=== PATIENT | male | born 1960 | race African-American/Black ===

== ENCOUNTER 2016-06-17 09:09 | Inpatient (IN) | payer OTHER ==
[~2016-06-17] VITALS: Ht 180.3 cm; Wt 103.2 kg
[2016-06-17] VITALS (7 sets, daily range): BP systolic 111–142; BP diastolic 71–80; PULSE 55–77; RESP 14–22; TEMP 96.7–98.4; O2SAT 95–100
[~2016-06-17 09:09] MED LIST: ACET300T2 PO; AMIO200T PO; ASPI81TA11 PO; EDOX1TAB5 PO; FURO20TA PO; LIPI40TA PO; LISI-519 PO; METF1000 PO; METO25TA3 PO; MULT1TAB84 PO
[2016-06-17] MEDS ORDERED: FUROSEMIDE 40 MG/4 ML VIAL IV PUSH ONE (10:00)
--- NOTE | 2016-06-17 10:02 | PD ---
HPI Chief Complaint: Edema Time Seen by Provider: 09:58 Travel History International Travel<30 days: No Contact w/Intl Traveler<30days: No Traveled to known affect area: No History of Present Illness HPI 55-year-old male with history of CHF, presents to the ER today sent in by his primary care physician, apparently has been having worsening edema the legs and going up to the scrotal areas, getting dyspnea on exertion. He was sent because of worsening scrotal edema and concerns of whether there is an underlying hernia versus significant scrotal fluid and edema with note from his primary care physician for chest x-ray and scrotal ultrasound. He denies any fevers or any other issues. Modifying Factors: None Associated Signs & Symptoms: Worsening leg and scrotal edema, dyspnea on exertion Risk Factors: CHF history PFSH Past Medical History Hx Anticoagulant Therapy: Yes (CUMIDIN) Arthritis: No Asthma: No Atrial Fibrillation: Yes Anxiety: No Depression: No Heart Rhythm Problems: No Cancer: No Cardiac Catheterization: Yes Cardiovascular Problems: Yes (PACER ) High Cholesterol: No Chest Pain: Yes (2007) COPD: No Cerebrovascular Accident: No Coronary Artery Disease: Yes Diabetes: Yes (TYPE II) Patient Takes Glucophage: Yes (METFORMIN BUT HASN'T TAKEN IT LATELY) Diminished Hearing: No Endocrine: Yes Gastrointestinal Disorders: No GERD: No Genitourinary: No Headaches: Yes (OCCASIONAL) Hiatal Hernia: No Heparin Induced Thrombocytopen: No Hypertension: Yes Immune Disorder: No Implanted Vascular Access Dvce: No Kidney Stones: No Musculoskeletal: No Neurologic: No Psychiatric: No Reproductive: No Respiratory: No Immunizations Current: Yes Migraines: No Myocardial Infarction: Yes Renal Failure: No Seizures: No Sickle Cell Disease: No Sleep Apnea: No Ulcer: No Past Surgical History Abdominal Surgery: No AICD: No Arteriovenous Shunt: No Cardiac Surgery: Yes (ANGIOPLASTY 2008, ABLASION) Ear Surgery: No Endocrine Surgery: No Eye Surgery: No Genitourinary Surgery: No Insulin Pump: No Joint Replacement: No Neurologic Surgery: No Oral Surgery: No Pacemaker: Yes Thoracic Surgery: No Other Surgery: No Social History Alcohol Use: Yes (OCC) Tobacco Use: No Substance Use: No Allergies-Medications (Allergen,Severity, Reaction): Coded Allergies: No Known Allergies (Unverified , 06/16/16) Reported Meds & Prescriptions Reported Meds & Active Scripts Active Lipitor (Atorvastatin Calcium) 40 Mg Tab 40 Mg PO HS Furosemide 20 Mg Tab 20 Mg PO DAILY Metoprolol Tartrate 25 Mg Tab 25 Mg PO Q12HR Metformin (Metformin HCl) 1,000 Mg Tab 1,000 Mg PO BIDPC With meals Lisinopril 5 Mg Tab 5 Mg PO DAILY Savaysa (Edoxaban) 60 Mg Tab 60 Mg PO Q24H Amiodarone (Amiodarone HCl) 200 Mg Tab 400 Mg PO Q12HR Aspirin EC (Aspirin) 81 Mg Tabdr 81 Mg PO DAILY 90 Days Acetaminophen-Codeine 300-30 mg Tab 1 Tab PO Q6HR PRN Reported Multivitamin Adults (Multiple Vitamins W/ Minerals) 1 Tab 1 Tab PO DAILY Review of Systems Except as stated in HPI: all other systems reviewed are Neg Physical Exam Narrative GENERAL: Well-nourished, well-developed middle age -[place] male patient in no acute distress at rest. SKIN: Warm and dry. HEAD: Normocephalic. EYES: No scleral icterus. No injection or drainage. NECK: Supple, trachea midline. CARDIOVASCULAR: Regular rate and rhythm without murmurs, gallops, or rubs. RESPIRATORY: Breath sounds equal bilaterally. No accessory muscle use. GASTROINTESTINAL: Abdomen soft, non-tender, nondistended. GENITOURINARY: Significant penile and scrotal edema. Testes descended bilaterally without evidence of rotation. No lesions or erythema. MUSCULOSKELETAL: No cyanosis. But there is significant pitting edema of the legs up to the thigh area. BACK: Nontender without obvious deformity. No CVA tenderness. Data Data Last Documented VS Vital Signs Date Time Temp Pulse Resp B/P Pulse Ox O2 Delivery O2 Flow Rate FiO2 06/17/16 09:36 76 93 Room Air 06/17/16 09:19 96.7 14 Orders Complete Blood Count With Diff (06/17/16 09:52) Basic Metabolic Panel (Bmp) (06/17/16 09:52) B-Type Natriuretic Peptide (06/17/16 09:52) Us Testicles W Doppler (06/17/16 09:52) Chest, Single Ap (06/17/16 09:58) Furosemide Inj (Lasix Inj) (06/17/16 10:00) Labs Laboratory Tests Test 06/17/16 10:00 White Blood Count 5.5 TH/MM3 Red Blood Count 4.53 MIL/MM3 Hemoglobin 13.0 GM/DL Hematocrit 40.8 % Mean Corpuscular Volume 90.0 FL Mean Corpuscular Hemoglobin 28.7 PG Mean Corpuscular Hemoglobin 31.9 % Concent Red Cell Distribution Width 18.5 % Platelet Count 196 TH/MM3 Mean Platelet Volume 9.9 FL Neutrophils (%) (Auto) 70.5 % Lymphocytes (%) (Auto) 20.2 % Monocytes (%) (Auto) 7.5 % Eosinophils (%) (Auto) 1.1 % Basophils (%) (Auto) 0.7 % Neutrophils # (Auto) 3.8 TH/MM3 Lymphocytes # (Auto) 1.1 TH/MM3 Monocytes # (Auto) 0.4 TH/MM3 Eosinophils # (Auto) 0.1 TH/MM3 Basophils # (Auto) 0.0 TH/MM3 CBC Comment DIFF FINAL Differential Comment Sodium Level 138 MEQ/L Potassium Level 4.6 MEQ/L Chloride Level 106 MEQ/L Carbon Dioxide Level 21.8 MEQ/L Anion Gap 10 MEQ/L Blood Urea Nitrogen 21 MG/DL Creatinine 1.36 MG/DL Estimat Glomerular Filtration 66 ML/MIN Rate Random Glucose 161 MG/DL Calcium Level 8.8 MG/DL B-Type Natriuretic Peptide 1735 PG/ML [facility] Medical Decision Making Medical Screen Exam Complete: Yes Emergency Medical Condition: Yes Medical Record Reviewed: Yes Interpretation(s) Laboratory Tests Test 06/17/16 10:00 Mean Corpuscular Hemoglobin 31.9 % Concent (32.0-36.0) Red Cell Distribution Width 18.5 % (11.6-17.2) Neutrophils (%) (Auto) 70.5 % (16.0-70.0) Blood Urea Nitrogen 21 MG/DL (7-18) Creatinine 1.36 MG/DL (0.60-1.30) Estimat Glomerular Filtration 66 ML/MIN (>89) Rate Random Glucose 161 MG/DL (74-106) B-Type Natriuretic Peptide 1735 PG/ML (0-100) Differential Diagnosis Scrotal edema, leg edema, shortness of breathCHF exacerbation versus testicular torsion versus hernia Narrative Course Patient appears to be is in significant CHF with elevated BNP and chest x-ray findings. Patient was initiated on Lasix in the ER. Ultrasound did not show any signs of testicular torsion but is likely significant for underlying fluid edema. My plan would be to admit the patient for further treatment. The case was discussed with Dr. Cannon for admission. Diagnosis Primary Impression: Acute exacerbation of CHF (congestive heart failure) Admitting Information Admitting Physician Requests: it Daisy Otero MD Jun 17, 2016 10:02
[2016-06-17 10:24] LABS: AUTOMATED NEUTROPHIL # 3.8 TH/MM3 (1.8-7.7); BASOPHIL % 0.7 % (0.0-2.0); EOSINOPHIL # 0.1 TH/MM3 (0-0.4); EOSINOPHIL % 1.1 % (0.0-4.0); HEMATOCRIT 40.8 % (39.0-51.0); HEMO FLAGS DIFF FINAL; LYMPH % 20.2 % (9.0-44.0); LYMPHOCYTE # 1.1 TH/MM3 (1.0-4.8); MEAN CORPUSCULAR HEMOGLOBIN 28.7 PG (27.0-34.0); MEAN CORPUSCULAR HGB CONC 31.9 % (32.0-36.0); MONO % 7.5 % (0.0-8.0); NEUT % 70.5 % (16.0-70.0); PLATELET COUNT 196 TH/MM3 (150-450); RED BLOOD COUNT 4.53 MIL/MM3 (4.50-5.90); RED CELL DISTRIBUTION WIDTH 18.5 % (11.6-17.2); WHITE BLOOD COUNT 5.5 TH/MM3 (4.0-11.0)
--- NOTE | 2016-06-17 10:24 | RADRPT ---
EXAM DATE/TIME: 06/17/2016 10:16 [facility] COMPARISON: CHEST SINGLE AP, May 30, 2016, 14:00. INDICATIONS : Short of breath. MEDICAL HISTORY : None. SURGICAL HISTORY : Pacemaker. ENCOUNTER: Initial ACUITY: 1 day PAIN SCORE: 0/10 LOCATION: Bilateral chest FINDINGS: Pacemaker device is noted with control pack over the left chest. Moderate enlargement of the cardiac silhouette, slightly more pronounced than prior. Mild central vascular congestion. CONCLUSION: Cardiomegaly and vascular congestion. Alfredo Martini MD on June 17, 2016 at 10:21 Board Certified Radiologist. This report was verified electronically.
[2016-06-17 10:35] LABS: BICARBONATE 21.8 MEQ/L (21.0-32.0); POTASSIUM 4.6 MEQ/L (3.5-5.1)
--- NOTE | 2016-06-17 12:06 | RADRPT ---
EXAM DATE/TIME: 06/17/2016 10:35 [facility] COMPARISON: No previous studies available for comparison. INDICATIONS : Testicle pain. MEDICAL HISTORY : Diabetes mellitus type 2. Congestive heart failure. Anticoagulant therpay, Coumadin. SURGICAL HISTORY : Pacemaker. Angioplasty. Cardiac ablation. Cardiac catheterization. ENCOUNTER: Initial ACUITY: 1 day PAIN SCORE: 8/10 LOCATION: Bilateral testicles. MEASUREMENTS: RIGHT TESTICLE: 3.3 x 2.4 x 2.4cm LEFT TESTICLE: 3.2 x 2.1 x 2.2cm FINDINGS: RIGHT TESTICLE: Homogeneous echotexture without intra or extratesticular mass. Blood flow is symmetric and within no rmal limits. No hydrocele or varicocele. Epididymis is within normal limits. LEFT TESTICLE: Homogeneous echotexture without intra or extratesticular mass. Blood flow is symmetric and within no rmal limits. Mild varicocele. Epididymis is within normal limits. SCROTUM: Pronounced diffuse thickening of the skin and subcutaneous tissues. CONCLUSION: Pronounced thickening of the scrotal soft tissues. Testicles are unremarkable Alfredo Martini MD on June 17, 2016 at 12:02 Board Certified Radiologist. This report was verified electronically.
[2016-06-17] MEDS ORDERED: SODIUM CHLORIDE 0.9% FLUSH 5 ML FLUSH IVF PRN (12:45)
[2016-06-17] MEDS: HEPARIN SODIUM - SQ 10,000 UNITS/ML VIAL SQ SCH ×3 (13:54→21:22)
[2016-06-17] MEDS: FUROSEMIDE 40 MG/4 ML VIAL IVP SCH (18:18)
--- NOTE | 2016-06-17 18:36 | HHI.HP ---
[facility]ician LILLIAM Alva Admission Diagnosis CHF exacerbation Diagnoses: Chief Complaint: Sent from his PCP office due to worsening swelling in the legs and scrotum Travel History International Travel<30 Days: No Contact w/Intl Traveler <30 Da: No Traveled to Known Affected Are: No History of Present Illness 55 years old male with history of CHF, A. fib, diabetes mellitus, hypertension, hyperlipidemia status post pacemaker placement recently, presented with few days worsening of leg swelling and scrotal swelling along with dyspnea on exertion and orthopnea. No chest pain, patient was at his PCP office and he was sent to the hospital due to worsening anasarca. Patient reported mild left lower abdominal pain which he attributed to hernia that he is following up with his physician for. Review of Systems Other All 10 systems reviewed and was positive for what is mentioned in history of present illness otherwise negative Past Family Social History Past Medical History Hypertension Diabetes mellitus Hyperlipidemia CHF A. fib status post ablation and AICD/pacemaker Past Surgical History Pacemaker placement Allergies: Coded Allergies: No Known Allergies (Unverified , 06/16/16) Family History Reviewed noncontributory Social History Drinks occasionally alcohol no tobacco or illicit drug abuse Physical Exam Vital Signs Vital Signs Date Time Temp Pulse Resp B/P Pulse Ox O2 Delivery O2 Flow Rate FiO2 06/17/16 17:38 69 20 111/80 99 Room Air 06/17/16 15:55 74 20 117/80 98 Room Air 06/17/16 13:51 97 21 06/17/16 09:36 76 93 Room Air 06/17/16 09:19 96.7 55 14 95 Physical Exam GENERAL: This is a well-nourished, well-developed patient, in no apparent distress. SKIN: No rashes, warm and dry HEAD: Atraumatic. Normocephalic. EYES: Pupils equal round and reactive. Extraocular motions intact. No scleral icterus. ENT: Nose without bleeding, or drainage, Airway patent. NECK: Trachea midline. Supple CARDIOVASCULAR: Pacer rate and rhythm without murmurs, gallops, or rubs. RESPIRATORY: Fair air entry bilaterally. No wheezes, rales, or rhonchi. GASTROINTESTINAL: Abdomen soft, non-tender, nondistended. Positive bowel sounds MUSCULOSKELETAL: Extremities without clubbing, cyanosis, +2 pitting edema. Pedal pulses appreciated NEUROLOGICAL: Awake and alert. Moves all extremity. Normal speech.no focal neurological deficit : Positive scrotal edema Laboratory Laboratory Tests Test 06/17/16 06/17/16 10:00 15:11 White Blood Count 5.5 Red Blood Count 4.53 Hemoglobin 13.0 Hematocrit 40.8 Mean Corpuscular Volume 90.0 Mean Corpuscular Hemoglobin 28.7 Mean Corpuscular Hemoglobin 31.9 Concent Red Cell Distribution Width 18.5 Platelet Count 196 Mean Platelet Volume 9.9 Neutrophils (%) (Auto) 70.5 Lymphocytes (%) (Auto) 20.2 Monocytes (%) (Auto) 7.5 Eosinophils (%) (Auto) 1.1 Basophils (%) (Auto) 0.7 Neutrophils # (Auto) 3.8 Lymphocytes # (Auto) 1.1 Monocytes # (Auto) 0.4 Eosinophils # (Auto) 0.1 Basophils # (Auto) 0.0 CBC Comment DIFF FINAL Differential Comment Sodium Level 138 Potassium Level 4.6 Chloride Level 106 Carbon Dioxide Level 21.8 Anion Gap 10 Blood Urea Nitrogen 21 Creatinine 1.36 Estimat Glomerular Filtration 66 Rate Random Glucose 161 Calcium Level 8.8 B-Type Natriuretic Peptide 1735 Troponin I LESS THAN 0.02 Result Diagram: 06/17/16 1000 06/17/16 1000 Imaging Last Impressions Chest X-Ray 06/17/16 0958 Signed Impressions: Service Date/Time: June 10:16 - CONCLUSION: Cardiomegaly and vascular congestion. Alfredo Martini MD Scrotum Ultrasound 06/17/16 0981 Signed Impressions: Service Date/Time: June 10:35 - CONCLUSION: Pronounced thickening of the scrotal soft tissues. Testicles are unremarkable Alfredo Martini MD Assessment and Plan Assessment and Plan 55 years old male admitted with CHF exacerbation with leg and scrotal swelling/anasarca, recent TEE04/2016 EF15- 20% Elevated BNP 1735 NEY on CKD stage II worsened by CHF Hypertension Diabetes mellitus Hyperlipidemia DVT prophylaxis Plan: Admit for observation Lasix IVB twice a day Strict I/O Healthy heart diabetic diet Fluid restriction 1500 , per day Accu-Chek, insulin sliding scale, diabetic diet, diabetic education Resume home meds for the rest of the medical problem Follow BMP, BNP Heparin for DVT prophylaxis Discussed Condition With patient in ED physician Jimmy Cannon MD Jun 17, 2016 18:36
[2016-06-17] MEDS: EDOXABAN TOSYLATE 60 MG TAB PO SCH (21:21)
[2016-06-17] MEDS: AMIODARONE 200 MG TAB PO SCH (21:21)
[2016-06-17] MEDS: ATORVASTATIN 40 MG TAB PO SCH (21:21)
[2016-06-17] MEDS: SODIUM CHLORIDE 0.9% FLUSH 5 ML FLUSH IVF SCH (21:22)
[2016-06-17] MEDS: METOPROLOL TARTRATE 25 MG TAB PO SCH (21:22)
[2016-06-18] VITALS (9 sets, daily range): BP systolic 110–131; BP diastolic 63–90; PULSE 68–136; RESP 18–20; TEMP 97.2–98; O2SAT 94–100
[2016-06-18] MEDS ORDERED: KETOROLAC TROMETHAMINE 60 MG/2 ML (IM) VIAL IM ONE (00:45)
[2016-06-18] MEDS: ACETAMINOPHEN/HYDROcodone 325 MG/5 MG TAB PO PRN ×2 (03:11→20:59)
[2016-06-18] MEDS: HEPARIN SODIUM - SQ 10,000 UNITS/ML VIAL SQ SCH ×3 (06:06→21:00)
[2016-06-18 06:49] LABS: INTERNATIONAL NORMALIZED RATIO 1.7 RATIO; PROTHROMBIN TIME - PATIENT 18.9 SEC (9.8-11.6)
[2016-06-18 07:12] LABS: ALKALINE PHOSPHATASE 178 U/L (45-117); ALT (GPT) 31 U/L (12-78); ANION GAP 10 MEQ/L (5-15); AST (GOT) 43 U/L (15-37); BICARBONATE 23.1 MEQ/L (21.0-32.0); BLOOD UREA NITROGEN 20 MG/DL (7-18); CHLORIDE 106 MEQ/L (98-107); GLOMERULAR FILTRATION RATE 90 ML/MIN (>89); POTASSIUM 3.7 MEQ/L (3.5-5.1); SODIUM (NA) 139 MEQ/L (136-145); TOTAL BILIRUBIN ADULT 1.2 MG/DL (0.2-1.0)
[2016-06-18] MEDS: SODIUM CHLORIDE 0.9% FLUSH 5 ML FLUSH IVF SCH ×2 (09:00→21:00)
[2016-06-18] MEDS: AMIODARONE 200 MG TAB PO SCH ×2 (09:25→20:58)
[2016-06-18] MEDS: FUROSEMIDE 40 MG/4 ML VIAL IVP SCH ×2 (09:25→17:32)
[2016-06-18] MEDS: METOPROLOL TARTRATE 25 MG TAB PO SCH ×2 (09:25→20:59)
[2016-06-18] MEDS: ASPIRIN EC 81 MG TABEC PO SCH (09:25)
[2016-06-18] MEDS: LISINOPRIL 5 MG TAB PO SCH (09:25)
--- NOTE | 2016-06-18 13:37 | HHI.PR ---
Subjective Remarks patient sitting on the edge of the bed, afebrile no chest pain, still having scrotal swelling and significant leg edema we'll continue on diuretic IV, he had hypoalbuminemia, will give albumin trial with Lasix to improve diuresis Objective Vitals Vital Signs Date Time Temp Pulse Resp B/P Pulse Ox O2 Delivery O2 Flow Rate FiO2 06/18/16 09:45 94 21 06/18/16 08:50 136 06/18/16 08:00 97.5 92 20 129/90 98 06/18/16 04:00 98.0 68 18 110/76 98 06/18/16 00:00 97.8 72 18 113/67 99 06/17/16 20:49 98.4 77 22 142/71 96 06/17/16 20:00 69 06/17/16 20:00 Room Air 06/17/16 18:45 97.4 73 22 113/73 100 06/17/16 17:38 69 20 111/80 99 Room Air 06/17/16 15:55 74 20 117/80 98 Room Air 06/17/16 13:51 97 21 I/O 06/17/16 06/17/16 06/17/16 06/18/16 06/18/16 06/18/16 07:00 15:00 23:00 07:00 15:00 23:00 Intake Total 240 ml 240 ml Output Total 600 ml Balance 240 ml -360 ml Intake Oral 240 ml 240 ml Output Urine Total 600 ml # Voids 0 # Bowel Movements 0 0 Result Diagram: 06/17/16 1000 06/18/16 0511 Imaging Last Impressions Chest X-Ray 06/17/16 0958 Signed Impressions: Service Date/Time: June 10:16 - CONCLUSION: Cardiomegaly and vascular congestion. Alfredo Mratini MD Scrotum Ultrasound 06/17/16 0952 Signed Impressions: Service Date/Time: June 10:35 - CONCLUSION: Pronounced thickening of the scrotal soft tissues. Testicles are unremarkable Alfredo Martini MD Objective Remarks ---GENERAL: Well nourished/well developed patient in no apparent distress CARDIOVASCULAR: Regular rate and rhythm without murmurs, gallops or rubs. RESPIRATORY: Bibasilar crackles appreciated GASTROINTESTINAL: Abdomen soft, non-tender, nondistended. Normal active bowel sounds MUSCULOSKELETAL: Extremities without clubbing, cyanosis, but with last 3 pitting edema. NEURO: Alert & Oriented x4 to person, place, time, and situation. Moves all ext x4 : Significant scrotal and penile edema A/P Assessment and Plan 55 years old male admitted with CHF exacerbation with leg and scrotal swelling/anasarca, recent TEE04/2016 EF15- 20% Elevated BNP 1735 NEY on CKD stage II worsened by CHF Hypertension Diabetes mellitus Hyperlipidemia DVT prophylaxis Plan: BNP trending down as well as creatinine Will add albumin trial with Lasix to improve diuresis continue Lasix IV twice a day Strict I/O Healthy heart diabetic diet Fluid restriction 1500 , per day Accu-Chek, insulin sliding scale, diabetic diet, diabetic education Resume home meds for the rest of the medical problem Follow BMP, BNP Heparin for DVT prophylaxis Jimmy Cannon MD Jun 18, 2016 13:37
--- NOTE | 2016-06-18 16:00 | EC ---
Study Study Date:06/18/2016 STUDY CONCLUSIONS SUMMARY - Left ventricle: The cavity size was moderately dilated. Systolic function was severely reduced. The estimated ejection fraction was in the range of 15% to 20%. Diffuse hypokinesis. - Aortic valve: Trace regurgitation. Valve area: 4.55cm^2(VTI). Valve area: 3.8cm^2 (Vmax). - Mitral valve: Severe regurgitation directed along the left atrial wall. - Left atrium: The atrium was severely dilated. - Right ventricle: The cavity size was dilated. - Right atrium: The atrium was severely dilated. - Tricuspid valve: Mild regurgitation. - Pulmonary arteries: PA peak pressure: 31mm Hg (S). - Pericardium, extracardiac: A moderate to large pericardial effusion was identified. There was no evidence of hemodynamic compromise. If LV function is below 40, please consider prescribing an ACEI or ARB or document rationale for non-use. PROCEDURE DATA STUDY STATUS: Elective. Procedure: Transthoracic echocardiography. Image quality was good. Scanning was performed from the parasternal, apical, and subcostal acoustic windows. Study completion: The patient tolerated the procedure well. Transthoracic echocardiography. M-mode, complete 2D, complete spectral Doppler, and color Doppler. Height: Height: 71in. Weight: Weight: 234.5lb. Body mass index: BMI: 32.8kg/m^2. Body surface area: BSA: 2.26m^2. Patient status: Inpatient. CARDIAC ANATOMY LEFT VENTRICLE: The cavity size was moderately dilated. Systolic function was severely reduced. The estimated ejection fraction was in the range of 15% to 20%. Diffuse hypokinesis. AORTIC VALVE: Probably trileaflet; mildly thickened leaflets. Doppler: There was no stenosis. Trace regurgitation. Valve area: 4.55cm^2(VTI). Indexed valve area: 2.01cm^2/m^2 (VTI). Valve area: 3.8cm^2 (Vmax). Indexed valve area: 1.68cm^2/m^2 (Vmax). Mean gradient: 2mm Hg (S). MITRAL VALVE: Doppler: There was no evidence for stenosis. Severe regurgitation directed along the left atrial wall. Peak gradient: 5mm Hg (D). LEFT ATRIUM: The atrium was severely dilated. RIGHT VENTRICLE: The cavity size was dilated. PULMONIC VALVE: Not well visualized. Doppler: There was no evidence for stenosis. Mild to moderate regurgitation. TRICUSPID VALVE: The valve appears to be grossly normal. Doppler: There was no evidence for stenosis. Mild regurgitation. RIGHT ATRIUM: The atrium was severely dilated. PERICARDIUM: A moderate to large pericardial effusion was identified. There was no evidence of hemodynamic compromise. Patient weight: 234.5lb _Ejection fraction:_ 65-75% _Fractional shortening:_ 32% up to 5Kg 5-11.5Kg 11.6-22.9Kg 23-45Kg 45-57Kg Aortic Root 7-13 <17 13-22 17-27 17-27 LA diam 6-13 <23 24-38 33-47 37-40 RVID 10-17 7-15 7-15 7-18 8-17 LVIDd 12-22 <32 24-38 33-47 37-40 LVPW 2-4 3-6 5-7 6-8 7-8 IVS 2-4 3-6 5-7 6-8 7-8 BASIC MEASUREMENTS ADULT NORMAL Left ventricle LV internal dimension, ED, chordal *63 mm 43-52 level, PLAX LV internal dimension, ES, chordal *55.6 mm 23-38 level, PLAX Fractional shortening, chordal level, *12 % >29 PLAX LV posterior wall thickness, ED 8.29 mm IVS/LVPW ratio, ED 1.01 <1.3 Volume, ED, MOD, 1-plane 203 ml Volume, ES, MOD, 1-plane 158 ml Ejection fraction, MOD, 1-plane 22 % Stroke volume, MOD, 1-plane 45 ml Volume index, ED, MOD, 1-plane 90 ml/m^2 Volume index, ES, MOD, 1-plane 70 ml/m^2 Stroke index, MOD, 1-plane 19.9 ml/m^2 Volume, ED, MOD, 2-plane 184 ml Volume, ES, MOD, 2-plane 139 ml Ejection fraction, MOD, 2-plane 24 % Stroke volume, MOD, 2-plane 45 ml Volume index, ED, MOD, 2-plane 81 ml/m^2 Volume index, ES, MOD, 2-plane 62 ml/m^2 Stroke index, MOD, 2-plane 19.9 ml/m^2 Ventricular septum Septal thickness, ED 8.39 mm Aortic valve Leaflet separation 24 mm 15-26 Aorta Root diameter, ED 34 mm Left atrium Anterior-posterior dimension 63 mm Anterior-posterior dimension index *2.79 cm/m^2 <2.2 Right ventricle RV internal dimension, ED, PLAX *52.5 mm 19-38 BASIC MEASUREMENTS ADULT NORMAL Aortic valve Leaflet separation 24 mm 15-26 DOPPLER MEASUREMENTS ADULT NORMAL Main pulmonary artery Pressure, S *31 mm Hg =30 Aortic valve Peak velocity, S 95.1 cm/s Mean velocity, S 61.1 cm/s VTI, S 11.6 cm Mean gradient, S 2 mm Hg Valve area, VTI 4.55 cm^2 Valve area index, VTI 2.01 cm^2/m^2 Valve area, Vmax 3.8 cm^2 Valve area index, Vmax 1.68 cm^2/m^2 Mitral valve Peak E-wave velocity 108 cm/s Peak gradient, D 5 mm Hg Tricuspid valve Regurgitant peak velocity 211 cm/s Peak RV-RA gradient, S 18 mm Hg Right ventricle RV pressure, S *33 mm Hg <30 Pulmonic valve Peak velocity, S 61.9 cm/s LEGEND: Mean values are shown as u=mean value. Asterisk (*) moise values outside specified normal range. Prepared and signed by Juice Vann [id number]
[2016-06-18] MEDS: EDOXABAN TOSYLATE 60 MG TAB PO SCH (17:32)
[2016-06-18] MEDS: ALBUMIN HUMAN 5% 25 GM/500 ML BOTTLE IV SCH (17:32)
[2016-06-18] MEDS: ATORVASTATIN 40 MG TAB PO SCH (20:59)
[2016-06-18] MEDS: LOW DOSE INSULIN NOVOLOG SUPPLEMENTAL SCALE SQ SCH (21:00)
[2016-06-18] MEDS ORDERED: GLUCAGON 1 MG/ML VIAL OTHER PRN (21:00)
[2016-06-18] MEDS ORDERED: DEXTROSE 50% IN WATER 50 ML VIAL(D50) IV PUSH PRN (21:00)
[2016-06-18] MEDS ORDERED: PLEASE DISCONTINUE PREVIOUS SUPPLEMENTAL SCALE INSULIN ORDERS XX ONE (21:00)
[2016-06-19] VITALS (8 sets, daily range): BP systolic 105–126; BP diastolic 72–88; PULSE 68–94; RESP 18–20; TEMP 95–98.2; O2SAT 95–100
[2016-06-19] MEDS: HEPARIN SODIUM - SQ 10,000 UNITS/ML VIAL SQ SCH ×3 (06:08→20:52)
[2016-06-19] MEDS: LOW DOSE INSULIN NOVOLOG SUPPLEMENTAL SCALE SQ SCH ×4 (06:09→20:52)
[2016-06-19 07:43] LABS: BICARBONATE 23.9 MEQ/L (21.0-32.0); POTASSIUM 3.4 MEQ/L (3.5-5.1)
[2016-06-19] MEDS: ALBUMIN HUMAN 5% 25 GM/500 ML BOTTLE IV SCH ×2 (09:37→17:07)
[2016-06-19] MEDS: AMIODARONE 200 MG TAB PO SCH ×2 (09:38→20:51)
[2016-06-19] MEDS: LISINOPRIL 5 MG TAB PO SCH (09:38)
[2016-06-19] MEDS: METOPROLOL TARTRATE 25 MG TAB PO SCH ×2 (09:38→20:51)
[2016-06-19] MEDS: ASPIRIN EC 81 MG TABEC PO SCH (09:38)
[2016-06-19] MEDS: SODIUM CHLORIDE 0.9% FLUSH 5 ML FLUSH IVF SCH ×2 (09:46→20:52)
[2016-06-19] MEDS: FUROSEMIDE 40 MG/4 ML VIAL IVP SCH ×2 (10:00→19:08)
--- NOTE | 2016-06-19 11:24 | HHI.PR ---
Subjective Remarks "Whatever you are doing it is definitely working " Patient seems to be improving on trial of albumin and Lasix, his leg and scrotal edema improving Afebrile, no chest pain or short of breath Objective Vitals Vital Signs Date Time Temp Pulse Resp B/P Pulse Ox O2 Delivery O2 Flow Rate FiO2 06/19/16 09:28 96 21 06/19/16 08:00 95.0 94 20 126/86 95 06/19/16 04:00 97.5 81 18 113/79 97 06/19/16 00:00 97.6 68 18 119/72 100 06/18/16 21:35 98 06/18/16 20:00 97.2 82 18 131/90 100 06/18/16 20:00 92 06/18/16 20:00 Room Air 06/18/16 16:00 97.9 86 20 114/63 99 06/18/16 12:00 97.6 93 20 112/72 98 I/O 06/18/16 06/18/16 06/18/16 06/19/16 06/19/16 06/19/16 06:59 14:59 22:59 06:59 14:59 22:59 Intake Total 240 ml 720 ml 240 ml 240 ml Output Total 600 ml 1525 ml 900 ml 400 ml Balance -360 ml -805 ml -660 ml -160 ml Intake Oral 240 ml 720 ml 240 ml 240 ml Output Urine Total 600 ml 1525 ml 900 ml 400 ml # Voids 1 # Bowel Movements 0 1 Result Diagram: 06/17/16 1000 06/19/16 0630 Objective Remarks ---GENERAL: Well nourished/well developed patient in no apparent distress CARDIOVASCULAR: Regular rate and rhythm without murmurs, gallops or rubs. RESPIRATORY: Bibasilar crackles appreciated GASTROINTESTINAL: Abdomen soft, non-tender, nondistended. Normal active bowel sounds MUSCULOSKELETAL: Extremities without clubbing, cyanosis, but with last 3 pitting edema. NEURO: Alert & Oriented x4 to person, place, time, and situation. Moves all ext x4 : Significant scrotal and penile edema A/P Assessment and Plan 55 years old male admitted with CHF exacerbation with leg and scrotal swelling/anasarca, recent TEE04/2016 EF15- 20% Elevated BNP 1735 NEY on CKD stage II worsened by CHF Hypertension Diabetes mellitus Hyperlipidemia DVT prophylaxis Plan: BNP continue to trending down as well as creatinine Improving with albumin trial with Lasix, will give another 4 doses Replace potassium with KCl 402, check BMP and magnesium in a.m. continue Lasix IV twice a day Strict I/O Healthy heart diabetic diet Fluid restriction 1500 , per day Accu-Chek, insulin sliding scale, diabetic diet, diabetic education Resume home meds for the rest of the medical problem Follow BMP, BNP Heparin for DVT prophylaxis Jimmy Cannon MD Jun 19, 2016 11:23
[2016-06-19] MEDS: POTASSIUM CHLORIDE 10 MEQ CONTROLLED RELEASE TAB PO SCH ×2 (12:00→20:50)
[2016-06-19] MEDS: EDOXABAN TOSYLATE 60 MG TAB PO SCH (16:27)
[2016-06-19] MEDS: ATORVASTATIN 40 MG TAB PO SCH (20:51)
[2016-06-20] VITALS (8 sets, daily range): BP systolic 102–140; BP diastolic 74–87; PULSE 63–100; RESP 18–22; TEMP 96–97.9; O2SAT 94–100
[2016-06-20] MEDS: HEPARIN SODIUM - SQ 10,000 UNITS/ML VIAL SQ SCH ×3 (06:11→21:11)
[2016-06-20] MEDS: LOW DOSE INSULIN NOVOLOG SUPPLEMENTAL SCALE SQ SCH ×4 (06:12→21:11)
[2016-06-20] MEDS: METOPROLOL TARTRATE 25 MG TAB PO SCH ×2 (07:56→21:10)
[2016-06-20] MEDS: LISINOPRIL 5 MG TAB PO SCH (07:56)
[2016-06-20] MEDS: ASPIRIN EC 81 MG TABEC PO SCH (07:56)
[2016-06-20] MEDS: AMIODARONE 200 MG TAB PO SCH ×2 (07:56→21:10)
[2016-06-20] MEDS: FUROSEMIDE 40 MG/4 ML VIAL IVP SCH ×2 (07:57→17:06)
[2016-06-20] MEDS: SODIUM CHLORIDE 0.9% FLUSH 5 ML FLUSH IVF SCH ×2 (07:57→21:11)
[2016-06-20 09:17] LABS: BICARBONATE 22.8 MEQ/L (21.0-32.0); MAGNESIUM 1.8 MG/DL (1.5-2.5)
--- NOTE | 2016-06-20 09:51 | HHI.PR ---
Subjective Remarks Patient still doing well with the diuresing with albumin and Lasix However he was slightly breathing heavily when I entered the room, I asked him if he left the bed he said no but he get heavy breathing after he ate his breakfast No chest pain, no fever, no cough Scrotal and leg swelling still coming along well I again discussed with him and counseled him about fluid restriction, religiously nose hold diet Objective Vitals Vital Signs Date Time Temp Pulse Resp B/P Pulse Ox O2 Delivery O2 Flow Rate FiO2 06/20/16 08:00 97.9 88 22 119/87 97 06/20/16 04:00 97.3 100 18 140/74 94 06/20/16 00:00 Room Air 06/20/16 00:00 96.0 63 18 114/78 96 06/19/16 20:02 94 06/19/16 20:00 Room Air 06/19/16 20:00 98.2 90 18 116/88 100 06/19/16 16:00 96.9 87 20 112/79 98 06/19/16 12:00 96.0 89 20 105/76 100 I/O 06/19/16 06/19/16 06/19/16 06/20/16 06/20/16 06/20/16 07:00 15:00 23:00 07:00 15:00 23:00 Intake Total 240 ml 720 ml 360 ml 100 ml Output Total 400 ml 1000 ml 1500 ml 1100 ml Balance -160 ml -280 ml -1140 ml -1000 ml Intake Oral 240 ml 720 ml 360 ml 100 ml Output Urine Total 400 ml 1000 ml 1500 ml 1100 ml # Bowel Movements 1 0 Result Diagram: 06/17/16 1000 06/20/16 0709 Objective Remarks ---GENERAL: Well nourished/well developed patient in no apparent distress CARDIOVASCULAR: Regular rate and rhythm without murmurs, gallops or rubs. RESPIRATORY: Bibasilar crackles appreciated GASTROINTESTINAL: Abdomen soft, non-tender, nondistended. Normal active bowel sounds MUSCULOSKELETAL: Extremities without clubbing, cyanosis, but with last 3 pitting edema. NEURO: Alert & Oriented x4 to person, place, time, and situation. Moves all ext x4 : Significant scrotal and penile edema A/P Assessment and Plan 55 years old male admitted with CHF exacerbation with leg and scrotal swelling/anasarca, recent TEE04/2016 EF15- 20% Elevated BNP 1735 NEY on CKD stage II worsened by CHF Hypertension Diabetes mellitus Hyperlipidemia DVT prophylaxis Plan: BNP surprisingly back to 1537 today, we'll recheck in a.m. Still Improving with albumin trial with Lasix, last ptosis today Reviewed BMP today within normal limits, magnesium 1.8 replace continue Lasix IV twice a day Strict I/O Healthy heart diabetic diet, will add Glucerna and consult meal attendant Fluid restriction 1500 , per day Accu-Chek, insulin sliding scale, diabetic diet, diabetic education Resume home meds for the rest of the medical problem Follow BMP, BNP Heparin for DVT prophylaxis Jimmy Cannon MD Jun 20, 2016 09:51
[2016-06-20] MEDS: ALBUMIN HUMAN 5% 25 GM/500 ML BOTTLE IV SCH ×2 (09:58→17:06)
[2016-06-20] MEDS: MAGNESIUM SULFATE 1 GM PREMIX 100 ML IV SCH ×2 (10:03→10:04)
[2016-06-20] MEDS: EDOXABAN TOSYLATE 60 MG TAB PO SCH (13:43)
[2016-06-20] MEDS: ACETAMINOPHEN/HYDROcodone 325 MG/5 MG TAB PO PRN ×2 (17:10→21:10)
[2016-06-20] MEDS: ATORVASTATIN 40 MG TAB PO SCH (21:09)
[2016-06-21 00:26] VITALS: BP 105/78; PULSE 93; RESP 24; TEMP 97.5; O2SAT 99
[2016-06-21 05:45] VITALS: BP 105/78; PULSE 93; RESP 24; TEMP 97.5; O2SAT 99
[2016-06-21] MEDS: LOW DOSE INSULIN NOVOLOG SUPPLEMENTAL SCALE SQ SCH ×4 (05:47→21:00)
[2016-06-21] MEDS: HEPARIN SODIUM - SQ 10,000 UNITS/ML VIAL SQ SCH ×3 (05:47→21:07)
[2016-06-21] MEDS: ACETAMINOPHEN/HYDROcodone 325 MG/5 MG TAB PO PRN ×3 (05:52→21:06)
[2016-06-21 06:27] LABS: BICARBONATE 20.2 MEQ/L (21.0-32.0); POTASSIUM 3.8 MEQ/L (3.5-5.1)
[2016-06-21 08:00] VITALS: BP 126/80; PULSE 88; PULSE 95; RESP 20; TEMP 97.8; O2SAT 94
[2016-06-21] MEDS: ALBUMIN HUMAN 5% 25 GM/500 ML BOTTLE IV SCH (08:43)
[2016-06-21] MEDS: AMIODARONE 200 MG TAB PO SCH ×2 (08:44→21:07)
[2016-06-21] MEDS: LISINOPRIL 5 MG TAB PO SCH (08:44)
[2016-06-21] MEDS: ASPIRIN EC 81 MG TABEC PO SCH (08:44)
[2016-06-21] MEDS: METOPROLOL TARTRATE 25 MG TAB PO SCH ×2 (08:44→21:07)
[2016-06-21] MEDS: SODIUM CHLORIDE 0.9% FLUSH 5 ML FLUSH IVF SCH ×2 (08:48→21:07)
[2016-06-21] MEDS: FUROSEMIDE 40 MG/4 ML VIAL IVP SCH ×2 (11:38→18:20)
[2016-06-21 12:00] VITALS: BP 106/74; PULSE 82; RESP 20; TEMP 97.9; O2SAT 99
[2016-06-21] MEDS ORDERED: FURO1TAB60 PO (13:31)
--- NOTE | 2016-06-21 13:59 | HHI.PR ---
Subjective Remarks swelling seems to be not improved that much from yesterday , pt is eating mashed potato with gravy , meet I d/w nurse trying to see the reliabity of the fluid restriction or pt compliance with it his last dose of albumin , is today will inc lasix to 60 iv bid will add aldactone 25 mg podaily , repeat bmp, bnp, in am , asked nurse to accurately measure the urine Objective Vitals Vital Signs Date Time Temp Pulse Resp B/P Pulse Ox O2 Delivery O2 Flow Rate FiO2 06/21/16 08:15 Room Air 06/21/16 08:00 97.8 88 20 126/80 94 06/21/16 05:45 97.5 93 24 105/78 99 06/21/16 00:26 97.5 93 24 105/78 99 06/20/16 20:41 91 06/20/16 20:40 97.5 94 22 108/79 100 06/20/16 20:00 Room Air 06/20/16 16:00 97.6 87 20 116/84 100 I/O 06/20/16 06/20/16 06/20/16 06/21/16 06/21/16 06/21/16 07:00 15:00 23:00 07:00 15:00 23:00 Intake Total 100 ml 240 ml Output Total 1100 ml 300 ml 300 ml Balance -1000 ml -60 ml -300 ml Intake Oral 100 ml 240 ml Output Urine Total 1100 ml 300 ml 300 ml # Voids 3 2 2 # Bowel Movements 0 2 Result Diagram: 06/17/16 1000 06/21/16 0510 Objective Remarks ---GENERAL: Well nourished/well developed patient in no apparent distress CARDIOVASCULAR: Regular rate and rhythm without murmurs, gallops or rubs. RESPIRATORY: Bibasilar crackles appreciated GASTROINTESTINAL: Abdomen soft, non-tender, nondistended. Normal active bowel sounds MUSCULOSKELETAL: Extremities without clubbing, cyanosis, but with last 3 pitting edema. NEURO: Alert & Oriented x4 to person, place, time, and situation. Moves all ext x4 : Significant scrotal and penile edema A/P Assessment and Plan 55 years old male admitted with CHF exacerbation with leg and scrotal swelling/anasarca, recent TEE04/2016 EF15- 20% Elevated BNP 1735 NEY on CKD stage II worsened by CHF Hypertension Diabetes mellitus Hyperlipidemia DVT prophylaxis Plan: BNP 1537>>1560 , swelling not improving I d/w nurse trying to see the reliability of the fluid restriction or pt compliance with it his last dose of albumin , is today , will inc lasix to 60 iv bid JORDI hose , legs elevation will add aldactone 25 mg podaily , repeat bmp, bnp, in am , asked nurse to accurately measure the urine Strict I/O Healthy heart diabetic diet, will add Glucerna and consult dietary aide Fluid restriction 1500 , per day Accu-Chek, insulin sliding scale, diabetic diet, diabetic education Resume home meds for the rest of the medical problem Follow BMP, BNP Heparin for DVT prophylaxis Jimmy Cannon MD Jun 21, 2016 13:59
[2016-06-21] MEDS: EDOXABAN TOSYLATE 60 MG TAB PO SCH (14:46)
[2016-06-21] MEDS: SPIRONOLACTONE 25 MG TAB PO SCH (14:46)
[2016-06-21 16:00] VITALS: BP 115/84; PULSE 105; RESP 20; TEMP 97.2; O2SAT 94
[2016-06-21 20:00] VITALS: BP 123/91; PULSE 100; PULSE 97; RESP 18; TEMP 97.2; O2SAT 96
[2016-06-21] MEDS: ATORVASTATIN 40 MG TAB PO SCH (21:07)
[2016-06-22] VITALS (8 sets, daily range): BP systolic 103–146; BP diastolic 75–104; PULSE 50–108; RESP 18–20; TEMP 97–98; O2SAT 94–100
[2016-06-22] MEDS: HEPARIN SODIUM - SQ 10,000 UNITS/ML VIAL SQ SCH ×3 (06:34→21:39)
[2016-06-22] MEDS: LOW DOSE INSULIN NOVOLOG SUPPLEMENTAL SCALE SQ SCH ×4 (06:35→21:00)
[2016-06-22] MEDS: ACETAMINOPHEN/HYDROcodone 325 MG/5 MG TAB PO PRN ×3 (06:35→21:37)
[2016-06-22 08:03] LABS: BICARBONATE 24.4 MEQ/L (21.0-32.0); POTASSIUM 4.3 MEQ/L (3.5-5.1)
[2016-06-22] MEDS: SPIRONOLACTONE 25 MG TAB PO SCH (08:03)
[2016-06-22] MEDS: AMIODARONE 200 MG TAB PO SCH ×2 (08:03→21:36)
[2016-06-22] MEDS: FUROSEMIDE 40 MG/4 ML VIAL IVP SCH (08:04)
[2016-06-22] MEDS: ASPIRIN EC 81 MG TABEC PO SCH (08:04)
[2016-06-22] MEDS: SODIUM CHLORIDE 0.9% FLUSH 5 ML FLUSH IVF SCH ×2 (08:04→21:00)
[2016-06-22] MEDS: LISINOPRIL 5 MG TAB PO SCH (09:00)
[2016-06-22] MEDS: METOPROLOL TARTRATE 25 MG TAB PO SCH ×2 (09:00→21:38)
--- NOTE | 2016-06-22 13:27 | HHI.PR ---
Subjective Remarks Scrotal swelling significantly improved today, lower extremity relatively better but still with significant pitting edema No short of breath no fever, we upgraded his Lasix to 60 twice a day yesterday, will do this 3 times a day today Objective Vitals Vital Signs Date Time Temp Pulse Resp B/P Pulse Ox O2 Delivery O2 Flow Rate FiO2 06/22/16 12:00 97.3 100 18 119/86 98 06/22/16 09:42 Room Air 21 06/22/16 08:04 98.0 50 18 103/80 94 06/22/16 04:00 98.0 97 18 135/104 98 06/22/16 00:00 97.0 89 18 123/86 100 06/21/16 20:00 100 06/21/16 20:00 Room Air 06/21/16 20:00 97.2 97 18 123/91 96 06/21/16 16:00 97.2 105 20 115/84 94 I/O 06/21/16 06/21/16 06/21/16 06/22/16 06/22/16 06/22/16 06:59 14:59 22:59 06:59 14:59 22:59 Intake Total 1240 ml 240 ml 100 ml Output Total 800 ml 200 ml Balance 1240 ml -560 ml -100 ml Intake Oral 740 ml 240 ml 100 ml IV Total 500 ml Output Urine Total 800 ml 200 ml # Voids 2 4 # Bowel Movements 1 0 0 Result Diagram: 06/22/16 0644 Objective Remarks ---GENERAL: Well nourished/well developed patient in no apparent distress CARDIOVASCULAR: Regular rate and rhythm without murmurs, gallops or rubs. RESPIRATORY: Bibasilar crackles appreciated GASTROINTESTINAL: Abdomen soft, non-tender, nondistended. Normal active bowel sounds MUSCULOSKELETAL: Extremities without clubbing, cyanosis, +3 pitting edema. NEURO: Alert & Oriented x4 to person, place, time, and situation. Moves all ext x4 : scrotal and penile edema improved A/P Assessment and Plan 55 years old male admitted with CHF exacerbation with leg and scrotal swelling/anasarca, recent TEE04/2016 EF15- 20% Elevated BNP 1735 NEY on CKD stage II worsened by CHF Hypertension Diabetes mellitus Hyperlipidemia DVT prophylaxis Plan: BNP 1537>>1560>1600 , swelling in the scrotum significantly improved, lower extremity better than before, continue fluid restriction 1500 cc a day his last dose of albumin , is today , will again increase Lasix to 60 mg iv every 8 hours Continue with JORDI aguilar , legs elevation Added aldactone 25 mg podaily , repeat bmp reviewed today potassium 4.5 therefore stop daily scheduled potassium and repeat BMP in a.m., bnp, in am , nurse to accurately measure the urine Strict I/O Healthy heart diabetic diet, add Glucerna and consult housing and residence life director Fluid restriction 1500 , per day Accu-Chek, insulin sliding scale, diabetic diet, diabetic education Resume home meds for the rest of the medical problem Follow BMP, BNP Heparin for DVT prophylaxis Jimmy Cannon MD Jun 22, 2016 13:27
[2016-06-22] MEDS: EDOXABAN TOSYLATE 60 MG TAB PO SCH (14:17)
[2016-06-22] MEDS: FUROSEMIDE 100 MG/10 ML VIAL IV SCH (17:16)
[2016-06-22] MEDS: ATORVASTATIN 40 MG TAB PO SCH (21:37)
[2016-06-23] VITALS: BP 114/81; PULSE 97; RESP 20; TEMP 97.8; O2SAT 97
[2016-06-23] MEDS: FUROSEMIDE 100 MG/10 ML VIAL IV SCH ×2 (00:11→08:49)
[2016-06-23 04:00] VITALS: BP 100/64; PULSE 81; RESP 18; TEMP 97.5; O2SAT 100
[2016-06-23] MEDS: LOW DOSE INSULIN NOVOLOG SUPPLEMENTAL SCALE SQ SCH ×2 (04:56→11:00)
[2016-06-23] MEDS: HEPARIN SODIUM - SQ 10,000 UNITS/ML VIAL SQ SCH (04:56)
[2016-06-23 08:00] VITALS: BP 115/77; PULSE 102; PULSE 98; RESP 20; TEMP 98.5; O2SAT 100
[2016-06-23] MEDS: LISINOPRIL 5 MG TAB PO SCH (08:49)
[2016-06-23] MEDS: AMIODARONE 200 MG TAB PO SCH (08:49)
[2016-06-23] MEDS: ASPIRIN EC 81 MG TABEC PO SCH (08:50)
[2016-06-23] MEDS: SODIUM CHLORIDE 0.9% FLUSH 5 ML FLUSH IVF SCH (08:50)
[2016-06-23] MEDS: ACETAMINOPHEN/HYDROcodone 325 MG/5 MG TAB PO PRN (08:50)
[2016-06-23] MEDS: SPIRONOLACTONE 25 MG TAB PO SCH (08:50)
[2016-06-23] MEDS: METOPROLOL TARTRATE 25 MG TAB PO SCH (08:50)
[2016-06-23] MEDS ORDERED: SPIR25TA PO (11:29)
[2016-06-23] MEDS ORDERED: POTA1TAB4 PO (11:29)
[2016-06-23 11:33] LABS: BICARBONATE 29.9 MEQ/L (21.0-32.0); POTASSIUM 3.9 MEQ/L (3.5-5.1)
[2016-06-23] MEDS ORDERED: METF500T PO (11:34)
--- NOTE | 2016-06-23 11:39 | HHI.PR ---
Subjective Remarks Follow up on advanced CHF EF 15-20% Patient put out over 5 L yesterday, he is now wearing his JORDI hose with a stricter fluid of 1500 cc Scrotal swelling much improved, leg swelling coming along, discussed with the patient will discharge him on Lasix twice a day with spironolactone to follow up with Dr. Bishop as an outpatient Objective Vitals Vital Signs Date Time Temp Pulse Resp B/P Pulse Ox O2 Delivery O2 Flow Rate FiO2 06/23/16 04:00 97.5 81 18 100/64 100 06/23/16 00:00 97.8 97 20 114/81 97 06/22/16 20:50 Room Air 06/22/16 20:01 108 06/22/16 20:00 97.5 107 20 122/102 99 06/22/16 16:00 97.0 100 18 115/75 100 06/22/16 12:00 97.3 100 18 119/86 98 I/O 06/22/16 06/22/16 06/22/16 06/23/16 06/23/16 06/23/16 07:00 15:00 23:00 07:00 15:00 23:00 Intake Total 100 ml 960 ml 362 ml 100 ml Output Total 200 ml 2200 ml 1200 ml 1700 ml Balance -100 ml -1240 ml -838 ml -1600 ml Intake Oral 100 ml 960 ml 360 ml 100 ml IV Total 2 ml Output Urine Total 200 ml 2200 ml 1200 ml 1700 ml # Bowel Movements 0 1 0 0 Result Diagram: 06/22/16 0644 Objective Remarks ---GENERAL: Well nourished/well developed patient in no apparent distress CARDIOVASCULAR: Regular rate and rhythm without murmurs, gallops or rubs. RESPIRATORY: Bibasilar crackles appreciated GASTROINTESTINAL: Abdomen soft, non-tender, nondistended. Normal active bowel sounds MUSCULOSKELETAL: Extremities without clubbing, cyanosis, +3 pitting edema. NEURO: Alert & Oriented x4 to person, place, time, and situation. Moves all ext x4 : scrotal and penile edema improved A/P Assessment and Plan 55 years old male admitted with CHF exacerbation with leg and scrotal swelling/anasarca, recent TEE04/2016 EF15- 20% Elevated BNP 1735 NEY on CKD stage II worsened by CHF, improved with diuresis Hypertension Diabetes mellitus Hyperlipidemia DVT prophylaxis Plan: BNP 1537>>1560>1600 , swelling in the scrotum significantly improved, lower extremity swelling still there but improving, continue fluid restriction 1500 cc a day Status post albumin Lasix trial, status post Lasix to 60 mg iv every 8 hours, will discharge on 40 mg twice a day with strict limited fluid to 1500 , no salt diet Continue with JORDI hose , legs elevation Spironolactone 12.5 mg podaily , monitor BMP and BNP as an outpatient by PCP Strict I/O Healthy heart diabetic diet, add Glucerna and consult salesperson neckties Fluid restriction 1500 , per day Accu-Chek, insulin sliding scale, diabetic diet, diabetic education, blood glucose has been well controlled off metformin without insulin coverage, I will decrease metformin at discharge to 500 twice a day to follow up with PCP for further adjustment Resume home meds for the rest of the medical problem DVT prophylaxis patient on edoxaban Jimmy Cannon MD Jun 23, 2016 11:39
--- NOTE | 2016-06-23 11:44 | HHI.DS ---
Discharge Summary Admission Date Jun 17, 2016 at 12:46 Discharge Date: Jun 23, 2016 Admitting Diagnosis CHF exacerbation (1) Type II diabetes mellitus ICD Code: E11.9 (2) CAD (coronary artery disease) ICD Code: I25.10 (3) Mitral valve regurgitation ICD Code: I34.0 (4) CHF (congestive heart failure) ICD Code: I50.9 (5) Leg edema ICD Code: R60.0 (6) DM (diabetes mellitus) ICD Code: E11.9 (7) HLD (hyperlipidemia) ICD Code: E78.5 (8) HTN (hypertension) ICD Code: I10 (9) AICD (automatic cardioverter/defibrillator) present ICD Code: Z95.810 Procedures None Brief History - From Admission 55 years old male with history of CHF, A. fib, diabetes mellitus, hypertension, hyperlipidemia status post pacemaker placement recently, presented with few days worsening of leg swelling and scrotal swelling along with dyspnea on exertion and orthopnea. No chest pain, patient was at his PCP office and he was sent to the hospital due to worsening anasarca. Patient reported mild left lower abdominal pain which he attributed to hernia that he is following up with his physician for. CBC/BMP: 06/22/16 0644 Significant Findings Laboratory Tests Test 06/21/16 06/22/16 05:10 06:44 Carbon Dioxide Level 20.2 MEQ/L (21.0-32.0) B-Type Natriuretic Peptide 1564 PG/ML 1698 PG/ML (0-100) (0-100) Blood Urea Nitrogen 22 MG/DL (7-18) Random Glucose 122 MG/DL (74-106) PE at Discharge ---GENERAL: Well nourished/well developed patient in no apparent distress CARDIOVASCULAR: Regular rate and rhythm without murmurs, gallops or rubs. RESPIRATORY: Bibasilar crackles appreciated GASTROINTESTINAL: Abdomen soft, non-tender, nondistended. Normal active bowel sounds MUSCULOSKELETAL: Extremities without clubbing, cyanosis, +2 pitting edema. NEURO: Alert & Oriented x4 to person, place, time, and situation. Moves all ext x4 : scrotal and penile edema improved Hospital Course 55 years old male admitted with severe CHF exacerbation anasarca with leg and scrotal swelling/anasarca, recent TEE04/2016 EF15-20% Elevated BNP 1735,NEY on CKD stage II worsened by CHF,Hypertension,Diabetes mellitus,Hyperlipidemia,DVT prophylaxis Patient started on iv diuresing with strict JENNIFER, no salt diet BNP initially start trending down,Status post albumin Lasix trial due to his hypoalbuminemia, swelling in the scrotum significantly improved, lower extremity swelling still there but improving, continue fluid restriction 1500 cc a day , status post Lasix to 60 mg iv every 8 hours, will discharge on 40 mg twice a day with strict limited fluid to 1500 , no salt diet Continue with JORDI hose , legs elevation Spironolactone 12.5 mg podaily , monitor BMP and BNP as an outpatient by PCP Healthy heart diabetic diet, add Glucerna to improve nutrition status and consult roof painter Fluid restriction 1500 , per day Accu-Chek, insulin sliding scale, diabetic diet, diabetic education, blood glucose has been well controlled off metformin without insulin coverage, I will decrease metformin at discharge to 500 twice a day to follow up with PCP for further adjustment Resume home meds for the rest of the medical problem DVT prophylaxis patient on edoxaban [id number] encounter performed with the patient on discharge day, as well as physical exam, summary of hospitalization course and postdischarge plan has been D/W the patient. D/W nurse D/W window caser. Discharge medications reviewed and printed and signed, post discharge follow up visit with PCP and other specialist as well as Brief hospital course and discharge summary has been placed. Pt Condition on Discharge: Stable Discharge Disposition: Discharge Home Discharge Time: > 30 minutes Discharge Instructions DIET: Follow Instructions for: Heart Healthy Diet, Diabetic Diet Fluid Restrictions: 1500 cc per day Activities you can perform: Weight Bearing as Jenn Other Activity Instructions: No salt diet Follow up Referrals: PCP Follow-up - 1 Week with Pooja Peoples MD New Orders: BASIC METABOLIC PROF - 2-3 Days BNP - 2-3 Days New Medications: Furosemide (Lasix) 40 Mg Tab 40 MG PO BID chf #60 Ref 0 TAB Metformin (Metformin) 500 Mg Tab 500 MG PO BIDPC With meals Blood Sugar Management #60 Ref 0 TAB Potassium Chloride ER (K-Tab) 20 Meq Tab 10 MEQ PO DAILY Electrolyte Replacement #30 Ref 0 TAB Spironolactone (Spironolactone) 25 Mg Tab 12.5 MG PO DAILY chf advanced #30 Ref 0 TAB Continued Medications: Acetaminophen-Codeine (Acetaminophen-Codeine) 300-30 mg Tab 1 TAB PO Q6HR PRN PAIN SCALE 4 TO 10 #15 TAB Amiodarone (Amiodarone) 200 Mg Tab 400 MG PO Q12HR Heart #60 Ref [address] (Aspirin EC) 81 Mg Tabdr 81 MG PO DAILY Blood Clot Prevention Days 90 TAB Atorvastatin (Lipitor) 40 Mg Tab 40 MG PO HS Cholesterol Management #30 Ref 2 TAB Edoxaban (Savaysa) 60 Mg Tab 60 MG PO Q24H Blood Clot Prevention #30 Ref 2 TAB Lisinopril (Lisinopril) 5 Mg Tab 5 MG PO DAILY Blood Pressure Management #30 Ref 2 TAB Metoprolol Tartrate (Metoprolol Tartrate) 25 Mg Tab 25 MG PO Q12HR #60 Ref 2 TAB Multiple Vitamins W/ Minerals (Multivitamin Adults) 1 Tab 1 TAB PO DAILY Nutritional Supplement Ref 0 TAB Jimmy Cannon MD Jun 23, 2016 11:44
[2016-06-23 12:00] VITALS: BP 92/68; PULSE 88; RESP 20; TEMP 98; O2SAT 96
[2016-07-02] MEDS ORDERED: METO25TA3 PO (11:37)
[2016-07-02] MEDS ORDERED: METF1000 PO (11:37)
[2016-07-02] MEDS ORDERED: POTA1TAB4 PO (11:37)
[2016-07-02] MEDS ORDERED: SPIR25TA PO (11:37)
[2016-07-02] MEDS ORDERED: LISI-519 PO (11:37)
[2016-07-02] MEDS ORDERED: FURO1TAB60 PO (11:37)
[2016-07-02] MEDS ORDERED: AMIO200T PO (11:37)
[2016-07-02] MEDS ORDERED: EDOX1TAB5 PO (11:37)
--- NOTE | 2016-07-07 17:07 | PQ ---
Physician Query Response Document PATIENT: CLARISSA ONEAL : 1960 ADMIT DATE: 06/17/2016 12:46 PM DISCH DATE: 06/23/2016 1:50 PM RESPONDING PROVIDER #: jose daniel QUERY TEXT: CHF Acuity and Type Heart Failure is documented in the Medical Record. Please also document the type and acuity (includes probable or suspected) such as: Type: -- Combined -- Diastolic -- Systolic -- Other (please specify) Acuity: -- Acute -- Acute on chronic -- Chronic -- Other (please specify) Also please document the underlying cause of the heart failure (includes probable or suspected) The patient's Clinical Indicators include: CHF exacerbation BNP 1735 echo 04/15/16 left ventricle dilated. Systolic function severely reduced by visual assessment. Ej fx 15 - 20% Diff use hypokinesis asha valve mod regurg , left atrium moderately dilated right atrium moderately dilated , tricuspid valve mild regurgitation. Query created by: Oksana Estes on 06/18/2016 11:07 AM RESPONSE TEXT: Acute on chronic systolic cardiopyopathy Electronically signed by: Jimmy Cannon MD 07/07/2016 5:03 PM
[2016-08-11] MEDS ORDERED: ATOR40TA16 PO (11:55)
[2016-08-11] MEDS ORDERED: POTA1TAB4 PO (12:15)
[2016-08-11] MEDS ORDERED: FURO1TAB60 PO (12:15)
[2016-08-11] MEDS ORDERED: LISI-519 PO (12:15)
[2016-09-01] MEDS ORDERED: MULT1TAB84 PO (15:19)
[2016-10-08] MEDS ORDERED: POTA1TAB4 PO (12:13)
[2016-10-08] MEDS ORDERED: AMIO200T PO (12:13)
[2016-10-15] MEDS ORDERED: METF500T PO (08:44)
[2016-10-15] MEDS ORDERED: AMIO200T PO (08:44)
[2016-10-15] MEDS ORDERED: SPIR25TA PO (08:44)
[2016-10-15] MEDS ORDERED: FURO1TAB60 PO (08:44)
[2016-10-15] MEDS ORDERED: LISI-519 PO (08:44)
[2016-10-15] MEDS ORDERED: ATOR40TA16 PO (08:44)
[2016-10-15] MEDS ORDERED: POTA10TA2 PO (08:44)
[2016-10-15] MEDS ORDERED: METO25TA3 PO (08:44)
[2016-11-24] MEDS ORDERED: [UNRECOGNIZED DRUG - CODE] PO (12:14)
== END 2016-06-23 13:50 | disposition home or self-care (01) | DRG 292 ==
LOC: NEPE 09:09 → NEDA 12:46 → N04B 18:57
PROVIDERS: ADMIT Hospitalist; ATTEND Hospitalist
DX: I13.0 Hypertensive heart and chronic kidney disease with heart failure and stage 1 through stage 4 chronic kidney disease, or unspecified chronic kidney disease (principal); N17.9 Acute kidney failure, unspecified; E11.22 Type 2 diabetes mellitus with diabetic chronic kidney disease; N18.2 Chronic kidney disease, stage 2 (mild); I50.9 Heart failure, unspecified; E78.5 Hyperlipidemia, unspecified; I34.0 Nonrheumatic mitral (valve) insufficiency; I48.91 Unspecified atrial fibrillation; I25.2 Old myocardial infarction; Z79.84 Long term (current) use of oral hypoglycemic drugs; Z95.810 Presence of automatic (implantable) cardiac defibrillator
CPT/HCPCS: 71010; 76870; 76937; 80048; 80053; 82948; 83735; 83880; 84484; 85025; 85610; 93306; 93975; 96374; J1644; J1815; J1940; J3475; P9045

== ENCOUNTER 2017-03-11 18:02 | Inpatient (IN) | payer OTHER ==
[~2017-03-11] VITALS: Ht 180.3 cm; Wt 89.8 kg
[~2017-03-11 18:02] MED LIST changes: +ATOR40TA16 PO; +FURO1TAB60 PO; -FURO20TA PO; -LIPI40TA PO; -METF1000 PO; +METF500T PO; -MULT1TAB84 PO; +POTA-163 PO; +SPIR25TA PO; +[UNRECOGNIZED DRUG - CODE] PO
[2017-03-11 18:06] VITALS: BP 105/69; PULSE 56; RESP 19; TEMP 98.1; O2SAT 98
--- NOTE | 2017-03-11 19:03 | RADRPT ---
EXAM DATE/TIME: 03/11/2017 18:54 [facility] COMPARISON: No previous studies available for comparison. INDICATIONS : Chest pain and shortness of breath. MEDICAL HISTORY : None. SURGICAL HISTORY : Pacemaker. ENCOUNTER: Initial ACUITY: 3 days PAIN SCORE: 10/10 LOCATION: Left chest FINDINGS: No infiltrate, effusion or pneumothorax. Heart size much decreased in the interim, now normal. Cardio megaly before may have been related to a pericardial effusion. Cardiac pacer/defibrillator again note d. CONCLUSION: No evidence of acute cardiopulmonary disease. Alfredo James MD on March 11, 2017 at 19:01 Board Certified Radiologist. This report was verified electronically.
[2017-03-11 19:42] LABS: AUTOMATED NEUTROPHIL # 8.4 TH/MM3 (1.8-7.7); BASOPHIL # 0.1 TH/MM3 (0-0.2); BASOPHIL % 0.5 % (0.0-2.0); EOSINOPHIL % 0.3 % (0.0-4.0); HEMATOCRIT 31.9 % (39.0-51.0); HEMO FLAGS DIFF FINAL; LYMPH % 11.7 % (9.0-44.0); LYMPHOCYTE # 1.2 TH/MM3 (1.0-4.8); MEAN CELL VOLUME 96.8 FL (80.0-100.0); MEAN CORPUSCULAR HEMOGLOBIN 32.2 PG (27.0-34.0); MEAN CORPUSCULAR HGB CONC 33.2 % (32.0-36.0); MONO % 7.4 % (0.0-8.0); NEUT % 80.1 % (16.0-70.0); PLATELET COUNT 258 TH/MM3 (150-450); RED BLOOD COUNT 3.29 MIL/MM3 (4.50-5.90); RED CELL DISTRIBUTION WIDTH 14.6 % (11.6-17.2); WHITE BLOOD COUNT 10.5 TH/MM3 (4.0-11.0)
[2017-03-11 19:44] LABS: ANION GAP 9 MEQ/L (5-15); BICARBONATE 24.7 MEQ/L (21.0-32.0); BLOOD UREA NITROGEN 84 MG/DL (7-18); CHLORIDE 96 MEQ/L (98-107); GLOMERULAR FILTRATION RATE 10 ML/MIN (>89); POTASSIUM 5.9 MEQ/L (3.5-5.1); SODIUM (NA) 130 MEQ/L (136-145)
[2017-03-11 19:48] LABS: CREATINE KINASE 220 U/L (39-308)
[2017-03-11 21:05] VITALS: RESP 16; O2SAT 100
[2017-03-11 21:10] VITALS: BP 122/69; PULSE 55; RESP 16; O2SAT 100
--- NOTE | 2017-03-11 21:31 | EKG ---
Date Performed: 03/11/2017 Time Performed: 18:19:36 PTAGE: 56 years EKG: SINUS BRADYCARDIA NONSPECIFIC INTRAVENTRICULAR CONDUCTION DELAY PROLONGED QT INTERVAL ABNOR MAL ECG PREVIOUS TRACING : 05/31/2016 10.36 Compared to previous tracing, sinus bradycardia has replace d atrial tachycardia with 2:1 AV conduction, heart rate has slowed. DOCTOR: Monty Santiago Interpretating Date/Time 03/11/2017 21:31:10
--- NOTE | 2017-03-11 21:42 | PD ---
HPI Chief Complaint: Chest Pain Time Seen by Provider: 21:13 Travel History International Travel<30 days: No Contact w/Intl Traveler<30days: No Traveled to known affect area: No History of Present Illness HPI So 56-year-old man who presents to the emergency department complaining of increased fluid develop. He states he's been having darker colored urine, nausea for the past several days. He takes frontal lactone as well as Lasix. He ran out of a couple of his medicines but is taking most pretty regularly. He was recently placed on potassium. She states she has some blood work done and was told to come to the emergency room. He describes some swelling in his legs, and some chest discomfort. History Past Medical History Narrative Medical Hypertension Diabetes Hypoproteinemia CHF A. fib, AICD, on Edoxaban Tetanus Vaccination: < 5 Years Influenza Vaccination: Yes Social History Alcohol Use: Yes (OCC) Tobacco Use: No Allergies-Medications (Allergen,Severity, Reaction): Coded Allergies: No Known Allergies (Unverified , 03/11/17) Reported Meds & Prescriptions Reported Meds & Active Scripts Active Amiodarone (Amiodarone HCl) 200 Mg Tab 400 Mg PO Q12HR Lisinopril 5 Mg Tab 5 Mg PO DAILY Potassium Chloride ER (Potassium Chloride) 20 Meq Tab 20 Meq PO DAILY Strovite One (Multiple Vitamins W/ Minerals) 1 Tab Tab 1 Tab PO DAILY Lasix (Furosemide) 40 Mg Tab 40 Mg PO BID Atorvastatin (Atorvastatin Calcium) 40 Mg Tab 40 Mg PO HS Spironolactone 25 Mg Tab 12.5 Mg PO DAILY Metoprolol Tartrate 25 Mg Tab 25 Mg PO Q12HR Metformin (Metformin HCl) 500 Mg Tab 500 Mg PO BIDPC With meals Savaysa (Edoxaban) 60 Mg Tab 60 Mg PO Q24H Aspirin EC (Aspirin) 81 Mg Tabdr 81 Mg PO DAILY 90 Days Acetaminophen-Codeine 300-30 mg Tab 1 Tab PO Q6HR PRN Review of Systems Except as stated in HPI: all other systems reviewed are Neg Physical Exam Narrative GENERAL: Well-appearing 56-year-old man, no acute distress. SKIN: Focused skin assessment warm/dry. HEAD: Atraumatic. Normocephalic. EYES: Pupils equal and round. No scleral icterus. No injection or drainage. ENT: No nasal bleeding or discharge. Mucous membranes pink and moist. NECK: Trachea midline. No JVD. CARDIOVASCULAR: Regular rate and rhythm. No murmur appreciated. RESPIRATORY: No accessory muscle use. Clear to auscultation. Breath sounds equal bilaterally. GASTROINTESTINAL: Abdomen soft, non-tender, nondistended. Hepatic and splenic margins not palpable. MUSCULOSKELETAL: No obvious deformities. Trace edema. No obvious fluid overload. Data Data Last Documented VS Vital Signs Date Time Temp Pulse Resp B/P (MAP) Pulse Ox O2 Delivery O2 Flow Rate FiO2 03/11/17 21:10 55 16 122/69 (86) 100 Room Air 03/11/17 18:06 98.1 Orders Orders Electrocardiogram (03/11/17 18:15) Chest, Pa & Lat (03/11/17 18:15) Complete Blood Count With Diff (03/11/17 18:30) Basic Metabolic Panel (Bmp) (03/11/17 18:30) Ckmb (Isoenzyme) Profile (03/11/17 18:30) Troponin I (03/11/17 18:30) Iv Access Insert/Monitor (03/11/17 18:30) Ecg Monitoring (03/11/17 18:30) Oxygen Administration (03/11/17 18:30) Oximetry (03/11/17 18:30) CKMB (03/11/17 18:29) CKMB% (03/11/17 18:29) Labs Laboratory Tests Test 03/11/17 18:29 White Blood Count 10.5 TH/MM3 Red Blood Count 3.29 MIL/MM3 Hemoglobin 10.6 GM/DL Hematocrit 31.9 % Mean Corpuscular Volume 96.8 FL Mean Corpuscular Hemoglobin 32.2 PG Mean Corpuscular Hemoglobin Concent 33.2 % Red Cell Distribution Width 14.6 % Platelet Count 258 TH/MM3 Mean Platelet Volume 9.7 FL Neutrophils (%) (Auto) 80.1 % Lymphocytes (%) (Auto) 11.7 % Monocytes (%) (Auto) 7.4 % Eosinophils (%) (Auto) 0.3 % Basophils (%) (Auto) 0.5 % Neutrophils # (Auto) 8.4 TH/MM3 Lymphocytes # (Auto) 1.2 TH/MM3 Monocytes # (Auto) 0.8 TH/MM3 Eosinophils # (Auto) 0.0 TH/MM3 Basophils # (Auto) 0.1 TH/MM3 CBC Comment DIFF FINAL Differential Comment Blood Urea Nitrogen 84 MG/DL Creatinine 7.20 MG/DL Random Glucose 109 MG/DL Calcium Level 9.2 MG/DL Sodium Level 130 MEQ/L Potassium Level 5.9 MEQ/L Chloride Level 96 MEQ/L Carbon Dioxide Level 24.7 MEQ/L Anion Gap 9 MEQ/L Estimat Glomerular Filtration Rate 10 ML/MIN Total Creatine Kinase 220 U/L Creatine Kinase MB 2.0 NG/ML Troponin I 0.06 NG/ML [facility] Medical Decision Making Medical Screen Exam Complete: Yes Emergency Medical Condition: Yes Interpretation(s) My review of EKG: Sinus bradycardia rate of 54, normal axis, QTC is prolonged at 472, QRS a little wide at 1:30. No definite evidence of acute ischemia. LABS: CBC remarkable for mild anemia. CMP remarkable for elevated BUN/creatinine 84/7.2, troponins all the bumps 0.06 , potassium 5.9 Differential Diagnosis Volume overload, over diuresis, chest pain, renal failure, other Narrative Course Medical decision making This is a 56-year-old man who presents to the emergency department with what appears to be renal failure unclear etiology. He states he has increased fluid developing doesn't appear obviously volume overloaded. They think anything he' s probably overdiuresis. He may just need a trial of fluid therapy to see if this will improve his renal insufficiency. His a mild bump to his troponin I think is related to the renal insufficiency. We'll plan on admission for further evaluation. Diagnosis Primary Impression: Renal failure Admitting Information Admitting Physician Requests: Admit Ender Pearce MD Mar 11, 2017 21:42
--- NOTE | 2017-03-11 21:56 | HHI.HP ---
[facility] Pooja Peoples MD Admission Diagnosis renal failure Diagnoses: (1) ARF (acute renal failure) Diagnosis: Principal (2) Hyperkalemia Diagnosis: Principal (3) CHF (congestive heart failure) Diagnosis: Principal (4) Elevated troponin Diagnosis: Principal (5) HTN (hypertension) Diagnosis: Principal (6) Afib Diagnosis: Principal (7) DM (diabetes mellitus) Diagnosis: Principal Travel History International Travel<30 Days: No Contact w/Intl Traveler <30 Da: No Traveled to Known Affected Are: No History of Present Illness This is a 56-year-old male with PMH of HTN, Hyperlipidemia, CHF (Echo 06/18/16 w/ EF 15-20%), A-fib on Edoxaban and DM who was referred to the ER by PCP secondary to abnormal outpatient labs. States he believes he is in fluid overload and reports dark-colored urine for the last 3-4 days. Denies fever, chills, nausea, vomiting, chest pain or cough. On arrival, BP 105/69, HR 56, O2 sat 98% on RA, Afebrile. CBC is essentially unremarkable. K+ 5.9. Creatinine 7.20, previously 1.06 on 06/23/16. Trop 0.06. CXR w/ no acute findings. On exam, no evidence of fluid overload. S/p IVF in ER. Review of Systems Except as stated in HPI: all other systems reviewed are Neg ROS: 14 point review of systems otherwise negative. Past Family Social History Past Medical History PMH: HTN, Hyperlipidemia, CHF (Echo 06/18/16 w/ EF 15-20%), A-fib on Edoxaban and DM Past Surgical History PAST SURGICAL HISTORY: Pacemaker, Cardiac Ablation Allergies: Coded Allergies: No Known Allergies (Unverified , 03/11/17) Family History PAST FAMILY HISTORY: Reviewed. No h/o DM or CAD Social History PAST SOCIAL HISTORY: Occasional alcohol. Negative for tobacco or drugs. Physical Exam Vital Signs Vital Signs Date Time Temp Pulse Resp B/P (MAP) Pulse Ox O2 Delivery O2 Flow Rate FiO2 03/11/17 21:10 55 16 122/69 (86) 100 Room Air 03/11/17 21:05 16 100 Room Air 03/11/17 21:05 99 Room Air 03/11/17 18:06 98.1 56 19 105/69 (81) 98 Room Air Physical Exam PE: GENERAL: Middle-aged male in no acute distress. HEENT: PERRLA, EOMI. No scleral icterus or conjunctival pallor. No lid lag or facial droop. CARDIOVASCULAR: Regular rate and rhythm. No obvious murmurs to auscultation. No chest tenderness to palpation. RESPIRATORY: No obvious rhonchi or wheezing. Clear to auscultation. Breath sounds equal bilaterally. GASTROINTESTINAL: Abdomen soft, non-tender, nondistended. BS normal. MUSCULOSKELETAL: Extremities without clubbing, cyanosis, or edema. No obvious deformities. NEUROLOGICAL: Awake, alert and oriented x4. No focal neurologic deficits. Moving both upper and lower extremities spontaneously. Laboratory Laboratory Tests Test 03/11/17 18:29 White Blood Count 10.5 Red Blood Count 3.29 Hemoglobin 10.6 Hematocrit 31.9 Mean Corpuscular Volume 96.8 Mean Corpuscular Hemoglobin 32.2 Mean Corpuscular Hemoglobin Concent 33.2 Red Cell Distribution Width 14.6 Platelet Count 258 Mean Platelet Volume 9.7 Neutrophils (%) (Auto) 80.1 Lymphocytes (%) (Auto) 11.7 Monocytes (%) (Auto) 7.4 Eosinophils (%) (Auto) 0.3 Basophils (%) (Auto) 0.5 Neutrophils # (Auto) 8.4 Lymphocytes # (Auto) 1.2 Monocytes # (Auto) 0.8 Eosinophils # (Auto) 0.0 Basophils # (Auto) 0.1 CBC Comment DIFF FINAL Differential Comment Blood Urea Nitrogen 84 Creatinine 7.20 Random Glucose 109 Calcium Level 9.2 Sodium Level 130 Potassium Level 5.9 Chloride Level 96 Carbon Dioxide Level 24.7 Anion Gap 9 Estimat Glomerular Filtration Rate 10 Total Creatine Kinase 220 Creatine Kinase MB 2.0 Troponin I 0.06 Result Diagram: 03/11/17182803/11/171828 Caprini VTE Risk Assessment Caprini VTE Risk Assessment: Mod/High Risk (score >= 2) Caprini Risk Assessment Model Point Value = 1 Point Value = 2 Point Value = 3 Point Value = 5 Age 41-60 Minor surgery BMI > 25 kg/m2 Swollen legs Varicose veins or History of unexplained or recurrent spontaneous Oral contraceptives or hormone replacement Sepsis (< 1 month) Serious lung disease, including pneumonia (< 1 month) Abnormal pulmonary function Acute myocardial infarction Congestive heart failure (< 1 month) History of inflammatory bowel disease Medical patient at bed rest Age 61-74 Arthroscopic surgery Major open surgery (> 45 min) Laparoscopic surgery (> 45 min) Malignancy Confined to bed (> 72 hours) Immobilizing plaster cast Central venous access Age >= 75 History of VTE Family history of VTE Factor V Leiden Prothrombin [id number] Lupus anticoagulant Anticardiolipin antibodies Elevated serum homocysteine Heparin-induced thrombocytopenia Other congenital or acquired thrombophilia Stroke (< 1 month) Elective arthroplasty Hip, pelvis, or leg fracture Acute spinal cord injury (< 1 month) Prophylaxis Regimen Total Risk Factor Score Risk Level Prophylaxis Regimen 0-1 Low Early ambulation 2 Moderate Order ONE of the following: *Sequential Compression Device (SCD) *Heparin 5000 units SQ BID 3-4 Higher Order ONE of the following medications: *Heparin 5000 units SQ TID *Enoxaparin/Lovenox 40 mg SQ daily (WT < 150 kg, CrCl > 30 mL/min) *Enoxaparin/Lovenox 30 mg SQ daily (WT < 150 kg, CrCl > 10-29 mL/min) *Enoxaparin/Lovenox 30 mg SQ BID (WT < 150 kg, CrCl > 30 mL/min) AND/OR *Sequential Compression Device (SCD) 5 or more Highest Order ONE of the following medications: *Heparin 5000 units SQ TID (Preferred with Epidurals) *Enoxaparin/Lovenox 40 mg SQ daily (WT < 150 kg, CrCl > 30 mL/min) *Enoxaparin/Lovenox 30 mg SQ daily (WT < 150 kg, CrCl > 10-29 mL/min) *Enoxaparin/Lovenox 30 mg SQ BID (WT < 150 kg, CrCl > 30 mL/min) AND *Sequential Compression Device (SCD) Assessment and Plan Problem List: (1) ARF (acute renal failure) ICD Code: N17.9 - Acute kidney failure, unspecified (2) Hyperkalemia ICD Code: E87.5 - Hyperkalemia (3) Elevated troponin ICD Code: R79.89 - Other specified abnormal findings of blood chemistry Status: Acute (4) CHF (congestive heart failure) ICD Code: I50.9 - Congestive heart failure Status: Acute (5) HTN (hypertension) ICD Code: I10 - Essential (primary) hypertension Status: Chronic (6) Afib ICD Code: I48.91 - Atrial fibrillation Status: Acute (7) DM (diabetes mellitus) ICD Code: E11.9 - Type 2 diabetes mellitus without complications Assessment and Plan A/P: 1. ARF: Acute Renal Failure, unclear etiology, possibly over-diuresis, no evidence of obstruction. Creatinine 7.20, previously 1.06 on 06/23/16. Check Renal US, monitor I/O, Consult Nephrology for further evaluation/ recommendations. IVF for hydration-caution in light of CHF however no acute fluid overload at this time. 2. Hyperkalemia: K+ 5.9. Ca/Insulin/D50, repeat labs in am. 3. CHF: Chronic. Systolic. Echo 06/18/16 w/ EF 15-20%, CXR w/ no acute findings, images reviewed by me. On exam, no evidence of fluid overload. Hold Lasix/Aldactone in light of ARF. Monitor I/O as above. 4. Elevated Trop: Trop 0.06, EKG w/ no acute ischemia. No c/o chest pain. Likely secondary to renal dysfunction, check serial enzymes for trend, resume home Statin, B-ric, hold ASA in light of ARF 5. HTN: Controlled. BP 120's. Resume home medications, monitor BP. 6. A-fib: Chronic. On Edoxaban, will continue. 7. DVT Prophylaxis: On anticoagulation as above. 8. Social work for d/c planning as needed. 9. Case discussed w/ ER physician at length. Physician Certification 2 Midnight Certification Type: Admission for Inpatient Services Order for Inpatient Services The services are ordered in accordance with Medicare regulations or non- Medicare payer requirements, as applicable. In the case of services not specified as inpatient-only, they are appropriately provided as inpatient services in accordance with the 2-midnight benchmark. Estimated LOS (days): 2 days is the estimated time the patient will need to remain in the hospital, assuming treatment plan goals are met and no additional complications. Post-Hospital Plan: Not yet determined Jennifer Carroll MD Mar 11, 2017 21:56
[2017-03-11] MEDS ORDERED: SODIUM CHLOR 0.9% 1000 ML INJ 1,000 ML IV ONE (22:00)
[2017-03-11] MEDS ORDERED: LACTULOSE SYRUP 20 GM/30 ML CUP PO PRN (22:00)
[2017-03-11] MEDS ORDERED: ONDANSETRON HCL 4 MG/2 ML VIAL IVP PRN (22:00)
[2017-03-11] MEDS ORDERED: MORPHINE SULFATE 4 MG/ML INJ IV PUSH PRN (22:00)
[2017-03-11] MEDS ORDERED: CALCIUM GLUCONATE 10% 1 GM/10 ML VIAL IV PUSH ONE (22:00)
[2017-03-11] MEDS ORDERED: INSULIN HUMAN REGULAR 1,000 UNITS/10 ML VIAL IV PUSH ONE (22:00)
[2017-03-11] MEDS ORDERED: ACETAMINOPHEN/HYDROcodone 325 MG/5 MG TAB PO PRN (22:00)
[2017-03-11] MEDS ORDERED: DEXTROSE 50% IN WATER 50 ML SYRINGE IV PUSH ONE (22:00)
[2017-03-11] MEDS ORDERED: SODIUM CHLORIDE 0.9% FLUSH 10 ML FLUSH IV FLUSH PRN (22:00)
[2017-03-11] MEDS ORDERED: BISACODYL 10 MG SUPP RECTAL PRN (22:00)
[2017-03-11] MEDS ORDERED: SENNOSIDES 8.6 MG TAB PO PRN (22:00)
[2017-03-11] MEDS ORDERED: CALCIUM GLUCONATE INJ 1 GM in SODIUM CHLORIDE 0.9% INJ 100 ML IV ONE (22:15)
[2017-03-11 22:35] VITALS: PULSE 57
[2017-03-11] MEDS: EDOXABAN TOSYLATE 60 MG TAB PO SCH (22:46)
--- NOTE | 2017-03-11 22:57 | RADRPT ---
EXAM DATE/TIME: 03/11/2017 22:25 [facility] COMPARISON: No previous studies available for comparison. INDICATIONS : Increased BUN/Creatnine. MEDICAL HISTORY : Stroke. Congestive heart failure. Myocardial infarction. Dental problems. Coronary artery disease. An ticoagulant therapy. Hyperlipidemia. Atrial fibrillation. Dyspnea. Hypertension. heartburn. Diabetes. SURGICAL HISTORY : Pacemaker. Cardiac catheterization. ENCOUNTER: Initial ACUITY: 1 day PAIN SCORE: 0/10 LOCATION: Bilateral flank MEASUREMENTS: RIGHT KIDNEY: 10.9 x 5.1 x 5.0 cm LEFT KIDNEY: 10.3 x 3.8 x 5.2 cm FINDINGS: RIGHT KIDNEY: Renal cortex is normal in thickness and echotexture. No hydronephrosis, stone, or mass. LEFT KIDNEY: Renal cortex is normal in thickness and echotexture. No hydronephrosis, stone, or mass. BLADDER: Within normal limits given the degree of distension. CONCLUSION: Normal ultrasound appearance of the kidneys and urinary bladder. Alfredo James MD on March 11, 2017 at 22:55 Board Certified Radiologist. This report was verified electronically.
[2017-03-12] VITALS (7 sets, daily range): BP systolic 90–133; BP diastolic 51–76; PULSE 56–81; RESP 17–18; TEMP 97.4–99.3; O2SAT 98–100
[2017-03-12 06:23] LABS: AUTOMATED NEUTROPHIL # 8.1 TH/MM3 (1.8-7.7); BASOPHIL # 0.1 TH/MM3 (0-0.2); BASOPHIL % 0.8 % (0.0-2.0); EOSINOPHIL % 0.4 % (0.0-4.0); HEMATOCRIT 30.2 % (39.0-51.0); HEMO FLAGS DIFF FINAL; LYMPH % 9.8 % (9.0-44.0); MEAN CELL VOLUME 96.5 FL (80.0-100.0); MEAN CORPUSCULAR HEMOGLOBIN 32.8 PG (27.0-34.0); MONO % 6.5 % (0.0-8.0); NEUT % 82.5 % (16.0-70.0); PLATELET COUNT 185 TH/MM3 (150-450); RED BLOOD COUNT 3.13 MIL/MM3 (4.50-5.90); RED CELL DISTRIBUTION WIDTH 14.7 % (11.6-17.2); WHITE BLOOD COUNT 9.8 TH/MM3 (4.0-11.0)
[2017-03-12 06:58] LABS: ALKALINE PHOSPHATASE 202 U/L (45-117); ALT (GPT) 247 U/L (12-78); ANION GAP 12 MEQ/L (5-15); AST (GOT) 256 U/L (15-37); BICARBONATE 22.1 MEQ/L (21.0-32.0); BLOOD UREA NITROGEN 84 MG/DL (7-18); CHLORIDE 99 MEQ/L (98-107); GLOMERULAR FILTRATION RATE 13 ML/MIN (>89); POTASSIUM 5.4 MEQ/L (3.5-5.1); SODIUM (NA) 133 MEQ/L (136-145); TOTAL BILIRUBIN ADULT 0.9 MG/DL (0.2-1.0)
[2017-03-12] MEDS: AMIODARONE 200 MG TAB PO SCH ×2 (09:00→22:16)
[2017-03-12] MEDS: SODIUM CHLORIDE 0.9% FLUSH 10 ML FLUSH IV FLUSH SCH ×2 (09:00→22:16)
[2017-03-12] MEDS ORDERED: DOCUSATE SODIUM 50 MG/SENNA 8.6 MG TAB PO SCH (09:00)
[2017-03-12] MEDS: METOPROLOL TARTRATE 25 MG TAB PO SCH ×2 (09:00→22:15)
[2017-03-12] MEDS: MULTIVITAMINS/MINERALS THERAPEUTIC TAB PO SCH (10:09)
--- NOTE | 2017-03-12 10:40 | HHI.PR ---
Subjective Remarks Follow-up acute on chronic kidney disease stage IV 03/12/17-patient seen and examined, reports improvement of shortness of breath as well as bilateral lower extremity edema. Objective Vitals Vital Signs Date Time Temp Pulse Resp B/P (MAP) Pulse Ox O2 Delivery O2 Flow Rate FiO2 03/12/17 08:00 98.3 81 18 103/63 (76) 100 03/12/17 04:46 97.9 56 17 90/51 (64) 100 03/12/17 00:03 98.4 62 17 133/76 (95) 100 03/11/17 22:51 03/11/17 22:35 57 03/11/17 21:10 55 16 122/69 (86) 100 Room Air 03/11/17 21:05 16 100 Room Air 03/11/17 21:05 99 Room Air 03/11/17 18:06 98.1 56 19 105/69 (81) 98 Room Air I/O 03/11/17 03/11/17 03/11/17 03/12/17 03/12/17 03/12/17 07:00 15:00 23:00 07:00 15:00 23:00 Intake Total 350 ml Output Total 250 ml Balance 100 ml Intake Oral 240 ml IV Total 110 ml Output Urine Total 250 ml # Bowel Movements 0 Result Diagram: 03/12/17 0555 03/12/17 0555 Imaging Last Impressions Chest X-Ray 03/11/171814 Signed Impressions: Service Date/Time: Saturday, March 11, 2017 18:54 - CONCLUSION: No evidence of acute cardiopulmonary disease. Alfredo James MD Renal Ultrasound 03/11/17 0000 Signed Impressions: Service Date/Time: Saturday, March 11, 2017 22:25 - CONCLUSION: Normal ultrasound appearance of the kidneys and urinary bladder. Alfredo James MD Objective Remarks GENERAL: NAD SKIN: Warm and dry. HEAD: Normocephalic. EYES: No scleral icterus. No injection or drainage. NECK: Supple, trachea midline. No JVD or lymphadenopathy. CARDIOVASCULAR: Regular rate and rhythm without murmurs, gallops, or rubs. RESPIRATORY: Breath sounds equal bilaterally. No accessory muscle use. GASTROINTESTINAL: Abdomen soft, non-tender, nondistended. MUSCULOSKELETAL: No cyanosis, or edema. BACK: Nontender without obvious deformity. No CVA tenderness. A/P Problem List: (1) ARF (acute renal failure) ICD Code: N17.9 - Acute kidney failure, unspecified (2) Hyperkalemia ICD Code: E87.5 - Hyperkalemia (3) Elevated troponin ICD Code: R79.89 - Other specified abnormal findings of blood chemistry Status: Acute (4) CHF (congestive heart failure) ICD Code: I50.9 - Congestive heart failure Status: Acute (5) HTN (hypertension) ICD Code: I10 - Essential (primary) hypertension Status: Chronic (6) Afib ICD Code: I48.91 - Atrial fibrillation Status: Acute (7) DM (diabetes mellitus) ICD Code: E11.9 - Type 2 diabetes mellitus without complications Assessment and Plan 56-year-old man with 1. ARF: Acute Renal Failure, unclear etiology, possibly over-diuresis, no evidence of obstruction. Creatinine 7.20, previously 1.06 on 06/23/16. Renal US noted without any evidence of hydronephrosis, monitor I/O, Consult Nephrology for further evaluation/recommendations. Check complement C3, C3 and [place] screen. IVF for hydration-caution in light of CHF however no acute fluid overload at this time. 2. Hyperkalemia: Interval improvement status post Ca/Insulin/D50 3. CHF: Chronic. Systolic. Echo 06/18/16 w/ EF 15-20%, CXR w/ no acute findings. Continue to Hold Lasix/Aldactone in light of ARF. Monitor I/O as above. 4. Elevated Trop: Trop 0.06, EKG w/ no acute ischemia. No c/o chest pain. Likely secondary to renal dysfunction, continue home Statin, B-ric, hold ASA in light of ARF 5. HTN: Controlled. Continue home medications, monitor BP. 6. A-fib: Chronic. Continue beta ric, amiodarone, Edoxaban, 7. Transaminitis: Check hepatitis panel, monitor LFTs 8. Diabetes type 2: Sliding scale, basal insulin 9. DVT Prophylaxis: On anticoagulation as above. Damian Hilario MD Mar 12, 2017 10:40
[2017-03-12] MEDS ORDERED: GLUCAGON 1 MG/ML VIAL OTHER PRN (13:00)
[2017-03-12] MEDS ORDERED: DEXTROSE 50% IN WATER 50 ML VIAL(D50) IV PUSH PRN (13:00)
--- NOTE | 2017-03-12 17:43 | MB ---
cc: FILEMON MCCALLUM MD DATE OF CONSULTATION 03/12/17 REASON FOR CONSULTATION Acute renal failure management. HISTORY OF PRESENT ILLNESS This a 56-year-old male with history of diabetes, hypertension and CHF with a 15-20% ejection fraction. The patient is managed as an outpatient for CHF and had been on amiodarone, lisinopril, potassium, Lasix and Spironolactone. The patient presented to the emergency room yesterday after he reportedly was sent there from his primary care physician for an elevated creatinine. The patient had reported that he has maintained a regular active lifestyle. He walks half a mile to a mile a day and also eats well and has had no real changes in his diet or appetite and has been maintaining fluid intake. He reported no recent changes in his medications. He was seen in the emergency room and his lab findings revealed hyperkalemia with a potassium of 5.9 and acute renal failure with a BUN of 84 and a creatinine of 7.2. The patient was medically treated for his hyperkalemia and his diuretics were stopped and he was given 2 liters IV fluids. Overnight, his creatinine improved from 7.2 down to 5.7 and his diuretics and potassium supplements were held. At this point the patient is feeling much better. He reports he has had some urine output through the day. He denies any swelling, shortness of breath or other symptoms at this point and nephrology was consulted for further evaluation of acute renal failure. REVIEW OF SYSTEMS No chest pains. No shortness of breath. No diarrhea. No constipation. No dysuria. No dizziness or loss of consciousness. Otherwise, review of systems is negative. PAST MEDICAL HISTORY 1. Hypertension, 2. Dyslipidemia, 3. CHF with an EF of 15-20% in June of this year 4. Atrial fibrillation on endoxapan 5. Diabetes PAST SURGICAL HISTORY 1. Pacemaker 2. Cardiac ablation ALLERGIES NO KNOWN DRUG ALLERGIES. MEDICATIONS At home, 1. Amiodarone 400 mg p.o. q.12 h. 2. Lisinopril 5 mg daily. 3. Potassium 20 mEq p.o. daily 4. Strovite multivitamin 1 tablet daily. 5. Lasix 40 mg p.o. b.i.d. 6. Atorvastatin 40 mg p.o. q.h.s., 7. Spironolactone 25 mg daily. 8. Metoprolol 25 mg p.o. q.12 h. 9. Metformin 500 mg p.o. b.i.d. 9. Endoxaban 60 mg daily 10. Aspirin 81 mg daily. SOCIAL HISTORY No alcohol, tobacco or drug use. The patient lives at home. The patient has a daughter. FAMILY HISTORY Noncontributory. No diabetes or coronary disease. PHYSICAL EXAMINATION VITAL SIGNS: At time of evaluation blood pressure 94/52, pulse 60, respiratory rate 18, oxygen saturation 100% on room air. GENERAL: Awake, alert, oriented, no apparent distress. HEENT/NECK: Neck soft supple. CARDIAC: Regular rate and rhythm. PULMONARY: Lungs clear to auscultation. ABDOMEN: Soft, nontender, nondistended. EXTREMITIES: No edema. LABORATORY FINDINGS Sodium 133, potassium 5.4, chloride 99, bicarb 22, BUN 84, creatinine 5.7 with glucose of 74, AST 256, ALT 247, alk phos 202. Troponin 0.07, albumin 2.6. White count 9.8, hemoglobin 10.3, hematocrit 30.2 with platelet count 185. Previous creatinine was 1.0 in June of 2016 IMAGING STUDIES IMAGING STUDIES Renal ultrasound with normal findings and 10.9 and 10.3 cm kidneys. ASSESSMENT/PLAN 1. Acute kidney injury. At this point, it appears that the patient has acute kidney injury secondary to over diuresis for CHF as well as ongoing potassium supplementation. At this point, his creatinine has improved overnight from 7.2 down to 5.7. He was initially given 2 liters of IV fluids. At this time, he is just tolerating p.o. fluid intake without any issues. His diuretics have been on hold. At this point, agree with holding diuretics until renal function further stabilizes. He has no signs of heart failure at this point and is rate breathing well on room air with no signs of extremity edema. Continue to monitor closely for any heart failure symptoms. However, continue to hold diuretics at this point. Expect renal function to further improve as the patient improves with his p.o. intake. Avoid any nephrotoxins or NSAIDs otherwise, avoid any contrast studies. I will go ahead and order a urinalysis to further assess for any proteinuria. However expect renal function to continue to improve. He had a previous creatinine of 1.0 in June of this year. In the future, his CHF medications may need to be further adjusted. 2. Hyperkalemia. The patient presented with a potassium of 5.9. This was initially medically treated. His potassium improved to a level of 5.4 today. Continue to monitor at this point and continued further medical management as necessary. He had been on Spironolactone as well as an DELMI inhibitor and p.o. potassium. Continue to hold all of these at this time. His potassium further stabilizes. 3. Congestive heart failure with history of 15-20% ejection fraction. Continue to monitor at this point. Since cardiac symptoms are stable, continue to hold diuretics at this time until his renal function further improves. 4. Hypertension, blood pressure is stable. 5. Atrial fibrillation. The patient is on endoxaban. Continue to monitor. 6. Diabetes. Hold metformin given acute kidney injury. There is no signs of any significant acidosis. However, continue with insulin sliding scale while here. 7. Elevated LFTs. The patient has slightly elevated LFTs with AST of 256, ALT of 247 and alk phos of 202. This may be some hepatic congestion from CHF. However, there is also a possibility for elevated Amiodarone causing some hepatic toxicity. At this point, we will check Amiodarone levels. Continue follow up with primary team. MD AMINA Vasquez/ /4:45 PM /5:02 PM [facility]
[2017-03-12 19:08] LABS: BLOOD, URINE NEG (NEG); COMMENT (UR) CULT NOT INDICATED; CULTURE IF INDICATED CULT NOT INDICATED; GLUCOSE,URINE NEG (NEG); KETONE, URINE NEG (NEG); NITRITE,URINE NEG (NEG); URINE COLOR YELLOW (YELLW/STRAW)
[2017-03-12] MEDS: INSULIN ASPART SUPPLEMENTAL SCALE SQ SCH (21:00)
[2017-03-12] MEDS: EDOXABAN TOSYLATE 60 MG TAB PO SCH (22:15)
[2017-03-12] MEDS: ATORVASTATIN 40 MG TAB PO SCH (22:15)
[2017-03-13 00:11] VITALS: BP 94/58; PULSE 63; RESP 18; TEMP 99.1; O2SAT 99
[2017-03-13 04:04] VITALS: BP 90/52; PULSE 70; RESP 18; TEMP 98.5; O2SAT 100
[2017-03-13 05:27] LABS: AUTOMATED NEUTROPHIL # 8.2 TH/MM3 (1.8-7.7); BASOPHIL % 0.2 % (0.0-2.0); EOSINOPHIL % 0.5 % (0.0-4.0); HEMATOCRIT 28.3 % (39.0-51.0); HEMO FLAGS DIFF FINAL; LYMPH % 7.9 % (9.0-44.0); LYMPHOCYTE # 0.8 TH/MM3 (1.0-4.8); MEAN CELL VOLUME 96.5 FL (80.0-100.0); MEAN CORPUSCULAR HEMOGLOBIN 32.5 PG (27.0-34.0); MEAN CORPUSCULAR HGB CONC 33.6 % (32.0-36.0); MONO % 6.8 % (0.0-8.0); NEUT % 84.6 % (16.0-70.0); PLATELET COUNT 193 TH/MM3 (150-450); RED BLOOD COUNT 2.93 MIL/MM3 (4.50-5.90); RED CELL DISTRIBUTION WIDTH 14.4 % (11.6-17.2); WHITE BLOOD COUNT 9.7 TH/MM3 (4.0-11.0)
[2017-03-13 06:04] LABS: ALT (GPT) 235 U/L (12-78); ANION GAP 9 MEQ/L (5-15); AST (GOT) 235 U/L (15-37); BICARBONATE 24.4 MEQ/L (21.0-32.0); BLOOD UREA NITROGEN 60 MG/DL (7-18); CHLORIDE 99 MEQ/L (98-107); GLOMERULAR FILTRATION RATE 27 ML/MIN (>89); MAGNESIUM 2.1 MG/DL (1.5-2.5); POTASSIUM 5.1 MEQ/L (3.5-5.1); SODIUM (NA) 132 MEQ/L (136-145)
[2017-03-13 06:07] LABS: ALKALINE PHOSPHATASE 237 U/L (45-117)
[2017-03-13 08:00] VITALS: BP 90/52; PULSE 56; RESP 18; TEMP 98.8; O2SAT 100
[2017-03-13] MEDS: INSULIN ASPART SUPPLEMENTAL SCALE SQ SCH ×4 (08:00→20:26)
[2017-03-13] MEDS: METOPROLOL TARTRATE 25 MG TAB PO SCH ×2 (09:00→20:25)
[2017-03-13] MEDS: AMIODARONE 200 MG TAB PO SCH ×2 (09:00→20:26)
[2017-03-13] MEDS: MULTIVITAMINS/MINERALS THERAPEUTIC TAB PO SCH (09:28)
[2017-03-13] MEDS: SODIUM CHLORIDE 0.9% FLUSH 10 ML FLUSH IV FLUSH SCH ×2 (09:28→20:26)
--- NOTE | 2017-03-13 12:29 | HHI.NPPN ---
Subjective Additional Remarks No acute complaints, feeling better today. Objective Data Data Vital Signs Date Time Temp Pulse Resp B/P (MAP) Pulse Ox O2 Delivery O2 Flow Rate FiO2 03/13/17 08:00 98.8 56 18 90/52 (65) 100 03/13/17 04:04 98.5 70 18 90/52 (65) 100 03/13/17 00:11 99.1 63 18 94/58 (70) 99 03/12/17 20:11 99.3 67 18 99/56 (70) 99 03/12/17 20:00 63 03/12/17 16:00 97.4 66 18 104/58 (73) 98 -: 03/13/17 0400 03/13/17 0400 Physical Exam General Appearance: Well Developed, Well Nourished, No Acute Distress Throat Throat Exam: Oral Mucosa [place] & Moist Neck Neck Exam: Neck Supple Pulmonary Resp Exam: Clear Bilaterally Cardiology CV Exam: Regular, Normal Sinus Rhythm, Good Perfusion Gastrointestinal/Abdomen GI Exam: Soft, Non-Tender, Bowel Sounds Present Integumentary Skin Exam: Warm, Dry, Intact Extremeties Extremities Exam: No Edema Neurologic Neuro Exam: Alert, Awake, Oriented, Speech Clear, Moving All Extremities Psychiatric Psych Exam: Appropriate Responses Assessment/Plan Problem List: (1) ARF (acute renal failure) ICD Codes: N17.9 - Acute kidney failure, unspecified Plan: NEY secondary to over diuresis for CHF with ongoing potassium supplementation. Creatinine continues to improve off diuretics: 7-> 5-> 3 He was initially given 2 liters of IV fluids. At this time, he is just tolerating p.o. fluid intake without any issues. Continue to hold diuretics as renal function further stabilizes, no signs of CHF. May need to adjust future diuretic dosing Avoid any nephrotoxins or NSAIDs otherwise, avoid any contrast studies. (2) Hyperkalemia ICD Codes: E87.5 - Hyperkalemia Plan: Improving - K 5.1 today. He had been on Spironolactone as well as an DELMI inhibitor and p.o. potassium. Continue to hold all of these at this time, as his potassium further stabilizes. (3) CHF (congestive heart failure) ICD Codes: I50.9 - Congestive heart failure Status: Acute Plan: Stable, continue to monitor off diuretics. History of 15-20% ejection fraction. (4) Afib ICD Codes: I48.91 - Atrial fibrillation Status: Acute Plan: HR stable. The patient is on endoxaban. (5) DM (diabetes mellitus) ICD Codes: E11.9 - Type 2 diabetes mellitus without complications Status: Chronic Plan: Glucose stable. Hold metformin, given NEY. (6) HTN (hypertension) ICD Codes: I10 - Essential (primary) hypertension Status: Chronic Plan: BP stable. (7) Elevated LFTs ICD Codes: R79.89 - Other specified abnormal findings of blood chemistry Plan: This may be some hepatic congestion from CHF. However, there is also a possibility for elevated Amiodarone causing some hepatic toxicity. Amiodarone levels pending, follow with primary team. Problem Qualifiers (1) ARF (acute renal failure): Qualified Codes: N17.9 - Acute kidney failure, unspecified (2) DM (diabetes mellitus): Qualified Codes: E11.8 - Type 2 diabetes mellitus with unspecified complications Lucian Chapin MD Mar 13, 2017 12:29
--- NOTE | 2017-03-13 12:39 | HHI.PR ---
Subjective Remarks Follow-up acute on chronic kidney disease stage IV 03/12/17-patient seen and examined, reports improvement of shortness of breath as well as bilateral lower extremity edema. 03/13/17-patient seen and examined, denies any shortness of breath. BP soft however patient asymptomatic. Renal indices improving. Objective Vitals Vital Signs Date Time Temp Pulse Resp B/P (MAP) Pulse Ox O2 Delivery O2 Flow Rate FiO2 03/13/17 08:00 98.8 56 18 90/52 (65) 100 03/13/17 04:04 98.5 70 18 90/52 (65) 100 03/13/17 00:11 99.1 63 18 94/58 (70) 99 03/12/17 20:11 99.3 67 18 99/56 (70) 99 03/12/17 20:00 63 03/12/17 16:00 97.4 66 18 104/58 (73) 98 I/O 03/12/17 03/12/17 03/12/17 03/13/17 03/13/17 03/13/17 07:00 15:00 23:00 07:00 15:00 23:00 Intake Total 350 ml 1200 ml 240 ml 240 ml Output Total 250 ml 225 ml Balance 100 ml 1200 ml 15 ml 240 ml Intake Oral 240 ml 1200 ml 240 ml 240 ml IV Total 110 ml Output Urine Total 250 ml 225 ml # Voids 4 2 # Bowel Movements 0 0 0 0 Result Diagram: 03/13/17 0400 03/13/17 0400 Imaging Last Impressions Chest X-Ray 03/11/17 1815 Signed Impressions: Service Date/Time: Saturday, March 11, 2017 18:54 - CONCLUSION: No evidence of acute cardiopulmonary disease. Alfredo James MD Renal Ultrasound 03/11/17 0000 Signed Impressions: Service Date/Time: Saturday, March 11, 2017 22:25 - CONCLUSION: Normal ultrasound appearance of the kidneys and urinary bladder. Alfredo James MD Objective Remarks GENERAL: NAD SKIN: Warm and dry. HEAD: Normocephalic. EYES: No scleral icterus. No injection or drainage. NECK: Supple, trachea midline. No JVD or lymphadenopathy. CARDIOVASCULAR: Regular rate and rhythm without murmurs, gallops, or rubs. RESPIRATORY: Breath sounds equal bilaterally. No accessory muscle use. GASTROINTESTINAL: Abdomen soft, non-tender, nondistended. MUSCULOSKELETAL: No cyanosis, or edema. BACK: Nontender without obvious deformity. No CVA tenderness. A/P Problem List: (1) ARF (acute renal failure) ICD Code: N17.9 - Acute kidney failure, unspecified (2) Hyperkalemia ICD Code: E87.5 - Hyperkalemia (3) Elevated troponin ICD Code: R79.89 - Other specified abnormal findings of blood chemistry Status: Acute (4) CHF (congestive heart failure) ICD Code: I50.9 - Congestive heart failure Status: Acute (5) HTN (hypertension) ICD Code: I10 - Essential (primary) hypertension Status: Chronic (6) Afib ICD Code: I48.91 - Atrial fibrillation Status: Acute (7) DM (diabetes mellitus) ICD Code: E11.9 - Type 2 diabetes mellitus without complications Status: Chronic Assessment and Plan 56-year-old man with 1. ARF: Renal indices improving. Acute Renal Failure, unclear etiology, possibly over-diuresis, no evidence of obstruction. Creatinine 7.20, previously 1.06 on 06/23/16. Renal US noted without any evidence of hydronephrosis, monitor I/O, appreciate input from Nephrology . Complement C3, C4 WNL and LAWRENCE screen. IVF for hydration-caution in light of CHF however no acute fluid overload at this time. 2. Hyperkalemia: Initial improvement status post Ca/Insulin/D50 3. CHF: Chronic. Systolic. Echo 06/18/16 w/ EF 15-20%, CXR w/ no acute findings. Continue to Hold Lasix/Aldactone in light of ARF. Monitor I/O as above. 4. Elevated Trop: Trop 0.06, EKG w/ no acute ischemia. No c/o chest pain. Likely secondary to renal dysfunction, continue home Statin, B-ric, hold ASA in light of ARF 5. HTN: BP Soft .Continue home medications with holding parameters, monitor BP. 6. A-fib: Chronic. Continue beta ric, amiodarone, Edoxaban, 7. Transaminitis: hepatitis panel and amiodarone level pending, monitor LFTs 8. Diabetes type 2: Sliding scale, basal insulin. Hold metformin 9. DVT Prophylaxis: On anticoagulation as above. Problem Qualifiers (1) ARF (acute renal failure): Qualified Codes: N17.9 - Acute kidney failure, unspecified (2) DM (diabetes mellitus): Qualified Codes: E11.8 - Type 2 diabetes mellitus with unspecified complications Damian Hilario MD Mar 13, 2017 12:39
[2017-03-13 16:00] VITALS: BP 107/62; PULSE 66; RESP 18; TEMP 97.3; O2SAT 100
[2017-03-13] MEDS: MAGNESIUM HYDROXIDE SUSP 30 ML CUP PO PRN (17:45)
[2017-03-13 20:06] VITALS: BP 90/51; PULSE 64; RESP 18; TEMP 99.4; O2SAT 100
[2017-03-13] MEDS: ATORVASTATIN 40 MG TAB PO SCH (20:24)
[2017-03-13] MEDS ORDERED: EDOXABAN TOSYLATE 30 MG TAB PO SCH (22:00)
[2017-03-14] VITALS (8 sets, daily range): BP systolic 95–116; BP diastolic 50–70; PULSE 60–94; RESP 17–20; TEMP 98.7–101; O2SAT 65–99
[2017-03-14] MEDS: EDOXABAN TOSYLATE 30 MG TAB PO SCH (00:08)
[2017-03-14 07:03] LABS: AUTOMATED NEUTROPHIL # 7.5 TH/MM3 (1.8-7.7); BASOPHIL % 0.3 % (0.0-2.0); EOSINOPHIL # 0.1 TH/MM3 (0-0.4); EOSINOPHIL % 0.6 % (0.0-4.0); HEMATOCRIT 29.4 % (39.0-51.0); HEMO FLAGS DIFF FINAL; LYMPH % 8.9 % (9.0-44.0); LYMPHOCYTE # 0.8 TH/MM3 (1.0-4.8); MEAN CELL VOLUME 97.7 FL (80.0-100.0); MEAN CORPUSCULAR HEMOGLOBIN 33.1 PG (27.0-34.0); MEAN CORPUSCULAR HGB CONC 33.9 % (32.0-36.0); MONO % 7.7 % (0.0-8.0); NEUT % 82.5 % (16.0-70.0); PLATELET COUNT 164 TH/MM3 (150-450); RED BLOOD COUNT 3.01 MIL/MM3 (4.50-5.90); RED CELL DISTRIBUTION WIDTH 14.4 % (11.6-17.2)
[2017-03-14 07:32] LABS: ALT (GPT) 208 U/L (12-78); ANION GAP 10 MEQ/L (5-15); AST (GOT) 204 U/L (15-37); BICARBONATE 22.5 MEQ/L (21.0-32.0); BLOOD UREA NITROGEN 35 MG/DL (7-18); CHLORIDE 100 MEQ/L (98-107); GLOMERULAR FILTRATION RATE 45 ML/MIN (>89); POTASSIUM 4.5 MEQ/L (3.5-5.1); SODIUM (NA) 132 MEQ/L (136-145)
[2017-03-14 07:33] LABS: ALKALINE PHOSPHATASE 243 U/L (45-117)
[2017-03-14] MEDS: INSULIN ASPART SUPPLEMENTAL SCALE SQ SCH ×4 (08:00→20:18)
[2017-03-14] MEDS: MULTIVITAMINS/MINERALS THERAPEUTIC TAB PO SCH (08:59)
[2017-03-14] MEDS: METOPROLOL TARTRATE 25 MG TAB PO SCH ×2 (09:00→20:16)
[2017-03-14] MEDS: AMIODARONE 200 MG TAB PO SCH ×2 (09:00→20:18)
[2017-03-14] MEDS: SODIUM CHLORIDE 0.9% FLUSH 10 ML FLUSH IV FLUSH SCH ×2 (09:00→20:18)
--- NOTE | 2017-03-14 12:39 | HHI.PR ---
Subjective Remarks Follow-up acute on chronic kidney disease stage IV 03/12/17-patient seen and examined, reports improvement of shortness of breath as well as bilateral lower extremity edema. 03/13/17-patient seen and examined, denies any shortness of breath. BP soft however patient asymptomatic. Renal indices improving. 03/14/17-patient seen and examined, renal indices improving. BP still soft. No acute event overnight. Objective Vitals Vital Signs Date Time Temp Pulse Resp B/P (MAP) Pulse Ox O2 Delivery O2 Flow Rate FiO2 03/14/17 12:00 98.8 94 18 116/66 (83) 99 03/14/17 10:49 61 03/14/17 08:00 98.7 61 17 96/63 (74) 98 03/14/17 04:06 98.7 62 18 99/62 (74) 99 03/14/17 00:06 99.8 60 18 95/50 (65) 99 03/13/17 20:06 99.4 64 18 90/51 (64) 100 03/13/17 16:00 97.3 66 18 107/62 (77) 100 I/O 03/13/17 03/13/17 03/13/17 03/14/17 03/14/17 03/14/17 07:00 15:00 23:00 07:00 15:00 23:00 Intake Total 240 ml 360 ml 360 ml 240 ml Balance 240 ml 360 ml 360 ml 240 ml Intake Oral 240 ml 360 ml 360 ml 240 ml # Voids 2 5 2 3 # Bowel Movements 0 1 0 0 Result Diagram: 03/14/17 0555 03/14/17 0555 Imaging Last Impressions Chest X-Ray 03/11/17 1815 Signed Impressions: Service Date/Time: Saturday, March 11, 2017 18:54 - CONCLUSION: No evidence of acute cardiopulmonary disease. Alfredo James MD Renal Ultrasound 03/11/17 0000 Signed Impressions: Service Date/Time: Saturday, March 11, 2017 22:25 - CONCLUSION: Normal ultrasound appearance of the kidneys and urinary bladder. Alfredo James MD Objective Remarks GENERAL: NAD SKIN: Warm and dry. HEAD: Normocephalic. EYES: No scleral icterus. No injection or drainage. NECK: Supple, trachea midline. No JVD or lymphadenopathy. CARDIOVASCULAR: Regular rate and rhythm without murmurs, gallops, or rubs. RESPIRATORY: Breath sounds equal bilaterally. No accessory muscle use. GASTROINTESTINAL: Abdomen soft, non-tender, nondistended. MUSCULOSKELETAL: No cyanosis, or edema. BACK: Nontender without obvious deformity. No CVA tenderness. Procedures none A/P Problem List: (1) ARF (acute renal failure) ICD Code: N17.9 - Acute kidney failure, unspecified (2) Hyperkalemia ICD Code: E87.5 - Hyperkalemia (3) Elevated troponin ICD Code: R79.89 - Other specified abnormal findings of blood chemistry Status: Acute (4) CHF (congestive heart failure) ICD Code: I50.9 - Congestive heart failure Status: Acute (5) HTN (hypertension) ICD Code: I10 - Essential (primary) hypertension Status: Chronic (6) Afib ICD Code: I48.91 - Atrial fibrillation Status: Acute (7) DM (diabetes mellitus) ICD Code: E11.9 - Type 2 diabetes mellitus without complications Status: Chronic Assessment and Plan 56-year-old man with 1. ARF: Renal indices improving. Acute Renal Failure, unclear etiology, possibly over-diuresis, no evidence of obstruction. Creatinine 7.20, previously 1.06 on 06/23/16. Renal US noted without any evidence of hydronephrosis, monitor I/O, appreciate input from Nephrology . Complement C3, C4 WNL and LAWRENCE screen. 2. Hyperkalemia: Initial improvement status post Ca/Insulin/D50 3. CHF: Chronic. Systolic. Echo 06/18/16 w/ EF 15-20%, CXR w/ no acute findings. Continue to Hold Lasix/Aldactone in light of ARF. Monitor I/O as above. 4. Elevated Trop: Trop 0.06, EKG w/ no acute ischemia. No c/o chest pain. Likely secondary to renal dysfunction, continue home Statin, B-ric, hold ASA in light of ARF 5. HTN: BP Soft .Will decrease Lopressor to 12.5mg BID with holding parameters 6. A-fib: Chronic. Continue beta ric, amiodarone, Edoxaban, 7. Transaminitis: hepatitis panel negative and amiodarone level pending, monitor LFTs 8. Diabetes type 2: Sliding scale, basal insulin. Continue to Hold metformin 9. DVT Prophylaxis: On anticoagulation as above. Problem Qualifiers (1) ARF (acute renal failure): Qualified Codes: N17.9 - Acute kidney failure, unspecified (2) DM (diabetes mellitus): Qualified Codes: E11.8 - Type 2 diabetes mellitus with unspecified complications Damian Hilario MD Mar 14, 2017 12:39
[2017-03-14] MEDS ORDERED: METO25TA3 PO (12:45)
[2017-03-14] MEDS ORDERED: PILL SPLITTER OTHER PRN (12:45)
--- NOTE | 2017-03-14 13:28 | HHI.DS ---
Discharge Summary Admission Date Mar 11, 2017 at 21:56 Discharge Date: Mar 14, 2017 Admitting Diagnosis renal failure (1) ARF (acute renal failure) ICD Code: N17.9 - Acute kidney failure, unspecified (2) Hyperkalemia ICD Code: E87.5 - Hyperkalemia (3) Elevated troponin ICD Code: R79.89 - Other specified abnormal findings of blood chemistry Status: Acute (4) CHF (congestive heart failure) ICD Code: I50.9 - Congestive heart failure Status: Acute (5) HTN (hypertension) ICD Code: I10 - Essential (primary) hypertension Status: Chronic (6) Afib ICD Code: I48.91 - Atrial fibrillation Status: Acute (7) DM (diabetes mellitus) ICD Code: E11.9 - Type 2 diabetes mellitus without complications Status: Chronic Procedures none Brief History - From Admission This is a 56-year-old male with PMH of HTN, Hyperlipidemia, CHF (Echo 06/18/16 w/ EF 15-20%), A-fib on Edoxaban and DM who was referred to the ER by PCP secondary to abnormal outpatient labs. States he believes he is in fluid overload and reports dark-colored urine for the last 3-4 days. Denies fever, chills, nausea, vomiting, chest pain or cough. On arrival, BP 105/69, HR 56, O2 sat 98% on RA, Afebrile. CBC is essentially unremarkable. K+ 5.9. Creatinine 7.20, previously 1.06 on 06/23/16. Trop 0.06. CXR w/ no acute findings. On exam, no evidence of fluid overload. S/p IVF in ER. CBC/BMP: 03/14/17 0555 03/14/17 0555 Significant Findings Laboratory Tests Test 03/11/17 18:29 03/12/17 00:52 03/12/17 05:55 03/12/17 18:20 Red Blood Count 3.29 MIL/MM3 (4.50-5.90) 3.13 MIL/MM3 (4.50-5.90) Hemoglobin 10.6 GM/DL (13.0-17.0) 10.3 GM/DL (13.0-17.0) Hematocrit 31.9 % (39.0-51.0) 30.2 % (39.0-51.0) Neutrophils (%) (Auto) 80.1 % (16.0-70.0) 82.5 % (16.0-70.0) Neutrophils # (Auto) 8.4 TH/MM3 (1.8-7.7) 8.1 TH/MM3 (1.8-7.7) Blood Urea Nitrogen 84 MG/DL (7-18) 84 MG/DL (7-18) Creatinine 7.20 MG/DL (0.60-1.30) 5.73 MG/DL (0.60-1.30) Random Glucose 109 MG/DL (74-106) Sodium Level 130 MEQ/L (136-145) 133 MEQ/L (136-145) Potassium Level 5.9 MEQ/L (3.5-5.1) 5.4 MEQ/L (3.5-5.1) Chloride Level 96 MEQ/L (98-107) Estimat Glomerular Filtration Rate 10 ML/MIN (>89) 13 ML/MIN (>89) Troponin I 0.06 NG/ML (0.02-0.05) 0.07 NG/ML (0.02-0.05) 0.07 NG/ML (0.02-0.05) Albumin 2.6 GM/DL (3.4-5.0) Alkaline Phosphatase 202 U/L (45-117) Aspartate Amino Transf (AST/SGOT) 256 U/L (15-37) Alanine Aminotransferase (ALT/SGPT) 247 U/L (12-78) Urine Protein 30 mg/dL (NEG-TRACE) Urine Urobilinogen 8.0 MG/DL (LESS THAN Test 03/13/17 04:00 03/14/17 05:55 Red Blood Count 2.93 MIL/MM3 (4.50-5.90) 3.01 MIL/MM3 (4.50-5.90) Hemoglobin 9.5 GM/DL (13.0-17.0) 10.0 GM/DL (13.0-17.0) Hematocrit 28.3 % (39.0-51.0) 29.4 % (39.0-51.0) Neutrophils (%) (Auto) 84.6 % (16.0-70.0) 82.5 % (16.0-70.0) Lymphocytes (%) (Auto) 7.9 % (9.0-44.0) 8.9 % (9.0-44.0) Neutrophils # (Auto) 8.2 TH/MM3 (1.8-7.7) Lymphocytes # (Auto) 0.8 TH/MM3 (1.0-4.8) 0.8 TH/MM3 (1.0-4.8) Blood Urea Nitrogen 60 MG/DL (7-18) 35 MG/DL (7-18) Creatinine 3.00 MG/DL (0.60-1.30) 1.90 MG/DL (0.60-1.30) Albumin 2.4 GM/DL (3.4-5.0) 2.2 GM/DL (3.4-5.0) Phosphorus Level 2.3 MG/DL (2.5-4.9) Alkaline Phosphatase 237 U/L (45-117) 243 U/L (45-117) Aspartate Amino Transf (AST/SGOT) 235 U/L (15-37) 204 U/L (15-37) Alanine Aminotransferase (ALT/SGPT) 235 U/L (12-78) 208 U/L (12-78) Sodium Level 132 MEQ/L (136-145) 132 MEQ/L (136-145) Estimat Glomerular Filtration Rate 27 ML/MIN (>89) 45 ML/MIN (>89) Random Glucose 115 MG/DL (74-106) PE at Discharge GENERAL: NAD SKIN: Warm and dry. HEAD: Normocephalic. EYES: No scleral icterus. No injection or drainage. NECK: Supple, trachea midline. No JVD or lymphadenopathy. CARDIOVASCULAR: Regular rate and rhythm without murmurs, gallops, or rubs. RESPIRATORY: Breath sounds equal bilaterally. No accessory muscle use. GASTROINTESTINAL: Abdomen soft, non-tender, nondistended. MUSCULOSKELETAL: No cyanosis, or edema. BACK: Nontender without obvious deformity. No CVA tenderness. Hospital Course 1. ARF: Renal indices improving. Acute Renal Failure, unclear etiology, possibly over-diuresis, no evidence of obstruction. Creatinine 7.20, previously 1.06 on 06/23/16. Renal US noted without any evidence of hydronephrosis, monitor I/O, appreciate input from Nephrology . Complement C3, C4 WNL and LAWRENCE screen. 2. Hyperkalemia: Initial improvement status post Ca/Insulin/D50 3. CHF: Chronic. Systolic. Echo 06/18/16 w/ EF 15-20%, CXR w/ no acute findings. Continue to Hold Lasix/Aldactone in light of ARF. Monitor I/O as above. 4. Elevated Trop: Trop 0.06, EKG w/ no acute ischemia. No c/o chest pain. Likely secondary to renal dysfunction, continue home Statin, B-ric, hold ASA in light of ARF 5. HTN: BP Soft .Will decrease Lopressor to 12.5mg BID with holding parameters 6. A-fib: Chronic. Continue beta ric, amiodarone, Edoxaban, 7. Transaminitis: hepatitis panel negative and amiodarone level pending, monitor LFTs 8. Diabetes type 2: Sliding scale, basal insulin. Continue to Hold metformin 9. DVT Prophylaxis: On anticoagulation as above. Pt Condition on Discharge: Stable Discharge Disposition: Discharge Home Discharge Time: <= 30 minutes Discharge Instructions DIET: Follow Instructions for: Diabetic Diet Activities you can perform: Regular-No Restrictions Follow up Referrals: Nephrology PCP Follow-up - 1 Week New Medications: Metoprolol Tartrate (Metoprolol Tartrate) 25 Mg Tab 12.5 MG PO Q12HR for Blood Pressure Management, #60 TAB 3 Refills Continued Medications: Acetaminophen-Codeine (Acetaminophen-Codeine) 300-30 mg Tab 1 TAB PO Q6HR PRN for PAIN SCALE 4 TO 10, #15 TAB Amiodarone (Amiodarone) 200 Mg Tab 400 MG PO Q12HR for Heart, #120 TAB [address] (Aspirin EC) 81 Mg Tabdr 81 MG PO DAILY for Blood Clot Prevention for 90 Days, TAB Atorvastatin (Atorvastatin) 40 Mg Tab 40 MG PO HS for Cholesterol Management, #30 TAB 3 Refills Edoxaban (Savaysa) 60 Mg Tab 60 MG PO Q24H for Blood Clot Prevention, #30 TAB 1 Refill Furosemide (Lasix) 40 Mg Tab 40 MG PO BID for chf, #60 TAB 3 Refills Metformin (Metformin) 500 Mg Tab 500 MG PO BIDPC for Blood Sugar Management, #60 TAB 0 Refills With meals Multiple Vitamins W/ Minerals (Strovite One) 1 Tab Tab 1 TAB PO DAILY, #30 BOTTLE 3 Refills Discontinued Medications: Metoprolol Tartrate (Metoprolol Tartrate) 25 Mg Tab 25 MG PO Q12HR, #60 TAB 3 Refills Damian Hilario MD Mar 14, 2017 13:27
--- NOTE | 2017-03-14 17:24 | HHI.NPPN ---
Subjective Renal Failure: Acute Additional Remarks Patient is alert, no acute complaints, feeling better today, no SOB. Review of Systems General Constitutional: Fatigue Cardiovascular Cardiac: ADAM Objective Data Data Vital Signs Date Time Temp Pulse Resp B/P (MAP) Pulse Ox O2 Delivery O2 Flow Rate FiO2 03/14/17 12:00 98.8 94 18 116/66 (83) 99 03/14/17 10:49 61 03/14/17 08:00 98.7 61 17 96/63 (74) 98 03/14/17 04:06 98.7 62 18 99/62 (74) 99 03/14/17 00:06 99.8 60 18 95/50 (65) 99 03/13/17 20:06 99.4 64 18 90/51 (64) 100 -: 03/14/17 0555 03/14/17 0555 Physical Exam General Appearance: Well Developed, Well Nourished, No Acute Distress, Comfortable Throat Throat Exam: Oral Mucosa [place] & Moist Neck Neck Exam: Neck Supple Pulmonary Resp Exam: Clear Bilaterally Cardiology CV Exam: Regular, Normal Sinus Rhythm, Good Perfusion Gastrointestinal/Abdomen GI Exam: Soft, Non-Tender, Bowel Sounds Present Integumentary Skin Exam: Warm, Dry, Intact Extremeties Extremities Exam: No Edema Neurologic Neuro Exam: Alert, Awake, Oriented, Speech Clear, Moving All Extremities Psychiatric Psych Exam: Appropriate Responses Assessment/Plan Problem List: (1) ARF (acute renal failure) ICD Codes: N17.9 - Acute kidney failure, unspecified Plan: NEY secondary to over diuresis for CHF with ongoing potassium supplementation. Creatinine continues to improve and now it is 1.9, baseline is 1.0. He was initially given 2 liters of IV fluids. At this time, he is just tolerating p.o. fluid intake without any issues. Continue to hold diuretics as renal function further stabilizes, no signs of CHF. May need to adjust future diuretic dosing Avoid any nephrotoxins or NSAIDs otherwise, avoid any contrast studies. Possible D/C, to follow with PCP. If needed, to start lower dose of diuretics and monitor closely. (2) Hyperkalemia ICD Codes: E87.5 - Hyperkalemia Plan: Improving - K 5.1 today. He had been on Spironolactone as well as an DELMI inhibitor and p.o. potassium. Continue to hold all of these at this time, as his potassium further stabilizes. (3) CHF (congestive heart failure) ICD Codes: I50.9 - Congestive heart failure Status: Acute Plan: Stable, continue to monitor off diuretics. History of 15-20% ejection fraction. (4) Afib ICD Codes: I48.91 - Atrial fibrillation Status: Acute Plan: HR stable. The patient is on endoxaban. (5) DM (diabetes mellitus) ICD Codes: E11.9 - Type 2 diabetes mellitus without complications Status: Chronic Plan: Glucose stable. Hold metformin, given NEY. (6) HTN (hypertension) ICD Codes: I10 - Essential (primary) hypertension Status: Chronic Plan: BP stable. (7) Elevated LFTs ICD Codes: R79.89 - Other specified abnormal findings of blood chemistry Plan: This may be some hepatic congestion from CHF. However, there is also a possibility for elevated Amiodarone causing some hepatic toxicity. Amiodarone levels pending, follow with primary team. Problem Qualifiers (1) ARF (acute renal failure): Qualified Codes: N17.9 - Acute kidney failure, unspecified (2) DM (diabetes mellitus): Qualified Codes: E11.8 - Type 2 diabetes mellitus with unspecified complications Mohit Jennings MD Mar 14, 2017 17:24
[2017-03-14] MEDS: MAGNESIUM HYDROXIDE SUSP 30 ML CUP PO PRN (20:16)
[2017-03-14] MEDS: ATORVASTATIN 40 MG TAB PO SCH (20:16)
[2017-03-14] MEDS: ACETAMINOPHEN 325 MG TAB PO PRN (21:38)
[2017-03-15] VITALS (8 sets, daily range): BP systolic 92–135; BP diastolic 54–79; PULSE 59–97; RESP 17–20; TEMP 98.7–101.2; O2SAT 98–100
[2017-03-15] MEDS: EDOXABAN TOSYLATE 30 MG TAB PO SCH ×2 (00:07→22:37)
--- NOTE | 2017-03-15 08:56 | HHI.PR ---
Subjective Remarks in no acute distress. had a fever last night. no BM today. denies chest pain or cough. Objective Vitals Vital Signs Date Time Temp Pulse Resp B/P (MAP) Pulse Ox O2 Delivery O2 Flow Rate FiO2 03/15/17 04:00 98.7 84 20 115/67 (83) 98 03/15/17 02:57 Room Air 03/15/17 00:00 99.2 63 20 104/54 (71) 99 03/14/17 22:39 17 03/14/17 20:21 70 03/14/17 20:00 101.0 65 20 111/70 (84) 65 03/14/17 16:00 99.2 64 18 100/57 (71) 99 03/14/17 12:00 98.8 94 18 116/66 (83) 99 03/14/17 10:49 61 I/O 03/14/17 03/14/17 03/14/17 03/15/17 03/15/17 03/15/17 07:00 15:00 23:00 07:00 15:00 23:00 Intake Total 240 ml 800 ml 480 ml Output Total 450 ml Balance 240 ml 800 ml 30 ml Intake Oral 240 ml 800 ml 480 ml Output Urine Total 450 ml # Voids 3 3 # Bowel Movements 0 1 Result Diagram: 03/14/17 0555 03/14/17 0555 Imaging Last Impressions Chest X-Ray 03/11/17 1815 Signed Impressions: Service Date/Time: Saturday, March 11, 2017 18:54 - CONCLUSION: No evidence of acute cardiopulmonary disease. Alfredo James MD Renal Ultrasound 03/11/17 0000 Signed Impressions: Service Date/Time: Saturday, March 11, 2017 22:25 - CONCLUSION: Normal ultrasound appearance of the kidneys and urinary bladder. Alfredo James MD Objective Remarks GENERAL: This is a well-nourished, well-developed patient, in no apparent distress. CARDIOVASCULAR: Regular rate and regular rhythm without murmurs, gallops, or rubs. RESPIRATORY: Clear to auscultation. Breath sounds equal bilaterally. No wheezes , rales, or rhonchi. GASTROINTESTINAL: Abdomen soft, non-tender, nondistended. Normal, active bowel sounds MUSCULOSKELETAL: Extremities without clubbing, cyanosis, or edema. NEURO: Alert & Oriented x4 to person, place, time, situation. Moves all ext x4 Procedures none Medications and IVs Current Medications Sodium Chloride 1,000 ml @ 2,000 mls/hr Q30M ONCE IV ; Start 03/11/17 at 22:00 ; Stop 03/11/17 at 22:08; Status DC Sodium Chloride (NS Flush) 2 ml UNSCH PRN IV FLUSH FLUSH AFTER USING IV ACCESS ; Start 03/11/17 at 22:00 Sodium Chloride (NS Flush) 2 ml BID IV FLUSH Last administered on 03/14/17 20: 18; Start 03/12/17 at 09:00 Ondansetron HCl (Zofran Inj) 4 mg Q6H PRN IVP NAUSEA OR VOMITING; Start at 22:00 Acetaminophen (Tylenol) 650 mg Q6H PRN PO FEVER/PAIN SCALE 1 TO 2 Last administered on 03/14/17 21:38; Start 03/11/17 at 22:00 Acetaminophen/ Hydrocodone Bitart ([place] 5-325 Mg) 1 tab Q4H PRN PO PAIN SCALE 3 TO 5; Start 03/11/17 at 22:00 Morphine Sulfate (Morphine Inj) 2 mg Q3H PRN IV PUSH Pain 6-10; Start 03/11/17 at 22:00 Senna/Docusate Sodium (Evy-Colace) 1 tab BID PO Last administered on 10:09; Start 03/12/17 at 09:00; Stop 03/12/17 at 11:45; Status DC Magnesium Hydroxide (Milk Of Magnesia Liq) 30 ml Q12H PRN PO MILD - MODERATE CONSTIPATION Last administered on 03/14/17 20:16; Start 03/11/17 at 22:00 Sennosides (Senokot) 17.2 mg Q12H PRN PO MODERATE - SEVERE CONSTIPATION; Start 03/11/17 at 22:00; Stop 03/12/17 at 11:45; Status DC Bisacodyl (Dulcolax Supp) 10 mg DAILY PRN RECTAL SEVERE CONSITIPATION; Start at 22:00; Stop 03/12/17 at 11:45; Status DC Lactulose (Lactulose Liq) 30 ml DAILY PRN PO SEVERE CONSITIPATION; Start at 22:00; Stop 03/12/17 at 11:45; Status DC Amiodarone HCl (Cordarone) 400 mg Q12HR PO Last administered on 03/14/17 20:18 ; Start 03/12/17 at 09:00 Atorvastatin Calcium (Lipitor) 40 mg HS PO Last administered on 03/14/17 20:16 ; Start 03/12/17 at 21:00 Edoxaban (Savaysa) 60 mg Q24H PO Last administered on 03/12/17 22:15; Start at 22:00; Stop 03/13/17 at 16:04; Status DC Metoprolol Tartrate (Lopressor) 25 mg Q12HR PO Last administered on 03/13/17 20:25; Start 03/12/17 at 09:00; Stop 03/14/17 at 12:42; Status DC Multivitamins/ Minerals Therapeutic (Theragran M Tab) 1 tab DAILY PO Last administered on 03/14/17 08:59; Start 03/12/17 at 09:00 Calcium Gluconate (Calcium Gluconate Inj) 1 gm ONCE ONCE IV PUSH ; Start at 22:00; Stop 03/11/17 at 22:01; Status UNV Insulin Human Regular (NovoLIN R INJ) 10 units ONCE ONCE IV PUSH Last administered on 03/11/17 22:46; Start 03/11/17 at 22:00; Stop 03/11/17 at 22:10 ; Status DC Dextrose (D50w (Syr) Inj) 50 ml ONCE ONCE IV PUSH Last administered on 22:45; Start 03/11/17 at 22:00; Stop 03/11/17 at 22:10; Status DC Calcium Gluconate 1 gm/Sodium Chloride 110 ml @ 110 mls/hr ONCE ONCE IV Last administered on 03/11/17 22:46; Start 03/11/17 at 22:15; Stop 03/11/17 at 23:14 ; Status DC Dextrose (D50w (Vial) Inj) 50 ml UNSCH PRN IV PUSH HYPOGLYCEMIA-SEE COMMENTS; Start 03/12/17 at 13:00 Glucagon (Glucagon Inj) 1 mg UNSCH PRN OTHER HYPOGLYCEMIA-SEE COMMENTS; Start 03/12/17 at 13:00 Insulin Aspart (NovoLOG SUPPLEMENTAL SCALE) 1 ACHS SLIDING SCALE SQ Last administered on 03/14/17 20:18; Start 03/12/17 at 17:00 Edoxaban (Savaysa) 60 mg Q24H PO ; Start 03/13/17 at 22:00; Stop 03/13/17 at 23: 50; Status DC Edoxaban (Savaysa) 30 mg Q24H PO Last administered on 03/15/17 00:07; Start 03/14/17 at 00:00 Miscellaneous Medication ([facility] Information) "MONITOR PT CRCL TO ADJ... Q48H OTHER ; Start 03/15/17 at 09:00 Metoprolol Tartrate (Lopressor) 12.5 mg Q12HR PO Last administered on 20:16; Start 03/14/17 at 21:00 Miscellaneous (Pill Splitter) 1 ea UNSCH PRN OTHER SEE LABEL COMMENTS; Start 03/14/17 at 12:45 A/P Assessment and Plan A/P 1. ARF: Renal indices improving. Acute Renal Failure, unclear etiology, possibly over-diuresis, no evidence of obstruction. Creatinine 7.20 on presentation, previously 1.06 on 06/23/16. Renal US noted without any evidence of hydronephrosis, monitor I/O, appreciate input from Nephrology . Complement C3, C4 WNL and LAWRENCE screen. 2. Hyperkalemia: Initial improvement status post Ca/Insulin/D50 3. CHF: Chronic. Systolic. Echo 06/18/16 w/ EF 15-20%, CXR w/ no acute findings. Continue to Hold Lasix/Aldactone in light of ARF. Monitor I/O as above. 4. Elevated Trop: Trop 0.06, EKG w/ no acute ischemia. No c/o chest pain. Likely secondary to renal dysfunction, continue home Statin, B-ric, hold ASA in light of ARF 5. HTN: BP Soft decreased Lopressor to 12.5mg BID with holding parameters 6. A-fib: Chronic. Continue beta ric, amiodarone, Edoxaban, 7. Transaminitis: hepatitis panel negative and amiodarone level pending, monitor LFTs 8. Diabetes type 2: Sliding scale, basal insulin. Continue to Hold metformin 9.fever- will monitor temps-repeat UA 10. DVT Prophylaxis: On anticoagulation as above. Discharge Planning dc home tomorrow if no recurrent fever. Tracie Ignacio MD Mar 15, 2017 08:56
[2017-03-15] MEDS: SODIUM CHLORIDE 0.9% FLUSH 10 ML FLUSH IV FLUSH SCH ×2 (09:00→22:37)
[2017-03-15] MEDS: METOPROLOL TARTRATE 25 MG TAB PO SCH (09:00)
[2017-03-15] MEDS: AMIODARONE 200 MG TAB PO SCH ×2 (09:00→22:37)
[2017-03-15] MEDS: [UNRECOGNIZED DRUG - REMARK] OTHER SCH (09:00)
[2017-03-15] MEDS: MULTIVITAMINS/MINERALS THERAPEUTIC TAB PO SCH (09:11)
[2017-03-15] MEDS: INSULIN ASPART SUPPLEMENTAL SCALE SQ SCH ×4 (09:35→22:39)
--- NOTE | 2017-03-15 12:45 | HHI.NPPN ---
Subjective Renal Failure: Acute Additional Remarks Patient is alert, eating better, want to eat more, no SOB. Review of Systems General Constitutional: Fatigue Cardiovascular Cardiac: ADAM Objective Data Data Vital Signs Date Time Temp Pulse Resp B/P (MAP) Pulse Ox O2 Delivery O2 Flow Rate FiO2 03/15/17 08:00 99.1 59 17 92/54 (67) 99 03/15/17 04:00 98.7 84 20 115/67 (83) 98 03/15/17 02:57 Room Air 03/15/17 00:00 99.2 63 20 104/54 (71) 99 03/14/17 22:39 17 03/14/17 20:21 70 03/14/17 20:00 101.0 65 20 111/70 (84) 65 03/14/17 16:00 99.2 64 18 100/57 (71) 99 -: 03/14/17 0555 03/14/17 0555 Physical Exam General Appearance: Well Developed, Well Nourished, No Acute Distress, Comfortable Throat Throat Exam: Oral Mucosa [place] & Moist Neck Neck Exam: Neck Supple Pulmonary Resp Exam: Clear Bilaterally Cardiology CV Exam: Regular, Normal Sinus Rhythm, Good Perfusion Gastrointestinal/Abdomen GI Exam: Soft, Non-Tender, Bowel Sounds Present Integumentary Skin Exam: Warm, Dry, Intact Extremeties Extremities Exam: No Edema Neurologic Neuro Exam: Alert, Awake, Oriented, Speech Clear, Moving All Extremities Psychiatric Psych Exam: Appropriate Responses Assessment/Plan Problem List: (1) ARF (acute renal failure) ICD Codes: N17.9 - Acute kidney failure, unspecified Plan: NEY secondary to over diuresis for CHF with ongoing potassium supplementation. Creatinine continues to improve and now it is 1.9, baseline is 1.0. He was initially given 2 liters of IV fluids. At this time, he is just tolerating p.o. fluid intake without any issues. Continue to hold diuretics as renal function further stabilizes, no signs of CHF. May need to adjust future diuretic dosing Avoid any nephrotoxins or NSAIDs otherwise, avoid any contrast studies. No new BMP, check in AM. (2) Hyperkalemia ICD Codes: E87.5 - Hyperkalemia Plan: Improving - K 5.1 today. He had been on Spironolactone as well as an DELMI inhibitor and p.o. potassium. Continue to hold all of these at this time, as his potassium further stabilizes. (3) CHF (congestive heart failure) ICD Codes: I50.9 - Congestive heart failure Status: Acute Plan: Stable, continue to monitor off diuretics. History of 15-20% ejection fraction. (4) Afib ICD Codes: I48.91 - Atrial fibrillation Status: Acute Plan: HR stable. The patient is on endoxaban. (5) DM (diabetes mellitus) ICD Codes: E11.9 - Type 2 diabetes mellitus without complications Status: Chronic Plan: Glucose stable. Hold metformin, given NEY. (6) HTN (hypertension) ICD Codes: I10 - Essential (primary) hypertension Status: Chronic Plan: BP stable. (7) Elevated LFTs ICD Codes: R79.89 - Other specified abnormal findings of blood chemistry Plan: This may be some hepatic congestion from CHF. However, there is also a possibility for elevated Amiodarone causing some hepatic toxicity. Amiodarone levels pending, follow with primary team. Liver enzymes remain at same level. Problem Qualifiers (1) ARF (acute renal failure): Qualified Codes: N17.9 - Acute kidney failure, unspecified (2) DM (diabetes mellitus): Qualified Codes: E11.8 - Type 2 diabetes mellitus with unspecified complications Mohit Jennings MD Mar 15, 2017 12:45
[2017-03-15 12:47] LABS: BLOOD, URINE NEG (NEG); COMMENT (UR) CULT NOT INDICATED; CULTURE IF INDICATED CULT NOT INDICATED; GLUCOSE,URINE 150 mg/dL (NEG); KETONE, URINE NEG (NEG); NITRITE,URINE NEG (NEG); PH, URINE 6.5 (5.0-8.5); SQUAMOUS EPITHELIAL CELL URINE <1 /hpf (0-5); URINE COLOR YELLOW (YELLW/STRAW)
[2017-03-15 19:07] LABS: ALKALINE PHOSPHATASE 242 U/L (45-117); ALT (GPT) 166 U/L (12-78); ANION GAP 8 MEQ/L (5-15); AST (GOT) 167 U/L (15-37); BICARBONATE 22.7 MEQ/L (21.0-32.0); BLOOD UREA NITROGEN 19 MG/DL (7-18); CHLORIDE 99 MEQ/L (98-107); GLOMERULAR FILTRATION RATE 77 ML/MIN (>89); POTASSIUM 4.4 MEQ/L (3.5-5.1); SODIUM (NA) 130 MEQ/L (136-145)
[2017-03-15] MEDS: ATORVASTATIN 40 MG TAB PO SCH (22:37)
[2017-03-16 02:00] VITALS: BP 131/69; PULSE 69; RESP 18; TEMP 98.7; O2SAT 100
[2017-03-16 04:30] VITALS: BP 118/64; PULSE 66; RESP 17; TEMP 97.5; O2SAT 99
[2017-03-16 08:00] VITALS: BP 107/62; PULSE 67; RESP 19; TEMP 99.6; O2SAT 99
[2017-03-16 08:55] LABS: BICARBONATE 22.4 MEQ/L (21.0-32.0); POTASSIUM 4.4 MEQ/L (3.5-5.1)
[2017-03-16] MEDS: SODIUM CHLORIDE 0.9% FLUSH 10 ML FLUSH IV FLUSH SCH ×2 (09:00→19:55)
[2017-03-16] MEDS: AMIODARONE 200 MG TAB PO SCH ×2 (09:00→19:55)
[2017-03-16] MEDS: INSULIN ASPART SUPPLEMENTAL SCALE SQ SCH ×4 (09:34→21:00)
[2017-03-16] MEDS: MULTIVITAMINS/MINERALS THERAPEUTIC TAB PO SCH (09:35)
--- NOTE | 2017-03-16 11:13 | HHI.PR ---
Subjective Remarks in no acute distress. however still with on and off fever; had a fever spike of 101 last night. has mild cough with some sputum production. Objective Vitals Vital Signs Date Time Temp Pulse Resp B/P (MAP) Pulse Ox O2 Delivery O2 Flow Rate FiO2 03/16/17 08:00 99.6 67 19 107/62 (77) 99 03/16/17 04:30 97.5 66 17 118/64 (82) 99 03/16/17 02:00 98.7 69 18 131/69 (89) 100 03/16/17 01:36 Room Air 03/15/17 20:29 64 03/15/17 19:30 101.2 03/15/17 19:30 101.2 68 18 120/64 (82) 100 03/15/17 16:30 98.7 97 18 131/71 (91) 100 03/15/17 16:00 98.9 60 17 135/79 (97) 100 03/15/17 12:00 99.6 64 17 111/61 (78) 100 I/O 03/15/17 03/15/17 03/15/17 03/16/17 03/16/17 03/16/17 07:00 15:00 23:00 07:00 15:00 23:00 Intake Total 480 ml 1440 ml 720 ml Output Total 450 ml 750 ml Balance 30 ml 690 ml 720 ml Intake Oral 480 ml 1440 ml 720 ml Output Urine Total 450 ml 750 ml # Voids 6 4 # Bowel Movements 0 0 Result Diagram: 03/14/17 0555 03/16/17 0610 Imaging Last Impressions Chest X-Ray 03/11/17 1815 Signed Impressions: Service Date/Time: Saturday, March 11, 2017 18:54 - CONCLUSION: No evidence of acute cardiopulmonary disease. Alfredo James MD Renal Ultrasound 03/11/17 0000 Signed Impressions: Service Date/Time: Saturday, March 11, 2017 22:25 - CONCLUSION: Normal ultrasound appearance of the kidneys and urinary bladder. Alfredo James MD Objective Remarks GENERAL: This is a well-nourished, well-developed patient, in no apparent distress. CARDIOVASCULAR: Regular rate and regular rhythm without murmurs, gallops, or rubs. RESPIRATORY: Clear to auscultation. Breath sounds equal bilaterally. No wheezes , rales, or rhonchi. GASTROINTESTINAL: Abdomen soft, non-tender, nondistended. Normal, active bowel sounds MUSCULOSKELETAL: Extremities without clubbing, cyanosis, or edema. NEURO: Alert & Oriented x4 to person, place, time, situation. Moves all ext x4 Procedures none Medications and IVs Current Medications Sodium Chloride 1,000 ml @ 2,000 mls/hr Q30M ONCE IV ; Start 03/11/17 at 22:00 ; Stop 03/11/17 at 22:08; Status DC Sodium Chloride (NS Flush) 2 ml UNSCH PRN IV FLUSH FLUSH AFTER USING IV ACCESS ; Start 03/11/17 at 22:00 Sodium Chloride (NS Flush) 2 ml BID IV FLUSH Last administered on 03/16/17 09: 00; Start 03/12/17 at 09:00 Ondansetron HCl (Zofran Inj) 4 mg Q6H PRN IVP NAUSEA OR VOMITING; Start at 22:00 Acetaminophen (Tylenol) 650 mg Q6H PRN PO FEVER/PAIN SCALE 1 TO 2 Last administered on 03/14/17 21:38; Start 03/11/17 at 22:00 Acetaminophen/ Hydrocodone Bitart ([place] 5-325 Mg) 1 tab Q4H PRN PO PAIN SCALE 3 TO 5; Start 03/11/17 at 22:00 Morphine Sulfate (Morphine Inj) 2 mg Q3H PRN IV PUSH Pain 6-10; Start 03/11/17 at 22:00 Senna/Docusate Sodium (Evy-Colace) 1 tab BID PO Last administered on 10:09; Start 03/12/17 at 09:00; Stop 03/12/17 at 11:45; Status DC Magnesium Hydroxide (Milk Of Magnesia Liq) 30 ml Q12H PRN PO MILD - MODERATE CONSTIPATION Last administered on 03/14/17 20:16; Start 03/11/17 at 22:00 Sennosides (Senokot) 17.2 mg Q12H PRN PO MODERATE - SEVERE CONSTIPATION; Start 03/11/17 at 22:00; Stop 03/12/17 at 11:45; Status DC Bisacodyl (Dulcolax Supp) 10 mg DAILY PRN RECTAL SEVERE CONSITIPATION; Start at 22:00; Stop 03/12/17 at 11:45; Status DC Lactulose (Lactulose Liq) 30 ml DAILY PRN PO SEVERE CONSITIPATION; Start at 22:00; Stop 03/12/17 at 11:45; Status DC Amiodarone HCl (Cordarone) 400 mg Q12HR PO Last administered on 03/15/17 22:37 ; Start 03/12/17 at 09:00 Atorvastatin Calcium (Lipitor) 40 mg HS PO Last administered on 03/15/17 22:37 ; Start 03/12/17 at 21:00 Edoxaban (Savaysa) 60 mg Q24H PO Last administered on 03/12/17 22:15; Start at 22:00; Stop 03/13/17 at 16:04; Status DC Metoprolol Tartrate (Lopressor) 25 mg Q12HR PO Last administered on 03/13/17 20:25; Start 03/12/17 at 09:00; Stop 03/14/17 at 12:42; Status DC Multivitamins/ Minerals Therapeutic (Theragran M Tab) 1 tab DAILY PO Last administered on 03/16/17 09:35; Start 03/12/17 at 09:00 Calcium Gluconate (Calcium Gluconate Inj) 1 gm ONCE ONCE IV PUSH ; Start at 22:00; Stop 03/11/17 at 22:01; Status UNV Insulin Human Regular (NovoLIN R INJ) 10 units ONCE ONCE IV PUSH Last administered on 03/11/17 22:46; Start 03/11/17 at 22:00; Stop 03/11/17 at 22:10 ; Status DC Dextrose (D50w (Syr) Inj) 50 ml ONCE ONCE IV PUSH Last administered on 22:45; Start 03/11/17 at 22:00; Stop 03/11/17 at 22:10; Status DC Calcium Gluconate 1 gm/Sodium Chloride 110 ml @ 110 mls/hr ONCE ONCE IV Last administered on 03/11/17 22:46; Start 03/11/17 at 22:15; Stop 03/11/17 at 23:14 ; Status DC Dextrose (D50w (Vial) Inj) 50 ml UNSCH PRN IV PUSH HYPOGLYCEMIA-SEE COMMENTS; Start 03/12/17 at 13:00 Glucagon (Glucagon Inj) 1 mg UNSCH PRN OTHER HYPOGLYCEMIA-SEE COMMENTS; Start 03/12/17 at 13:00 Insulin Aspart (NovoLOG SUPPLEMENTAL SCALE) 1 ACHS SLIDING SCALE SQ Last administered on 03/16/17 09:34; Start 03/12/17 at 17:00 Edoxaban (Savaysa) 60 mg Q24H PO ; Start 03/13/17 at 22:00; Stop 03/13/17 at 23: 50; Status DC Edoxaban (Savaysa) 30 mg Q24H PO Last administered on 03/15/17 22:37; Start 03/14/17 at 00:00 Miscellaneous Medication ([facility] [place] [facility] Information) "MONITOR PT CRCL TO ADJ... Q48H OTHER ; Start 03/15/17 at 09:00 Metoprolol Tartrate (Lopressor) 12.5 mg Q12HR PO Last administered on 20:16; Start 03/14/17 at 21:00; Stop 03/15/17 at 12:42; Status DC Miscellaneous (Pill Splitter) 1 ea UNSCH PRN OTHER SEE LABEL COMMENTS; Start 03/14/17 at 12:45 Docusate Sodium (Colace) 100 mg BID PRN PO CONSTIPATION; Start 03/15/17 at 09: 00 A/P Assessment and Plan A/P 1. ARF: Renal indices improving. Acute Renal Failure, unclear etiology, possibly over-diuresis, no evidence of obstruction. Renal US noted without any evidence of hydronephrosis, monitor I/O, appreciate input from Nephrology . Complement C3, C4 WNL and LAWRENCE screen. 2. Hyperkalemia:resolved. 3. CHF: Chronic. Systolic. Echo 06/18/16 w/ EF 15-20%, CXR w/ no acute findings. Continue to Hold Lasix/Aldactone in light of ARF. Monitor I/O as above. 4. Elevated Trop: Trop 0.06, EKG w/ no acute ischemia. No c/o chest pain. Likely secondary to renal dysfunction, continue home Statin, B-ric, hold ASA in light of ARF 5. HTN: BP Soft decreased Lopressor to 12.5mg BID with holding parameters 6. A-fib: Chronic. Continue beta ric, amiodarone, Edoxaban, 7. Transaminitis: hepatitis panel negative and amiodarone level pending, monitor LFTs 8. Diabetes type 2: Sliding scale, basal insulin. Continue to Hold metformin 9. recurrent fever; obtain blood cultures- repeat CXR and CBC today- UA negative. will consider ID consult if fever persists and initial work-up negative. 10. DVT Prophylaxis: On anticoagulation as above. Discharge Planning still with on and off fever- not ready for discharge today. Tracie Ignacio MD Mar 16, 2017 11:13
[2017-03-16 12:00] VITALS: BP 104/62; PULSE 75; RESP 19; TEMP 98.5; O2SAT 100
--- NOTE | 2017-03-16 13:07 | HHI.NPPN ---
Subjective Renal Failure: Acute Additional Remarks Patient is alert, eating better, had fever last evening and now low grade, no SOB, no dysuria. Review of Systems General Constitutional: Fatigue Cardiovascular Cardiac: ADAM Objective Data Data Vital Signs Date Time Temp Pulse Resp B/P (MAP) Pulse Ox O2 Delivery O2 Flow Rate FiO2 03/16/17 08:00 99.6 67 19 107/62 (77) 99 03/16/17 04:30 97.5 66 17 118/64 (82) 99 03/16/17 02:00 98.7 69 18 131/69 (89) 100 03/16/17 01:36 Room Air 03/15/17 20:29 64 03/15/17 19:30 101.2 03/15/17 19:30 101.2 68 18 120/64 (82) 100 03/15/17 16:30 98.7 97 18 131/71 (91) 100 03/15/17 16:00 98.9 60 17 135/79 (97) 100 -: 03/14/17 0555 03/16/17 0610 Physical Exam General Appearance: Well Developed, Well Nourished, No Acute Distress, Comfortable Throat Throat Exam: Oral Mucosa [place] & Moist Neck Neck Exam: Neck Supple Pulmonary Resp Exam: Clear Bilaterally Cardiology CV Exam: Regular, Normal Sinus Rhythm, Good Perfusion Gastrointestinal/Abdomen GI Exam: Soft, Non-Tender, Bowel Sounds Present Integumentary Skin Exam: Warm, Dry, Intact Extremeties Extremities Exam: No Edema Neurologic Neuro Exam: Alert, Awake, Oriented, Speech Clear, Moving All Extremities Psychiatric Psych Exam: Appropriate Responses Assessment/Plan Problem List: (1) ARF (acute renal failure) ICD Codes: N17.9 - Acute kidney failure, unspecified Plan: NEY secondary to over diuresis for CHF with ongoing potassium supplementation. Creatinine continues to improve and now it is 1.9, baseline is 1.0. He was initially given 2 liters of IV fluids. At this time, he is just tolerating p.o. fluid intake without any issues. Continue to hold diuretics as renal function further stabilizes, no signs of CHF. May need to adjust future diuretic dosing Avoid any nephrotoxins or NSAIDs otherwise, avoid any contrast studies. Creatinine now improve to 1.0, Na. is 129. Work up for fever, I will sign off from Nephrology, call again if needed. (2) Hyperkalemia ICD Codes: E87.5 - Hyperkalemia Plan: He had been on Spironolactone as well as an DELMI inhibitor and p.o. potassium. Continue to hold all of these at this time, as his potassium further stabilizes. (3) CHF (congestive heart failure) ICD Codes: I50.9 - Congestive heart failure Status: Acute Plan: Stable, continue to monitor off diuretics. History of 15-20% ejection fraction. (4) Afib ICD Codes: I48.91 - Atrial fibrillation Status: Acute Plan: HR stable. The patient is on endoxaban. (5) DM (diabetes mellitus) ICD Codes: E11.9 - Type 2 diabetes mellitus without complications Status: Chronic Plan: Glucose stable. Hold metformin, given NEY. (6) HTN (hypertension) ICD Codes: I10 - Essential (primary) hypertension Status: Chronic Plan: BP stable. (7) Elevated LFTs ICD Codes: R79.89 - Other specified abnormal findings of blood chemistry Plan: This may be some hepatic congestion from CHF. However, there is also a possibility for elevated Amiodarone causing some hepatic toxicity. Amiodarone levels pending, follow with primary team. Liver enzymes remain at same level. Problem Qualifiers (1) ARF (acute renal failure): Qualified Codes: N17.9 - Acute kidney failure, unspecified (2) DM (diabetes mellitus): Qualified Codes: E11.8 - Type 2 diabetes mellitus with unspecified complications Mohit Jenninsg MD Mar 16, 2017 13:07
--- NOTE | 2017-03-16 15:17 | RADRPT ---
EXAM DATE/TIME: 03/16/2017 13:47 [place] COMPARISON: CHEST PA & LAT, March 11, 2017, 18:54. INDICATIONS : Fever and cough. MEDICAL HISTORY : None. SURGICAL HISTORY : Pacemaker. ENCOUNTER: Subsequent ACUITY: 1 week PAIN SCORE: 0/10 LOCATION: Bilateral chest FINDINGS: Stable single lead AICD device in place. Slightly increased patchy airspace opacities in the left low er lung zone. Cardiome centimeters are stable. Remainder of the exam is unchanged. CONCLUSION: 1. Slightly increased patchy left lower lobe airspace opacities concerning for developing pneumonia eron silva provided history. Kelton Holley MD on March 16, 2017 at 15:14 Board Certified Radiologist. This report was verified electronically.
[2017-03-16 16:25] VITALS: BP 129/74; PULSE 75; RESP 20; TEMP 97.6; O2SAT 100
[2017-03-16 19:15] VITALS: BP 100/60; PULSE 70; RESP 18; TEMP 98.9; O2SAT 99
[2017-03-16] MEDS: DOCUSATE SODIUM 100 MG CAP PO PRN (19:54)
[2017-03-16] MEDS: ATORVASTATIN 40 MG TAB PO SCH (19:54)
[2017-03-16] MEDS: MAGNESIUM HYDROXIDE SUSP 30 ML CUP PO PRN (19:54)
[2017-03-17] VITALS (8 sets, daily range): BP systolic 96–124; BP diastolic 50–76; PULSE 68–92; RESP 16–20; TEMP 98.7–99.6; O2SAT 96–100
[2017-03-17] MEDS: EDOXABAN TOSYLATE 30 MG TAB PO SCH ×2 (00:03→22:39)
[2017-03-17 07:32] LABS: AUTOMATED NEUTROPHIL # 6.8 TH/MM3 (1.8-7.7); BASOPHIL % 0.2 % (0.0-2.0); EOSINOPHIL % 0.6 % (0.0-4.0); HEMATOCRIT 24.5 % (39.0-51.0); HEMO FLAGS DIFF FINAL; LYMPH % 7.6 % (9.0-44.0); LYMPHOCYTE # 0.6 TH/MM3 (1.0-4.8); MEAN CELL VOLUME 96.2 FL (80.0-100.0); MEAN CORPUSCULAR HEMOGLOBIN 33.1 PG (27.0-34.0); MEAN CORPUSCULAR HGB CONC 34.4 % (32.0-36.0); MONO % 7.7 % (0.0-8.0); NEUT % 83.9 % (16.0-70.0); PLATELET COUNT 134 TH/MM3 (150-450); RED BLOOD COUNT 2.54 MIL/MM3 (4.50-5.90); RED CELL DISTRIBUTION WIDTH 14.5 % (11.6-17.2); WHITE BLOOD COUNT 8.1 TH/MM3 (4.0-11.0)
[2017-03-17] MEDS: INSULIN ASPART SUPPLEMENTAL SCALE SQ SCH ×4 (08:00→21:00)
[2017-03-17] MEDS: DOCUSATE SODIUM 100 MG CAP PO PRN (08:52)
[2017-03-17] MEDS: MULTIVITAMINS/MINERALS THERAPEUTIC TAB PO SCH (08:52)
[2017-03-17] MEDS: AMIODARONE 200 MG TAB PO SCH ×2 (08:52→22:39)
[2017-03-17] MEDS: MAGNESIUM HYDROXIDE SUSP 30 ML CUP PO PRN (08:52)
[2017-03-17] MEDS: ACETAMINOPHEN 325 MG TAB PO PRN ×2 (08:53→17:11)
[2017-03-17] MEDS: [UNRECOGNIZED DRUG - REMARK] OTHER SCH (08:58)
[2017-03-17] MEDS: SODIUM CHLORIDE 0.9% FLUSH 10 ML FLUSH IV FLUSH SCH ×2 (08:58→22:39)
--- NOTE | 2017-03-17 12:09 | HHI.PR ---
Subjective Remarks in no distress. has occasional cough but no fever today. had an episode of emesis last night but no nausea today. Objective Vitals Vital Signs Date Time Temp Pulse Resp B/P (MAP) Pulse Ox O2 Delivery O2 Flow Rate FiO2 03/17/17 11:48 98.8 68 20 114/67 (83) 100 03/17/17 08:00 99.6 73 20 121/69 (86) 100 03/17/17 03:45 99.4 76 17 97/50 (66) 98 03/17/17 02:25 99.6 69 17 105/63 (77) 98 03/16/17 19:15 98.9 70 18 100/60 (73) 99 03/16/17 16:25 97.6 75 20 129/74 (92) 100 I/O 03/16/17 03/16/17 03/16/17 03/17/17 03/17/17 03/17/17 07:00 15:00 23:00 07:00 15:00 23:00 Intake Total 720 ml Balance 720 ml Intake Oral 720 ml # Voids 4 # Bowel Movements 0 Result Diagram: 03/17/17 0611 03/16/17 0610 Imaging Last Impressions Chest X-Ray 03/16/17 0000 Signed Impressions: Service Date/Time: Thursday, March 16, 2017 13:47 - CONCLUSION: 1. Slightly increased patchy left lower lobe airspace opacities concerning for developing pneumonia given provided history. Kelton Holley MD Renal Ultrasound 03/11/17 0000 Signed Impressions: Service Date/Time: Saturday, March 11, 2017 22:25 - CONCLUSION: Normal ultrasound appearance of the kidneys and urinary bladder. Alfredo James MD Objective Remarks GENERAL: This is a well-nourished, well-developed patient, in no apparent distress. CARDIOVASCULAR: Regular rate and regular rhythm without murmurs, gallops, or rubs. RESPIRATORY: Clear to auscultation. Breath sounds equal bilaterally. No wheezes , rales, or rhonchi. GASTROINTESTINAL: Abdomen soft, non-tender, nondistended. Normal, active bowel sounds MUSCULOSKELETAL: Extremities without clubbing, cyanosis, or edema. NEURO: Alert & Oriented x4 to person, place, time, situation. Moves all ext x4 Procedures none Medications and IVs Current Medications Sodium Chloride 1,000 ml @ 2,000 mls/hr Q30M ONCE IV ; Start 03/11/17 at 22:00 ; Stop 03/11/17 at 22:08; Status DC Sodium Chloride (NS Flush) 2 ml UNSCH PRN IV FLUSH FLUSH AFTER USING IV ACCESS ; Start 03/11/17 at 22:00 Sodium Chloride (NS Flush) 2 ml BID IV FLUSH Last administered on 03/16/17 09: 00; Start 03/12/17 at 09:00 Ondansetron HCl (Zofran Inj) 4 mg Q6H PRN IVP NAUSEA OR VOMITING; Start at 22:00 Acetaminophen (Tylenol) 650 mg Q6H PRN PO FEVER/PAIN SCALE 1 TO 2 Last administered on 03/17/17 08:53; Start 03/11/17 at 22:00 Acetaminophen/ Hydrocodone Bitart ([place] 5-325 Mg) 1 tab Q4H PRN PO PAIN SCALE 3 TO 5; Start 03/11/17 at 22:00 Morphine Sulfate (Morphine Inj) 2 mg Q3H PRN IV PUSH Pain 6-10; Start 03/11/17 at 22:00 Senna/Docusate Sodium (Evy-Colace) 1 tab BID PO Last administered on 10:09; Start 03/12/17 at 09:00; Stop 03/12/17 at 11:45; Status DC Magnesium Hydroxide (Milk Of Magnesia Liq) 30 ml Q12H PRN PO MILD - MODERATE CONSTIPATION Last administered on 03/17/17 08:52; Start 03/11/17 at 22:00 Sennosides (Senokot) 17.2 mg Q12H PRN PO MODERATE - SEVERE CONSTIPATION; Start 03/11/17 at 22:00; Stop 03/12/17 at 11:45; Status DC Bisacodyl (Dulcolax Supp) 10 mg DAILY PRN RECTAL SEVERE CONSITIPATION; Start at 22:00; Stop 03/12/17 at 11:45; Status DC Lactulose (Lactulose Liq) 30 ml DAILY PRN PO SEVERE CONSITIPATION; Start at 22:00; Stop 03/12/17 at 11:45; Status DC Amiodarone HCl (Cordarone) 400 mg Q12HR PO Last administered on 03/17/17 08:52 ; Start 03/12/17 at 09:00 Atorvastatin Calcium (Lipitor) 40 mg HS PO Last administered on 03/16/17 19:54 ; Start 03/12/17 at 21:00 Edoxaban (Savaysa) 60 mg Q24H PO Last administered on 03/12/17 22:15; Start at 22:00; Stop 03/13/17 at 16:04; Status DC Metoprolol Tartrate (Lopressor) 25 mg Q12HR PO Last administered on 03/13/17 20:25; Start 03/12/17 at 09:00; Stop 03/14/17 at 12:42; Status DC Multivitamins/ Minerals Therapeutic (Theragran M Tab) 1 tab DAILY PO Last administered on 03/17/17 08:52; Start 03/12/17 at 09:00 Calcium Gluconate (Calcium Gluconate Inj) 1 gm ONCE ONCE IV PUSH ; Start at 22:00; Stop 03/11/17 at 22:01; Status UNV Insulin Human Regular (NovoLIN R INJ) 10 units ONCE ONCE IV PUSH Last administered on 03/11/17 22:46; Start 03/11/17 at 22:00; Stop 03/11/17 at 22:10 ; Status DC Dextrose (D50w (Syr) Inj) 50 ml ONCE ONCE IV PUSH Last administered on 22:45; Start 03/11/17 at 22:00; Stop 03/11/17 at 22:10; Status DC Calcium Gluconate 1 gm/Sodium Chloride 110 ml @ 110 mls/hr ONCE ONCE IV Last administered on 03/11/17 22:46; Start 03/11/17 at 22:15; Stop 03/11/17 at 23:14 ; Status DC Dextrose (D50w (Vial) Inj) 50 ml UNSCH PRN IV PUSH HYPOGLYCEMIA-SEE COMMENTS; Start 03/12/17 at 13:00 Glucagon (Glucagon Inj) 1 mg UNSCH PRN OTHER HYPOGLYCEMIA-SEE COMMENTS; Start 03/12/17 at 13:00 Insulin Aspart (NovoLOG SUPPLEMENTAL SCALE) 1 ACHS SLIDING SCALE SQ Last administered on 03/16/17 09:34; Start 03/12/17 at 17:00 Edoxaban (Savaysa) 60 mg Q24H PO ; Start 03/13/17 at 22:00; Stop 03/13/17 at 23: 50; Status DC Edoxaban (Savaysa) 30 mg Q24H PO Last administered on 03/17/17 00:03; Start 03/14/17 at 00:00 Miscellaneous Medication ([facility] [place] [facility] Information) "MONITOR PT CRCL TO ADJ... Q48H OTHER ; Start 03/15/17 at 09:00 Metoprolol Tartrate (Lopressor) 12.5 mg Q12HR PO Last administered on 20:16; Start 03/14/17 at 21:00; Stop 03/15/17 at 12:42; Status DC Miscellaneous (Pill Splitter) 1 ea UNSCH PRN OTHER SEE LABEL COMMENTS; Start 03/14/17 at 12:45 Docusate Sodium (Colace) 100 mg BID PRN PO CONSTIPATION Last administered on 08:52; Start 03/15/17 at 09:00 A/P Problem List: (1) ARF (acute renal failure) ICD Code: N17.9 - Acute kidney failure, unspecified (2) Hyperkalemia ICD Code: E87.5 - Hyperkalemia (3) Elevated troponin ICD Code: R79.89 - Other specified abnormal findings of blood chemistry Status: Acute (4) CHF (congestive heart failure) ICD Code: I50.9 - Congestive heart failure Status: Acute (5) HTN (hypertension) ICD Code: I10 - Essential (primary) hypertension Status: Chronic (6) Afib ICD Code: I48.91 - Atrial fibrillation Status: Acute (7) DM (diabetes mellitus) ICD Code: E11.9 - Type 2 diabetes mellitus without complications Status: Chronic Assessment and Plan A/P 1. ARF: resolved, possibly over-diuresis, no evidence of obstruction. Renal US noted without any evidence of hydronephrosis, monitor I/O, appreciate input from Nephrology . Complement C3, C4 WNL and [place] screen. nephrology f/u appreciated and signed off. 2. Hyperkalemia:resolved. 3. CHF: Chronic. Systolic. Echo 06/18/16 w/ EF 15-20%, CXR w/ no acute findings. Continue to Hold Lasix/Aldactone in light of ARF. Monitor I/O as above. 4. Elevated Trop: Trop 0.06, EKG w/ no acute ischemia. No c/o chest pain. Likely secondary to renal dysfunction, continue home Statin, B-ric, hold ASA in light of ARF 5. HTN: BP Soft decreased Lopressor to 12.5mg BID with holding parameters 6. A-fib: Chronic. Continue beta ric, amiodarone, Edoxaban, 7. Transaminitis: hepatitis panel negative and amiodarone level pending, monitor LFTs 8. Diabetes type 2: Sliding scale, basal insulin. Continue to Hold metformin 9. recurrent fever with CXR concerning for pneumonia; will start antibiotics and follow the cultures. 10. anemia- of chronic disease- however with a drop in H/H- will monitor; CBC tomorrow. 11. DVT Prophylaxis: On anticoagulation as above. Discharge Planning dc home within the next 24-48 hrs if stable. Problem Qualifiers (1) ARF (acute renal failure): Qualified Codes: N17.9 - Acute kidney failure, unspecified (2) DM (diabetes mellitus): Qualified Codes: E11.8 - Type 2 diabetes mellitus with unspecified complications Tracie Ignacio MD Mar 17, 2017 12:09
[2017-03-17] MEDS ORDERED: AZITHROMYCIN INJ 250 MG in SODIUM CHLOR 0.9% 250 ML INJ 250 ML IV SCH (13:00)
[2017-03-17] MEDS: cefTRIAXone INJ 1,000 MG in SODIUM CHLORIDE 0.9% INJ 100 ML IV SCH (14:00)
[2017-03-17] MEDS: AZITHROMYCIN INJ 250 MG in SODIUM CHLOR 0.9% 250 ML INJ 250 ML IV SCH (17:11)
[2017-03-17] MEDS: ATORVASTATIN 40 MG TAB PO SCH (22:39)
[2017-03-18 04:10] VITALS: BP 97/63; PULSE 92; RESP 16; TEMP 98.6; O2SAT 99
[2017-03-18 07:03] LABS: AUTOMATED NEUTROPHIL # 7.1 TH/MM3 (1.8-7.7); BASOPHIL % 0.3 % (0.0-2.0); EOSINOPHIL % 0.5 % (0.0-4.0); HEMATOCRIT 24.1 % (39.0-51.0); HEMO FLAGS DIFF FINAL; LYMPH % 7.5 % (9.0-44.0); LYMPHOCYTE # 0.6 TH/MM3 (1.0-4.8); MEAN CELL VOLUME 96.3 FL (80.0-100.0); MEAN CORPUSCULAR HEMOGLOBIN 33.5 PG (27.0-34.0); MEAN CORPUSCULAR HGB CONC 34.8 % (32.0-36.0); MONO % 6.5 % (0.0-8.0); NEUT % 85.2 % (16.0-70.0); PLATELET COUNT 145 TH/MM3 (150-450); RED CELL DISTRIBUTION WIDTH 14.5 % (11.6-17.2); WHITE BLOOD COUNT 8.4 TH/MM3 (4.0-11.0)
[2017-03-18 08:00] VITALS: BP 114/69; PULSE 75; RESP 18; TEMP 98.1; O2SAT 98
[2017-03-18] MEDS: INSULIN ASPART SUPPLEMENTAL SCALE SQ SCH ×4 (08:00→21:33)
[2017-03-18] MEDS: AMIODARONE 200 MG TAB PO SCH ×2 (09:00→21:35)
[2017-03-18] MEDS: SODIUM CHLORIDE 0.9% FLUSH 10 ML FLUSH IV FLUSH SCH ×2 (09:00→21:35)
[2017-03-18] MEDS: MULTIVITAMINS/MINERALS THERAPEUTIC TAB PO SCH (09:44)
--- NOTE | 2017-03-18 10:30 | HHI.PR ---
Subjective Remarks in no acute distress. still with some cough. no fever. Objective Vitals Vital Signs Date Time Temp Pulse Resp B/P (MAP) Pulse Ox O2 Delivery O2 Flow Rate FiO2 03/18/17 08:00 98.1 75 18 114/69 (84) 98 03/18/17 04:10 98.6 92 16 97/63 (74) 99 03/17/17 23:35 99.2 73 16 124/76 (92) 98 03/17/17 22:36 82 03/17/17 20:05 98.7 82 16 120/64 (82) 100 03/17/17 16:00 99.0 71 20 106/60 (75) 100 03/17/17 11:48 98.8 68 20 114/67 (83) 100 I/O 03/17/17 03/17/17 03/17/17 03/18/17 03/18/17 03/18/17 07:00 15:00 23:00 07:00 15:00 23:00 Intake Total 240 ml 720 ml 950 ml 720 ml Output Total 300 ml Balance 240 ml 720 ml 650 ml 720 ml Intake Oral 240 ml 720 ml 600 ml 720 ml IV Total 350 ml Output Urine Total 300 ml # Voids 2 5 1 4 # Bowel Movements 0 2 0 Result Diagram: 03/18/17 0534 03/16/17 0610 Imaging Last Impressions Chest X-Ray 03/16/17 0000 Signed Impressions: Service Date/Time: Thursday, March 16, 2017 13:47 - CONCLUSION: 1. Slightly increased patchy left lower lobe airspace opacities concerning for developing pneumonia given provided history. Kelton Holley MD Renal Ultrasound 03/11/17 0000 Signed Impressions: Service Date/Time: Saturday, March 11, 2017 22:25 - CONCLUSION: Normal ultrasound appearance of the kidneys and urinary bladder. Alfredo James MD Objective Remarks GENERAL: This is a well-nourished, well-developed patient, in no apparent distress. CARDIOVASCULAR: Regular rate and regular rhythm without murmurs, gallops, or rubs. RESPIRATORY: Clear to auscultation. Breath sounds equal bilaterally. No wheezes , rales, or rhonchi. GASTROINTESTINAL: Abdomen soft, non-tender, nondistended. Normal, active bowel sounds MUSCULOSKELETAL: Extremities without clubbing, cyanosis, or edema. NEURO: Alert & Oriented x4 to person, place, time, situation. Moves all ext x4 Procedures none Medications and IVs Current Medications Sodium Chloride 1,000 ml @ 2,000 mls/hr Q30M ONCE IV ; Start 03/11/17 at 22:00 ; Stop 03/11/17 at 22:08; Status DC Sodium Chloride (NS Flush) 2 ml UNSCH PRN IV FLUSH FLUSH AFTER USING IV ACCESS ; Start 03/11/17 at 22:00 Sodium Chloride (NS Flush) 2 ml BID IV FLUSH Last administered on 03/17/17 22: 39; Start 03/12/17 at 09:00 Ondansetron HCl (Zofran Inj) 4 mg Q6H PRN IVP NAUSEA OR VOMITING; Start at 22:00 Acetaminophen (Tylenol) 650 mg Q6H PRN PO FEVER/PAIN SCALE 1 TO 2 Last administered on 03/17/17 17:11; Start 03/11/17 at 22:00 Acetaminophen/ Hydrocodone Bitart ([place] 5-325 Mg) 1 tab Q4H PRN PO PAIN SCALE 3 TO 5; Start 03/11/17 at 22:00 Morphine Sulfate (Morphine Inj) 2 mg Q3H PRN IV PUSH Pain 6-10; Start 03/11/17 at 22:00 Senna/Docusate Sodium (Evy-Colace) 1 tab BID PO Last administered on 10:09; Start 03/12/17 at 09:00; Stop 03/12/17 at 11:45; Status DC Magnesium Hydroxide (Milk Of Magnesia Liq) 30 ml Q12H PRN PO MILD - MODERATE CONSTIPATION Last administered on 03/17/17 08:52; Start 03/11/17 at 22:00 Sennosides (Senokot) 17.2 mg Q12H PRN PO MODERATE - SEVERE CONSTIPATION; Start 03/11/17 at 22:00; Stop 03/12/17 at 11:45; Status DC Bisacodyl (Dulcolax Supp) 10 mg DAILY PRN RECTAL SEVERE CONSITIPATION; Start at 22:00; Stop 03/12/17 at 11:45; Status DC Lactulose (Lactulose Liq) 30 ml DAILY PRN PO SEVERE CONSITIPATION; Start at 22:00; Stop 03/12/17 at 11:45; Status DC Amiodarone HCl (Cordarone) 400 mg Q12HR PO Last administered on 03/17/17 22:39 ; Start 03/12/17 at 09:00 Atorvastatin Calcium (Lipitor) 40 mg HS PO Last administered on 03/17/17 22:39 ; Start 03/12/17 at 21:00 Edoxaban (Savaysa) 60 mg Q24H PO Last administered on 03/12/17 22:15; Start at 22:00; Stop 03/13/17 at 16:04; Status DC Metoprolol Tartrate (Lopressor) 25 mg Q12HR PO Last administered on 03/13/17 20:25; Start 03/12/17 at 09:00; Stop 03/14/17 at 12:42; Status DC Multivitamins/ Minerals Therapeutic (Theragran M Tab) 1 tab DAILY PO Last administered on 03/18/17 09:44; Start 03/12/17 at 09:00 Calcium Gluconate (Calcium Gluconate Inj) 1 gm ONCE ONCE IV PUSH ; Start at 22:00; Stop 03/11/17 at 22:01; Status UNV Insulin Human Regular (NovoLIN R INJ) 10 units ONCE ONCE IV PUSH Last administered on 03/11/17 22:46; Start 03/11/17 at 22:00; Stop 03/11/17 at 22:10 ; Status DC Dextrose (D50w (Syr) Inj) 50 ml ONCE ONCE IV PUSH Last administered on 22:45; Start 03/11/17 at 22:00; Stop 03/11/17 at 22:10; Status DC Calcium Gluconate 1 gm/Sodium Chloride 110 ml @ 110 mls/hr ONCE ONCE IV Last administered on 03/11/17 22:46; Start 03/11/17 at 22:15; Stop 03/11/17 at 23:14 ; Status DC Dextrose (D50w (Vial) Inj) 50 ml UNSCH PRN IV PUSH HYPOGLYCEMIA-SEE COMMENTS; Start 03/12/17 at 13:00 Glucagon (Glucagon Inj) 1 mg UNSCH PRN OTHER HYPOGLYCEMIA-SEE COMMENTS; Start 03/12/17 at 13:00 Insulin Aspart (NovoLOG SUPPLEMENTAL SCALE) 1 ACHS SLIDING SCALE SQ Last administered on 03/16/17 09:34; Start 03/12/17 at 17:00 Edoxaban (Savaysa) 60 mg Q24H PO ; Start 03/13/17 at 22:00; Stop 03/13/17 at 23: 50; Status DC Edoxaban (Savaysa) 30 mg Q24H PO Last administered on 03/17/17 22:39; Start 03/14/17 at 00:00 Miscellaneous Medication ([facility] Information) "MONITOR PT CRCL TO ADJ... Q48H OTHER ; Start 03/15/17 at 09:00 Metoprolol Tartrate (Lopressor) 12.5 mg Q12HR PO Last administered on 20:16; Start 03/14/17 at 21:00; Stop 03/15/17 at 12:42; Status DC Miscellaneous (Pill Splitter) 1 ea UNSCH PRN OTHER SEE LABEL COMMENTS; Start 03/14/17 at 12:45 Docusate Sodium (Colace) 100 mg BID PRN PO CONSTIPATION IF NO IMPROVEMENT WITH MOM Last administered on 03/17/17 08:52; Start 03/15/17 at 09:00 Ceftriaxone Sodium 1000 mg/ Sodium Chloride 100 ml @ 200 mls/hr Q24H IV Last administered on 03/17/17 14:00; Start 03/17/17 at 14:00 Azithromycin 250 mg/Sodium Chloride 250 ml @ 250 mls/hr Q24H IV ; Start at 13:00; Stop 03/17/17 at 13:10; Status DC Azithromycin 250 mg/Sodium Chloride 250 ml @ 250 mls/hr Q24H IV Last administered on 03/17/17 17:11; Start 03/17/17 at 16:00 A/P Problem List: (1) ARF (acute renal failure) ICD Code: N17.9 - Acute kidney failure, unspecified (2) Hyperkalemia ICD Code: E87.5 - Hyperkalemia (3) Elevated troponin ICD Code: R79.89 - Other specified abnormal findings of blood chemistry Status: Acute (4) CHF (congestive heart failure) ICD Code: I50.9 - Congestive heart failure Status: Acute (5) HTN (hypertension) ICD Code: I10 - Essential (primary) hypertension Status: Chronic (6) Afib ICD Code: I48.91 - Atrial fibrillation Status: Acute (7) DM (diabetes mellitus) ICD Code: E11.9 - Type 2 diabetes mellitus without complications Status: Chronic Assessment and Plan A/P 1. ARF: resolved, possibly over-diuresis, no evidence of obstruction. Renal US noted without any evidence of hydronephrosis, monitor I/O, appreciate input from Nephrology . Complement C3, C4 WNL and LAWRENCE screen. nephrology f/u appreciated and signed off. 2. Hyperkalemia:resolved. 3. CHF: Chronic. Systolic. Echo 06/18/16 w/ EF 15-20%, CXR w/ no acute findings. Continue to Hold Lasix/Aldactone in light of ARF. Monitor I/O as above. 4. Elevated Trop: Trop 0.06, EKG w/ no acute ischemia. No c/o chest pain. Likely secondary to renal dysfunction, continue home Statin, B-ric, hold ASA in light of ARF 5. HTN: BP Soft decreased Lopressor to 12.5mg BID with holding parameters 6. A-fib: Chronic. Continue beta ric, amiodarone, Edoxaban, 7. Transaminitis: hepatitis panel negative and amiodarone level pending, monitor LFTs 8. Diabetes type 2: Sliding scale, basal insulin. Continue to Hold metformin 9. recurrent fever with CXR concerning for pneumonia; continue antibiotics. one bottle of blood cultures with gram positive cocci in pairs and clusters - will follow the cultures. ( d/w microbiology) 10. anemia- of chronic disease- however with a drop in H/H- H/H stable- will monitor. check the iron panel and stool for blood. 11. DVT Prophylaxis: On anticoagulation as above. Discharge Planning not ready for discharge today. Problem Qualifiers (1) ARF (acute renal failure): Qualified Codes: N17.9 - Acute kidney failure, unspecified (2) DM (diabetes mellitus): Qualified Codes: E11.8 - Type 2 diabetes mellitus with unspecified complications Tracie Ignacio MD Mar 18, 2017 10:30
[2017-03-18 12:00] VITALS: BP 104/63; PULSE 67; RESP 18; TEMP 98.9; O2SAT 99
[2017-03-18 12:14] LABS: FERRITIN 1267 NG/ML (26-388); TRANSFERRIN IRON PROFILE 125 MG/DL (200-360)
[2017-03-18] MEDS: cefTRIAXone INJ 1,000 MG in SODIUM CHLORIDE 0.9% INJ 100 ML IV SCH (14:33)
[2017-03-18 16:00] VITALS: BP 129/77; PULSE 73; RESP 18; TEMP 99.1; O2SAT 100
[2017-03-18] MEDS: AZITHROMYCIN INJ 250 MG in SODIUM CHLOR 0.9% 250 ML INJ 250 ML IV SCH (16:28)
[2017-03-18 19:59] VITALS: PULSE 72
[2017-03-18 20:06] VITALS: BP 133/73; PULSE 74; RESP 18; TEMP 99; O2SAT 100
[2017-03-18] MEDS: ATORVASTATIN 40 MG TAB PO SCH (21:34)
[2017-03-19] VITALS (7 sets, daily range): BP systolic 109–142; BP diastolic 65–97; PULSE 65–74; RESP 18; TEMP 97.2–99; O2SAT 99–100
[2017-03-19] MEDS: EDOXABAN TOSYLATE 30 MG TAB PO SCH (00:53)
[2017-03-19] MEDS: INSULIN ASPART SUPPLEMENTAL SCALE SQ SCH ×4 (08:00→21:04)
--- NOTE | 2017-03-19 08:30 | HHI.PR ---
Subjective Remarks f/u ; fever/ anemia in no acute distress. says that ' saw some blood in the stool last night'. no abdominal pain or nausea. no chest pain or sob. remains afebrile. Objective Vitals Vital Signs Date Time Temp Pulse Resp B/P (MAP) Pulse Ox O2 Delivery O2 Flow Rate FiO2 03/19/17 04:03 99.0 73 18 134/77 (96) 100 03/19/17 00:25 Room Air 03/19/17 00:05 98.3 74 18 120/78 (92) 100 03/18/17 20:06 99.0 74 18 133/73 (93) 100 03/18/17 19:59 72 03/18/17 16:00 99.1 73 18 129/77 (94) 100 03/18/17 12:00 98.9 67 18 104/63 (77) 99 I/O 03/18/17 03/18/17 03/18/17 03/19/17 03/19/17 03/19/17 07:00 15:00 23:00 07:00 15:00 23:00 Intake Total 720 ml 600 ml 360 ml 360 ml Output Total 200 ml Balance 720 ml 600 ml 160 ml 360 ml Intake Oral 720 ml 600 ml 360 ml 360 ml Output Urine Total 200 ml # Voids 4 3 4 # Bowel Movements 0 1 1 0 Result Diagram: 03/18/17 0534 03/16/17 0610 Imaging Last Impressions Chest X-Ray 03/16/17 0000 Signed Impressions: Service Date/Time: Thursday, March 16, 2017 13:47 - CONCLUSION: 1. Slightly increased patchy left lower lobe airspace opacities concerning for developing pneumonia given provided history. Kelton Holley MD Renal Ultrasound 03/11/17 0000 Signed Impressions: Service Date/Time: Saturday, March 11, 2017 22:25 - CONCLUSION: Normal ultrasound appearance of the kidneys and urinary bladder. Alfredo James MD Objective Remarks GENERAL: This is a well-nourished, well-developed patient, in no apparent distress. CARDIOVASCULAR: Regular rate and regular rhythm without murmurs, gallops, or rubs. RESPIRATORY: Clear to auscultation. Breath sounds equal bilaterally. No wheezes , rales, or rhonchi. GASTROINTESTINAL: Abdomen soft, non-tender, nondistended. Normal, active bowel sounds MUSCULOSKELETAL: Extremities without clubbing, cyanosis, or edema. NEURO: Alert & Oriented x4 to person, place, time, situation. Moves all ext x4 Procedures none Medications and IVs Current Medications Sodium Chloride 1,000 ml @ 2,000 mls/hr Q30M ONCE IV ; Start 03/11/17 at 22:00 ; Stop 03/11/17 at 22:08; Status DC Sodium Chloride (NS Flush) 2 ml UNSCH PRN IV FLUSH FLUSH AFTER USING IV ACCESS ; Start 03/11/17 at 22:00 Sodium Chloride (NS Flush) 2 ml BID IV FLUSH Last administered on 03/18/17 21: 35; Start 03/12/17 at 09:00 Ondansetron HCl (Zofran Inj) 4 mg Q6H PRN IVP NAUSEA OR VOMITING; Start at 22:00 Acetaminophen (Tylenol) 650 mg Q6H PRN PO FEVER/PAIN SCALE 1 TO 2 Last administered on 03/17/17 17:11; Start 03/11/17 at 22:00 Acetaminophen/ Hydrocodone Bitart ([place] 5-325 Mg) 1 tab Q4H PRN PO PAIN SCALE 3 TO 5; Start 03/11/17 at 22:00 Morphine Sulfate (Morphine Inj) 2 mg Q3H PRN IV PUSH Pain 6-10; Start 03/11/17 at 22:00 Senna/Docusate Sodium (Evy-Colace) 1 tab BID PO Last administered on 10:09; Start 03/12/17 at 09:00; Stop 03/12/17 at 11:45; Status DC Magnesium Hydroxide (Milk Of Magnesia Liq) 30 ml Q12H PRN PO MILD - MODERATE CONSTIPATION Last administered on 03/17/17 08:52; Start 03/11/17 at 22:00 Sennosides (Senokot) 17.2 mg Q12H PRN PO MODERATE - SEVERE CONSTIPATION; Start 03/11/17 at 22:00; Stop 03/12/17 at 11:45; Status DC Bisacodyl (Dulcolax Supp) 10 mg DAILY PRN RECTAL SEVERE CONSITIPATION; Start at 22:00; Stop 03/12/17 at 11:45; Status DC Lactulose (Lactulose Liq) 30 ml DAILY PRN PO SEVERE CONSITIPATION; Start at 22:00; Stop 03/12/17 at 11:45; Status DC Amiodarone HCl (Cordarone) 400 mg Q12HR PO Last administered on 03/18/17 21:35 ; Start 03/12/17 at 09:00 Atorvastatin Calcium (Lipitor) 40 mg HS PO Last administered on 03/18/17 21:34 ; Start 03/12/17 at 21:00 Edoxaban (Savaysa) 60 mg Q24H PO Last administered on 03/12/17 22:15; Start at 22:00; Stop 03/13/17 at 16:04; Status DC Metoprolol Tartrate (Lopressor) 25 mg Q12HR PO Last administered on 03/13/17 20:25; Start 03/12/17 at 09:00; Stop 03/14/17 at 12:42; Status DC Multivitamins/ Minerals Therapeutic (Theragran M Tab) 1 tab DAILY PO Last administered on 03/18/17 09:44; Start 03/12/17 at 09:00 Calcium Gluconate (Calcium Gluconate Inj) 1 gm ONCE ONCE IV PUSH ; Start at 22:00; Stop 03/11/17 at 22:01; Status UNV Insulin Human Regular (NovoLIN R INJ) 10 units ONCE ONCE IV PUSH Last administered on 03/11/17 22:46; Start 03/11/17 at 22:00; Stop 03/11/17 at 22:10 ; Status DC Dextrose (D50w (Syr) Inj) 50 ml ONCE ONCE IV PUSH Last administered on 22:45; Start 03/11/17 at 22:00; Stop 03/11/17 at 22:10; Status DC Calcium Gluconate 1 gm/Sodium Chloride 110 ml @ 110 mls/hr ONCE ONCE IV Last administered on 03/11/17 22:46; Start 03/11/17 at 22:15; Stop 03/11/17 at 23:14 ; Status DC Dextrose (D50w (Vial) Inj) 50 ml UNSCH PRN IV PUSH HYPOGLYCEMIA-SEE COMMENTS; Start 03/12/17 at 13:00 Glucagon (Glucagon Inj) 1 mg UNSCH PRN OTHER HYPOGLYCEMIA-SEE COMMENTS; Start 03/12/17 at 13:00 Insulin Aspart (NovoLOG SUPPLEMENTAL SCALE) 1 ACHS SLIDING SCALE SQ Last administered on 03/16/17 09:34; Start 03/12/17 at 17:00 Edoxaban (Savaysa) 60 mg Q24H PO ; Start 03/13/17 at 22:00; Stop 03/13/17 at 23: 50; Status DC Edoxaban (Savaysa) 30 mg Q24H PO Last administered on 03/19/17 00:53; Start 03/14/17 at 00:00 Miscellaneous Medication ([facility]) "MONITOR PT CRCL TO ADJ... Q48H OTHER ; Start 03/15/17 at 09:00 Metoprolol Tartrate (Lopressor) 12.5 mg Q12HR PO Last administered on 20:16; Start 03/14/17 at 21:00; Stop 03/15/17 at 12:42; Status DC Miscellaneous (Pill Splitter) 1 ea UNSCH PRN OTHER SEE LABEL COMMENTS; Start 03/14/17 at 12:45 Docusate Sodium (Colace) 100 mg BID PRN PO CONSTIPATION IF NO IMPROVEMENT WITH MOM Last administered on 03/17/17 08:52; Start 03/15/17 at 09:00 Ceftriaxone Sodium 1000 mg/ Sodium Chloride 100 ml @ 200 mls/hr Q24H IV Last administered on 03/18/17 14:33; Start 03/17/17 at 14:00 Azithromycin 250 mg/Sodium Chloride 250 ml @ 250 mls/hr Q24H IV ; Start at 13:00; Stop 03/17/17 at 13:10; Status DC Azithromycin 250 mg/Sodium Chloride 250 ml @ 250 mls/hr Q24H IV Last administered on 03/18/17 16:28; Start 03/17/17 at 16:00 A/P Problem List: (1) ARF (acute renal failure) ICD Code: N17.9 - Acute kidney failure, unspecified (2) Hyperkalemia ICD Code: E87.5 - Hyperkalemia (3) Elevated troponin ICD Code: R79.89 - Other specified abnormal findings of blood chemistry Status: Acute (4) CHF (congestive heart failure) ICD Code: I50.9 - Congestive heart failure Status: Acute (5) HTN (hypertension) ICD Code: I10 - Essential (primary) hypertension Status: Chronic (6) Afib ICD Code: I48.91 - Atrial fibrillation Status: Acute (7) DM (diabetes mellitus) ICD Code: E11.9 - Type 2 diabetes mellitus without complications Status: Chronic Assessment and Plan A/P 1. ARF: resolved, possibly over-diuresis, no evidence of obstruction. Renal US noted without any evidence of hydronephrosis, monitor I/O, appreciate input from Nephrology . Complement C3, C4 WNL and LAWRENCE screen. nephrology f/u appreciated and signed off. 2. Hyperkalemia:resolved. 3. CHF: Chronic. Systolic. Echo 06/18/16 w/ EF 15-20%, CXR w/ no acute findings. Continue to Hold Lasix/Aldactone in light of ARF. Monitor I/O as above. 4. Elevated Trop: Trop 0.06, EKG w/ no acute ischemia. No c/o chest pain. Likely secondary to renal dysfunction, continue home Statin, B-ric, hold ASA in light of GI bleed. 5. HTN: BP Soft decreased Lopressor to 12.5mg BID with holding parameters 6. A-fib: Chronic. Continue beta ric, amiodarone, Edoxaban, 7. Transaminitis: hepatitis panel negative and amiodarone level pending, monitor LFTs 8. Diabetes type 2: Sliding scale, basal insulin. Continue to Hold metformin 9. fever with CXR concerning for pneumonia; continue antibiotics. one bottle of blood cultures with staph. epidermidis; likely contamination. 10. anemia ; acute on chronic due to GI bleed/ chronic disease- hold anticoagulation for now- will repeat H/H today and consult GI. 11. DVT Prophylaxis: SCD's- hold anticoagulation due to GI bleed. Discharge Planning dc home after seen and cleared by GI. Problem Qualifiers (1) ARF (acute renal failure): Qualified Codes: N17.9 - Acute kidney failure, unspecified (2) DM (diabetes mellitus): Qualified Codes: E11.8 - Type 2 diabetes mellitus with unspecified complications Tracie Ignacio MD Mar 19, 2017 08:30
[2017-03-19] MEDS: MULTIVITAMINS/MINERALS THERAPEUTIC TAB PO SCH (09:28)
[2017-03-19] MEDS: AMIODARONE 200 MG TAB PO SCH ×2 (09:28→21:01)
[2017-03-19] MEDS: SODIUM CHLORIDE 0.9% FLUSH 10 ML FLUSH IV FLUSH SCH ×2 (09:33→21:01)
[2017-03-19 10:25] LABS: HEMATOCRIT 27.6 % (39.0-51.0)
--- NOTE | 2017-03-19 14:10 | PD.CONS ---
HPI History of Present Illness This is a 56 year old male with hx HTN, CHF, AF on edoxaban, with pacemaker who was sent from his PCP's office for abnormal labs. he was found to have NEY. GI has been consulted for blood in stool. He had red blood in his stool with BM last night. He says he has had this intermittently for the last 6-7 months. The blood is intermingled in the stool and on the wipe. He also admits vomiting periodically, particularly at night. He wakes up coughing and vomits occasionally. He has done this the last 3 nights in the hospital. Denies black tarry stool, blood in vomit, weight loss, abd pain. He says he had an EGD before his pacemaker was put in 8m ago but I do not see a record of this, he may be recalling the LUIS MIGUEL. Never had colonoscopy. (Paz Lynn) PFSH Past Medical History PMH: HTN, Hyperlipidemia, CHF (Echo 06/18/16 w/ EF 15-20%), A-fib on Edoxaban and DM Past Surgical History PAST SURGICAL HISTORY: Pacemaker, Cardiac Ablation (Paz Lynn) Coded Allergies: No Known Allergies (Unverified , 03/11/17) Family History PAST FAMILY HISTORY: Reviewed. No h/o DM or CAD Social History PAST SOCIAL HISTORY: Occasional alcohol. Negative for tobacco or drugs. (Paz Lynn) Review of Systems Constitutional: DENIES: Fever, Weight loss Eyes: DENIES: Blurred vision Ears, nose, mouth, throat: DENIES: Hearing loss Respiratory: COMPLAINS OF: Cough, DENIES: Hemoptysis Cardiovascular: DENIES: Chest pain Gastrointestinal: COMPLAINS OF: Bloody stools, Nausea, Vomiting, DENIES: Abdominal pain, Black stools, Constipation, Diarrhea, Hematemesis Genitourinary: DENIES: Hematuria Musculoskeletal: DENIES: Joint Swelling Hematologic/lymphatic: DENIES: Bruising Neurologic: DENIES: Abnormal gait Psychiatric: DENIES: Confusion (Paz Lynn) GI Exam Vitals I&O Vital Signs Date Time Temp Pulse Resp B/P (MAP) Pulse Ox O2 Delivery O2 Flow Rate FiO2 03/19/17 08:00 98.4 68 18 116/69 (85) 99 03/19/17 04:03 99.0 73 18 134/77 (96) 100 03/19/17 00:25 Room Air 03/19/17 00:05 98.3 74 18 120/78 (92) 100 03/18/17 20:06 99.0 74 18 133/73 (93) 100 03/18/17 19:59 72 03/18/17 16:00 99.1 73 18 129/77 (94) 100 I/O 03/18/17 03/18/17 03/18/17 03/19/17 03/19/17 03/19/17 06:59 14:59 22:59 06:59 14:59 22:59 Intake Total 720 ml 600 ml 360 ml 360 ml Output Total 200 ml Balance 720 ml 600 ml 160 ml 360 ml Intake Oral 720 ml 600 ml 360 ml 360 ml Output Urine Total 200 ml # Voids 4 3 4 # Bowel Movements 0 1 1 0 Imaging Last Impressions Chest X-Ray 03/16/17 0000 Signed Impressions: Service Date/Time: Thursday, March 16, 2017 13:47 - CONCLUSION: 1. Slightly increased patchy left lower lobe airspace opacities concerning for developing pneumonia given provided history. Kelton Holley MD Renal Ultrasound 03/11/17 0000 Signed Impressions: Service Date/Time: Saturday, March 11, 2017 22:25 - CONCLUSION: Normal ultrasound appearance of the kidneys and urinary bladder. Alfredo James MD Laboratory Test 03/19/17 10:00 Hemoglobin 9.2 GM/DL Hematocrit 27.6 % Date/Time Source Procedure Growth Status 03/17/17 06:15 Blood Peripheral Aerobic Blood Culture - Preliminary Staphylococcus Epidermidis Resulted 03/17/17 06:15 Blood Peripheral Anaerobic Blood Culture - Preliminary NO GROWTH IN 2 DAYS Resulted 03/18/17 21:55 Stool Stool Stool Occult Blood (JEREL) - Final HEMOCCULT POSITIVE Complete Physical Examination HEENT: PERRL; normocephalic; atraumatic; no jaundice. CHEST: CTA CARDIAC: RRR. ABDOMEN: Soft, nondistended, mild diffuse TTP; no hepatosplenomegaly; bowel sounds are present in all four quadrants. EXTREMITIES: No clubbing, cyanosis, or edema. SKIN: Normal; no rash; no jaundice. COMPUTER PATTERNMAKER: No focal deficits; alert and oriented times three. (Paz Lynn) Assessment and Plan Plan ASSESSMENT - hematochezia - intermittently bright red blood in stool for last 6-7 months. He is on Edoxaban for AF, has pacemaker. Last had edoxaban last night Never had colonoscopy or EGD. - anemia - hgb has dropped from 10.6 on admission to 8.4 on 03/18 - vomiting - unclear etiology will do EGD to r/o GERD, gastritis - LFTs elevated - trending down. hep neg - NEY - per nephrology d/t overdiuresis, has improved PLAN - continue to hold edoxaban - EGD/colonoscopy in am - obtain consent - clears - NPO after midnight - GoLytely prep - monitor HH - transfuse as needed - further recs to follow This pt seen by myself and Dr Lowe and this note is written on her behalf (Paz Lynn) Physician Comments seen, examined agree with above elevated lfts-not new-possible secondary amiodarone , need to exclude other etiologies-we will send Lucia, AMA/ASMA , ceruloplasmin, celiac panel, ggtp, dee 1 antitrypsin , shantel level elevated ferritin-history of etoh we will send genetic testing for hemochromatosis drop in hb, gi bleeding, family history of colon cancer-mother needs egd/ colonoscopy if active bleeding we will consider bleeding scan , urgent egd/colonoscopy (Marissa Lowe MD) Paz Lynn Mar 19, 2017 14:10 Marissa Lowe MD Mar 19, 2017 16:57
[2017-03-19] MEDS ORDERED: DIATRIZOATE MEGLUM/DIATRIZOATE SOD 9 ML CUP PO ONE (14:45)
[2017-03-19] MEDS: cefTRIAXone INJ 1,000 MG in SODIUM CHLORIDE 0.9% INJ 100 ML IV SCH (15:46)
[2017-03-19 15:53] LABS: AMIODARONE 1.2 mcg/mL (1.5-2.5); DESETHYLAMIODARONE 1.4 mcg/mL (1.5-2.5)
[2017-03-19] MEDS ORDERED: PEG (High)/E-LYTE SOLN 4000 ML BTL PO ONE (16:00)
[2017-03-19] MEDS ORDERED: MAGNESIUM CITRATE SOLN 300 ML BTL PO ONE ×2 (16:00→18:00)
[2017-03-19] MEDS: AZITHROMYCIN INJ 250 MG in SODIUM CHLOR 0.9% 250 ML INJ 250 ML IV SCH (17:00)
--- NOTE | 2017-03-19 19:52 | RADRPT ---
EXAM DATE/TIME: 03/19/2017 19:26 [place] COMPARISON: No previous studies available for comparison. INDICATIONS : Rectal bleeding with elevated liver enzymes. ORAL CONTRAST: Prescribed oral contrast ingested. RADIATION DOSE: 12.20 CTDIvol (mGy) MEDICAL HISTORY : Cerebrovascular disease. Cardiovascular disease Hypertension.Diabetes Renal failure. SURGICAL HISTORY : Pacemaker. ENCOUNTER: Initial ACUITY: 1 day PAIN SCALE: 0/10 LOCATION: abdomen TECHNIQUE: Volumetric scanning of the abdomen and pelvis was performed. Using automated exposure control and ad justment of the mA and/or kV according to patient size, radiation dose was kept as low as reasonably achievable to obtain optimal diagnostic quality images. DICOM format image data is available electro nically for review and comparison. FINDINGS: Atelectatic changes at the lung bases. No pleural or pericardial effusions are seen. Spleen, pancreas , left adrenal gland, bilateral kidneys are unremarkable. There is a right adrenal mass involving the medial limb measuring 2.7 x 2.4 cm in AP and transverse dimension, and this is characteristic of an adenoma. The liver is increased in density with diffusely. No focal masses are seen. There is a small amount of perihepatic free fluid. There is a right inguinal hernia containing fat and fluid and a sm all portion of small bowel. There are no signs of bowel obstruction. No evidence of free air. Appendi x is normal. There is no adenopathy or aneurysm. Scattered atherosclerotic calcifications are noted. Small fat containing umbilical hernia. The osseous structures are intact. CONCLUSION: 1. Fat containing umbilical hernia. 2. Fat, fluid and small bowel containing right inguinal hernia. 3. Trace perihepatic fluid. 4. Right adrenal adenoma. 5. Hepatomegaly and diffuse increased density of the liver parenchyma identified. The differential di agnosis would include iron deposition in the setting of hemachromatosis or hemosiderosis, Bari's di sease, amiodarone toxicity. Ha Phillip MD on March 19, 2017 at 19:47 Board Certified Radiologist. This report was verified electronically.
[2017-03-19] MEDS: ATORVASTATIN 40 MG TAB PO SCH (21:01)
[2017-03-20] VITALS (8 sets, daily range): BP systolic 115–145; BP diastolic 71–86; PULSE 55–102; RESP 17–18; TEMP 96.4–98.9; O2SAT 95–100
[2017-03-20] MEDS ORDERED: POVIDONE IODINE 5% (ANTISEPSIS KIT) 4 APPLICATIONS EACH NARE PRN (04:00)
[2017-03-20] MEDS ORDERED: CHLORHEXIDINE GLUCONATE 2 % 1 PACK (2 CLOTHS) TOPICAL PRN (04:00)
[2017-03-20] MEDS ORDERED: LACTATED RINGER'S 1000 ML IV PRN (04:00)
[2017-03-20] MEDS: INSULIN ASPART SUPPLEMENTAL SCALE SQ SCH ×4 (08:00→22:33)
[2017-03-20] MEDS: SODIUM CHLORIDE 0.9% FLUSH 10 ML FLUSH IV FLUSH SCH ×2 (09:00→22:32)
[2017-03-20] MEDS: AMIODARONE 200 MG TAB PO SCH ×2 (09:00→22:32)
[2017-03-20] MEDS: MULTIVITAMINS/MINERALS THERAPEUTIC TAB PO SCH (09:00)
--- NOTE | 2017-03-20 09:15 | HHI.PR ---
Subjective Remarks comfortable with no pain , sob. remains afebrile. d/w the RN and no acute issues over night. Objective Vitals Vital Signs Date Time Temp Pulse Resp B/P (MAP) Pulse Ox O2 Delivery O2 Flow Rate FiO2 03/20/17 03:50 97.4 69 17 115/71 (86) 98 03/20/17 03:05 Room Air 03/20/17 00:10 98.9 55 17 121/75 (90) 98 03/19/17 20:04 71 03/19/17 19:40 98.4 74 18 142/80 (100) 100 03/19/17 16:00 98.0 71 18 135/97 (110) 100 03/19/17 12:00 97.2 65 18 109/65 (80) 100 I/O 03/19/17 03/19/17 03/19/17 03/20/17 03/20/17 03/20/17 07:00 15:00 23:00 07:00 15:00 23:00 Intake Total 360 ml 420 ml 1200 ml 1020 ml Balance 360 ml 420 ml 1200 ml 1020 ml Intake Oral 360 ml 420 ml 1200 ml 1020 ml # Voids 4 4 4 5 # Bowel Movements 0 2 5 7 Result Diagram: 03/19/17 1000 03/16/17 0610 Imaging Last Impressions Abdomen/Pelvis CT 03/19/17 0000 Signed Impressions: Service Date/Time: Sunday, March 19, 2017 19:26 - CONCLUSION: 1. Fat containing umbilical hernia. 2. Fat, fluid and small bowel containing right inguinal hernia. 3. Trace perihepatic fluid. 4. Right adrenal adenoma. 5. Hepatomegaly and diffuse increased density of the liver parenchyma identified. The differential diagnosis would include iron deposition in the setting of hemachromatosis or hemosiderosis, Bari's disease, amiodarone toxicity. Ha Phillip MD Chest X-Ray 03/16/17 0000 Signed Impressions: Service Date/Time: Thursday, March 16, 2017 13:47 - CONCLUSION: 1. Slightly increased patchy left lower lobe airspace opacities concerning for developing pneumonia given provided history. Kelton Holley MD Renal Ultrasound 03/11/17 0000 Signed Impressions: Service Date/Time: Saturday, March 11, 2017 22:25 - CONCLUSION: Normal ultrasound appearance of the kidneys and urinary bladder. Alfredo James MD Objective Remarks GENERAL: This is a well-nourished, well-developed patient, in no apparent distress. CARDIOVASCULAR: Regular rate and regular rhythm without murmurs, gallops, or rubs. RESPIRATORY: Clear to auscultation. Breath sounds equal bilaterally. No wheezes , rales, or rhonchi. GASTROINTESTINAL: Abdomen soft, non-tender, nondistended. Normal, active bowel sounds MUSCULOSKELETAL: Extremities without clubbing, cyanosis, or edema. NEURO: Alert & Oriented x4 to person, place, time, situation. Moves all ext x4 Procedures none Medications and IVs Current Medications Sodium Chloride 1,000 ml @ 2,000 mls/hr Q30M ONCE IV ; Start 03/11/17 at 22:00 ; Stop 03/11/17 at 22:08; Status DC Sodium Chloride (NS Flush) 2 ml UNSCH PRN IV FLUSH FLUSH AFTER USING IV ACCESS ; Start 03/11/17 at 22:00 Sodium Chloride (NS Flush) 2 ml BID IV FLUSH Last administered on 03/19/17 21: 01; Start 03/12/17 at 09:00 Ondansetron HCl (Zofran Inj) 4 mg Q6H PRN IVP NAUSEA OR VOMITING; Start at 22:00 Acetaminophen (Tylenol) 650 mg Q6H PRN PO FEVER/PAIN SCALE 1 TO 2 Last administered on 03/17/17 17:11; Start 03/11/17 at 22:00 Acetaminophen/ Hydrocodone Bitart (Oxnard 5-325 Mg) 1 tab Q4H PRN PO PAIN SCALE 3 TO 5; Start 03/11/17 at 22:00 Morphine Sulfate (Morphine Inj) 2 mg Q3H PRN IV PUSH Pain 6-10; Start 03/11/17 at 22:00 Senna/Docusate Sodium (Evy-Colace) 1 tab BID PO Last administered on 10:09; Start 03/12/17 at 09:00; Stop 03/12/17 at 11:45; Status DC Magnesium Hydroxide (Milk Of Magnesia Liq) 30 ml Q12H PRN PO MILD - MODERATE CONSTIPATION Last administered on 03/17/17 08:52; Start 03/11/17 at 22:00 Sennosides (Senokot) 17.2 mg Q12H PRN PO MODERATE - SEVERE CONSTIPATION; Start 03/11/17 at 22:00; Stop 03/12/17 at 11:45; Status DC Bisacodyl (Dulcolax Supp) 10 mg DAILY PRN RECTAL SEVERE CONSITIPATION; Start at 22:00; Stop 03/12/17 at 11:45; Status DC Lactulose (Lactulose Liq) 30 ml DAILY PRN PO SEVERE CONSITIPATION; Start at 22:00; Stop 03/12/17 at 11:45; Status DC Amiodarone HCl (Cordarone) 400 mg Q12HR PO Last administered on 03/19/17 21:01 ; Start 03/12/17 at 09:00 Atorvastatin Calcium (Lipitor) 40 mg HS PO Last administered on 03/19/17 21:01 ; Start 03/12/17 at 21:00 Edoxaban (Savaysa) 60 mg Q24H PO Last administered on 03/12/17 22:15; Start at 22:00; Stop 03/13/17 at 16:04; Status DC Metoprolol Tartrate (Lopressor) 25 mg Q12HR PO Last administered on 03/13/17 20:25; Start 03/12/17 at 09:00; Stop 03/14/17 at 12:42; Status DC Multivitamins/ Minerals Therapeutic (Theragran M Tab) 1 tab DAILY PO Last administered on 03/19/17 09:28; Start 03/12/17 at 09:00 Calcium Gluconate (Calcium Gluconate Inj) 1 gm ONCE ONCE IV PUSH ; Start at 22:00; Stop 03/11/17 at 22:01; Status UNV Insulin Human Regular (NovoLIN R INJ) 10 units ONCE ONCE IV PUSH Last administered on 03/11/17 22:46; Start 03/11/17 at 22:00; Stop 03/11/17 at 22:10 ; Status DC Dextrose (D50w (Syr) Inj) 50 ml ONCE ONCE IV PUSH Last administered on 22:45; Start 03/11/17 at 22:00; Stop 03/11/17 at 22:10; Status DC Calcium Gluconate 1 gm/Sodium Chloride 110 ml @ 110 mls/hr ONCE ONCE IV Last administered on 03/11/17 22:46; Start 03/11/17 at 22:15; Stop 03/11/17 at 23:14 ; Status DC Dextrose (D50w (Vial) Inj) 50 ml UNSCH PRN IV PUSH HYPOGLYCEMIA-SEE COMMENTS; Start 03/12/17 at 13:00 Glucagon (Glucagon Inj) 1 mg UNSCH PRN OTHER HYPOGLYCEMIA-SEE COMMENTS; Start 03/12/17 at 13:00 Insulin Aspart (NovoLOG SUPPLEMENTAL SCALE) 1 ACHS SLIDING SCALE SQ Last administered on 03/16/17 09:34; Start 03/12/17 at 17:00 Edoxaban (Savaysa) 60 mg Q24H PO ; Start 03/13/17 at 22:00; Stop 03/13/17 at 23: 50; Status DC Edoxaban (Savaysa) 30 mg Q24H PO Last administered on 03/19/17 00:53; Start 03/14/17 at 00:00; Status Future Hold Miscellaneous Medication ([facility] Information) "MONITOR PT CRCL TO ADJ... Q48H OTHER ; Start 03/15/17 at 09:00 Metoprolol Tartrate (Lopressor) 12.5 mg Q12HR PO Last administered on 20:16; Start 03/14/17 at 21:00; Stop 03/15/17 at 12:42; Status DC Miscellaneous (Pill Splitter) 1 ea UNSCH PRN OTHER SEE LABEL COMMENTS; Start 03/14/17 at 12:45 Docusate Sodium (Colace) 100 mg BID PRN PO CONSTIPATION IF NO IMPROVEMENT WITH MOM Last administered on 03/17/17 08:52; Start 03/15/17 at 09:00 Ceftriaxone Sodium 1000 mg/ Sodium Chloride 100 ml @ 200 mls/hr Q24H IV Last administered on 03/19/17 15:46; Start 03/17/17 at 14:00 Azithromycin 250 mg/Sodium Chloride 250 ml @ 250 mls/hr Q24H IV ; Start at 13:00; Stop 03/17/17 at 13:10; Status DC Azithromycin 250 mg/Sodium Chloride 250 ml @ 250 mls/hr Q24H IV Last administered on 03/19/17 17:00; Start 03/17/17 at 16:00 Magnesium Citrate (Citroma Liq) 300 ml ONCE ONCE PO ; Start 03/19/17 at 16:00; Stop 03/19/17 at 16:00; Status DC Magnesium Citrate (Citroma Liq) 300 ml ONCE ONCE PO ; Start 03/19/17 at 18:00; Stop 03/19/17 at 18:00; Status DC Polyethylene Glycol/ Electrolytes (Colyte Liq) 4,000 ml ONCE ONCE PO Last administered on 03/19/17 19:19; Start 03/19/17 at 16:00; Stop 03/19/17 at 16:01 ; Status DC Diatrizoate Meglum/ Diatrizoate Sod ( Gastroview Liq) 18 ml ONCE ONCE PO Last administered on 03/19/17 15:44; Start 03/19/17 at 14:45; Stop 03/19/17 at 14:46; Status DC Lactated Ringer's 1,000 ml @ 30 mls/hr Q24H PRN IV SEE LABEL COMMENTS; Start 03/20/17 at 04:00; Stop 03/23/17 at 03:59 Povidone Iodine (Betadine 5% Antisepsis Kit) 1 applic SECURITY PATROL DRIVER PRN EACH NARE SEE LABEL COMMENTS; Start 03/20/17 at 04:00; Stop 03/23/17 at 03:59 Chlorhexidine Gluconate (Chlorhexidine 2% Cloth) 3 pack SECURITY PATROL DRIVER PRN TOPICAL SEE LABEL COMMENTS; Start 03/20/17 at 04:00; Stop 03/23/17 at 03:59 A/P Problem List: (1) ARF (acute renal failure) ICD Code: N17.9 - Acute kidney failure, unspecified (2) Hyperkalemia ICD Code: E87.5 - Hyperkalemia (3) Elevated troponin ICD Code: R79.89 - Other specified abnormal findings of blood chemistry Status: Acute (4) CHF (congestive heart failure) ICD Code: I50.9 - Congestive heart failure Status: Acute (5) HTN (hypertension) ICD Code: I10 - Essential (primary) hypertension Status: Chronic (6) Afib ICD Code: I48.91 - Atrial fibrillation Status: Acute (7) DM (diabetes mellitus) ICD Code: E11.9 - Type 2 diabetes mellitus without complications Status: Chronic Assessment and Plan A/P 1. ARF: resolved, possibly over-diuresis, no evidence of obstruction. Renal US noted without any evidence of hydronephrosis, monitor I/O, appreciate input from Nephrology . Complement C3, C4 WNL and LAWRENCE screen. nephrology f/u appreciated and signed off. 2. Hyperkalemia:resolved. 3. CHF: Chronic. Systolic. Echo 06/18/16 w/ EF 15-20%, CXR w/ no acute findings. Continue to Hold Lasix/Aldactone in light of ARF. Monitor I/O as above. 4. Elevated Trop: Trop 0.06, EKG w/ no acute ischemia. No c/o chest pain. Likely secondary to renal dysfunction, continue home Statin, B-ric, hold ASA in light of GI bleed. 5. HTN: BP Soft decreased Lopressor to 12.5mg BID with holding parameters 6. A-fib: Chronic. Continue beta ric, amiodarone, Edoxaban on hold - pending endoscopy. 7. Transaminitis: hepatitis panel negative and amiodarone level 1.2- monitor LFTs; repeat the levels today. 8. Diabetes type 2: Sliding scale, basal insulin. Continue to Hold metformin 9. fever with CXR concerning for pneumonia; now fever has resolved- continue antibiotics. one bottle of blood cultures with staph. epidermidis; likely contamination. 10. anemia ; acute on chronic due to GI bleed/ chronic disease- hold anticoagulation for now- GI consult appreciated; for EGD/ colonoscopy today. 11. DVT Prophylaxis: SCD's- hold anticoagulation due to GI bleed. Discharge Planning dc home within the next 24 hrs- pending endoscopy / LFT's and GI recommendations. f/u; pcp,GI. Problem Qualifiers (1) ARF (acute renal failure): Qualified Codes: N17.9 - Acute kidney failure, unspecified (2) DM (diabetes mellitus): Qualified Codes: E11.8 - Type 2 diabetes mellitus with unspecified complications Tracie Ignacio MD Mar 20, 2017 09:15
[2017-03-20] MEDS ORDERED: CEFU1TAB42 PO (09:16)
[2017-03-20] MEDS ORDERED: LIDOCAINE HCL 1% PF 5 ML AMPULE OTHER ONE (12:00)
[2017-03-20] MEDS ORDERED: PROPOFOL 200 MG/20 ML AMP IV ONE (12:00)
--- NOTE | 2017-03-20 12:42 | GIPROC ---
[facility] [address] [facility]. [facility], [id number] EGD PROCEDURE REPORT EXAM DATE: 03/20/2017 PATIENT NAME: Ricardo Connelly MR #: [id number] BIRTHDATE: 1960 ATTENDING: Marissa Lowe MD ORDER #: [id number] CROSS ENTERPRISE INTEGRATOR: Monika Marquez and Sincere Gooden STATUS: inpatient INDICATIONS: The patient is a 56 yr old male here for an EGD due to anemia, gi bleeding PROCEDURE PERFORMED: EGD w/ biopsy MEDICATIONS: None and Per Anesthesia. TOPICAL ANESTHETIC: none CONSENT: The patient understands the risks and benefits of the procedure and understands that these risks include, but are not limited to: sedation, allergic reaction, infection, perforation and/or bleeding. Alternative means of evaluation and treatment include, among others: physical exam, x-rays, and/or surgical intervention. The patient elects to proceed with this endoscopic procedure. medical equipment was checked for proper function. Hand hygiene and appropriate measures for infection prevention was taken. After the risks, benefits and alternatives of the procedure were thoroughly explained, Informed consent was verified, confirmed and timeout was successfully executed by the treatment team. The patient was anesthetized with topical anesthesia and the EC-[id number] (Pedi C) endoscope was introduced through the mouth and advanced to the second portion of the duodenum. Retroflexed views revealed a hiatal hernia The gastroscope was then slowly withdrawn and removed. Gastritis antrum-biopsy duodenum normal -biopsy esophagitis distal esophagus-biopsy. ADVERSE EVENTS: There were no complications. IMPRESSIONS: 1. Gastritis antrum-biopsy duodenum normal -biopsy esophagitis distal esophagus-biopsy 2. Retroflexed views revealed a hiatal hernia RECOMMENDATIONS: 1. Await biopsy results. Biopsy results will not be ready for 7-10 days. If you don't hear from us in two weeks, call our office for biopsy results. 2. Anti-reflux regimen 3. Continue PPI PATIENT CONDITION: stable DISPOSITION: Inpatient REPEAT EXAM: EGD pending biopsy results Marissa Lowe MD eSigned: Marissa Lowe MD 03/20/2017 12:41 PM cc:
--- NOTE | 2017-03-20 12:45 | GIPROC ---
[facility] [address] [facility]. [facility], [address] COLONOSCOPY PROCEDURE REPORT EXAM DATE: 03/20/2017 PATIENT NAME: Ricardo Connelly MR #: [id number] BIRTHDATE: 1960 ENDOSCOPIST: Marissa Lowe MD ORDER #: [id number] [employer] ATTENDANT: Monika Marquez and Sincere Gooden STATUS: inpatient INDICATIONS: The patient is a 56 yr old male here for a colonoscopy due to anemia, gi bleeding PROCEDURE PERFORMED: Colonoscopy, diagnostic MEDICATIONS: None and Per Anesthesia. PREP QUALITY: good PREP TYPE:Other: ESTIMATED BLOOD LOSS: None CONSENT: The patient understands the risks and benefits of the procedure and understands that these risks include, but are not limited to: sedation, allergic reaction, infection, perforation and/or bleeding. Alternative means of evaluation and treatment include, among others: physical exam, x-rays, and/or surgical intervention. The patient elects to proceed with this endoscopic procedure. medical equipment was checked for proper function. Hand hygiene and appropriate measures for infection prevention was taken. After the risks, benefits and alternatives of the procedure were thoroughly explained, Informed consent was verified, confirmed and timeout was successfully executed by the treatment team. A digital exam revealed external hemorrhoids and revealed an enlarged prostate The Pentax EC-[id number] endoscope was introduced through the anus and advanced to the cecum, which was identified by both the appendix and ileocecal valve. The instrument was then slowly withdrawn as the colon was fully examined. COLON FINDINGS: Mild diverticulosis was noted. Retroflexed views revealed internal hemorrhoids and Retroflexed views revealed medium internal hemorrhoids The scope was then completely withdrawn from the patient and the procedure terminated. PROCEDURE WITHDRAWAL TIME:6minutes ADVERSE EVENTS: There were no complications. IMPRESSIONS: 1. Mild diverticulosis was noted 2. Retroflexed views revealed internal hemorrhoids 3. Retroflexed views revealed medium internal hemorrhoids 4. Revealed external hemorrhoids 5. Revealed an enlarged prostate RECOMMENDATIONS: 1. Benefiber 2 tsp daily 2. Probiotics from any [employer] or health food store 3. Yearly rectal exams 4. Proctozone cream consult cardiology regarding Amiodarone theraphy-possible liver toxicity fu labs for liver hematology consult-iron depositin in liver fu office 2 weeks may need liver biopsy based on results of blood work ok resume anticoagulation from [facility] capsule endoscopy op ok to dc home in am from [facility] RECALL: Return 10 years Colonoscopy Marissa Lowe MD eSigned: Marissa Lowe MD 03/20/2017 12:45 PM cc: PATIENT NAME: Ricardo Connelly MR#: [id number]
[2017-03-20] MEDS ORDERED: DO NOT ADM ANY ANTICOAGULANT DRUGS PRN (13:15)
[2017-03-20] MEDS: cefTRIAXone INJ 1,000 MG in SODIUM CHLORIDE 0.9% INJ 100 ML IV SCH (15:29)
[2017-03-20] MEDS: AZITHROMYCIN INJ 250 MG in SODIUM CHLOR 0.9% 250 ML INJ 250 ML IV SCH (15:29)
[2017-03-20 15:43] LABS: INDIRECT BILIRUBIN 0.5 MG/DL (0.0-0.8); TOTAL BILIRUBIN ADULT 1.4 MG/DL (0.2-1.0)
--- NOTE | 2017-03-20 19:21 | MB ---
cc: ASHWIN RUIZ MD, BEATRICE S. M.D. MCNISH, KARLA A. MD DATE OF CONSULTATION: 03/20/2017. REASON FOR CONSULTATION: Anemia associated with elevated ferritin levels. Please note, the anemia occurred in the setting of acute renal failure with the patient presenting with an eGFR of 10 mL per minute. CONSULTATION REQUESTED BY: Dr. Lowe. CHIEF COMPLAINT: Mr. Connelly reports feeling improved since he presented. He tells me his urine has cleared out. HISTORY OF PRESENT ILLNESS: Mr. Connelly is a very pleasant 56-year-old male with a history of cardiomyopathy with a severely reduced ejection fraction (estimated to be in the range of 15-20% on an echocardiogram dated June 2016). The patient is a diabetic and also has a history of hypertension, atrial fibrillation and hyperlipidemia. The patient reports being on oral diuretic therapy by his mat repairer, Dr. Ugarte. The patient reports noticing his urine turned from normal straw-colored urine to a very dark color. He went for blood work as ordered by his primary care physician. He was called shortly afterwards and advised to come into the emergency room for evaluation of renal failure. He presented to the hospital on 03/11/2017. His creatinine at the time of presentation was 7.2 mg/dl in (his baseline had previously been close to 1). He was hydrated liberally and his renal function has since returned to normal. Over the course of hospitalization, the patient has also been noted to have anemia with his hemoglobin at presentation of 10.6 gm/dL, and this has dropped down to 9.2 gm/dL. He did report having some red blood in the stool and was evaluated by gastroenterology. EGD and colonoscopy was done and he was found to have some external hemorrhoids as well as internal hemorrhoids. EGD revealed some gastritis. Serum iron studies revealed a normal percent iron saturation, low iron level, low TIBC and elevated ferritin levels. CT scan of the abdomen was performed on 03/19/2017, and he was noted to have a fat- containing umbilical hernia. He was also noted to have some hepatomegaly with diffuse increased density of the liver parenchyma. The hematology service has been asked to see this individual for management of his anemia. It appears that hemochromatosis workup has been ordered for evaluate for further workup of his ferritin levels. PAST MEDICAL HISTORY: 1. Congestive heart failure. 2. Diabetes. 3. Hypertension. 4. Hyperlipidemia. 5. Atrial fibrillation. 6. Acute renal failure. PAST SURGICAL HISTORY: 1. Pacemaker placement. 2. Cardiac ablation. FAMILY HISTORY: No known history of malignancy or hematologic disorders. SOCIAL HISTORY: He lives at home with his significant other. He has a 6-year-old daughter. 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 ALLERGIES: NO KNOWN DRUG ALLERGIES. CURRENT INPATIENT MEDICATIONS: 1. Azithromycin 250 milligrams IV q. 24 hours. 2. Ceftriaxone 100 milligrams IV q. 24 hours. 3. Lactated Ringers. 4. Hydrocodone / acetaminophen 5/325 every 4 hours as needed for pain. 5. Amiodarone 400 milligrams p.o. q. 12 hours. 6. Atorvastatin 40 milligrams p.o. at bedtime. 7. Colace 100 milligrams p.o. twice a day. 8. Edoxaban 300 milligrams p.o. q. 24 hours. 9. Magnesium hydroxide 30 mL p.o. q. 12 hours. 10. Morphine 2 milligrams IV q. 3 hours as needed for pain. 11. A multivitamin. 12. Zofran 4 milligrams IV q. 6 hours. REVIEW OF SYSTEMS: A thirteen point review of systems was obtained and the following are the pertinent positives and negatives. CONSTITUTIONAL: Mr. Connelly denies fevers, chills night sweats. He denies weight loss. He denies headaches, blurry vision, difficulty swallowing, soreness in the throat. He does report difficulty breathing with exertion, especially after he walks 150 yards or so. He denies angina-like chest pain, PND, orthopnea. Does report lower extremity edema and occasional palpitations. GI: Denies nausea, vomiting, diarrhea, he reports having had some blood in the stools, he denies other complaints. : Denies dysuria, hematuria, urinary incontinence. SPEEDER MACHINE OPERATOR: Denies any focal sensory or motor deficits. PHYSICAL EXAMINATION: VITAL SIGNS: Temperature 98.3 degrees Fahrenheit, heart rate 62 beats per minute, respiratory rate 16, blood pressure 108/67, O2 sats are 100 percent on room air. GENERAL PHYSICAL APPEARANCE: Mr. Connelly is a middle-aged male. He is tall. He is of moderate build. HEAD, EYES, EARS, NOSE, THROAT: Head is atraumatic and normocephalic. Conjunctivae are non-pale. The sclerae are anicteric. Extraocular muscles intact. Pupils equal, round and reactive to light and accommodation. ORAL EXAM: No pharyngeal erythema. NECK EXAM: No palpable cervical or supraclavicular lymphadenopathy. RESPIRATORY EXAM: Good air movement bilaterally. No added breath sounds. CARDIOVASCULAR EXAM: Irregular rhythm. S1, S2. No obvious murmurs, rubs or gallops. ABDOMINAL EXAM: Protuberant belly. The abdomen is soft, nontender and nondistended. No palpable organ enlargement. LOWER EXTREMITIES: Trace pretibial edema. No calf tenderness. SPEEDER MACHINE OPERATOR: No focal sensory or motor deficits. LABORATORY FINDINGS: Blood work dated 03/16/2017: Sodium 129, potassium 4.4, chloride 99, bicarb 22.4, BUN 15, creatinine 1.07, EGFR 87 mL/minute, random glucose 82, calcium 8.4. Serum iron level 47 (low), TIBC 175 (low), percent iron saturation is 27%, ferritin level is elevated at 1267. Total bilirubin is 1.4, direct bilirubin 0.9, indirect bilirubin 0.5. AST is elevated at 239, ALT is elevated at 184, alkaline phosphatase is 239. Albumin is 2.2. CBC: WBC count 8.4, hemoglobin 9.2 gm/dL, hematocrit 27.6%, platelet count noted to be 145,000, absolute neutrophil count is 7.1, absolute lymphocyte count 0.6. IMAGING STUDIES: CT scan of the abdomen without contrast dated 03/19/2017 indicates hepatomegaly with diffuse increased density of the liver parenchyma. Differential diagnoses include amiodarone toxicity, Bari's disease, hemochromatosis or hemosiderosis. ASSESSMENT: Mr. Connelly is a very pleasant 56-year-old male with multiple medical comorbid conditions including diabetes, hypertension, hyperlipidemia, severe cardiomyopathy, atrial fibrillation, and need for chronic anticoagulation. He also has a very brittle renal function. This patient was hospitalized in late February of 2017 after he was found to have acute kidney failure with an estimated GFR of approximately 10 mL/minute (presenting creatinine was over 7 mg/dL). Over the course of this hospitalization, his renal function has recovered with IV fluid hydration alone. He was noted to be anemic at the time of presentation. Serum iron studies indicate a picture most consistent with anemia of chronic diseases with low iron levels, normal percent iron saturation level, low TIBC. There might be some underlying inflammation as well given the elevated ferritin level. Typically in the absence of elevated percent iron saturation, an elevated ferritin is typically due to an underlying inflammatory state. Additionally, hepatic toxicity from any etiology will also result in elevated ferritin levels. Typically from a hematologic standpoint, we consider hereditary hemochromatosis in individuals who have elevated serum iron levels, elevated percent iron saturation, low TIBC in addition with end-organ dysfunction such as congestive heart failure and type 2 diabetes. Granted, Mr. Connelly has diabetes and congestive heart failure at a relatively young age; however, given the lack of elevation in his percent iron saturation and serum iron levels, I doubt highly that he has hereditary hemochromatosis. I did review his CT imaging. There are some abnormal liver functions noted on his blood work as well. It is possible that he has hepatic toxicity from other causes. It may be prudent to discuss the amiodarone dosing with his mat repairer given the risk of hepatotoxicity with the use of amiodarone. Amiodarone may certainly explain some of his underlying imaging findings as well as hepatic dysfunction. I do appreciate the very detailed workup ordered by GI and the primary team. It does take quite a few days for the hereditary hemochromatosis studies to come back and I will keep an eye out for these. From a hematologic standpoint, I suspect his anemia should recover as his renal function improves. I will schedule a followup in my clinic to ensure resolution of this as well as to discuss the results of hemochromatosis testing. MD URIEL Alvarez/ITZ /4:51 PM /6:56 PM
[2017-03-20] MEDS: ATORVASTATIN 40 MG TAB PO SCH (22:32)
[2017-03-21 04:40] VITALS: BP 127/77; PULSE 67; RESP 17; TEMP 97.7; O2SAT 100
[2017-03-21 08:00] VITALS: BP 124/77; PULSE 66; RESP 18; TEMP 97.2; O2SAT 97
[2017-03-21] MEDS: INSULIN ASPART SUPPLEMENTAL SCALE SQ SCH (08:00)
--- NOTE | 2017-03-21 08:55 | HHI.GIFU ---
Subjective Remarks Sitting on edge of bed. No n/v, no abdominal pain, no signs of GI bleeding. States he is going home today. (Sboia Israel) Objective Vitals I&O Vital Signs Date Time Temp Pulse Resp B/P (MAP) Pulse Ox O2 Delivery O2 Flow Rate FiO2 03/21/17 04:40 97.7 67 17 127/77 (94) 100 03/21/17 03:05 Room Air 03/20/17 23:20 98.0 102 18 145/85 (105) 96 03/20/17 20:50 98.7 68 17 136/74 (94) 95 03/20/17 20:15 68 03/20/17 16:00 96.4 72 18 129/86 (100) 100 03/20/17 12:53 98.3 62 16 108/67 (81) 100 Room Air 03/20/17 12:43 Room Air 03/20/17 12:40 98.0 62 16 100/59 (73) 100 Nasal Cannula 2 03/20/17 12:00 97.2 67 18 132/76 (94) 100 I/O 03/20/17 03/20/17 03/20/17 03/21/17 03/21/17 03/21/17 07:00 15:00 23:00 07:00 15:00 23:00 Intake Total 1020 ml 400 ml 480 ml 480 ml Balance 1020 ml 400 ml 480 ml 480 ml Intake Oral 1020 ml 480 ml 480 ml IV Total 0 ml Other 400 ml # Voids 5 3 2 4 # Bowel Movements 7 1 1 0 Laboratory Laboratory Tests Test 03/20/17 14:40 Total Bilirubin 1.4 Direct Bilirubin 0.9 Indirect Bilirubin 0.5 Aspartate Amino Transf (AST/SGOT) 239 Alanine Aminotransferase (ALT/SGPT) 184 Alkaline Phosphatase 239 Total Protein 7.6 Albumin 2.2 Date/Time Source Procedure Growth Status 03/17/17 06:15 Blood Peripheral Aerobic Blood Culture - Final Staphylococcus Epidermidis Resulted 03/17/17 06:15 Blood Peripheral Anaerobic Blood Culture - Preliminary NO GROWTH IN 3 DAYS Resulted 03/18/17 21:55 Stool Stool Stool Occult Blood (JEREL) - Final HEMOCCULT POSITIVE Complete Imaging Last Impressions Abdomen/Pelvis CT 03/19/17 0000 Signed Impressions: Service Date/Time: Sunday, March 19, 2017 19:26 - CONCLUSION: 1. Fat containing umbilical hernia. 2. Fat, fluid and small bowel containing right inguinal hernia. 3. Trace perihepatic fluid. 4. Right adrenal adenoma. 5. Hepatomegaly and diffuse increased density of the liver parenchyma identified. The differential diagnosis would include iron deposition in the setting of hemachromatosis or hemosiderosis, Bari's disease, amiodarone toxicity. Ha Phillip MD Chest X-Ray 03/16/17 0000 Signed Impressions: Service Date/Time: Thursday, March 16, 2017 13:47 - CONCLUSION: 1. Slightly increased patchy left lower lobe airspace opacities concerning for developing pneumonia given provided history. Kelton Holley MD Renal Ultrasound 03/11/17 0000 Signed Impressions: Service Date/Time: Saturday, March 11, 2017 22:25 - CONCLUSION: Normal ultrasound appearance of the kidneys and urinary bladder. Alfredo James MD Physical Exam HEENT: Normocephalic; atraumatic; no jaundice. CHEST: CTA CARDIAC: RRR ABDOMEN: Soft, nondistended, nontender; no hepatosplenomegaly; bowel sounds are present in all four quadrants. EXTREMITIES: No clubbing, cyanosis, or edema. SKIN: Normal; no rash; no jaundice. BALLISTIC EXPERT: No focal deficits; alert and oriented times three. (Sobia Israel) Assessment and Plan Plan ASSESSMENT - Hematochezia. Intermittent GI bleeding with bright red blood in stool for last 6-7 months. He is on Edoxaban for AF, has pacemaker. Last had edoxaban last night S/P EGD/Colonoscopy 03/20/17)----> 1. Gastritis antrum-biopsy, duodenum normal -biopsy, esophagitis distal esophagus-biopsy, 2. Retroflexed views revealed a hiatal hernia. 1. Mild diverticulosis was noted 2. Retroflexed views revealed internal hemorrhoids 3. Retroflexed views revealed medium internal hemorrhoids 4. Revealed external hemorrhoids 5. Revealed an enlarged prostate. Pathology pending. HH stable. No active bleeding. - Anemia. S/P EGD/Colonoscopy as above. Hematology following, feels that anemia will improve once renal function improves. - N/V. S/P EGD as above. Resolved. - LFTs elevated. CT Abdomen and pelvis without contrast (03/19/17)---> Fat containing umbilical hernia. Fat fluid and small bowel containing right inguinal hernia. Trace perihepatic fluid, right adrenal adenoma, hepatomegaly and diffuse increased density of the liver parenchyma identified. The differential diagnosis would include iron deposition in the setting of hemochromatosis or hemosiderosis, Bari's disease, amiodarone toxicity. Hepatitis profile negative. Celiac panel. LAWRENCE negative. AMA pending. ASMA pending. Ceruloplasmin pending. Alpha 1 Antitrypsin pending. Iron 47, Iron saturation 26.9, Ferritin 1267, Hfe gene pending. LFTs with T. Bili 1.4, AST 239, ALT 184, Alk Phosph 239. Possible liver biopsy once workup complete. ? Iron overload, ? Drug injury. Has been on amiodarone. Likely will need liver biopsy, can do as outpatient. - NEY. Improved. PLAN - Okay to d/c home from GI standpoint - ANA - Await pathology - PPI - Await liver workup - Consider liver biopsy once liver workup completed - Capsule endoscopy as outpatient - FU MIGUEL 2 weeks - Supportive care - Pt seen and examined by Dr. Feliz and myself and this note is written on his behalf (Sobia Israel) Physician Comments Seen and examined by CHARLES, no active bleeding. Outpatient pill cam recommended. Gi fu upon dc. Thank you (Lizabeth Feliz MD) Sobia Israel Mar 21, 2017 08:55 Lizabeth Feliz MD Mar 21, 2017 12:33
[2017-03-21] MEDS: SODIUM CHLORIDE 0.9% FLUSH 10 ML FLUSH IV FLUSH SCH (09:00)
[2017-03-21] MEDS: MULTIVITAMINS/MINERALS THERAPEUTIC TAB PO SCH (10:00)
[2017-03-21] MEDS: AMIODARONE 200 MG TAB PO SCH (10:01)
--- NOTE | 2017-03-21 10:15 | HHI.PR ---
Subjective Remarks in no distress. no fever. no new complaints and wants to go home today. Objective Vitals Vital Signs Date Time Temp Pulse Resp B/P (MAP) Pulse Ox O2 Delivery O2 Flow Rate FiO2 03/21/17 08:00 97.2 66 18 124/77 (93) 97 03/21/17 04:40 97.7 67 17 127/77 (94) 100 03/21/17 03:05 Room Air 03/20/17 23:20 98.0 102 18 145/85 (105) 96 03/20/17 20:50 98.7 68 17 136/74 (94) 95 03/20/17 20:15 68 03/20/17 16:00 96.4 72 18 129/86 (100) 100 03/20/17 12:53 98.3 62 16 108/67 (81) 100 Room Air 03/20/17 12:43 Room Air 03/20/17 12:40 98.0 62 16 100/59 (73) 100 Nasal Cannula 2 03/20/17 12:00 97.2 67 18 132/76 (94) 100 I/O 03/20/17 03/20/17 03/20/17 03/21/17 03/21/17 03/21/17 07:00 15:00 23:00 07:00 15:00 23:00 Intake Total 1020 ml 400 ml 480 ml 480 ml Balance 1020 ml 400 ml 480 ml 480 ml Intake Oral 1020 ml 480 ml 480 ml IV Total 0 ml Other 400 ml # Voids 5 3 2 4 # Bowel Movements 7 1 1 0 Result Diagram: 03/19/17 1000 Imaging Last Impressions Abdomen/Pelvis CT 03/19/17 0000 Signed Impressions: Service Date/Time: Sunday, March 19, 2017 19:26 - CONCLUSION: 1. Fat containing umbilical hernia. 2. Fat, fluid and small bowel containing right inguinal hernia. 3. Trace perihepatic fluid. 4. Right adrenal adenoma. 5. Hepatomegaly and diffuse increased density of the liver parenchyma identified. The differential diagnosis would include iron deposition in the setting of hemachromatosis or hemosiderosis, Bari's disease, amiodarone toxicity. Ha Phillip MD Chest X-Ray 03/16/17 0000 Signed Impressions: Service Date/Time: Thursday, March 16, 2017 13:47 - CONCLUSION: 1. Slightly increased patchy left lower lobe airspace opacities concerning for developing pneumonia given provided history. Kelton Holley MD Renal Ultrasound 03/11/17 0000 Signed Impressions: Service Date/Time: Saturday, March 11, 2017 22:25 - CONCLUSION: Normal ultrasound appearance of the kidneys and urinary bladder. Alfredo James MD Objective Remarks GENERAL: This is a well-nourished, well-developed patient, in no apparent distress. CARDIOVASCULAR: Regular rate and regular rhythm without murmurs, gallops, or rubs. RESPIRATORY: Clear to auscultation. Breath sounds equal bilaterally. No wheezes , rales, or rhonchi. GASTROINTESTINAL: Abdomen soft, non-tender, nondistended. Normal, active bowel sounds MUSCULOSKELETAL: Extremities without clubbing, cyanosis, or edema. NEURO: Alert & Oriented x4 to person, place, time, situation. Moves all ext x4 Procedures EGD Medications and IVs Current Medications Sodium Chloride 1,000 ml @ 2,000 mls/hr Q30M ONCE IV ; Start 03/11/17 at 22:00 ; Stop 03/11/17 at 22:08; Status DC Sodium Chloride (NS Flush) 2 ml UNSCH PRN IV FLUSH FLUSH AFTER USING IV ACCESS ; Start 03/11/17 at 22:00 Sodium Chloride (NS Flush) 2 ml BID IV FLUSH Last administered on 03/20/17 22: 32; Start 03/12/17 at 09:00 Ondansetron HCl (Zofran Inj) 4 mg Q6H PRN IVP NAUSEA OR VOMITING; Start at 22:00 Acetaminophen (Tylenol) 650 mg Q6H PRN PO FEVER/PAIN SCALE 1 TO 2 Last administered on 03/17/17 17:11; Start 03/11/17 at 22:00 Acetaminophen/ Hydrocodone Bitart ([place] 5-325 Mg) 1 tab Q4H PRN PO PAIN SCALE 3 TO 5; Start 03/11/17 at 22:00 Morphine Sulfate (Morphine Inj) 2 mg Q3H PRN IV PUSH Pain 6-10; Start 03/11/17 at 22:00 Senna/Docusate Sodium (Evy-Colace) 1 tab BID PO Last administered on 10:09; Start 03/12/17 at 09:00; Stop 03/12/17 at 11:45; Status DC Magnesium Hydroxide (Milk Of Magnesia Liq) 30 ml Q12H PRN PO MILD - MODERATE CONSTIPATION Last administered on 03/17/17 08:52; Start 03/11/17 at 22:00 Sennosides (Senokot) 17.2 mg Q12H PRN PO MODERATE - SEVERE CONSTIPATION; Start 03/11/17 at 22:00; Stop 03/12/17 at 11:45; Status DC Bisacodyl (Dulcolax Supp) 10 mg DAILY PRN RECTAL SEVERE CONSITIPATION; Start at 22:00; Stop 03/12/17 at 11:45; Status DC Lactulose (Lactulose Liq) 30 ml DAILY PRN PO SEVERE CONSITIPATION; Start at 22:00; Stop 03/12/17 at 11:45; Status DC Amiodarone HCl (Cordarone) 400 mg Q12HR PO Last administered on 03/20/17 22:32 ; Start 03/12/17 at 09:00 Atorvastatin Calcium (Lipitor) 40 mg HS PO Last administered on 03/20/17 22:32 ; Start 03/12/17 at 21:00 Edoxaban (Savaysa) 60 mg Q24H PO Last administered on 03/12/17 22:15; Start at 22:00; Stop 03/13/17 at 16:04; Status DC Metoprolol Tartrate (Lopressor) 25 mg Q12HR PO Last administered on 03/13/17 20:25; Start 03/12/17 at 09:00; Stop 03/14/17 at 12:42; Status DC Multivitamins/ Minerals Therapeutic (Theragran M Tab) 1 tab DAILY PO Last administered on 03/19/17 09:28; Start 03/12/17 at 09:00 Calcium Gluconate (Calcium Gluconate Inj) 1 gm ONCE ONCE IV PUSH ; Start at 22:00; Stop 03/11/17 at 22:01; Status UNV Insulin Human Regular (NovoLIN R INJ) 10 units ONCE ONCE IV PUSH Last administered on 03/11/17 22:46; Start 03/11/17 at 22:00; Stop 03/11/17 at 22:10 ; Status DC Dextrose (D50w (Syr) Inj) 50 ml ONCE ONCE IV PUSH Last administered on 22:45; Start 03/11/17 at 22:00; Stop 03/11/17 at 22:10; Status DC Calcium Gluconate 1 gm/Sodium Chloride 110 ml @ 110 mls/hr ONCE ONCE IV Last administered on 03/11/17 22:46; Start 03/11/17 at 22:15; Stop 03/11/17 at 23:14 ; Status DC Dextrose (D50w (Vial) Inj) 50 ml UNSCH PRN IV PUSH HYPOGLYCEMIA-SEE COMMENTS; Start 03/12/17 at 13:00 Glucagon (Glucagon Inj) 1 mg UNSCH PRN OTHER HYPOGLYCEMIA-SEE COMMENTS; Start 03/12/17 at 13:00 Insulin Aspart (NovoLOG SUPPLEMENTAL SCALE) 1 ACHS SLIDING SCALE SQ Last administered on 03/16/17 09:34; Start 03/12/17 at 17:00 Edoxaban (Savaysa) 60 mg Q24H PO ; Start 03/13/17 at 22:00; Stop 03/13/17 at 23: 50; Status DC Edoxaban (Savaysa) 30 mg Q24H PO Last administered on 03/19/17 00:53; Start 03/14/17 at 00:00; Status Future Hold Miscellaneous Medication ([facility]) "MONITOR PT CRCL TO ADJ... Q48H OTHER ; Start 03/15/17 at 09:00 Metoprolol Tartrate (Lopressor) 12.5 mg Q12HR PO Last administered on 20:16; Start 03/14/17 at 21:00; Stop 03/15/17 at 12:42; Status DC Miscellaneous (Pill Splitter) 1 ea UNSCH PRN OTHER SEE LABEL COMMENTS; Start 03/14/17 at 12:45 Docusate Sodium (Colace) 100 mg BID PRN PO CONSTIPATION IF NO IMPROVEMENT WITH MOM Last administered on 03/17/17 08:52; Start 03/15/17 at 09:00 Ceftriaxone Sodium 1000 mg/ Sodium Chloride 100 ml @ 200 mls/hr Q24H IV Last administered on 03/20/17 15:29; Start 03/17/17 at 14:00 Azithromycin 250 mg/Sodium Chloride 250 ml @ 250 mls/hr Q24H IV ; Start at 13:00; Stop 03/17/17 at 13:10; Status DC Azithromycin 250 mg/Sodium Chloride 250 ml @ 250 mls/hr Q24H IV Last administered on 03/20/17 15:29; Start 03/17/17 at 16:00 Magnesium Citrate (Citroma Liq) 300 ml ONCE ONCE PO ; Start 03/19/17 at 16:00; Stop 03/19/17 at 16:00; Status DC Magnesium Citrate (Citroma Liq) 300 ml ONCE ONCE PO ; Start 03/19/17 at 18:00; Stop 03/19/17 at 18:00; Status DC Polyethylene Glycol/ Electrolytes (Colyte Liq) 4,000 ml ONCE ONCE PO Last administered on 03/19/17 19:19; Start 03/19/17 at 16:00; Stop 03/19/17 at 16:01 ; Status DC Diatrizoate Meglum/ Diatrizoate Sod ( Gastroview Liq) 18 ml ONCE ONCE PO Last administered on 03/19/17 15:44; Start 03/19/17 at 14:45; Stop 03/19/17 at 14:46; Status DC Lactated Ringer's 1,000 ml @ 30 mls/hr Q24H PRN IV SEE LABEL COMMENTS; Start 03/20/17 at 04:00; Stop 03/23/17 at 03:59 Povidone Iodine (Betadine 5% Antisepsis Kit) 1 applic CASTING WHEEL OPERATOR HELPER PRN EACH NARE SEE LABEL COMMENTS; Start 03/20/17 at 04:00; Stop 03/23/17 at 03:59 Chlorhexidine Gluconate (Chlorhexidine 2% Cloth) 3 pack CASTING WHEEL OPERATOR HELPER PRN TOPICAL SEE LABEL COMMENTS; Start 03/20/17 at 04:00; Stop 03/23/17 at 03:59 Miscellaneous Information ALL NURSING DEPARTME... UNSCH PRN .XX SEE LABEL COMMENTS; Start 03/20/17 at 13:15; Stop 03/21/17 at 13:14 A/P Problem List: (1) ARF (acute renal failure) ICD Code: N17.9 - Acute kidney failure, unspecified (2) Hyperkalemia ICD Code: E87.5 - Hyperkalemia (3) Elevated troponin ICD Code: R79.89 - Other specified abnormal findings of blood chemistry Status: Acute (4) CHF (congestive heart failure) ICD Code: I50.9 - Congestive heart failure Status: Acute (5) HTN (hypertension) ICD Code: I10 - Essential (primary) hypertension Status: Chronic (6) Afib ICD Code: I48.91 - Atrial fibrillation Status: Acute (7) DM (diabetes mellitus) ICD Code: E11.9 - Type 2 diabetes mellitus without complications Status: Chronic Assessment and Plan A/P 1. ARF: resolved, possibly over-diuresis, no evidence of obstruction. Renal US noted without any evidence of hydronephrosis, monitor I/O, appreciate input from Nephrology . Complement C3, C4 WNL and LAWRENCE screen. nephrology f/u appreciated and signed off. 2. Hyperkalemia:resolved. 3. CHF: Chronic. Systolic. Echo 06/18/16 w/ EF 15-20%, CXR w/ no acute findings. will resume Lasix upon discharge - however will hold Aldactone in light of ARF. Monitor I/O as above. 4. Elevated Trop: Trop 0.06, EKG w/ no acute ischemia. No c/o chest pain. Likely secondary to renal dysfunction, continue home Statin, B-ric, hold ASA in light of GI bleed. 5. HTN: BP Soft decreased Lopressor to 12.5mg BID with holding parameters 6. A-fib: Chronic. Continue beta ric and edoxaban ( ok with GI)- will hold Amiodarone for now till cardiology f/u ( has an appointment next week). 7. Transaminitis: hepatitis panel negative and amiodarone level 1.2- monitor LFTs- hemochromatosis panel pending- f/u with GI as outpatient for possible liver biopsy- hold amiodarone and statin for now till w/u completed. 8. Diabetes type 2: Sliding scale, basal insulin. 9. fever with CXR concerning for pneumonia; now fever has resolved- continue antibiotics. one bottle of blood cultures with staph. epidermidis; likely contamination. 10. anemia ; acute on chronic due to GI bleed/ chronic disease- GI consult appreciated- s/p EGD with gastritis and esophagitis- biopsy to be followed up. hematology evaluation appreciated; hemochromatosis panel pending- f/u with hematology as outpatient. 11. DVT Prophylaxis: SCD's- hold anticoagulation due to GI bleed. Discharge Planning dc home today. see med list. f/u; pcp,cardiology,GI and hematology. d/w the patient and RN. d/w the GI. time spent 40 min. Problem Qualifiers (1) ARF (acute renal failure): Qualified Codes: N17.9 - Acute kidney failure, unspecified (2) DM (diabetes mellitus): Qualified Codes: E11.8 - Type 2 diabetes mellitus with unspecified complications Tracie Ignacio MD Mar 21, 2017 10:15
[2017-03-21] MEDS ORDERED: FURO1TAB60 PO (10:17)
--- NOTE | 2017-03-21 10:18 | HHI.DS ---
Discharge Summary Admission Date Mar 11, 2017 at 21:56 Discharge Date: Mar 21, 2017 Admitting Diagnosis renal failure (1) ARF (acute renal failure) ICD Code: N17.9 - Acute kidney failure, unspecified Diagnosis: Principal (2) Hyperkalemia ICD Code: E87.5 - Hyperkalemia Diagnosis: Principal (3) Elevated troponin ICD Code: R79.89 - Other specified abnormal findings of blood chemistry Diagnosis: Secondary Status: Acute (4) CHF (congestive heart failure) ICD Code: I50.9 - Congestive heart failure Diagnosis: Secondary Status: Acute (5) HTN (hypertension) ICD Code: I10 - Essential (primary) hypertension Diagnosis: Secondary Status: Chronic (6) Afib ICD Code: I48.91 - Atrial fibrillation Diagnosis: Secondary Status: Acute (7) DM (diabetes mellitus) ICD Code: E11.9 - Type 2 diabetes mellitus without complications Diagnosis: Secondary Status: Chronic Procedures EGD Brief History - From Admission This is a 56-year-old male with PMH of HTN, Hyperlipidemia, CHF (Echo 06/18/16 w/ EF 15-20%), A-fib on Edoxaban and DM who was referred to the ER by PCP secondary to abnormal outpatient labs. States he believes he is in fluid overload and reports dark-colored urine for the last 3-4 days. Denies fever, chills, nausea, vomiting, chest pain or cough. On arrival, BP 105/69, HR 56, O2 sat 98% on RA, Afebrile. CBC is essentially unremarkable. K+ 5.9. Creatinine 7.20, previously 1.06 on 06/23/16. Trop 0.06. CXR w/ no acute findings. On exam, no evidence of fluid overload. S/p IVF in ER. CBC/BMP: 03/19/17 1000 Significant Findings Laboratory Tests Test 03/18/17 11:29 03/19/17 10:00 03/20/17 05:55 03/20/17 14:40 Iron Level 47 MCG/DL (65-175) Total Iron Binding Capacity 175 MCG/DL (250-450) Ferritin 1267 NG/ML (26-388) Hemoglobin 9.2 GM/DL (13.0-17.0) Hematocrit 27.6 % (39.0-51.0) Total Bilirubin 1.4 MG/DL (0.2-1.0) Direct Bilirubin 0.9 MG/DL (0.0-0.2) Aspartate Amino Transf (AST/SGOT) 239 U/L (15-37) Alanine Aminotransferase (ALT/SGPT) 184 U/L (12-78) Alkaline Phosphatase 239 U/L (45-117) Albumin 2.2 GM/DL (3.4-5.0) Imaging Last Impressions Abdomen/Pelvis CT 03/19/17 0000 Signed Impressions: Service Date/Time: Sunday, March 19, 2017 19:26 - CONCLUSION: 1. Fat containing umbilical hernia. 2. Fat, fluid and small bowel containing right inguinal hernia. 3. Trace perihepatic fluid. 4. Right adrenal adenoma. 5. Hepatomegaly and diffuse increased density of the liver parenchyma identified. The differential diagnosis would include iron deposition in the setting of hemachromatosis or hemosiderosis, Bari's disease, amiodarone toxicity. Ha Phillip MD Chest X-Ray 03/16/17 0000 Signed Impressions: Service Date/Time: Thursday, March 16, 2017 13:47 - CONCLUSION: 1. Slightly increased patchy left lower lobe airspace opacities concerning for developing pneumonia given provided history. Kelton Holley MD Renal Ultrasound 03/11/17 0000 Signed Impressions: Service Date/Time: Saturday, March 11, 2017 22:25 - CONCLUSION: Normal ultrasound appearance of the kidneys and urinary bladder. Alfredo James MD PE at Discharge GENERAL: This is a well-nourished, well-developed patient, in no apparent distress. CARDIOVASCULAR: Regular rate and regular rhythm without murmurs, gallops, or rubs. RESPIRATORY: Clear to auscultation. Breath sounds equal bilaterally. No wheezes , rales, or rhonchi. GASTROINTESTINAL: Abdomen soft, non-tender, nondistended. Normal, active bowel sounds MUSCULOSKELETAL: Extremities without clubbing, cyanosis, or edema. NEURO: Alert & Oriented x4 to person, place, time, situation. Moves all ext x4 Hospital Course 1. ARF: resolved, possibly over-diuresis, no evidence of obstruction. Renal US noted without any evidence of hydronephrosis, monitor I/O, appreciate input from Nephrology . Complement C3, C4 WNL and LAWRENCE screen. nephrology f/u appreciated and signed off. 2. Hyperkalemia:resolved. 3. CHF: Chronic. Systolic. Echo 06/18/16 w/ EF 15-20%, CXR w/ no acute findings. will resume Lasix upon discharge - however will hold Aldactone in light of ARF. Monitor I/O as above. 4. Elevated Trop: Trop 0.06, EKG w/ no acute ischemia. No c/o chest pain. Likely secondary to renal dysfunction, continue home Statin, B-ric, hold ASA in light of GI bleed. 5. HTN: BP Soft decreased Lopressor to 12.5mg BID with holding parameters 6. A-fib: Chronic. Continue beta ric and edoxaban ( ok with GI)- will hold Amiodarone for now till cardiology f/u ( has an appointment next week). 7. Transaminitis: hepatitis panel negative and amiodarone level 1.2- monitor LFTs- hemochromatosis panel pending- f/u with GI as outpatient for possible liver biopsy- hold amiodarone and statin for now till w/u completed. 8. Diabetes type 2: Sliding scale, basal insulin. 9. fever with CXR concerning for pneumonia; now fever has resolved- continue antibiotics. one bottle of blood cultures with staph. epidermidis; likely contamination. 10. anemia ; acute on chronic due to GI bleed/ chronic disease- GI consult appreciated- s/p EGD with gastritis and esophagitis- biopsy to be followed up. hematology evaluation appreciated; hemochromatosis panel pending- f/u with hematology as outpatient. 11. DVT Prophylaxis: SCD's- hold anticoagulation due to GI bleed. Pt Condition on Discharge: Stable Discharge Disposition: Discharge Home Discharge Time: > 30 minutes Discharge Instructions DIET: Follow Instructions for: Heart Healthy Diet, Diabetic Diet Activities you can perform: Regular-No Restrictions Follow up Referrals: Cardiology Gastroenterology - 2 Weeks @ [facility] Nephrology Oncology/Hematology PCP Follow-up - 1 Week New Medications: Cefuroxime (Ceftin) 250 Mg Tab 500 MG PO BID for infection for 5 Days, #20 TAB 0 Refills Metoprolol Tartrate (Metoprolol Tartrate) 25 Mg Tab 12.5 MG PO Q12HR for Blood Pressure Management, #60 TAB 3 Refills Changed Medications: Furosemide (Lasix) 40 Mg Tab 40 MG PO DAILY for chf for 30 Days, #30 TAB 0 Refills (Changed from: BID; 60; Refills: 3) Continued Medications: Aspirin DR (Aspirin EC) 81 Mg Tabdr 81 MG PO DAILY for Blood Clot Prevention for 90 Days, TAB Edoxaban (Savaysa) 60 Mg Tab 60 MG PO Q24H for Blood Clot Prevention, #30 TAB 1 Refill Lisinopril (Lisinopril) 5 Mg Tab 5 MG PO DAILY for Blood Pressure Management, #30 TAB 3 Refills Metformin (Metformin) 500 Mg Tab 500 MG PO BIDPC for Blood Sugar Management, #60 TAB 0 Refills With meals Multiple Vitamins W/ Minerals (Strovite One) 1 Tab Tab 1 TAB PO DAILY, #30 BOTTLE 3 Refills Potassium Chloride ER (Potassium Chloride ER) 20 Meq Tab 20 MEQ PO DAILY for Electrolyte Replacement, #30 TAB 2 Refills Discontinued Medications: Acetaminophen-Codeine (Acetaminophen-Codeine) 300-30 mg Tab 1 TAB PO Q6HR PRN for PAIN SCALE 4 TO 10, #15 TAB Amiodarone (Amiodarone) 200 Mg Tab 400 MG PO Q12HR for Heart, #120 TAB 3 Refills Atorvastatin (Atorvastatin) 40 Mg Tab 40 MG PO HS for Cholesterol Management, #30 TAB 3 Refills Metoprolol Tartrate (Metoprolol Tartrate) 25 Mg Tab 25 MG PO Q12HR, #60 TAB 3 Refills Spironolactone (Spironolactone) 25 Mg Tab 12.5 MG PO DAILY for chf advanced, #30 TAB 3 Refills Tracie Ignacio MD Mar 21, 2017 10:18
[2017-03-21] MEDS ORDERED: METO25TA3 PO (10:25)
[2017-03-23 03:50] LABS: IGA SERUM 508 mg/dL (81-463)
[2017-03-23 15:53] LABS: ENDOMYSIAL AB TITER ND (<1:5); TISSUE TRANSGLUTAMINASE AB LESS THAN 1 U/mL (0-4)
[2017-03-24 15:50] LABS: MITOCHONDRIAL ABS LESS THAN 20.0 U (<=20.0)
[2017-03-25 08:07] LABS: HEREDITARY HEMOCHROM SPECIMEN WB Whole Blood
--- NOTE | 2017-03-29 16:09 | MB ---
cc: BENEDICTO DELAROSA DATE OF CONSULTATION 03/20/2017 DATE OF 1960 REASON FOR CONSULTATION Elevated LFTs taking amiodarone. HISTORY OF PRESENT ILLNESS 56-year-old male with past medical history significant for atrial fibrillation on amiodarone, hypertension, hyperlipidemia, acute on chronic systolic heart failure with an ejection fraction of 15-20%, diabetes, status post AICD, and atrial fibrillation referred to the emergency room by PCP secondary to abnormal outpatient labs. The patient was admitted with a creatinine of 7.0, acute kidney failure in the setting of possible over diuresis. Also he was found to be anemic and he was evaluated by GI. There was a significant hematocrit drop during the admission. Cardiology has been consulted because of LFT's in the setting of Amiodarone therapy. He denies any chest pain, shortness of breath, palpitations, PND, leg edema or noncompliance with medications. REVIEW OF SYSTEMS Negative except for what is mentioned in history of present illness. PAST MEDICAL HISTORY 1. Hypertension. 2. Hyperlipidemia. 3. Heart failure. 4. Severe LV systolic dysfunction. 5. Status post AICD. 6. Atrial fibrillation. 7. Diabetes. PAST SURGICAL HISTORY 1. Pacemaker. 2. Cardiac ablation. ALLERGIES NO KNOWN DRUG ALLERGIES. FAMILY HISTORY Noncontributory. SOCIAL HISTORY Occasional alcohol. Denies illicit drug use or tobacco abuse. MEDICATIONS Home medications: 1. Amiodarone 200 mg p.o. b.i.d. 2. Aspirin 81 mg p.o. daily. 3. Lipitor 40 mg p.o. daily. 4. Edoxaban 60 mg p.o. daily. 5. Lasix 40 mg p.o. twice a day. 6. Lisinopril 5 milligrams p.o. daily. 7. Metformin 500 milligrams p.o. twice a day. 8. Metoprolol 25 milligrams p.o. q.12h. 9. Aldactone 25 milligrams p.o. daily. PHYSICAL EXAMINATION VITAL SIGNS: Temperature 97, heart rate 72, respiratory rate 18, blood pressure 129/86, O2 sat 100% room air. GENERAL: Awake, alert and oriented times three in no acute distress. NECK: No JVD or carotid bruits. HEART: Regular rate and rhythm. No murmurs, rubs or gallops. ABDOMEN: Benign. LUNGS: Positive bowel sounds, soft, nontender, nondistended. EXTREMITIES: No cyanosis or edema. Pulses throughout. EKG sinus bradycardia. LABORATORY DATA Hemoglobin 9.2, hematocrit 27, platelet count 145. Chemistries sodium 129, potassium 4.4, BUN 15, creatinine 1.07, AST 239, ALT 184 , alkaline phosphatase 239. Albumin 2.2. Toxicology amiodarone 1.2. Urinalysis unremarkable. Blood cultures showing staphylococcus epidermidis in one bottle. ASSESSMENT/PLAN 56-year-old male admitted with acute kidney injury with no cardiovascular complaints has been consulted to cardiology due to elevated LFTs in the setting of being on chronic amiodarone for his atrial fibrillation. The patient remains afebrile and hemodynamically stable and denies cardiovascular complaints. Recommendations: 1. Discontinue Amiodarone 2. Continue Beta-Blockers, Metoprolol 3. Cont OAC 4. Follow up Cardiology upon discharge Thank you for the opportunity to take part on the care of this patient Will available on a PRN basis for any questions or concerns MD SUZANNE Smith/MANNIE /8:56 PM /4:03 PM TAMICA
== END 2017-03-21 10:45 | disposition home or self-care (01) | DRG 683 ==
LOC: NEPE 18:02 → NEDA 21:56 → N06A 22:51
PROVIDERS: ADMIT Internal Medicine; ATTEND Internal Medicine
PROC: 0DD38ZX Extraction of Lower Esophagus, Via Natural or Artificial Opening Endoscopic, Diagnostic (ICD-10-PCS; 2017-03-20)
PROC: 0DJD8ZZ Inspection of Lower Intestinal Tract, Via Natural or Artificial Opening Endoscopic (ICD-10-PCS; 2017-03-20)
PROC: 0DD98ZX Extraction of Duodenum, Via Natural or Artificial Opening Endoscopic, Diagnostic (ICD-10-PCS; principal; 2017-03-20 12:00)
PROC: 0DD68ZX Extraction of Stomach, Via Natural or Artificial Opening Endoscopic, Diagnostic (ICD-10-PCS; 2017-03-20 12:00)
DX: N17.9 Acute kidney failure, unspecified (principal); I13.0 Hypertensive heart and chronic kidney disease with heart failure and stage 1 through stage 4 chronic kidney disease, or unspecified chronic kidney disease; E11.22 Type 2 diabetes mellitus with diabetic chronic kidney disease; I50.22 Chronic systolic (congestive) heart failure; E87.5 Hyperkalemia; D62 Acute posthemorrhagic anemia; K92.1 Melena; N18.4 Chronic kidney disease, stage 4 (severe); R74.8 Abnormal levels of other serum enzymes; I48.2 Chronic atrial fibrillation; E78.5 Hyperlipidemia, unspecified; T50.2X5A Adverse effect of carbonic-anhydrase inhibitors, benzothiadiazides and other diuretics, initial encounter; K76.1 Chronic passive congestion of liver; R50.9 Fever, unspecified; D63.8 Anemia in other chronic diseases classified elsewhere; K40.90 Unilateral inguinal hernia, without obstruction or gangrene, not specified as recurrent; K42.9 Umbilical hernia without obstruction or gangrene; K44.9 Diaphragmatic hernia without obstruction or gangrene; K57.90 Diverticulosis of intestine, part unspecified, without perforation or abscess without bleeding; K64.4 Residual hemorrhoidal skin tags; K64.8 Other hemorrhoids; K20.9 Esophagitis, unspecified; K29.70 Gastritis, unspecified, without bleeding; Z80.0 Family history of malignant neoplasm of digestive organs; Y92.009 Unspecified place in unspecified non-institutional (private) residence as the place of occurrence of the external cause; Z79.84 Long term (current) use of oral hypoglycemic drugs; Z95.0 Presence of cardiac pacemaker
CPT/HCPCS: 71020; 74176; 76775; 76937; 80048; 80053; 80074; 80076; 80299; 81001; 81256; 82103; 82272; 82390; 82550; 82552; 82728; 82784; 82948; 83516; 83520; 83540; 83550; 83735; 84100; 84484; 85014; 85018; 85025; 86038; 86160; 86255; 87040; 87186; 87205; 88305; 88312; 93005; J0456; J0610; J0696; J1815; J7050; Q9963

== ENCOUNTER 2017-06-20 11:42 | Observation (INO) | payer MEDICARE, OTHER ==
[~2017-06-20] VITALS: Ht 180.3 cm; Wt 84.8 kg
[~2017-06-20 11:42] MED LIST changes: -ACET300T2 PO; -AMIO200T PO; -ASPI81TA11 PO; +ASPI81TA23 PO; -ATOR40TA16 PO; +CEFU1TAB18 PO; -SPIR25TA PO
[2017-06-20 11:45] VITALS: BP 129/95; PULSE 78; RESP 14; TEMP 98.4; O2SAT 97
--- NOTE | 2017-06-20 12:17 | RADRPT ---
EXAM DATE/TIME: 06/20/2017 12:06 [place] COMPARISON: CHEST PA & LAT, March 16, 2017, 13:47. INDICATIONS : Mid sternal chest pain radiadting into left arm and shoulder. MEDICAL HISTORY : Myocardial infarction. SURGICAL HISTORY : Pacemaker. ENCOUNTER: Initial ACUITY: 1 day PAIN SCORE: 8/10 LOCATION: Bilateral chest FINDINGS: Pacemaker left chest. Elevation of right and left hemidiaphragms. The lungs are under aerated with minimal bibasilar parenchymal changes. The portion of the bony skele ton visualized is unremarkable. CONCLUSION: Underated, negative for consolidation or pneumothorax. Gonsalo Musa MD FACR on June 20, 2017 at 12:14 Board Certified Radiologist. This report was verified electronically.
--- NOTE | 2017-06-20 14:00 | PD ---
HPI Chief Complaint: Chest Pain Time Seen by Provider: 13:17 Travel History International Travel<30 days: No Contact w/Intl Traveler<30days: No Traveled to known affect area: No History of Present Illness HPI A 56 year-old -[place] male presents to the emergency department for chest pain and constipation. He began to have chest pain one day ago and describes it as a sharp pain that comes and goes. He has no nausea, vomiting, or shortness of breath. The pain is to the left of the sternum and does not radiate. It is an 8/10 on the pain scale. He didn't try taking anything to alleviate the pain, and says nitroglycerin makes him feel weird so he does not like to take it. The patient also reports not passing stool or gas for 3 days. He has some abdominal tenderness in the left upper quadrant and right upper quadrant. The patient's most recent stool was described as small and hard, with no straining necessary and no blood in the stool. He has a hx of abdominal surgery for removal of adrenal adenoma and does report "having liver issues" which he is unable to provide a history for. History Past Medical History Narrative Medical Patient has a history of type 2 diabetes, hypertension, hyperlipidemia, CHF, renal failure, alcohol abuse, A fib, GERD, transaminitis, thrombocytopenia, mitral valve regurgitation, non-ST elevated myocardial infarction. Tetanus Vaccination: > 5 Years Past Surgical History Narrative Surgical Placement of a pacemaker and defibrillator 2016 Angioplasty 2007 Social History Alcohol Use: Yes (OCC) Tobacco Use: No Allergies-Medications (Allergen,Severity, Reaction): Coded Allergies: No Known Allergies (Unverified Allergy, Unknown, 06/20/17) Reported Meds & Prescriptions Reported Meds & Active Scripts Active Lasix (Furosemide) 40 Mg Tab 40 Mg PO DAILY 30 Days Metoprolol Tartrate 25 Mg Tab 12.5 Mg PO Q12HR Lisinopril 5 Mg Tab 5 Mg PO DAILY Potassium Chloride ER (Potassium Chloride) 20 Meq Tab 20 Meq PO DAILY Strovite One (Multiple Vitamins W/ Minerals) 1 Tab Tab 1 Tab PO DAILY Metformin (Metformin HCl) 500 Mg Tab 500 Mg PO BIDPC With meals Savaysa (Edoxaban) 60 Mg Tab 60 Mg PO Q24H Aspirin EC (Aspirin) 81 Mg Tabdr 81 Mg PO DAILY 90 Days Review of Systems Except as stated in HPI: all other systems reviewed are Neg General / Constitutional: No: Fever, Chills Eyes: Positive: Other (yellowing of the eyes), No: Pain HENT: Positive: Neck Pain, No: Headaches Cardiovascular: Positive: Chest Pain or Discomfort, No: Palpitations Respiratory: Positive: Shortness of Breath, No: Cough Gastrointestinal: Positive: Nausea, Abdominal Pain, Constipation, No: Vomiting Genitourinary: No: Dysuria, Decreased Urinary Output Musculoskeletal: No: Weakness, Pain Skin: No Rash, No Lesions Neurologic: Positive: Weakness, No: Headache Physical Exam Narrative GENERAL: A well-developed and well-nourished male appearing in no acute respiratory distress. SKIN: Warm and dry. HEAD: Atraumatic. Normocephalic. EYES: Pupils equal and round. No injection or drainage. Scleral icterus is present. ENT: No nasal bleeding or discharge. Mucous membranes pink and moist. NECK: Trachea midline. No JVD. CARDIOVASCULAR: Regular rate and rhythm. No murmur appreciated. RESPIRATORY: No accessory muscle use. Clear to auscultation. Breath sounds equal bilaterally. GASTROINTESTINAL: Abdomen distended and tender in the right upper quadrant and left upper quadrant. Bowel sounds hypoactive. MUSCULOSKELETAL: Extremities without clubbing, cyanosis, or edema. No obvious deformities. NEUROLOGICAL: Awake and alert. No obvious cranial nerve deficits. Motor grossly within normal limits. Five out of 5 muscle strength in the arms and legs. Normal speech. PSYCHIATRIC: Appropriate mood and affect; insight and judgment normal. Data Data Last Documented VS Vital Signs Date Time Temp Pulse Resp B/P (MAP) Pulse Ox O2 Delivery O2 Flow Rate FiO2 06/20/17 16:07 71 17 127/81 (96) 99 Room Air 06/20/17 11:45 98.4 Orders Orders Electrocardiogram (06/20/17 11:52) Ckmb (Isoenzyme) Profile (06/20/17 11:52) Complete Blood Count With Diff (06/20/17 11:52) Comprehensive Metabolic Panel (06/20/17 11:52) Magnesium (Mg) (06/20/17 11:52) Prothrombin Time / Inr (Pt) (06/20/17 11:52) Act Partial Throm Time (Ptt) (06/20/17 11:52) Troponin I (06/20/17 11:52) Lipase (06/20/17 11:52) Chest, Pa & Lat (06/20/17 11:52) CKMB (06/20/17 13:50) CKMB% (06/20/17 13:50) Place In Observation (06/20/17 ) Vital Signs (Adult) Q4H (06/20/17 15:45) Activity Oob With Assistance (06/20/17 15:45) Deli Manager / Telemetry .CONTINUOUS (06/20/17 15:45) Diet Heart Healthy (06/20/17 Dinner) Sodium Chloride 0.9% Flush (Ns Flush) (06/20/17 15:45) Sodium Chloride 0.9% Flush (Ns Flush) (06/20/17 21:00) Acetaminophen (Tylenol) (06/20/17 15:45) Basic Metabolic Panel (Bmp) (06/21/17 06:00) Complete Blood Count With Diff (06/21/17 06:00) Scd Bilateral/Knee High BRAYDON.BID (06/20/17 15:45) Naloxone Inj (Narcan Inj) (06/20/17 15:45) Magnesium Hydroxide Liq (Milk Of Magnesi (06/20/17 15:45) Sennosides (Senokot) (06/20/17 15:45) Bisacodyl Supp (Dulcolax Supp) (06/20/17 15:45) Lactulose Liq (Lactulose Liq) (06/20/17 15:45) Us Guided Abd Paracentesis (06/20/17 ) Peritoneal Cell Count + Diff (06/20/17 16:14) Total Protein Peritoneal Fluid (06/20/17 16:14) Albumin, Peritoneal Fluid (06/20/17 16:14) Ldh, Peritoneal Fluid (06/20/17 16:14) Fluid Culture And Gram Stain (06/20/17 16:14) Cytology Request For Service (06/20/17 16:14) Creatine Kinase (Cpk) (06/20/17 16:19) Creatine Kinase (Cpk) (06/20/17 22:19) Electrocardiogram (06/20/17 16:19) Electrocardiogram (06/20/17 22:19) Lactulose Liq (Lactulose Liq) (06/20/17 16:30) Docusate Sodium-Senna (Evy-Colace) (06/20/17 16:30) Admit Order (Ed Use Only) (06/20/17 16:20) Labs Laboratory Tests Test 06/20/17 13:50 White Blood Count 12.0 TH/MM3 Red Blood Count 3.29 MIL/MM3 Hemoglobin 11.2 GM/DL Hematocrit 32.6 % Mean Corpuscular Volume 99.0 FL Mean Corpuscular Hemoglobin 34.1 PG Mean Corpuscular Hemoglobin Concent 34.4 % Red Cell Distribution Width 15.6 % Platelet Count 227 TH/MM3 Mean Platelet Volume 10.3 FL Neutrophils (%) (Auto) 84.4 % Lymphocytes (%) (Auto) 7.2 % Monocytes (%) (Auto) 5.3 % Eosinophils (%) (Auto) 2.4 % Basophils (%) (Auto) 0.7 % Neutrophils # (Auto) 10.2 TH/MM3 Lymphocytes # (Auto) 0.9 TH/MM3 Monocytes # (Auto) 0.6 TH/MM3 Eosinophils # (Auto) 0.3 TH/MM3 Basophils # (Auto) 0.1 TH/MM3 CBC Comment DIFF FINAL Differential Comment Prothrombin Time 12.7 SEC Prothromb Time International Ratio 1.3 RATIO Activated Partial Thromboplast Time 28.0 SEC Blood Urea Nitrogen 18 MG/DL Creatinine 1.68 MG/DL Random Glucose 133 MG/DL Total Protein 8.6 GM/DL Albumin 2.2 GM/DL Calcium Level 8.6 MG/DL Magnesium Level 1.9 MG/DL Alkaline Phosphatase 314 U/L Aspartate Amino Transf (AST/SGOT) 198 U/L Alanine Aminotransferase (ALT/SGPT) 82 U/L Total Bilirubin 1.4 MG/DL Sodium Level 135 MEQ/L Potassium Level 4.3 MEQ/L Chloride Level 104 MEQ/L Carbon Dioxide Level 23.0 MEQ/L Anion Gap 8 MEQ/L Estimat Glomerular Filtration Rate 52 ML/MIN Total Creatine Kinase 103 U/L Creatine Kinase MB 1.3 NG/ML Troponin I LESS THAN 0.02 NG/ML Lipase 262 U/L MDM Medical Decision Making Medical Screen Exam Complete: Yes Emergency Medical Condition: Yes Differential Diagnosis bowel obstruction, ascites, hepatitis, liver cirrhosis, constipation Narrative Course 56-year-old male presents with abdominal pain, chest pain, yellow coloration. Patient has jaundice with new onset tense ascites. Patient has a history of previous transaminitis and elevated LFTs. The patient has elevated LFTs and bilirubin. Patient also has elevated evening creatinine and previous history of kidney disease. His blood sugars 133. The patient will be admitted to the hospitalist service. Diagnosis Primary Impression: new onset tense ascites. Additional Impressions: DM (diabetes mellitus) Elevated LFTs Chronic kidney disease Admitting Information Admitting Physician Requests: Observation Junior Marmolejo MD Jun 20, 2017 14:00
[2017-06-20 14:26] LABS: AUTOMATED NEUTROPHIL # 10.2 TH/MM3 (1.8-7.7); BASOPHIL # 0.1 TH/MM3 (0-0.2); BASOPHIL % 0.7 % (0.0-2.0); EOSINOPHIL # 0.3 TH/MM3 (0-0.4); EOSINOPHIL % 2.4 % (0.0-4.0); HEMATOCRIT 32.6 % (39.0-51.0); HEMOGLOBIN 11.2 GM/DL (13.0-17.0); LYMPH % 7.2 % (9.0-44.0); LYMPHOCYTE # 0.9 TH/MM3 (1.0-4.8); MEAN CORPUSCULAR HEMOGLOBIN 34.1 PG (27.0-34.0); MEAN CORPUSCULAR HGB CONC 34.4 % (32.0-36.0); MEAN PLATELET VOLUME 10.3 FL (7.0-11.0); MONO % 5.3 % (0.0-8.0); MONOCYTE # 0.6 TH/MM3 (0-0.9); NEUT % 84.4 % (16.0-70.0); PLATELET COUNT 227 TH/MM3 (150-450); RED BLOOD COUNT 3.29 MIL/MM3 (4.50-5.90); RED CELL DISTRIBUTION WIDTH 15.6 % (11.6-17.2)
[2017-06-20 14:34] LABS: INTERNATIONAL NORMALIZED RATIO 1.3 RATIO; PROTHROMBIN TIME - PATIENT 12.7 SEC (9.8-11.6)
[2017-06-20 14:40] LABS: ALBUMIN 2.2 GM/DL (3.4-5.0); AST (GOT) 198 U/L (15-37); BLOOD UREA NITROGEN 18 MG/DL (7-18); CALCIUM 8.6 MG/DL (8.5-10.1); CHLORIDE 104 MEQ/L (98-107); CREATININE 1.68 MG/DL (0.60-1.30); GLOMERULAR FILTRATION RATE 52 ML/MIN (>89); GLUCOSE,RANDOM 133 MG/DL (74-106); LIPASE 262 U/L (73-393); MAGNESIUM 1.9 MG/DL (1.5-2.5); SODIUM (NA) 135 MEQ/L (136-145)
[2017-06-20 14:45] LABS: ALKALINE PHOSPHATASE 314 U/L (45-117); ALT (GPT) 82 U/L (12-78); TOTAL BILIRUBIN ADULT 1.4 MG/DL (0.2-1.0); TOTAL PROTEIN 8.6 GM/DL (6.4-8.2); TROPONIN I LESS THAN 0.02 NG/ML (0.02-0.05)
[2017-06-20] MEDS ORDERED: SENNOSIDES 8.6 MG TAB PO PRN (15:45)
[2017-06-20] MEDS ORDERED: LACTULOSE SYRUP 20 GM/30 ML CUP PO PRN (15:45)
[2017-06-20] MEDS ORDERED: SODIUM CHLORIDE 0.9% FLUSH 10 ML FLUSH IV FLUSH PRN (15:45)
[2017-06-20] MEDS ORDERED: NALOXONE HCL 0.4 MG/ML AMP IV PUSH PRN (15:45)
[2017-06-20] MEDS ORDERED: BISACODYL 10 MG SUPP RECTAL PRN (15:45)
[2017-06-20] MEDS ORDERED: MAGNESIUM HYDROXIDE SUSP 30 ML CUP PO PRN (15:45)
[2017-06-20] MEDS ORDERED: ACETAMINOPHEN 325 MG TAB PO PRN (15:45)
[2017-06-20 16:07] VITALS: BP 127/81; PULSE 71; RESP 17; O2SAT 99
--- NOTE | 2017-06-20 16:18 | HHI.HP ---
[facility] Service [facility] Primary Care Physician Quentin Arreaga M.D. Admission Diagnosis Diagnoses: Chief Complaint: Chest pain, constipation Travel History International Travel<30 Days: No Contact w/Intl Traveler <30 Da: No Traveled to Known Affected Are: No History of Present Illness Written by Quita Mary, acting as scribe for Dr. Ring on 06/20/17 at 16:35. This note was transcribed by scribe CHARLES Clark. I, Dr. Ron Ring personally performed the history, physical exam, and medical decision making; and confirmed the accuracy of the information in the transcribed note. Authenticated by Dr. Ron Ring on 06/20/17 at 16:40. Patient is a 56 year old male with primary medical history of A. fib, CHF, HTN, HLD who came in to the hospital for complaints of chest pain 3 days, constipation 3 days, abdominal distention 3 days. Patient states that he's been having chest pain for treatment days described as achy, 9/10, lasting for hours, aggravated by movement, relieved by resting, nonradiating, not associated with diaphoresis, nausea, vomiting. He also states that he is been having constipation 3 days. Also has noticed abdominal distention 3 days. Patient is a poor historian. States that he had some liver disease but unable to explain or describe what it is. He also states that they have removed fluid on his abdomen but unable to know when it happened, he just said in the past. He keeps on referring back that he would see it in the records. Denies any headaches, palpitations. Denies any shortness of breath or dyspnea. Denies fevers, chills, nausea, vomiting. Denies dysuria. Chest x-ray Past Family Social History Past Medical History Per review of medical records HTN, Hyperlipidemia, CHF (Echo 06/18/16 w/ EF 15-20%), A-fib on Edoxaban and DM Past Surgical History Per review medical records Pacemaker, Cardiac Ablation Reported Medications Reported Meds & Active Scripts Active Lasix (Furosemide) 40 Mg Tab 40 Mg PO DAILY 30 Days Metoprolol Tartrate 25 Mg Tab 12.5 Mg PO Q12HR Lisinopril 5 Mg Tab 5 Mg PO DAILY Potassium Chloride ER (Potassium Chloride) 20 Meq Tab 20 Meq PO DAILY Strovite One (Multiple Vitamins W/ Minerals) 1 Tab Tab 1 Tab PO DAILY Metformin (Metformin HCl) 500 Mg Tab 500 Mg PO BIDPC With meals Savaysa (Edoxaban) 60 Mg Tab 60 Mg PO Q24H Aspirin EC (Aspirin) 81 Mg Tabdr 81 Mg PO DAILY 90 Days Allergies: Coded Allergies: No Known Allergies (Unverified Allergy, Unknown, 06/20/17) Active Ordered Medications Current Medications Medications (Trade) Dose Ordered Sig/Maxime Route Start Time Stop Time Status Last Admin (NS Flush) 2 ml UNSCH PRN IV FLUSH 06/20/17 15:45 (NS Flush) 2 ml BID IV FLUSH 06/20/17 21:00 (Tylenol) 650 mg Q4H PRN PO 06/20/17 15:45 (Narcan Inj) 0.4 mg UNSCH PRN IV PUSH 06/20/17 15:45 (Milk Of Magnesia Liq) 30 ml Q12H PRN PO 06/20/17 15:45 (Senokot) 17.2 mg Q12H PRN PO 06/20/17 15:45 (Dulcolax Supp) 10 mg DAILY PRN RECTAL 06/20/17 15:45 (Lactulose Liq) 30 ml DAILY PRN PO 06/20/17 15:45 (Lactulose Liq) 30 ml ONCE ONCE PO 06/20/17 16:30 06/20/17 16:31 (Evy-Colace) 2 tab ONCE ONCE PO 06/20/17 16:30 06/20/17 16:31 Family History Denies any family medical history that he knows of Social History Occasional alcohol use Denies tobacco use denies illicit drug use Physical Exam Vital Signs Vital Signs Date Time Temp Pulse Resp B/P (MAP) Pulse Ox O2 Delivery O2 Flow Rate FiO2 06/20/17 16:07 71 17 127/81 (96) 99 Room Air 06/20/17 13:23 70 18 06/20/17 11:45 98.4 78 14 129/95 (106) 97 Physical Exam GENERAL: This is a well-nourished, well-developed patient, in no apparent distress. SKIN: No rashes, ecchymoses or lesions. Cool and dry. HEAD: Normocephalic. No temporal or scalp tenderness. EYES: Pupils equal round and reactive. Extraocular motions intact. No scleral icterus. No injection or drainage. ENT: Nose without bleeding. Throat without erythema. Uvula midline. Airway patent. NECK: Trachea midline. CARDIOVASCULAR: Regular rate and rhythm without murmurs, gallops, or rubs. RESPIRATORY: Bibasilar crackles. No wheeze. GASTROINTESTINAL: Abdomen soft, distended. Mild tenderness to palpation all throughout the quadrants. Bowel sounds hypoactive. MUSCULOSKELETAL: Extremities without clubbing, cyanosis. Bilateral lower extremity +1 edema. NEUROLOGICAL: Awake and alert. Cranial nerves II through XII intact. Motor and sensory grossly within normal limits. Normal speech. Laboratory Laboratory Tests Test 06/20/17 13:50 White Blood Count 12.0 Red Blood Count 3.29 Hemoglobin 11.2 Hematocrit 32.6 Mean Corpuscular Volume 99.0 Mean Corpuscular Hemoglobin 34.1 Mean Corpuscular Hemoglobin Concent 34.4 Red Cell Distribution Width 15.6 Platelet Count 227 Mean Platelet Volume 10.3 Neutrophils (%) (Auto) 84.4 Lymphocytes (%) (Auto) 7.2 Monocytes (%) (Auto) 5.3 Eosinophils (%) (Auto) 2.4 Basophils (%) (Auto) 0.7 Neutrophils # (Auto) 10.2 Lymphocytes # (Auto) 0.9 Monocytes # (Auto) 0.6 Eosinophils # (Auto) 0.3 Basophils # (Auto) 0.1 CBC Comment DIFF FINAL Differential Comment Prothrombin Time 12.7 Prothromb Time International Ratio 1.3 Activated Partial Thromboplast Time 28.0 Blood Urea Nitrogen 18 Creatinine 1.68 Random Glucose 133 Total Protein 8.6 Albumin 2.2 Calcium Level 8.6 Magnesium Level 1.9 Alkaline Phosphatase 314 Aspartate Amino Transf (AST/SGOT) 198 Alanine Aminotransferase (ALT/SGPT) 82 Total Bilirubin 1.4 Sodium Level 135 Potassium Level 4.3 Chloride Level 104 Carbon Dioxide Level 23.0 Anion Gap 8 Estimat Glomerular Filtration Rate 52 Total Creatine Kinase 103 Creatine Kinase MB 1.3 Troponin I LESS THAN 0.02 Lipase 262 Result Diagram: 06/20/17 1350 06/20/17 1350 Imaging Last Impressions Chest X-Ray 06/20/17 1152 Signed Impressions: Service Date/Time: Tuesday, June 20, 2017 12:06 - CONCLUSION: Underated, negative for consolidation or pneumothorax. Gonsalo Musa MD FACR Karlos VTE Risk Assessment Karlos VTE Risk Assessment: Mod/High Risk (score >= 2) Caprini Risk Assessment Model Point Value = 1 Point Value = 2 Point Value = 3 Point Value = 5 Age 41-60 Minor surgery BMI > 25 kg/m2 Swollen legs Varicose veins or History of unexplained or recurrent spontaneous Oral contraceptives or hormone replacement Sepsis (< 1 month) Serious lung disease, including pneumonia (< 1 month) Abnormal pulmonary function Acute myocardial infarction Congestive heart failure (< 1 month) History of inflammatory bowel disease Medical patient at bed rest Age 61-74 Arthroscopic surgery Major open surgery (> 45 min) Laparoscopic surgery (> 45 min) Malignancy Confined to bed (> 72 hours) Immobilizing plaster cast Central venous access Age >= 75 History of VTE Family history of VTE Factor V Leiden Prothrombin [id number] Lupus anticoagulant Anticardiolipin antibodies Elevated serum homocysteine Heparin-induced thrombocytopenia Other congenital or acquired thrombophilia Stroke (< 1 month) Elective arthroplasty Hip, pelvis, or leg fracture Acute spinal cord injury (< 1 month) Prophylaxis Regimen Total Risk Factor Score Risk Level Prophylaxis Regimen 0-1 Low Early ambulation 2 Moderate Order ONE of the following: *Sequential Compression Device (SCD) *Heparin 5000 units SQ BID 3-4 Higher Order ONE of the following medications: *Heparin 5000 units SQ TID *Enoxaparin/Lovenox 40 mg SQ daily (WT < 150 kg, CrCl > 30 mL/min) *Enoxaparin/Lovenox 30 mg SQ daily (WT < 150 kg, CrCl > 10-29 mL/min) *Enoxaparin/Lovenox 30 mg SQ BID (WT < 150 kg, CrCl > 30 mL/min) AND/OR *Sequential Compression Device (SCD) 5 or more Highest Order ONE of the following medications: *Heparin 5000 units SQ TID (Preferred with Epidurals) *Enoxaparin/Lovenox 40 mg SQ daily (WT < 150 kg, CrCl > 30 mL/min) *Enoxaparin/Lovenox 30 mg SQ daily (WT < 150 kg, CrCl > 10-29 mL/min) *Enoxaparin/Lovenox 30 mg SQ BID (WT < 150 kg, CrCl > 30 mL/min) AND *Sequential Compression Device (SCD) Assessment and Plan Problem List: (1) AICD (automatic cardioverter/defibrillator) present ICD Code: Z95.810 - Presence of automatic (implantable) cardiac defibrillator Status: Acute (2) GERD Status: Chronic (3) Type II diabetes mellitus ICD Code: E11.9 - Type II diabetes mellitus Status: Acute (4) CAD (coronary artery disease) ICD Code: I25.10 - Coronary artery disease Status: Chronic (5) Mitral valve regurgitation ICD Code: I34.0 - Mitral valve insufficiency Status: Acute (6) HLD (hyperlipidemia) ICD Code: E78.5 - Hyperlipidemia, unspecified Status: Chronic (7) HTN (hypertension) ICD Code: I10 - Essential (primary) hypertension Status: Chronic (8) Chest pain ICD Code: R07.9 - Chest pain, unspecified Status: Acute (9) CHF (congestive heart failure) ICD Code: I50.9 - Congestive heart failure Status: Chronic (10) Afib ICD Code: I48.91 - Atrial fibrillation Status: Chronic (11) Transaminitis ICD Code: R74.0 - Nonspecific elevation of levels of transaminase and lactic acid dehydrogenase [LDH] Assessment and Plan Patient is a 56 year old male with primary medical history of A. fib, CHF, HTN, HLD who came in to the hospital for complaints of chest pain 3 days, constipation 3 days, abdominal distention 3 days. Chest Pain, Acute Atypical R/O ACS - CXR showed underrated, negative for consolidation or pneumothorax - Check EKG - First troponin 0.02, repeat troponins, CK negative, repeat CK - This can be musculoskeletal as patient was in severe pain to sternal palpation but he states it's more of them admitted epigastric region that he is in pain. However due to extensive cardiac history, we'll check troponins and CK. - Monitor telemetry Transaminitis Ascites ?History of liver disease - Ultrasound of the abdomen ordered. Paracentesis if warranted. - Check fluid for cell count, total protein, albumin, LDH, fluid culture, cytology - Trend LFTs - Avoid hepatotoxins. Previous Hepatitis panel negative. Previous admission , patient to follow GI in outpatient for possible liver biopsy. Hemochromatosis panel result showed C282Y: Not detected. H63D: Not detected. A. fib, chronic HTN CHF previous EF 06/2016 showed EF of 15-20% - Continue home medications metoprolol 12.5 milligrams twice a day, lisinopril 5 mg daily, aspirin 81 mg daily, potassium 20 MEQ's, Lasix 40 mg daily - Patient on edoxaban 60 mg every 24 hours. Will hold dose if patient needs paracentesis. - Monitor BP trend. DM 2 - Will hold off metformin for now - Insulin sliding scale - Monitor glucose, monitor for hypoglycemia CKD - Previous MANAGER NEW PRODUCT reviewed .- - Avoid nephrotoxins - Continue with lisinopril daily for kidney protection as well as patient is with CHF low EF Constipation - Lactulose 1 dose now, senna 2 tabs now - Lactulose when necessary, other bowel regimen when necessary DVT prop on the Edoxaban, will hold dose for paracentesis SCDS Code Status Full code Discussed Condition With Patient, nursing, ED attending Quita Donnelly Jun 20, 2017 16:18 Abner Ring DO Jun 20, 2017 22:50
[2017-06-20] MEDS ORDERED: LACTULOSE SYRUP 20 GM/30 ML CUP PO ONE (16:30)
[2017-06-20] MEDS ORDERED: DOCUSATE SODIUM 50 MG/SENNA 8.6 MG TAB PO ONE (16:30)
[2017-06-20] MEDS ORDERED: DEXTROSE 50% IN WATER 50 ML VIAL(D50) IV PUSH PRN (17:00)
[2017-06-20] MEDS ORDERED: GLUCAGON 1 MG/ML VIAL OTHER PRN (17:00)
[2017-06-20 17:15] VITALS: BP 127/91; PULSE 74; RESP 18; TEMP 98.4; O2SAT 97
[2017-06-20] MEDS: INSULIN ASPART SUPPLEMENTAL SCALE SQ SCH ×2 (18:01→21:00)
[2017-06-20] MEDS: PANTOPRAZOLE SOD 40 MG DELAYED RELEASE TAB PO SCH (18:41)
[2017-06-20 20:47] VITALS: BP 115/72; PULSE 73; RESP 18; TEMP 98.7; O2SAT 99
[2017-06-20] MEDS: SODIUM CHLORIDE 0.9% FLUSH 10 ML FLUSH IV FLUSH SCH (23:05)
[2017-06-20] MEDS: METOPROLOL TARTRATE 25 MG TAB PO SCH (23:05)
[2017-06-20 23:18] VITALS: BP 124/77; PULSE 68; RESP 18; TEMP 99.1; O2SAT 100
[2017-06-21] VITALS (16 sets, daily range): BP systolic 96–140; BP diastolic 53–91; PULSE 58–78; RESP 14–21; TEMP 97.7–98.8; O2SAT 93–100
[2017-06-21] LABS: TROPONIN I 0.02 NG/ML (0.02-0.05)
[2017-06-21] MEDS: INSULIN ASPART SUPPLEMENTAL SCALE SQ SCH ×4 (08:00→21:00)
--- NOTE | 2017-06-21 08:59 | PD.RAD ---
Post US Procedure Prog Note Pre Procedure Diagnosis: (1) Ascites Post Procedure Diagnosis: (1) Ascites Procedure Date: Jun 21, 2017 Supervising Radiologist: Alfredo Martini Proceduralist/Assist: Tiffanie Emanuel RDMS Estimated blood loss: none Anesthesia: Local Plan of Activity Patient to Unit: ROPU Patient Condition: Good See PACS Report for procedural detail/treatment Drainage Procedure Procedure 1 Imaging Guidance: Ultrasound Side: Right Procedure Type: Paracentesis Frisian: 6 Drainage: Pleurovac Fluid Description: Alfredo Shanks MD Jun 21, 2017 08:59
--- NOTE | 2017-06-21 09:53 | RADRPT ---
EXAM DATE/TIME: 06/21/2017 08:11 [place] COMPARISON: No previous studies available for comparison. INDICATIONS : Ascites. MEDICAL HISTORY : Myocardial infarction. Congestive heart failure. CVA. Coronary artery disease. Hyperlipidemia. Chest pain. Afib. HTN. Renal failure. Diabetes. Anticoagulant therapy, Xarelto. SURGICAL HISTORY : Pacemaker. Angioplasty. Cardiac ablation. Cardiac cath. ENCOUNTER: Initial ACUITY: 1 day PAIN SCORE: 0/10 LOCATION: Right lower quadrant FLUID: Total volume of 4700 cc of fluid was removed. Fluid was sent to lab for ordered studies. Post procedure scanning reveals no hematoma or other complication. TECHNIQUE: 1. Ultrasound guidance for abdominal paracentesis. 2. Paracentesis. The risks, benefits, and alternatives to ultrasound guided paracentesis were explained to the patient in detail including the risk of bleeding and infection. Written and verbal informed consent was obt ained. With the patient on the ultrasound table, ultrasound imaging was used to select the most appropriate approach for paracentesis. Overlying skin was prepped and draped in the usual sterile fashion and wi th a local anesthetic, a dermatotomy was made with an 11 blade scalpel. A 6 [place] [id number] ca theter was introduced into the peritoneal cavity and fluid was collected. The patient tolerated the procedure well and left the ultrasound suite in stable condition. CONCLUSION: Uncomplicated ultrasound guided paracentesis. Alfredo Martini MD on June 21, 2017 at 9:51 Board Certified Radiologist. This report was verified electronically.
[2017-06-21] MEDS ORDERED: INFLUENZA VIRUS VACCINE (QUADRIVALENT) 0.5 ML SYR IM ONE (10:00)
[2017-06-21] MEDS: MULTIVITAMINS/MINERALS THERAPEUTIC TAB PO SCH (10:05)
[2017-06-21] MEDS: FUROSEMIDE 40 MG TAB PO SCH (10:05)
[2017-06-21] MEDS: PANTOPRAZOLE SOD 40 MG DELAYED RELEASE TAB PO SCH (10:05)
[2017-06-21] MEDS: ASPIRIN EC 81 MG TABEC PO SCH (10:06)
[2017-06-21] MEDS: METOPROLOL TARTRATE 25 MG TAB PO SCH ×2 (10:06→21:35)
[2017-06-21] MEDS: POTASSIUM CHLORIDE 20 MEQ CONTROLLED RELEASE TAB PO SCH (10:06)
[2017-06-21] MEDS: LISINOPRIL 5 MG TAB PO SCH (10:06)
[2017-06-21] MEDS: SODIUM CHLORIDE 0.9% FLUSH 10 ML FLUSH IV FLUSH SCH ×2 (10:07→21:36)
[2017-06-21 10:51] LABS: PERITONEAL HISTIOCYTES 49 %; PERITONEAL LYMPHS 42 %; PERITONEAL MESOTHELIAL 1 %; PERITONEAL POLYS(SEGS) 8 %; PERITONEAL RBC 134 /MM3 (0-0)
[2017-06-21 10:56] LABS: AUTOMATED NEUTROPHIL # 8.4 TH/MM3 (1.8-7.7); BASOPHIL # 0.1 TH/MM3 (0-0.2); BASOPHIL % 0.9 % (0.0-2.0); EOSINOPHIL # 0.3 TH/MM3 (0-0.4); EOSINOPHIL % 3.2 % (0.0-4.0); HEMATOCRIT 30.5 % (39.0-51.0); HEMOGLOBIN 10.4 GM/DL (13.0-17.0); LYMPH % 9.7 % (9.0-44.0); MEAN CELL VOLUME 98.7 FL (80.0-100.0); MEAN CORPUSCULAR HEMOGLOBIN 33.7 PG (27.0-34.0); MEAN CORPUSCULAR HGB CONC 34.2 % (32.0-36.0); MEAN PLATELET VOLUME 9.8 FL (7.0-11.0); MONO % 5.4 % (0.0-8.0); MONOCYTE # 0.6 TH/MM3 (0-0.9); NEUT % 80.8 % (16.0-70.0); PLATELET COUNT 177 TH/MM3 (150-450); RED CELL DISTRIBUTION WIDTH 15.5 % (11.6-17.2); WHITE BLOOD COUNT 10.4 TH/MM3 (4.0-11.0)
[2017-06-21 11:16] LABS: BICARBONATE 24.6 MEQ/L (21.0-32.0); CALCIUM 8.2 MG/DL (8.5-10.1); CREATININE 1.64 MG/DL (0.60-1.30)
[2017-06-21 11:18] LABS: TROPONIN I 0.02 NG/ML (0.02-0.05)
--- NOTE | 2017-06-21 12:17 | HHI.PR ---
Subjective Remarks in no acute distress. resting comfortably. denies abdominal pain, nausea or vomiting. afebrile. Objective Vitals Vital Signs Date Time Temp Pulse Resp B/P (MAP) Pulse Ox O2 Delivery O2 Flow Rate FiO2 06/21/17 09:36 97.7 64 14 110/70 (83) 100 06/21/17 09:25 97.7 62 16 103/62 (76) 98 06/21/17 08:24 97.7 68 14 112/71 (85) 99 06/21/17 08:00 98.8 67 21 97/54 (68) 100 06/21/17 07:49 65 06/21/17 04:21 66 06/21/17 03:52 68 18 99/53 (68) 93 06/21/17 00:15 64 06/20/17 23:18 99.1 68 18 124/77 (93) 100 06/20/17 20:47 98.7 73 18 115/72 (86) 99 06/20/17 17:29 06/20/17 17:15 98.4 74 18 127/91 (103) 97 06/20/17 16:07 71 17 127/81 (96) 99 Room Air 06/20/17 13:23 70 18 I/O 06/20/17 06/20/17 06/20/17 06/21/17 06/21/17 06/21/17 07:00 15:00 23:00 07:00 15:00 23:00 Intake Total 702 ml Balance 702 ml Intake Oral 702 ml # Voids 1 Result Diagram: 06/21/17 1018 06/21/17 1018 Imaging Last Impressions Cyst Biopsy Asp-Paracentesis US 06/21/17 0000 Signed Impressions: Service Date/Time: Wednesday, June 21, 2017 08:11 - CONCLUSION: Uncomplicated ultrasound guided paracentesis. Alfredo Martini MD Chest X-Ray 06/20/17 1152 Signed Impressions: Service Date/Time: Tuesday, June 20, 2017 12:06 - CONCLUSION: Underated, negative for consolidation or pneumothorax. Gonsalo Musa MD FACR Objective Remarks GENERAL: This is a well-nourished, well-developed patient, in no apparent distress. CARDIOVASCULAR: Regular rate and regular rhythm without murmurs, gallops, or rubs. RESPIRATORY: Clear to auscultation. Breath sounds equal bilaterally. No wheezes , rales, or rhonchi. GASTROINTESTINAL: Abdomen soft, non-tender, mildly distended. Normal, active bowel sounds MUSCULOSKELETAL: Extremities without clubbing, cyanosis, or edema. NEURO: Alert & Oriented x4 to person, place, time, situation. Moves all ext x4 Procedures paracentesis. Medications and IVs Inpatient Medications Acetaminophen (Tylenol) 650 mg Q4H PRN PO Headache, Fever, pain 1-4; Start 06/20 at 15:45 Aspirin (Ecotrin Ec) 81 mg DAILY PO Last administered on 06/21/17at 10:06; Start 06/21/17 at 09:00 Bisacodyl (Dulcolax Supp) 10 mg DAILY PRN RECTAL SEVERE CONSITIPATION; Start at 15:45 Dextrose (D50w (Vial) Inj) 50 ml UNSCH PRN IV PUSH HYPOGLYCEMIA-SEE COMMENTS; Start 06/20/17 at 17:00 Furosemide (Lasix) 40 mg DAILY PO Last administered on 06/21/17at 10:05; Start at 09:00 Glucagon (Glucagon Inj) 1 mg UNSCH PRN OTHER HYPOGLYCEMIA-SEE COMMENTS; Start 06/20/17 at 17:00 Influenza Virus Vaccine (Flu (Quadrivalent) Vaccine Inj) 0.5 ml ONCE ONCE IM Last administered on 06/21/17at 10:08; Start 06/21/17 at 10:00; Stop 06/21/17 at 10: 01; Status DC Insulin Aspart (NovoLOG SUPPLEMENTAL SCALE) 1 ACHS SLIDING SCALE SQ ; Start 06/20/17 at 17:00 Lactulose (Lactulose Liq) 30 ml ONCE ONCE PO Last administered on 06/20/17at 17: 28; Start 06/20/17 at 16:30; Stop 06/20/17 at 16:31; Status DC Lisinopril (Prinivil) 5 mg DAILY PO Last administered on 06/21/17at 10:06; Start 06/21/17 at 09:00 Magnesium Hydroxide (Milk Of Magnesia Liq) 30 ml Q12H PRN PO Mild constipation ; Start 06/20/17 at 15:45 Metoprolol Tartrate (Lopressor) 12.5 mg Q12HR PO Last administered on 06/21/17at 10:06; Start 06/20/17 at 21:00 Multivitamins/ Minerals Therapeutic (Theragran M Tab) 1 tab DAILY PO Last administered on 06/21/17at 10:05; Start 06/21/17 at 09:00 Naloxone HCl (Narcan Inj) 0.4 mg UNSCH PRN IV PUSH SEE LABEL COMMENTS; Start at 15:45 Pantoprazole Sodium (Protonix) 40 mg DAILY PO Last administered on 06/21/17at 10: 05; Start 06/20/17 at 17:15 Potassium Chloride (KCl) 20 meq DAILY PO Last administered on 06/21/17at 10:06; Start 06/21/17 at 09:00 Senna/Docusate Sodium (Evy-Colace) 2 tab ONCE ONCE PO Last administered on 06/20/17at 17:29; Start 06/20/17 at 16:30; Stop 06/20/17 at 16:31; Status DC Sennosides (Senokot) 17.2 mg Q12H PRN PO Moderate constipation; Start 06/20/17 at 15:45 Sodium Chloride (NS Flush) 2 ml BID IV FLUSH Last administered on 06/21/17at 10: 07; Start 06/20/17 at 21:00 A/P Problem List: (1) AICD (automatic cardioverter/defibrillator) present ICD Code: Z95.810 - Presence of automatic (implantable) cardiac defibrillator Status: Acute (2) GERD Status: Chronic (3) Type II diabetes mellitus ICD Code: E11.9 - Type II diabetes mellitus Status: Acute (4) CAD (coronary artery disease) ICD Code: I25.10 - Coronary artery disease Status: Chronic (5) Mitral valve regurgitation ICD Code: I34.0 - Mitral valve insufficiency Status: Acute (6) HLD (hyperlipidemia) ICD Code: E78.5 - Hyperlipidemia, unspecified Status: Chronic (7) HTN (hypertension) ICD Code: I10 - Essential (primary) hypertension Status: Chronic (8) Chest pain ICD Code: R07.9 - Chest pain, unspecified Status: Acute (9) CHF (congestive heart failure) ICD Code: I50.9 - Congestive heart failure Status: Chronic (10) Afib ICD Code: I48.91 - Atrial fibrillation Status: Chronic (11) Transaminitis ICD Code: R74.0 - Nonspecific elevation of levels of transaminase and lactic acid dehydrogenase [LDH] Assessment and Plan Chest Pain- resolved. Atypical ACS ruled out. - This can be musculoskeletal as patient was in severe pain to sternal palpation but he states it's more of them admitted epigastric region that he is in pain. Transaminitis Ascites ?History of liver disease - s/p paracentesis with removal of 4700 ml of fluid- will follow the fluid studies. - Trend LFTs - Avoid hepatotoxins. Previous Hepatitis panel negative. Previous admission , patient to follow GI in outpatient for possible liver biopsy. Hemochromatosis panel result showed C282Y: Not detected. H63D: Not detected. A. fib, chronic HTN CHF previous EF 06/2016 showed EF of 15-20% - Continue home medications metoprolol 12.5 milligrams twice a day, lisinopril 5 mg daily, aspirin 81 mg daily, potassium 20 MEQ's, Lasix 40 mg daily - Patient on edoxaban 60 mg every 24 hours. will resume. - Monitor BP trend. DM 2 - Will hold off metformin for now - Insulin sliding scale - Monitor glucose, monitor for hypoglycemia CKD - Previous FARM CONTRACTOR reviewed 1.07-1.90 - Avoid nephrotoxins - Continue with lisinopril daily for kidney protection as well as patient is with CHF low EF DVT prop on the Edoxaban, will hold dose for paracentesis SCDS Discharge Planning likely dc home tomorrow if stable. Tracie Ignacio MD Jun 21, 2017 12:17
--- NOTE | 2017-06-21 15:18 | EKG ---
Date Performed: 06/20/2017 Time Performed: 23:28:59 PTAGE: 56 years EKG: Sinus rhythm BORDERLINE LEFT AXIS DEVIATION MODERATE INTRAVENTRICULAR CONDUCTION DELAY PROLONGED QT INTERVAL ABNO RMAL ECG PREVIOUS TRACING : 06/20/2017 12.28 Compared to prior tracing no significant change DOCTOR: Michael Anaya Interpretating Date/Time 06/21/2017 15:17:45
--- NOTE | 2017-06-21 15:22 | EKG ---
Date Performed: 06/20/2017 Time Performed: 12:28:38 PTAGE: 56 years EKG: Sinus rhythm NORMAL ECG PREVIOUS TRACING : 03/11/2017 18.19 Decreased voltage in the anterolateral leads compared to pr ior. Clinical correlation recommended. DOCTOR: Michael Anaya Interpretating Date/Time 06/21/2017 15:21:36
[2017-06-22] VITALS (10 sets, daily range): BP systolic 102–189; BP diastolic 60–117; PULSE 56–65; RESP 16–18; TEMP 97.9–98.4; O2SAT 98–100
[2017-06-22] MEDS ORDERED: MORPHINE SULFATE 2 MG/ML INJ IV PUSH PRN (04:30)
[2017-06-22] MEDS: INSULIN ASPART SUPPLEMENTAL SCALE SQ SCH ×4 (08:00→21:00)
[2017-06-22] MEDS: POTASSIUM CHLORIDE 20 MEQ CONTROLLED RELEASE TAB PO SCH (09:18)
[2017-06-22] MEDS: MULTIVITAMINS/MINERALS THERAPEUTIC TAB PO SCH (09:18)
[2017-06-22] MEDS: LISINOPRIL 5 MG TAB PO SCH (09:18)
[2017-06-22] MEDS: METOPROLOL TARTRATE 25 MG TAB PO SCH ×2 (09:18→21:31)
[2017-06-22] MEDS: SODIUM CHLORIDE 0.9% FLUSH 10 ML FLUSH IV FLUSH SCH ×2 (09:19→21:00)
[2017-06-22] MEDS: FUROSEMIDE 40 MG TAB PO SCH (09:19)
[2017-06-22] MEDS: ASPIRIN EC 81 MG TABEC PO SCH (09:19)
[2017-06-22] MEDS: PANTOPRAZOLE SOD 40 MG DELAYED RELEASE TAB PO SCH (09:19)
[2017-06-22] MEDS ORDERED: GLIP5TAB8 PO (10:42)
--- NOTE | 2017-06-22 10:43 | HHI.DCPOC ---
Discharge Care Plan Diagnosis: (1) Ascites (2) Elevated LFTs (3) Afib (4) CHF (congestive heart failure) (5) HTN (hypertension) (6) DM (diabetes mellitus) (7) Chronic kidney disease Goals to Promote Your Health * To prevent worsening of your condition and complications * To maintain your health at the optimal level Directions to Meet Your Goals Take your medications as prescribed Follow your dietary instruction Follow activity as directed Keep your appointments as scheduled Take your immunizations and boosters as scheduled If your symptoms worsen call your PCP, if no PCP go to Urgent Care Center or Emergency Room Smoking is Dangerous to Your Health. Avoid second hand smoke Call the 24-hour hour crisis hotline for domestic abuse at Rachelle Dawn PA-C Jun 22, 2017 10:43 am
--- NOTE | 2017-06-22 11:13 | HHI.PR ---
Subjective Remarks in no acute distress. however still with abdominal distention and pain. has mild sob. no nausea or vomiting. Objective Vitals Vital Signs Date Time Temp Pulse Resp B/P (MAP) Pulse Ox O2 Delivery O2 Flow Rate FiO2 06/22/17 08:15 98.2 60 18 120/60 (80) 99 06/22/17 03:45 61 06/22/17 03:22 97.9 56 18 118/61 (80) 99 06/22/17 00:36 59 06/21/17 23:17 98.6 58 20 140/91 (107) 99 06/21/17 20:05 64 06/21/17 19:26 98.2 65 18 124/60 (81) 99 06/21/17 16:50 98.6 62 18 100/60 (73) 99 06/21/17 15:53 58 06/21/17 12:20 78 06/21/17 12:11 98.4 62 21 96/60 (72) 100 Result Diagram: 06/21/17 1018 06/21/17 1018 Imaging Last Impressions Cyst Biopsy Asp-Paracentesis US 06/21/17 0000 Signed Impressions: Service Date/Time: Wednesday, June 21, 2017 08:11 - CONCLUSION: Uncomplicated ultrasound guided paracentesis. Alfredo Martini MD Chest X-Ray 06/20/17 1152 Signed Impressions: Service Date/Time: Tuesday, June 20, 2017 12:06 - CONCLUSION: Underated, negative for consolidation or pneumothorax. Gonsalo Musa MD FACR Objective Remarks GENERAL: This is a well-nourished, well-developed patient, in no apparent distress. CARDIOVASCULAR: Regular rate and regular rhythm without murmurs, gallops, or rubs. RESPIRATORY: Clear to auscultation. Breath sounds equal bilaterally. No wheezes , rales, or rhonchi. GASTROINTESTINAL: Abdomen soft, non-tender, distended. Normal, active bowel sounds MUSCULOSKELETAL: Extremities without clubbing, cyanosis, or edema. NEURO: Alert & Oriented x4 to person, place, time, situation. Moves all ext x4 Procedures paracentesis. Medications and IVs Inpatient Medications Acetaminophen (Tylenol) 650 mg Q4H PRN PO Headache, Fever, pain 1-4 Last administered on 06/21/17at 18:10; Start 06/20/17 at 15:45; Stop 06/22/17 at 04:27; Status DC Aspirin (Ecotrin Ec) 81 mg DAILY PO Last administered on 06/22/17at 09:19; Start 06/21/17 at 09:00 Bisacodyl (Dulcolax Supp) 10 mg DAILY PRN RECTAL SEVERE CONSITIPATION; Start at 15:45 Dextrose (D50w (Vial) Inj) 50 ml UNSCH PRN IV PUSH HYPOGLYCEMIA-SEE COMMENTS; Start 06/20/17 at 17:00 Furosemide (Lasix) 40 mg DAILY PO Last administered on 06/22/17at 09:19; Start 06/21/17 at 09:00 Glucagon (Glucagon Inj) 1 mg UNSCH PRN OTHER HYPOGLYCEMIA-SEE COMMENTS; Start 06/20/17 at 17:00 Influenza Virus Vaccine (Flu (Quadrivalent) Vaccine Inj) 0.5 ml ONCE ONCE IM Last administered on 06/21/17at 10:08; Start 06/21/17 at 10:00; Stop 06/21/17 at 10: 01; Status DC Insulin Aspart (NovoLOG SUPPLEMENTAL SCALE) 1 ACHS SLIDING SCALE SQ Last administered on 06/21/17at 21:00; Start 06/20/17 at 17:00 Lactulose (Lactulose Liq) 30 ml ONCE ONCE PO Last administered on 06/20/17at 17: 28; Start 06/20/17 at 16:30; Stop 06/20/17 at 16:31; Status DC Lisinopril (Prinivil) 5 mg DAILY PO Last administered on 06/22/17at 09:18; Start 06/21/17 at 09:00 Magnesium Hydroxide (Milk Of Magnesia Liq) 30 ml Q12H PRN PO Mild constipation ; Start 06/20/17 at 15:45 Metoprolol Tartrate (Lopressor) 12.5 mg Q12HR PO Last administered on at 09:18; Start 06/20/17 at 21:00 Morphine Sulfate (Morphine Inj) 2 mg Q3H PRN IV PUSH PAIN >5 Last administered on 06/22/17at 05:08; Start 06/22/17 at 04:30 Multivitamins/ Minerals Therapeutic (Theragran M Tab) 1 tab DAILY PO Last administered on 06/22/17at 09:18; Start 06/21/17 at 09:00 Naloxone HCl (Narcan Inj) 0.4 mg UNSCH PRN IV PUSH SEE LABEL COMMENTS; Start at 15:45 Pantoprazole Sodium (Protonix) 40 mg DAILY PO Last administered on 06/22/17at 09 :19; Start 06/20/17 at 17:15 Potassium Chloride (KCl) 20 meq DAILY PO Last administered on 06/22/17at 09:18; Start 06/21/17 at 09:00 Senna/Docusate Sodium (Evy-Colace) 2 tab ONCE ONCE PO Last administered on 06/20/17at 17:29; Start 06/20/17 at 16:30; Stop 06/20/17 at 16:31; Status DC Sennosides (Senokot) 17.2 mg Q12H PRN PO Moderate constipation; Start 06/20/17 at 15:45 Sodium Chloride (NS Flush) 2 ml BID IV FLUSH Last administered on 06/22/17at 09: 19; Start 06/20/17 at 21:00 A/P Problem List: (1) AICD (automatic cardioverter/defibrillator) present ICD Code: Z95.810 - Presence of automatic (implantable) cardiac defibrillator Status: Acute (2) GERD Status: Chronic (3) Type II diabetes mellitus ICD Code: E11.9 - Type II diabetes mellitus Status: Acute (4) CAD (coronary artery disease) ICD Code: I25.10 - Coronary artery disease Status: Chronic (5) Mitral valve regurgitation ICD Code: I34.0 - Mitral valve insufficiency Status: Acute (6) HLD (hyperlipidemia) ICD Code: E78.5 - Hyperlipidemia, unspecified Status: Chronic (7) HTN (hypertension) ICD Code: I10 - Essential (primary) hypertension Status: Chronic (8) Chest pain ICD Code: R07.9 - Chest pain, unspecified Status: Acute (9) CHF (congestive heart failure) ICD Code: I50.9 - Congestive heart failure Status: Chronic (10) Afib ICD Code: I48.91 - Atrial fibrillation Status: Chronic (11) Transaminitis ICD Code: R74.0 - Nonspecific elevation of levels of transaminase and lactic acid dehydrogenase [LDH] Assessment and Plan Chest Pain- resolved. Atypical ACS ruled out. - This can be musculoskeletal as patient was in severe pain to sternal palpation but he states it's more of them admitted epigastric region that he is in pain. Transaminitis Ascites ?History of liver disease - s/p paracentesis with removal of 4700 ml of fluid- - will consult GI since the patient is still complaining of abdominal pain and distention. - Avoid hepatotoxins. Previous Hepatitis panel negative. Previous admission , patient to follow GI in outpatient for possible liver biopsy. Hemochromatosis panel result showed C282Y: Not detected. H63D: Not detected. A. fib, chronic HTN CHF previous EF 06/2016 showed EF of 15-20% - Continue home medications metoprolol 12.5 milligrams twice a day, lisinopril 5 mg daily, aspirin 81 mg daily, potassium 20 MEQ's, Lasix 40 mg daily - Patient on edoxaban 60 mg every 24 hours. - Monitor BP trend. DM 2 - Will hold off metformin for now - Insulin sliding scale - Monitor glucose, monitor for hypoglycemia CKD - Previous FLAT KNITTER reviewed 1.07-1.90 - Avoid nephrotoxins - Continue with lisinopril daily for kidney protection as well as patient is with CHF low EF DVT prop on the Edoxaban, will resume after seen by GI. SCDS Discharge Planning likely dc home tomorrow if stable. Tracie Ignacio MD Jun 22, 2017 11:13
--- NOTE | 2017-06-22 13:53 | PD.CONS ---
HPI History of Present Illness This is a 56 year old male with hx AF CHF who was referred by his PCP for fluid build up in his abd. He first noticed the welling about 6 or 7 days ago. Admits abd pain. Vomited 4 days. No blood in emesis. Admits recent change in bowel habits, has been constipated and having decreased caliber stool. He had a paracentesis with 4.7L removed yesterday and says it was all back again last night. He has had fluid in his abd before and was evaluated by our service 2016. His liver w/u was unremarkable and it was recommended that he follow up as an outpt and get a liver bx, which did not happen. He has EGD and colonoscopy 03/2017 with findings gastritis, hiatal hernia, diverticulosis. Quit drinking 10-15 years ago, prior was moderately heavy drinker, bout 6pack per session. Currently maybe has an occasional heineken. Denies hx hepatitis. Poor historian (Paz Lynn) PFSH Past Medical History Per review of medical records HTN, Hyperlipidemia, CHF (Echo 06/18/16 w/ EF 15-20%), A-fib on Edoxaban and DM Past Surgical History Per review medical records Pacemaker, Cardiac Ablation (Paz Lynn) Coded Allergies: No Known Allergies (Unverified Allergy, Unknown, 06/20/17) Family History Denies any family medical history that he knows of Social History Occasional alcohol use Denies tobacco use denies illicit drug use (Paz Lynn) Review of Systems Constitutional: DENIES: Fever Endocrine: DENIES: Polydipsia Eyes: DENIES: Blurred vision Ears, nose, mouth, throat: DENIES: Hearing loss Respiratory: DENIES: Cough Cardiovascular: DENIES: Chest pain Gastrointestinal: COMPLAINS OF: Abdominal pain, Constipation, Nausea, DENIES: Black stools, Bloody stools, Diarrhea, Vomiting, Hematemesis Genitourinary: DENIES: Hematuria Musculoskeletal: DENIES: Joint Swelling Integumentary: DENIES: Jaundice Hematologic/lymphatic: DENIES: Bruising Immunologic/allergic: DENIES: Eczema Neurologic: DENIES: Abnormal gait Psychiatric: DENIES: Confusion (Paz Lynn) GI Exam Vitals I&O Vital Signs Date Time Temp Pulse Resp B/P (MAP) Pulse Ox O2 Delivery O2 Flow Rate FiO2 06/22/17 13:32 98.4 62 16 155/90 (111) 100 06/22/17 08:15 98.2 60 18 120/60 (80) 99 06/22/17 07:15 59 06/22/17 03:45 61 06/22/17 03:22 97.9 56 18 118/61 (80) 99 06/22/17 00:36 59 06/21/17 23:17 98.6 58 20 140/91 (107) 99 06/21/17 20:05 64 06/21/17 19:26 98.2 65 18 124/60 (81) 99 06/21/17 16:50 98.6 62 18 100/60 (73) 99 06/21/17 15:53 58 Imaging Last Impressions Cyst Biopsy Asp-Paracentesis US 06/21/17 0000 Signed Impressions: Service Date/Time: Wednesday, June 21, 2017 08:11 - CONCLUSION: Uncomplicated ultrasound guided paracentesis. Alfredo Martini MD Chest X-Ray 06/20/17 1152 Signed Impressions: Service Date/Time: Tuesday, June 20, 2017 12:06 - CONCLUSION: Underated, negative for consolidation or pneumothorax. Gonsalo Musa MD FACR Laboratory Date/Time Source Procedure Growth Status 06/21/17 08:18 Fluid Peritoneal Fluid Gram Stain - Final Resulted 06/21/17 08:18 Fluid Peritoneal Fluid Body Fluid Culture - Preliminary NO GROWTH IN 24 HOURS. Resulted Physical Examination HEENT: PERRL; normocephalic; atraumatic; no jaundice. CHEST: CTA CARDIAC: RRR ABDOMEN: Soft, distended, RUQ TTP and TTP diffusely; no hepatosplenomegaly; bowel sounds are present in all four quadrants. EXTREMITIES: No clubbing, cyanosis, + mild BLE edema. SKIN: Normal; no rash; no jaundice. ICING COATER: No focal deficits; alert and oriented times three. (Paz Lynn BRUSH OR BROOM CUTTER) Assessment and Plan Plan ASSESSMENT - recurrent ascites - s/p paracentesis 4.7L removed, is distended again. On lasix daily. has had episode of this before, was evaluated by us unremarkable liver w/u,recommended to fu as outpt and poss liver bx. CT at that time showed hepatomegaly, increased density with amiodarone considered as poss cause, he was on this at the time. - elevated LFTs - unremarkable liver w/u in 03/2017. distant hx drinking. - change bowel habits, constipation - admits recent onset constipation. had EGD /colonoscopy at [facility] [place]/2017 found gastritis, hiatal hernia diverticulitis PLAN - albumin - BID lasix 40mg IV - give lasix after albumin - ECHO - consider liver bx - will repeat hepatitis profile - use PRN medications for constipation - further recs to follow Pt seen by myself and Dr Lowe and this note is written on her behalf (Paz Lynn) Physician Comments seen, examined agree with above consult cardiology-possible decompensated chf (Marissa Lowe MD) Paz Lynn Jun 22, 2017 13:53 Marissa Lowe MD Jun 22, 2017 19:27
[2017-06-22] MEDS ORDERED: ALBUMIN 25% INJ 50 ML IV ONE (14:00)
[2017-06-22] MEDS: FUROSEMIDE 40 MG/4 ML VIAL IV PUSH SCH (18:00)
[2017-06-23] VITALS: BP 102/61; PULSE 62; RESP 18; TEMP 98.2; O2SAT 99
[2017-06-23 04:00] VITALS: BP 88/60; PULSE 59; RESP 18; TEMP 98.3; O2SAT 100
[2017-06-23 08:00] VITALS: BP 100/65; PULSE 60; RESP 16; TEMP 98.1; O2SAT 98
[2017-06-23] MEDS: INSULIN ASPART SUPPLEMENTAL SCALE SQ SCH ×4 (08:00→21:34)
[2017-06-23] MEDS: SODIUM CHLORIDE 0.9% FLUSH 10 ML FLUSH IV FLUSH SCH ×2 (08:00→21:35)
--- NOTE | 2017-06-23 08:57 | HHI.PR ---
Subjective Remarks BP 88/60 and HR in 50s, give albumin. Patient says she feels very tired and doesn't feel comfortable to go home, says he is still sob. Less LE edema, abd pain is better controlled. Doesn't eat much . No fever or chills. No cough. No cp. Objective Vitals Vital Signs Date Time Temp Pulse Resp B/P (MAP) Pulse Ox O2 Delivery O2 Flow Rate FiO2 06/23/17 04:00 98.3 59 18 88/60 (69) 100 06/23/17 00:00 98.2 62 18 102/61 (75) 99 06/22/17 20:00 98.0 65 18 125/67 (86) 98 06/22/17 17:46 110/74 (86) 06/22/17 17:28 98.4 62 18 189/117 (141) 99 06/22/17 13:32 98.4 62 16 155/90 (111) 100 I/O 06/22/17 06/22/17 06/22/17 06/23/17 06/23/17 06/23/17 07:00 15:00 23:00 07:00 15:00 23:00 Intake Total 560 ml Balance 560 ml Intake Oral 560 ml # Voids 4 5 # Bowel Movements 0 Result Diagram: 06/21/17 1018 06/21/17 1018 Objective Remarks GENERAL: This is a well-nourished, well-developed patient, in no apparent distress. CARDIOVASCULAR: Regular rate and regular rhythm without murmurs, gallops, or rubs. RESPIRATORY: Clear to auscultation. Breath sounds equal bilaterally. No wheezes , rales, or rhonchi. GASTROINTESTINAL: Abdomen soft, non-tender, less distended. Normal, active bowel sounds MUSCULOSKELETAL: Extremities without clubbing, cyanosis, or edema. NEURO: Alert & Oriented x4 to person, place, time, situation. Moves all ext x4 Procedures paracentesis. A/P Problem List: (1) AICD (automatic cardioverter/defibrillator) present ICD Code: Z95.810 - Presence of automatic (implantable) cardiac defibrillator Status: Acute (2) GERD Status: Chronic (3) Type II diabetes mellitus ICD Code: E11.9 - Type II diabetes mellitus Status: Acute (4) CAD (coronary artery disease) ICD Code: I25.10 - Coronary artery disease Status: Chronic (5) Mitral valve regurgitation ICD Code: I34.0 - Mitral valve insufficiency Status: Acute (6) HLD (hyperlipidemia) ICD Code: E78.5 - Hyperlipidemia, unspecified Status: Chronic (7) HTN (hypertension) ICD Code: I10 - Essential (primary) hypertension Status: Chronic (8) Chest pain ICD Code: R07.9 - Chest pain, unspecified Status: Acute (9) CHF (congestive heart failure) ICD Code: I50.9 - Congestive heart failure Status: Chronic (10) Afib ICD Code: I48.91 - Atrial fibrillation Status: Chronic (11) Transaminitis ICD Code: R74.0 - Nonspecific elevation of levels of transaminase and lactic acid dehydrogenase [LDH] Assessment and Plan Chest Pain- resolved. Atypical. ACS ruled out. musculoskeletal as patient was in severe pain to sternal palpation but he states it's more of them admitted epigastric region that he is in pain. Transaminitis Ascites ?History of liver disease s/p paracentesis with removal of 4700 ml of fluid- will consult GI since the patient is still complaining of abdominal pain and distention. Avoid hepatotoxins. Previous Hepatitis panel negative. Previous admission, patient to follow GI in outpatient for possible liver biopsy. Hemochromatosis panel result showed C282Y: Not detected. H63D: Not detected. A. fib, chronic HTN CHF previous EF 06/2016 showed EF of 15-20% Continue home medications metoprolol 12.5 milligrams twice a day, lisinopril 5 mg daily, aspirin 81 mg daily, potassium 20 MEQ's, Lasix 40 mg daily Patient on edoxaban 60 mg every 24 hours. Monitor BP trend. Hypotension: BP 88/60 and HR in 50s, give albumin. 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 SCDS Discharge Planning likely dc home later today or tomorrow if stable and cleared by GI Kerri Rodas MD Jun 23, 2017 08:57
[2017-06-23] MEDS ORDERED: SODIUM CHLOR 0.9% 250 ML INJ 250 ML IV ONE (09:00)
[2017-06-23] MEDS: POTASSIUM CHLORIDE 20 MEQ CONTROLLED RELEASE TAB PO SCH (09:52)
[2017-06-23] MEDS: MULTIVITAMINS/MINERALS THERAPEUTIC TAB PO SCH (09:52)
[2017-06-23] MEDS: PANTOPRAZOLE SOD 40 MG DELAYED RELEASE TAB PO SCH (09:52)
[2017-06-23] MEDS: METOPROLOL TARTRATE 25 MG TAB PO SCH ×2 (09:52→21:34)
[2017-06-23] MEDS: LISINOPRIL 5 MG TAB PO SCH (09:52)
[2017-06-23] MEDS: FUROSEMIDE 40 MG/4 ML VIAL IV PUSH SCH (09:52)
[2017-06-23] MEDS: ASPIRIN EC 81 MG TABEC PO SCH (09:52)
[2017-06-23] MEDS ORDERED: ALBUMIN 25% INJ 50 ML IV SCH (10:00)
[2017-06-23 10:59] LABS: HEPATITIS A AB IGM NEGATIVE (NEGATIVE); HEPATITIS B CORE AB IGM NEGATIVE (NEGATIVE); HEPATITIS B SURFACE ANTIGEN NEGATIVE (NEGATIVE); HEPATITIS C AB IgG NEGATIVE (NEGATIVE)
[2017-06-23 11:36] LABS: BICARBONATE 28.3 MEQ/L (21.0-32.0); CALCIUM 7.9 MG/DL (8.5-10.1)
[2017-06-23 11:39] LABS: CREATININE 1.7 MG/DL (0.60-1.30)
[2017-06-23 12:00] VITALS: BP 75/51; PULSE 59; RESP 16; TEMP 98.1; O2SAT 98
--- NOTE | 2017-06-23 15:31 | HHI.DS ---
Discharge Summary Admission Date Jun 20, 2017 at 16:22 Discharge Date: Jun 23, 2017 Admitting Diagnosis ascites (1) AICD (automatic cardioverter/defibrillator) present ICD Code: Z95.810 - Presence of automatic (implantable) cardiac defibrillator Status: Acute (2) GERD Status: Chronic (3) Type II diabetes mellitus ICD Code: E11.9 - Type II diabetes mellitus Status: Acute (4) CAD (coronary artery disease) ICD Code: I25.10 - Coronary artery disease Status: Chronic (5) Mitral valve regurgitation ICD Code: I34.0 - Mitral valve insufficiency Status: Acute (6) HLD (hyperlipidemia) ICD Code: E78.5 - Hyperlipidemia, unspecified Status: Chronic (7) HTN (hypertension) ICD Code: I10 - Essential (primary) hypertension Status: Chronic (8) Chest pain ICD Code: R07.9 - Chest pain, unspecified Status: Acute (9) CHF (congestive heart failure) ICD Code: I50.9 - Congestive heart failure Status: Chronic (10) Afib ICD Code: I48.91 - Atrial fibrillation Status: Chronic (11) Transaminitis ICD Code: R74.0 - Nonspecific elevation of levels of transaminase and lactic acid dehydrogenase [LDH] Procedures paracentesis. Brief History - From Admission Patient is a 56 year old male with primary medical history of A. fib, CHF, HTN, HLD who came in to the hospital for complaints of chest pain 3 days, constipation 3 days, abdominal distention 3 days. Patient states that he's been having chest pain for treatment days described as achy, 9/10, lasting for hours, aggravated by movement, relieved by resting, nonradiating, not associated with diaphoresis, nausea, vomiting. He also states that he is been having constipation 3 days. Also has noticed abdominal distention 3 days. Patient is a poor historian. States that he had some liver disease but unable to explain or describe what it is. He also states that they have removed fluid on his abdomen but unable to know when it happened, he just said in the past. He keeps on referring back that he would see it in the records. Denies any headaches, palpitations. Denies any shortness of breath or dyspnea. Denies fevers, chills, nausea, vomiting. Denies dysuria. CBC/BMP: 06/21/17 1018 06/23/17 1115 Significant Findings Laboratory Tests Test 06/20/17 23:10 06/21/17 08:18 06/21/17 10:18 06/23/17 06:09 Peritoneal Fluid WBC 114 /MM3 (0-10) Peritoneal Fluid RBC 134 /MM3 (0-0) Red Blood Count 3.10 MIL/MM3 (4.50-5.90) Hemoglobin 10.4 GM/DL (13.0-17.0) Hematocrit 30.5 % (39.0-51.0) Neutrophils (%) (Auto) 80.8 % (16.0-70.0) Neutrophils # (Auto) 8.4 TH/MM3 (1.8-7.7) Blood Urea Nitrogen 20 MG/DL (7-18) Creatinine 1.64 MG/DL (0.60-1.30) Random Glucose 120 MG/DL (74-106) Calcium Level 8.2 MG/DL (8.5-10.1) Estimat Glomerular Filtration Rate 53 ML/MIN (>89) Test 06/23/17 11:15 Blood Urea Nitrogen 21 MG/DL (7-18) Creatinine 1.70 MG/DL (0.60-1.30) Random Glucose 163 MG/DL (74-106) Calcium Level 7.9 MG/DL (8.5-10.1) Sodium Level 135 MEQ/L (136-145) Estimat Glomerular Filtration Rate 51 ML/MIN (>89) Imaging Last Impressions Cyst Biopsy Asp-Paracentesis US 06/21/17 0000 Signed Impressions: Service Date/Time: Wednesday, June 21, 2017 08:11 - CONCLUSION: Uncomplicated ultrasound guided paracentesis. Alfredo Martini MD Chest X-Ray 06/20/17 1152 Signed Impressions: Service Date/Time: Tuesday, June 20, 2017 12:06 - CONCLUSION: Underated, negative for consolidation or pneumothorax. Gonsalo Musa MD FACR PE at Discharge GENERAL: This is a well-nourished, well-developed patient, in no apparent distress. CARDIOVASCULAR: Regular rate and regular rhythm without murmurs, gallops, or rubs. RESPIRATORY: Clear to auscultation. Breath sounds equal bilaterally. No wheezes , rales, or rhonchi. GASTROINTESTINAL: Abdomen soft, non-tender, less distended. Normal, active bowel sounds MUSCULOSKELETAL: Extremities without clubbing, cyanosis, or edema. NEURO: Alert & Oriented x4 to person, place, time, situation. Moves all ext x4 Hospital Course Patient is a 56 year old male with primary medical history of A. 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 Patient with CP MSK. Transaminitis, ascites had paracentesis fluid sent and negative cultures. GI was consulted. Patient to follow GI in outpatient for possible liver biopsy. Hemochromatosis panel result showed C282Y: Not detected. H63D: Not detected. With low BP after paracentesis received albumin hold BP meds Patient improved, discharged in stable condition to f./u as OP with PCP and consultants. Chest Pain- resolved. Atypical. ACS ruled out. musculoskeletal as patient was in severe pain to sternal palpation but he states it's more of them admitted epigastric region that he is in pain. Transaminitis Ascites ?History of liver disease s/p paracentesis with removal of 4700 ml of fluid- will consult GI since the patient is still complaining of abdominal pain and distention. Avoid hepatotoxins. Previous Hepatitis panel negative. Previous admission, patient to follow GI in outpatient for possible liver biopsy. Hemochromatosis panel result showed C282Y: Not detected. H63D: Not detected. A. fib, chronic HTN CHF previous EF 06/2016 showed EF of 15-20% Continue home medications metoprolol 12.5 milligrams twice a day, lisinopril 5 mg daily, aspirin 81 mg daily, potassium 20 MEQ's, Lasix 40 mg daily Patient on edoxaban 60 mg every 24 hours. Monitor BP trend. Hypotension: BP 88/60 and HR in 50s, give albumin. 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 SCDS Pt Condition on Discharge: Stable Discharge Disposition: Discharge Home Discharge Time: > 30 minutes Discharge Instructions DIET: Follow Instructions for: Heart Healthy Diet Activities you can perform: Regular-No Restrictions Follow up Referrals: Gastroenterology - 1 Week @ [facility] PCP Follow-up - 1 Week with Quentin Arreaga M.d. New Medications: Glipizide (Glipizide) 5 Mg Tab 5 MG PO DAILYAC for Blood Sugar Management, #30 TAB 0 Refills Take 30 minutes before a meal Continued Medications: Aspirin DR (Aspirin EC) 81 Mg Tabdr 81 MG PO DAILY for Blood Clot Prevention for 90 Days, TAB Edoxaban (Savaysa) 60 Mg Tab 60 MG PO Q24H for Blood Clot Prevention, #30 TAB 1 Refill Metoprolol Tartrate (Metoprolol Tartrate) 25 Mg Tab 12.5 MG PO Q12HR for Blood Pressure Management, #60 TAB 3 Refills Multiple Vitamins W/ Minerals (Strovite One) 1 Tab Tab 1 TAB PO DAILY, #30 BOTTLE 3 Refills Potassium Chloride ER (Potassium Chloride ER) 20 Meq Tab 20 MEQ PO DAILY for Electrolyte Replacement, #30 TAB 2 Refills Discontinued Medications: Furosemide (Lasix) 40 Mg Tab 40 MG PO DAILY for chf for 30 Days, #30 TAB 0 Refills Lisinopril (Lisinopril) 5 Mg Tab 5 MG PO DAILY for Blood Pressure Management, #30 TAB 3 Refills Metformin (Metformin) 500 Mg Tab 500 MG PO BIDPC for Blood Sugar Management, #60 TAB 0 Refills With meals Kerri Rodas MD Jun 23, 2017 15:31
[2017-06-23 16:00] VITALS: BP 97/60; PULSE 61; RESP 16; TEMP 98.9; O2SAT 100
--- NOTE | 2017-06-23 16:14 | ECHRPT ---
Indication: CHF CONCLUSIONS Normal left ventricular size. Wall thickness is normal. No regional wall motion abnormalities are present. BP: 88 / 60 HR: 69 Rhythm: Sinus MEASUREMENTS (Male / Female) Normal Values Technical Quality:Good 2D ECHO LV Diastolic Diameter PLAX 5.1 cm 4.2 - 5.9 / 3.9 - 5.3 cm LV Systolic Diameter PLAX 3.3 cm IVS Diastolic Thickness 1.0 cm 0.6 - 1.0 / 0.6 - 0.9 cm LVPW Diastolic Thickness 1.0 cm 0.6 - 1.0 / 0.6 - 0.9 cm LV Relative Wall Thickness 0.4 RV Internal Dim ED PLAX 3.0 cm LV Ejection Fraction MOD 4C 64.0 % LV Cardiac Index MOD 4C 3506.3 cm/minm LV Ejection Fraction 4C AL 64.3 % LV Cardiac Index 4C AL 3626.1 cm/minm FINDINGS LEFT VENTRICLE The left ventricular systolic function is normal with an estimated ejection fraction in the range of 60-65%. Normal left ventricular size. Wall thickness is normal. No regional wall motion abnormalities are present. Amrit Licea MD (Electronically Signed) Final Date:23 June 2017 16:13
[2017-06-23 20:00] VITALS: BP 113/69; PULSE 64; RESP 18; TEMP 96.7; O2SAT 100
--- NOTE | 2017-06-23 20:04 | HHI.GIFU ---
Subjective Remarks Patient was transferred from [facility], laying in bed comfortably, no complain, tolerating food well, he said his biliary good bit more distended since he had the paracentesis Objective Vitals I&O Vital Signs Date Time Temp Pulse Resp B/P (MAP) Pulse Ox O2 Delivery O2 Flow Rate FiO2 06/23/17 16:00 98.9 61 16 97/60 (72) 100 06/23/17 12:00 98.1 59 16 75/51 (59) 98 06/23/17 08:00 98.1 60 16 100/65 (77) 98 06/23/17 04:00 98.3 59 18 88/60 (69) 100 06/23/17 00:00 98.2 62 18 102/61 (75) 99 I/O 06/22/17 06/22/17 06/22/17 06/23/17 06/23/17 06/23/17 07:00 15:00 23:00 07:00 15:00 23:00 Intake Total 560 ml Balance 560 ml Intake Oral 560 ml # Voids 4 5 # Bowel Movements 0 Laboratory Laboratory Tests Test 06/23/17 06:09 06/23/17 11:15 Hepatitis A IgM Antibody NEGATIVE Hepatitis B Surface Antigen NEGATIVE Hepatitis B Core IgM Antibody NEGATIVE Hepatitis C Antibody NEGATIVE Blood Urea Nitrogen 21 Creatinine 1.70 Random Glucose 163 Calcium Level 7.9 Sodium Level 135 Potassium Level 4.9 Chloride Level 102 Carbon Dioxide Level 28.3 Anion Gap 5 Estimat Glomerular Filtration Rate 51 B-Type Natriuretic Peptide 45 Date/Time Source Procedure Growth Status 06/21/17 08:18 Fluid Peritoneal Fluid Gram Stain - Final Resulted 06/21/17 08:18 Fluid Peritoneal Fluid Body Fluid Culture - Preliminary NO GROWTH IN 48 HOURS. Resulted Physical Exam HEENT: Pupils round and reactive to light; normocephalic; atraumatic; no jaundice. Throat is clear. NECK: Neck is supple, no JVD, no lymphadenopathy. CHEST: Chest is clear to auscultation and percussion. CARDIAC: Regular rate and rhythm with no murmur gallop or rubs. ABDOMEN: Soft, moderately distended abdomen with ascites nontender; no hepatosplenomegaly; bowel sounds are present in all four quadrants. EXTREMITIES: No clubbing, cyanosis, or edema. SKIN: Normal; no rash; no jaundice. 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 Assessment and Plan Plan ASSESSMENT - recurrent ascites - s/p paracentesis 4.7L removed, is distended again. On lasix daily. has had episode of this before, was evaluated by us unremarkable liver w/u,recommended to fu as outpt and poss liver bx. CT at that time showed hepatomegaly, increased density with amiodarone considered as poss cause, he was on this at the time. - elevated LFTs - unremarkable liver w/u in 03/2017. distant hx drinking. - change bowel habits, constipation - admits recent onset constipation. had EGD /colonoscopy [place] [facility] [place] found gastritis, hiatal hernia diverticulitis 06/23/2018 patient feeling okay he had paracentesis with 4.7 L removed doing well and tolerating food well PLAN -Continue diuretics Okay to discharge from GI perspective Follow up in clinic in one week Consider liver biopsy as an outpatient Fluid restriction patient was informed about Elena Mahoney MD Jun 23, 2017 20:04
== END 2017-06-23 21:49 | disposition home or self-care (01) ==
LOC: NEPC 11:42 → NEDA 16:22 → NEPHCDU 17:16 → PH3A 06-22 19:40
PROVIDERS: ADMIT Hospitalist; ATTEND Hospitalist
DX: R07.9 Chest pain, unspecified (principal); R74.0 Nonspecific elevation of levels of transaminase and lactic acid dehydrogenase [LDH]; R18.8 Other ascites; K59.00 Constipation, unspecified; R79.89 Other specified abnormal findings of blood chemistry; I95.9 Hypotension, unspecified; M54.2 Cervicalgia; R06.02 Shortness of breath; R10.9 Unspecified abdominal pain; I45.81 Long QT syndrome; R94.31 Abnormal electrocardiogram [ECG] [EKG]; R11.2 Nausea with vomiting, unspecified; I25.10 Atherosclerotic heart disease of native coronary artery without angina pectoris; I13.0 Hypertensive heart and chronic kidney disease with heart failure and stage 1 through stage 4 chronic kidney disease, or unspecified chronic kidney disease; E11.22 Type 2 diabetes mellitus with diabetic chronic kidney disease; I50.9 Heart failure, unspecified; N18.9 Chronic kidney disease, unspecified; I25.2 Old myocardial infarction; I34.0 Nonrheumatic mitral (valve) insufficiency; E78.5 Hyperlipidemia, unspecified; I48.2 Chronic atrial fibrillation; K21.9 Gastro-esophageal reflux disease without esophagitis; Z79.899 Other long term (current) drug therapy; Z79.82 Long term (current) use of aspirin; Z79.84 Long term (current) use of oral hypoglycemic drugs; Z95.810 Presence of automatic (implantable) cardiac defibrillator
CPT/HCPCS: 49083; 71046; 80048; 80053; 80074; 82042; 82550; 82552; 82948; 83615; 83690; 83735; 83880; 84157; 84484; 85025; 85610; 85730; 87070; 87205; 88112; 88305; 89051; 90686; 93005; 93306; 93308; 96372; 96374; 96375; 96376; 99285; C1729; G0378; J1815; J1940; J2270; P9047; Q2038

== ENCOUNTER 2017-06-30 18:14 | Inpatient (IN) | payer OTHER ==
[~2017-06-30] VITALS: Ht 182.9 cm; Wt 88.0 kg
[~2017-06-30 18:14] MED LIST changes: -CEFU1TAB18 PO; -FURO1TAB60 PO; +GLIP5TAB8 PO; -LISI-519 PO; -METF500T PO
[2017-06-30 18:15] VITALS: BP 154/80; PULSE 56; RESP 16; TEMP 98; O2SAT 100
--- NOTE | 2017-06-30 19:29 | PD ---
HPI Chief Complaint: Altered Mental Status Time Seen by Provider: 19:12 Travel History International Travel<30 days: No Contact w/Intl Traveler<30days: No Traveled to known affect area: No History of Present Illness HPI 56yo M with PMH of afib, CHF EF 15-20% 06/2016, HTN, HLD, DM presents to the ED with c/o altered mental status. As per his baby's mother, pt was found on the floor at 5pm today by the people he lives with and had slurred speech. Said his speech is better now but not still not at baseline. Said his behavior is not normal and appears like he is drunk or on drugs. Pt is AAOx3. Pt has left sided chest pain and said he has had it for a while. Denies any fever, sob, n/v , abdominal pain. Pt has abdominal distension and was admitted 06/20/16-06/23/17 for ascites and negative culture from paracentesis. Also had atypical chest pain at the time. Pt said he was watching TV and next thing in bed he know, he was on the floor. PFSH Past Medical History Hx Anticoagulant Therapy: Yes (XARELTO) Arthritis: No Asthma: No Atrial Fibrillation: Yes Anxiety: No Depression: No Heart Rhythm Problems: Yes (HX OF A-FIB) Cancer: No Cardiac Catheterization: Yes Cardiovascular Problems: Yes (PACEMAKER (left side)) High Cholesterol: No Chest Pain: Yes Congestive Heart Failure: Yes COPD: No Cerebrovascular Accident: Yes Coronary Artery Disease: Yes Diabetes: Yes (METFORMIN) Diminished Hearing: No Endocrine: Yes Gastrointestinal Disorders: Yes GERD: No Genitourinary: No Headaches: Yes (OCCASIONAL) Hiatal Hernia: No Heparin Induced Thrombocytopen: No Hypertension: Yes Immune Disorder: No Implanted Vascular Access Dvce: Yes Kidney Stones: No Musculoskeletal: No Neurologic: Yes Psychiatric: No Reproductive: No Respiratory: No Immunizations Current: Yes Migraines: No Myocardial Infarction: Yes Renal Failure: Yes Seizures: No Sickle Cell Disease: No Sleep Apnea: No Thyroid Disease: No Ulcer: No Past Surgical History Abdominal Surgery: No AICD: Yes (BIOTRONIC ) Arteriovenous Shunt: No Cardiac Surgery: Yes (ANGIOPLASTY 2008, ABLATION , PACEMAKER 2016) Ear Surgery: No Endocrine Surgery: No Eye Surgery: No Genitourinary Surgery: No Insulin Pump: No Joint Replacement: No Neurologic Surgery: No Oral Surgery: No Pacemaker: Yes Thoracic Surgery: No Other Surgery: No Social History Alcohol Use: Yes (OCC) Tobacco Use: No Substance Use: No Allergies-Medications (Allergen,Severity, Reaction): Coded Allergies: No Known Allergies (Unverified Allergy, Unknown, 06/20/17) Reported Meds & Prescriptions Reported Meds & Active Scripts Active Glipizide 5 Mg Tab 5 Mg PO DAILYAC Take 30 minutes before a meal Metoprolol Tartrate 25 Mg Tab 12.5 Mg PO Q12HR Potassium Chloride ER (Potassium Chloride) 20 Meq Tab 20 Meq PO DAILY Strovite One (Multiple Vitamins W/ Minerals) 1 Tab Tab 1 Tab PO DAILY Savaysa (Edoxaban) 60 Mg Tab 60 Mg PO Q24H Aspirin EC (Aspirin) 81 Mg Tabdr 81 Mg PO DAILY 90 Days Review of Systems Except as stated in HPI: all other systems reviewed are Neg Physical Exam Narrative GENERAL: 56yo M not in distress. SKIN: Focused skin assessment warm/dry. HEAD: Atraumatic. Normocephalic. EYES: Pupils equal and round at 3mm bilaterally. EOMI. + scleral icterus. ENT: No nasal bleeding or discharge. Mucous membranes pink and moist. NECK: Trachea midline. No JVD. CARDIOVASCULAR: Regular rate and rhythm. No murmur appreciated. RESPIRATORY: No accessory muscle use. Clear to auscultation. Breath sounds equal bilaterally. GASTROINTESTINAL: Abdomen soft, distended. No ttp. No rebound tenderness or guarding. MUSCULOSKELETAL: No obvious deformities. No clubbing. No cyanosis. No edema. NEUROLOGICAL: Awake and alert. No obvious cranial nerve deficits. Motor grossly within normal limits. Mild dysarthria. Sensation intact. Follows command. Data Data Last Documented VS Vital Signs Date Time Temp Pulse Resp B/P (MAP) Pulse Ox O2 Delivery O2 Flow Rate FiO2 06/30/17 22:27 93.0 48 22 162/104 (123) 96 Room Air Orders Orders Electrocardiogram (06/30/17 18:28) Ammonia (06/30/17 18:28) Complete Blood Count With Diff (06/30/17 18:28) Comprehensive Metabolic Panel (06/30/17 18:28) Creatine Kinase (Cpk) (06/30/17 18:28) Prothrombin Time / Inr (Pt) (06/30/17 18:28) Act Partial Throm Time (Ptt) (06/30/17 18:28) Troponin I (06/30/17 18:28) Urinalysis - C+S If Indicated (06/30/17 18:28) Ct Brain W/O Iv Contrast(Rout) (06/30/17 18:28) Drug Screen, Random Urine (06/30/17 18:28) Alcohol (Ethanol) (06/30/17 18:28) Chest, Single Ap (06/30/17 ) Dextrose 50% In [place] (Syr) Inj (D50w (Syr (06/30/17 20:30) Mri Brain W/O Contrast (06/30/17 ) Mra Brain W/O Contrast (Cow) (06/30/17 ) Admit Order (Ed Use Only) (06/30/17 22:28) Labs Laboratory Tests Test 06/30/17 19:25 White Blood Count 13.1 TH/MM3 Red Blood Count 3.38 MIL/MM3 Hemoglobin 11.3 GM/DL Hematocrit 33.0 % Mean Corpuscular Volume 97.6 FL Mean Corpuscular Hemoglobin 33.5 PG Mean Corpuscular Hemoglobin Concent 34.4 % Red Cell Distribution Width 15.9 % Platelet Count 199 TH/MM3 Mean Platelet Volume 10.2 FL Neutrophils (%) (Auto) 87.5 % Lymphocytes (%) (Auto) 6.9 % Monocytes (%) (Auto) 4.4 % Eosinophils (%) (Auto) 1.0 % Basophils (%) (Auto) 0.2 % Neutrophils # (Auto) 11.4 TH/MM3 Lymphocytes # (Auto) 0.9 TH/MM3 Monocytes # (Auto) 0.6 TH/MM3 Eosinophils # (Auto) 0.1 TH/MM3 Basophils # (Auto) 0.0 TH/MM3 CBC Comment DIFF FINAL Differential Comment Prothrombin Time 13.4 SEC Prothromb Time International Ratio 1.3 RATIO Activated Partial Thromboplast Time 29.1 SEC Blood Urea Nitrogen 18 MG/DL Creatinine 1.09 MG/DL Random Glucose 31 MG/DL Total Protein 7.8 GM/DL Albumin 2.1 GM/DL Calcium Level 8.2 MG/DL Alkaline Phosphatase 323 U/L Aspartate Amino Transf (AST/SGOT) 186 U/L Alanine Aminotransferase (ALT/SGPT) 90 U/L Total Bilirubin 0.9 MG/DL Sodium Level 132 MEQ/L Potassium Level 4.5 MEQ/L Chloride Level 100 MEQ/L Carbon Dioxide Level 24.1 MEQ/L Anion Gap 8 MEQ/L Estimat Glomerular Filtration Rate 85 ML/MIN Ammonia 29 MCMOL/L Total Creatine Kinase 165 U/L Troponin I 0.02 NG/ML Ethyl Alcohol Level LESS THAN 3 MG/DL [facility] Medical Decision Making Medical Screen Exam Complete: Yes Emergency Medical Condition: Yes Interpretation(s) EKG: Sinus bradycardia at 43bpm. LAD. No ST segment elevation or depression. Differential Diagnosis TIA vs. substance abuse vs. alcohol intoxication vs. hepatic encephalopathy vs. ACS vs. hypoglycemia Narrative Course 56yo M brought in for altered mental status, found on the floor at 5pm today. As per pt's child's mother, he has slurred speech and is not acting like himself. Glucose was found to be 31. Pt given an amp of D50. Repeat blood glucose is 74. Pt is feeling better and speech has improved as well. Pt is only on metformin but said he has not been eating well. Pt has mild leukocytosis. H/H baseline. Elevated liver enzymes which he had before. Ammonia level normal at 29. Troponin. Pt did fall onto the floor so CT was obtained. CT brain showed area of low attenuation change involving left frontal lobe felt to be encephalomalacia in nature. Cannot exclude subacute infarction. MRI recommended. MRI brain and MRA brain ordered. Pt has an AICD. I was informed by [employer] that she would have to call in a field sales representative to make sure it is MRI compatible and may not be able to get that done tonight. Pt reevaluated at bedside and is shaking stating he is very cold. He has multiple blankets on already but still feels cold. Will repeat temperature. I feel that pt's slurred speech is from his hypoglycemia but given the CT scan, will need to do MRI in order to r/o subacute infarct. Discussed with Dr. Rodrigez and accepted to her service. Repeat temperature is 93F. Pt given bear hugger. Blood glucose is 82. Given the new temperature, pt meets SIR criteria with mildly elevated WBC. Will add blood cultures, lactic acid and empiric antibiotics. Call put out to Dr. Rodrigez to inform her. Diagnosis Primary Impression: TIA (transient ischemic attack) Qualified Codes: G45.9 - Transient cerebral ischemic attack, unspecified Additional Impression: Hypoglycemia Admitting Information Admitting Physician Requests: Sandy Vasquez DO Jun 30, 2017 19:29
[2017-06-30 20:03] LABS: AUTOMATED NEUTROPHIL # 11.4 TH/MM3 (1.8-7.7); BASOPHIL % 0.2 % (0.0-2.0); EOSINOPHIL # 0.1 TH/MM3 (0-0.4); HEMOGLOBIN 11.3 GM/DL (13.0-17.0); LYMPH % 6.9 % (9.0-44.0); LYMPHOCYTE # 0.9 TH/MM3 (1.0-4.8); MEAN CELL VOLUME 97.6 FL (80.0-100.0); MEAN CORPUSCULAR HEMOGLOBIN 33.5 PG (27.0-34.0); MEAN CORPUSCULAR HGB CONC 34.4 % (32.0-36.0); MEAN PLATELET VOLUME 10.2 FL (7.0-11.0); MONO % 4.4 % (0.0-8.0); MONOCYTE # 0.6 TH/MM3 (0-0.9); NEUT % 87.5 % (16.0-70.0); PLATELET COUNT 199 TH/MM3 (150-450); RED BLOOD COUNT 3.38 MIL/MM3 (4.50-5.90); RED CELL DISTRIBUTION WIDTH 15.9 % (11.6-17.2); WHITE BLOOD COUNT 13.1 TH/MM3 (4.0-11.0)
[2017-06-30 20:09] LABS: INTERNATIONAL NORMALIZED RATIO 1.3 RATIO; PROTHROMBIN TIME - PATIENT 13.4 SEC (9.8-11.6)
--- NOTE | 2017-06-30 20:12 | RADRPT ---
EXAM DATE/TIME: 06/30/2017 19:38 [facility] COMPARISON: CHEST SINGLE AP, June 17, 2016, 10:16. INDICATIONS : Chest pain. MEDICAL HISTORY : Myocardial infarction. SURGICAL HISTORY : Pacemaker. ENCOUNTER: Initial ACUITY: 1 day PAIN SCORE: 10/10 LOCATION: Bilateral chest FINDINGS: A single portable frontal view of the chest shows low lung volumes. Mild bibasilar atelectasis. [place] tion right hemidiaphragm. Heart is at the upper limits of normal in terms of size. Pacing device over lies the left chest. CONCLUSION: Hypoinflation with bibasilar atelectasis. Deandre Villegas Jr., MD on June 30, 2017 at 20:10 Board Certified Radiologist. This report was verified electronically.
[2017-06-30 20:15] LABS: ALBUMIN 2.1 GM/DL (3.4-5.0); ALT (GPT) 90 U/L (12-78); AST (GOT) 186 U/L (15-37); BICARBONATE 24.1 MEQ/L (21.0-32.0); BLOOD UREA NITROGEN 18 MG/DL (7-18); CALCIUM 8.2 MG/DL (8.5-10.1); CHLORIDE 100 MEQ/L (98-107); CREATININE 1.09 MG/DL (0.60-1.30); GLOMERULAR FILTRATION RATE 85 ML/MIN (>89); SODIUM (NA) 132 MEQ/L (136-145)
[2017-06-30 20:17] LABS: GLUCOSE,RANDOM 31 MG/DL (74-106)
[2017-06-30 20:19] LABS: ALKALINE PHOSPHATASE 323 U/L (45-117); TOTAL BILIRUBIN ADULT 0.9 MG/DL (0.2-1.0); TOTAL PROTEIN 7.8 GM/DL (6.4-8.2); TROPONIN I 0.02 NG/ML (0.02-0.05)
--- NOTE | 2017-06-30 20:28 | RADRPT ---
EXAM DATE/TIME: 06/30/2017 20:04 [place] COMPARISON: No previous studies available for comparison. INDICATIONS : Altered mental status RADIATION DOSE: 37.20 CTDIvol (mGy) MEDICAL HISTORY : Congestive hearrt failure. Cerebrovascular disease. Renal failure,diabetes SURGICAL HISTORY : Pacemaker. ENCOUNTER: Initial ACUITY: 1 day PAIN SCALE: Non-responsive LOCATION: cranial TECHNIQUE: Multiple contiguous axial images were obtained of the head. Using automated exposure control and adj ustment of the mA and/or kV according to patient size, radiation dose was kept as low as reasonably a chievable to obtain optimal diagnostic quality images. DICOM format image data is available electro nically for review and comparison. FINDINGS: CEREBRUM: There is an area of low attenuation change involving the left frontal lobe watershed region. The vent ricles are normal for age. No evidence of midline shift, mass lesion or hemorrhage. No extra-axial fluid collections are seen. POSTERIOR FOSSA: The cerebellum and brainstem are intact. The 4th ventricle is midline. The cerebellopontine angle i s unremarkable. EXTRACRANIAL: The visualized portion of the orbits is intact. SKULL: The calvaria is intact. No evidence of skull fracture. CONCLUSION: 1. Area of low attenuation change involving the left frontal lobe felt to be encephalomalacia in natu re. I cannot completely exclude a subacute infarction. MRI could further differentiate. Deandre Villegas Jr., MD on June 30, 2017 at 20:24 Board Certified Radiologist. This report was verified electronically.
[2017-06-30] MEDS ORDERED: DEXTROSE 50% IN WATER 50 ML SYRINGE IV PUSH ONE (20:30)
--- NOTE | 2017-06-30 21:52 | EKG ---
Date Performed: 06/30/2017 Time Performed: 19:39:58 PTAGE: 56 years EKG: SINUS BRADYCARDIA Prolonged QT interval Compared to prior electrocardiogram, Rate has slowe d and QT interval has lengthened. PREVIOUS TRACING : 06/20/2017 23.28 DOCTOR: Manny Simmons Interpretating Date/Time 06/30/2017 21:50:51
[2017-06-30 22:27] VITALS: BP 162/104; PULSE 48; RESP 22; TEMP 93; O2SAT 96
[2017-06-30] MEDS ORDERED: SODIUM CHLORIDE 0.9% FLUSH 10 ML FLUSH IV FLUSH PRN (22:45)
[2017-06-30] MEDS ORDERED: GLUCAGON 1 MG/ML VIAL IM PRN (22:45)
[2017-06-30] MEDS ORDERED: NALOXONE HCL 0.4 MG/ML AMP IV PUSH PRN (22:45)
[2017-06-30] MEDS ORDERED: DEXTROSE 50% IN WATER 50 ML VIAL(D50) IV PUSH ONE (23:00)
[2017-06-30] MEDS ORDERED: PIPERACIL-TAZO 3.375 GM PREMIX 50 ML IV ONE (23:00)
[2017-06-30] MEDS ORDERED: VANCOMYCIN INJ 1,500 MG in SODIUM CHLORID 0.9% 500 ML INJ 500 ML IV ONE (23:00)
[2017-06-30 23:39] LABS: LACTIC ACID SEPSIS PROTOCOL 2.6 mmol/L (0.4-2.0)
[2017-07-01] VITALS (12 sets, daily range): BP systolic 86–117; BP diastolic 60–69; PULSE 46–57; RESP 16–24; TEMP 97.4–98; O2SAT 98–100
[2017-07-01] MEDS: DEXTROSE 50% IN WATER 50 ML VIAL(D50) IV PUSH PRN ×9 (00:03→21:53)
[2017-07-01 00:31] LABS: BILIRUBIN, URINE NEG (NEG); BLOOD, URINE NEG (NEG); GLUCOSE,URINE NEG (NEG); HYALINE CAST, URINE 16 /lpf (RARE); KETONE, URINE NEG (NEG); MUCUS URINE FEW /lpf (OCC); NITRITE,URINE NEG (NEG); SQUAMOUS EPITHELIAL CELL URINE 1 /hpf (0-5); URINE COLOR YELLOW (YELLW/STRAW); URINE LEUKOCYTE ESTERASE NEG (NEG)
[2017-07-01 03:48] LABS: TROPONIN I 0.03 NG/ML (0.02-0.05)
--- NOTE | 2017-07-01 04:31 | HHI.HP ---
[facility] Quentin Arre[facility] M.D. Admission Diagnosis Possible subacute infarct, hypoglycemia Diagnoses: Travel History International Travel<30 Days: No Contact w/Intl Traveler <30 Da: No Traveled to Known Affected Are: No History of Present Illness History from patient, ER physician communication, and review of medical records. Patient reported that he came to the hospital because he has been swelling up in his abdomen since the discharge from hospital about 7 days ago. Prior records from hospital stay reviewed. Patient had more than 4 L of peritoneal fluid drained during that admission. He reports that it has accumulated all over again. Also reports of subjective fevers. Reports of constipation. Reports he had a lot of nausea,. Patient states he fell down today and he was lying in bed and next thing he knows, he was on the floor. his "baby momma" heard him and came to find him hit his head on floor ,but it is carpeted has been having fever stated "baby momma" is central supply tech and she checked his temp no vomiting However reports of heavy spit- no black or red color no urinary symptoms- Because of above all this, his daughter finally drove him to the hospital. In the emergency room, patient was found to have blood sugar in the 30s. His temperature later also came down to 93 rectally. 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 the fall happened around 600p.m He takes glipizide at home. During his emergency room stay and can medical words, patient persistently was having low blood sugars in the 50s. He required several rounds of D50 IV push. He was also noted to have bradycardia with heart rates ranging from 48-50. Review of Systems Except as stated in HPI: all other systems reviewed are Neg Past Family Social History Past Medical History HTN DM2 CHF - ef 15% in 2017- s/p AICD; EF 60% in Jun 2017 echo AFib with ablation- no PPM Kidney problems Recurrent ascites - s/p paracentesis 4.7L removed. EGD/colonoscopy at [facility] 03/2017 found gastritis, hiatal hernia Past Surgical History AICD placement paracentesis Allergies: Coded Allergies: No Known Allergies (Unverified Allergy, Unknown, 06/20/17) Uncoded Allergies: PACEMAKER (Adverse Reaction, Severe, 06/30/17) BIOTRONIK PACEMAKER 06/30/17 AW Family History none that he knows of Social History quit smoking 19yo used to drink 6 packs a day, quit at least 15yr ago, now drinks only every now and then half a beer no drugs Physical Exam Vital Signs Vital Signs Date Time Temp Pulse Resp B/P (MAP) Pulse Ox O2 Delivery O2 Flow Rate FiO2 07/01/17 03:35 97.7 07/01/17 02:45 07/01/17 00:50 97.7 50 18 98/64 (75) 100 07/01/17 00:09 97.6 48 20 92/62 (72) 100 07/01/17 00:04 46 20 86/60 (69) 100 Room Air 06/30/17 22:27 93.0 48 22 162/104 (123) 96 Room Air 06/30/17 20:29 40 20 98 Room Air 06/30/17 18:15 98.0 56 16 154/80 (104) 100 Room Air Physical Exam GENERAL: This is a well-nourished, well-developed patient, in no apparent distress. SKIN: No rashes, ecchymoses or lesions. Cool and dry. HEAD: Atraumatic. Normocephalic. No temporal or scalp tenderness. EYES: No scleral icterus. No injection or drainage. ENT: Nose without bleeding, purulent drainage or septal hematoma. Airway patent. NECK: Trachea midline. No JVD or lymphadenopathy. Supple, nontender, no meningeal signs. CARDIOVASCULAR: Regular rate and rhythm without murmurs, gallops, or rubs. RESPIRATORY: Clear to auscultation. Breath sounds equal bilaterally. No wheezes , rales, or rhonchi. GASTROINTESTINAL: Abdomen soft, non-tender. Severely distended abdomen. Bowel sounds present those scans. No rebound. No guarding. MUSCULOSKELETAL: Extremities without clubbing, cyanosis, or edema.No calf tenderness. NEUROLOGICAL: Awake and alert. Motor and sensory grossly within normal limits. Normal speech. Laboratory Laboratory Tests Test 06/30/17 19:25 06/30/17 19:50 06/30/17 23:00 07/01/17 00:00 White Blood Count 13.1 Red Blood Count 3.38 Hemoglobin 11.3 Hematocrit 33.0 Mean Corpuscular Volume 97.6 Mean Corpuscular Hemoglobin 33.5 Mean Corpuscular Hemoglobin Concent 34.4 Red Cell Distribution Width 15.9 Platelet Count 199 Mean Platelet Volume 10.2 Neutrophils (%) (Auto) 87.5 Lymphocytes (%) (Auto) 6.9 Monocytes (%) (Auto) 4.4 Eosinophils (%) (Auto) 1.0 Basophils (%) (Auto) 0.2 Neutrophils # (Auto) 11.4 Lymphocytes # (Auto) 0.9 Monocytes # (Auto) 0.6 Eosinophils # (Auto) 0.1 Basophils # (Auto) 0.0 CBC Comment DIFF FINAL Differential Comment Prothrombin Time 13.4 Prothromb Time International Ratio 1.3 Activated Partial Thromboplast Time 29.1 Blood Urea Nitrogen 18 Creatinine 1.09 Random Glucose 31 Total Protein 7.8 Albumin 2.1 Calcium Level 8.2 Alkaline Phosphatase 323 Aspartate Amino Transf (AST/SGOT) 186 Alanine Aminotransferase (ALT/SGPT) 90 Total Bilirubin 0.9 Sodium Level 132 Potassium Level 4.5 Chloride Level 100 Carbon Dioxide Level 24.1 Anion Gap 8 Estimat Glomerular Filtration Rate 85 Ammonia 29 Total Creatine Kinase 165 Troponin I 0.02 Ethyl Alcohol Level LESS THAN 3 Lipase 439 Lactic Acid Level 2.6 Urine Color YELLOW Urine Turbidity CLEAR Urine pH 6.0 Urine Specific [place] 1.013 Urine Protein NEG Urine Glucose (UA) NEG Urine Ketones NEG Urine Occult Blood NEG Urine Nitrite NEG Urine Bilirubin NEG Urine Urobilinogen 2.0 Urine Leukocyte Esterase NEG Urine RBC 1 Urine WBC 1 Urine Squamous Epithelial Cells 1 Urine Hyaline Casts 16 Urine Mucus FEW Microscopic Urinalysis Comment CATH-CULT NOT IND Urine Opiates Screen NEG Urine Barbiturates Screen NEG Urine Amphetamines Screen NEG Urine Benzodiazepines Screen NEG Urine Cocaine Screen NEG Urine Cannabinoids Screen NEG Test 07/01/17 03:10 Lactic Acid Level 1.7 Total Creatine Kinase 146 Troponin I 0.03 Date/Time Source Procedure Growth Status 06/30/17 23:00 Blood Peripheral Aerobic Blood Culture Pending Received 06/30/17 23:00 Blood Peripheral Anaerobic Blood Culture Pending Received Result Diagram: 06/30/17192406/30/171924 Imaging Last [address] 06/30/17 1828 Signed Impressions: Service Date/Time: June 20:04 - CONCLUSION: 1. Area of low attenuation change involving the left frontal lobe felt to be encephalomalacia in nature. I cannot completely exclude a subacute infarction. MRI could further differentiate. Deandre Villegas Jr., MD Chest X-Ray 06/30/17 0000 Signed Impressions: Service Date/Time: June 19:38 - CONCLUSION: Hypoinflation with bibasilar atelectasis. Deandre Villegas Jr., MD Caprini VTE Risk Assessment Caprini VTE Risk Assessment: Mod/High Risk (score >= 2) Caprini Risk Assessment Model Point Value = 1 Point Value = 2 Point Value = 3 Point Value = 5 Age 41-60 Minor surgery BMI > 25 kg/m2 Swollen legs Varicose veins or History of unexplained or recurrent spontaneous Oral contraceptives or hormone replacement Sepsis (< 1 month) Serious lung disease, including pneumonia (< 1 month) Abnormal pulmonary function Acute myocardial infarction Congestive heart failure (< 1 month) History of inflammatory bowel disease Medical patient at bed rest Age 61-74 Arthroscopic surgery Major open surgery (> 45 min) Laparoscopic surgery (> 45 min) Malignancy Confined to bed (> 72 hours) Immobilizing plaster cast Central venous access Age >= 75 History of VTE Family history of VTE Factor V Leiden Prothrombin [id number] Lupus anticoagulant Anticardiolipin antibodies Elevated serum homocysteine Heparin-induced thrombocytopenia Other congenital or acquired thrombophilia Stroke (< 1 month) Elective arthroplasty Hip, pelvis, or leg fracture Acute spinal cord injury (< 1 month) Prophylaxis Regimen Total Risk Factor Score Risk Level Prophylaxis Regimen 0-1 Low Early ambulation 2 Moderate Order ONE of the following: *Sequential Compression Device (SCD) *Heparin 5000 units SQ BID 3-4 Higher Order ONE of the following medications: *Heparin 5000 units SQ TID *Enoxaparin/Lovenox 40 mg SQ daily (WT < 150 kg, CrCl > 30 mL/min) *Enoxaparin/Lovenox 30 mg SQ daily (WT < 150 kg, CrCl > 10-29 mL/min) *Enoxaparin/Lovenox 30 mg SQ BID (WT < 150 kg, CrCl > 30 mL/min) AND/OR *Sequential Compression Device (SCD) 5 or more Highest Order ONE of the following medications: *Heparin 5000 units SQ TID (Preferred with Epidurals) *Enoxaparin/Lovenox 40 mg SQ daily (WT < 150 kg, CrCl > 30 mL/min) *Enoxaparin/Lovenox 30 mg SQ daily (WT < 150 kg, CrCl > 10-29 mL/min) *Enoxaparin/Lovenox 30 mg SQ BID (WT < 150 kg, CrCl > 30 mL/min) AND *Sequential Compression Device (SCD) Assessment and Plan Assessment and Plan Impression: tense ascites - negative cx in previous 06/30 admission paracentesis Hypothermia. Secondary to sepsis. suspects underlying sepsis causing hypoglycemia persistent hypoglycemia bradycardia on exam AMS secondary to hypoglycemia Abnormal head CT per radiologist reading. MRI is pending. warehouse technician will have to coordinate with the [employer] guest experience representative in order to do MRIs. Radiology Department is aware. HTN DM2 CHF - ef 15% in 2017- s/p AICD; EF 60% in Jun 2017 echo AFib with ablation- no PPM Kidney problems Recurrent ascites - s/p paracentesis 4.7L removed. EGD/colonoscopy at [facility] 03/2017 found gastritis, hiatal hernia Plan: Ultrasound guided paracenteses in a.m. We'll send fluid studies including cultures. Sepsis is highly suspected given that patient is hypothermia, persistent hypoglycemia, lactic acid elevation. We'll therefore cover for SBP. Start Rocephin 1 g IV every 24 hours. Blood cultures 2. UA and urine culture. Chest x-ray personally reviewed. No evidence of infiltrates/pulmonary edema/ pneumothorax. GI consult. Patient would likely need liver biopsy for diagnosis. This could be done as an outpatient as well. Warming blankets. Hypoglycemic protocol. Since patient has been requiring several rounds of D50 ampule IV pushes, we have started giving him glucose gone as well. We'll also start him now on D5 IV fluids and 42 cc per hour. Patient's latest echo in June 2017 showed improvement in his EF. His echo in June 2016 revealed EF of 15%. Therefore we will hydrate as above but would watch out for fluid overload. bladder scan now if retaining, to insert mcneill DVT prophylaxis with lovenox Discussed Condition With patient, ER MD, nursing staff Physician Certification 2 Midnight Certification Type: Admission for Inpatient Services Order for Inpatient Services The services are ordered in accordance with Medicare regulations or non- Medicare payer requirements, as applicable. In the case of services not specified as inpatient-only, they are appropriately provided as inpatient services in accordance with the 2-midnight benchmark. Estimated LOS (days): 2 days is the estimated time the patient will need to remain in the hospital, assuming treatment plan goals are met and no additional complications. Post-Hospital Plan: Home Kyra Rodrigez MD Jul 01, 2017 04:31
[2017-07-01] MEDS ORDERED: DEXT 5%-NACL 0.45% 1000 ML INJ 1,000 ML IV SCH (05:00)
[2017-07-01] MEDS: EDOXABAN TOSYLATE 60 MG TAB PO SCH (06:48)
--- NOTE | 2017-07-01 08:03 | EKG ---
Date Performed: 07/01/2017 Time Performed: 03:03:33 PTAGE: 56 years EKG: Baseline artifact present SINUS BRADYCARDIA MODERATE INTRAVENTRICULAR CONDUCTION DELAY MODE RATE ST DEPRESSION PROLONGED QT INTERVAL ABNORMAL ECG No significant change from prior electrocardiog yarelis. PREVIOUS TRACING : 06/30/2017 19.39 DOCTOR: Manny Simmons Interpretating Date/Time 07/01/2017 08:02:08
--- NOTE | 2017-07-01 08:49 | PD.CONS ---
HPI History of Present Illness This is a 56 year old obese male who was admitted to the hospital on 06/30/17 with syncopal episode. Patient states he was laying in bed, and began feeling dizzy when he attempted to get up he fell to the floor. Current patient's heart rate is between 40 and 50 bpm, appears to be sinus bradycardia when in the high 40s. Patient has a recent history of hospital admission transferred from [facility] and was discharged on 06/30/17. Patient was seen per Dr. Patterson and followed for recurrent ascites . Patient had had an initial paracentesis with 4.7 L of fluid removed , and was symptomatic again with abdominal distention with ascites. possible causes were evaluated for the ascites which included amiodarone and history of EtOH. Patient has end-stage cardiomyopathy, Has had a pacemaker AICD for 2 years. Patient also has a history of constipation. Last EGD colon was done on 2016 with findings of gastritis hiatal hernia and diverticulitis. Patient was to follow-up with GI in the clinic as outpatient, where outpatient liver biopsy was being considered. Patient also states weight gain especially in the abdominal area, but muscle wasting and some weight loss in extremities. Patient states intolerance to cold and loss of appetite, episodic epigastric pain for the last 3 months episodic every 2 days, worse with movement and eating, dull in nature. Patient states low-grade fever and positive heartburn over the past few days. (Yumiko Bruno) PFSH Past Medical History Per the patient and the record HTN DM2 CHF - ef 15% in 2017- s/p AICD; EF 60% in Jun 2017 echo AFib with ablation- no PPM Kidney problems Recurrent ascites - s/p paracentesis 4.7L removed in the past few weeks EGD/colonoscopy at [facility] 03/2017 found gastritis, hiatal hernia Past Surgical History AICD placement paracentesis (Yumiko Bruno) Coded Allergies: No Known Allergies (Unverified Allergy, Unknown, 06/20/17) Uncoded Allergies: PACEMAKER (Adverse Reaction, Severe, 07/01/17) BIOTRONIK PACEMAKER 06/30/17 AW Pt has biotronic Itrevia [id number] which is not yet approved for [place]. Medications Administered Medications Medications (Trade) Dose Ordered Sig/Maxime Route PRN Reason Start Time Stop Time Status Last Admin Dose Admin Sodium Chloride (NS Flush) 2 ml BID IV FLUSH 07/01/17 09:00 07/01/17 09:00 Dextrose (D50w (Vial) Inj) 50 ml UNSCH PRN IV PUSH HYPOGLYCEMIA-SEE COMMENTS 06/30/17 22:45 07/01/17 08:00 Aspirin (Ecotrin Ec) 81 mg DAILY PO 07/01/17 09:00 07/01/17 09:09 Edoxaban (Savaysa) 60 mg Q24H PO 07/01/17 06:00 07/01/17 06:48 Potassium Chloride (KCl) 20 meq DAILY PO 07/01/17 09:00 07/01/17 09:00 Multivitamins/ Minerals Therapeutic (Theragran M Tab) 1 tab DAILY PO 07/01/17 09:00 07/01/17 09:00 Ceftriaxone Sodium 1000 mg/ Sodium Chloride 100 ml @ 200 mls/hr Q24H IV 07/01/17 09:00 07/01/17 09:10 Dextrose/Sodium Chloride 1,000 ml @ 42 mls/hr [id number] IV 07/01/17 05:00 07/01/17 05:10 Family History none that he knows of Social History quit smoking 19yo used to drink 6 packs a day, history states he quit at least 15yr ago, but and patient states he still currently drinks on a daily basis. states history of cocaine abuse currently lives at home with his (Yumiko Bruno) Review of Systems Constitutional: COMPLAINS OF: Fatigue, Weight gain Gastrointestinal: COMPLAINS OF: Abdominal pain (bloating), Nausea (Yumiko Bruno) GI Exam Vitals I&O Vital Signs Date Time Temp Pulse Resp B/P (MAP) Pulse Ox O2 Delivery O2 Flow Rate FiO2 07/01/17 08:46 98.0 48 24 117/69 (85) 99 07/01/17 04:35 97.7 50 16 104/68 (80) 98 07/01/17 03:35 97.7 07/01/17 02:45 07/01/17 02:15 50 07/01/17 00:50 97.7 50 18 98/64 (75) 100 07/01/17 00:09 97.6 48 20 92/62 (72) 100 07/01/17 00:04 46 20 86/60 (69) 100 Room Air 06/30/17 22:27 93.0 48 22 162/104 (123) 96 Room Air 06/30/17 20:29 40 20 98 Room Air 06/30/17 18:15 98.0 56 16 154/80 (104) 100 Room Air I/O 06/30/17 06/30/17 06/30/17 07/01/17 07/01/17 07/01/17 07:00 15:00 23:00 07:00 15:00 23:00 Intake Total 565 ml Balance 565 ml Intake IV Total 565 ml Imaging Last Impressions Head CT 06/30/17 1828 Signed Impressions: Service Date/Time: June 20:04 - CONCLUSION: 1. Area of low attenuation change involving the left frontal lobe felt to be encephalomalacia in nature. I cannot completely exclude a subacute infarction. MRI could further differentiate. Deandre Villegas Jr., MD Chest X-Ray 06/30/17 0000 Signed Impressions: Service Date/Time: June 19:38 - CONCLUSION: Hypoinflation with bibasilar atelectasis. Deandre Villegas Jr., MD Laboratory Test 06/30/17 19:25 06/30/17 19:50 06/30/17 23:00 07/01/17 00:00 White Blood Count 13.1 TH/MM3 Red Blood Count 3.38 MIL/MM3 Hemoglobin 11.3 GM/DL Hematocrit 33.0 % Mean Corpuscular Volume 97.6 FL Mean Corpuscular Hemoglobin 33.5 PG Mean Corpuscular Hemoglobin Concent 34.4 % Red Cell Distribution Width 15.9 % Platelet Count 199 TH/MM3 Mean Platelet Volume 10.2 FL Neutrophils (%) (Auto) 87.5 % Lymphocytes (%) (Auto) 6.9 % Monocytes (%) (Auto) 4.4 % Eosinophils (%) (Auto) 1.0 % Basophils (%) (Auto) 0.2 % Neutrophils # (Auto) 11.4 TH/MM3 Lymphocytes # (Auto) 0.9 TH/MM3 Monocytes # (Auto) 0.6 TH/MM3 Eosinophils # (Auto) 0.1 TH/MM3 Basophils # (Auto) 0.0 TH/MM3 CBC Comment DIFF FINAL Differential Comment Prothrombin Time 13.4 SEC Prothromb Time International Ratio 1.3 RATIO Activated Partial Thromboplast Time 29.1 SEC Blood Urea Nitrogen 18 MG/DL Creatinine 1.09 MG/DL Random Glucose 31 MG/DL Total Protein 7.8 GM/DL Albumin 2.1 GM/DL Calcium Level 8.2 MG/DL Alkaline Phosphatase 323 U/L Aspartate Amino Transf (AST/SGOT) 186 U/L Alanine Aminotransferase (ALT/SGPT) 90 U/L Total Bilirubin 0.9 MG/DL Sodium Level 132 MEQ/L Potassium Level 4.5 MEQ/L Chloride Level 100 MEQ/L Carbon Dioxide Level 24.1 MEQ/L Anion Gap 8 MEQ/L Estimat Glomerular Filtration Rate 85 ML/MIN Ammonia 29 MCMOL/L Total Creatine Kinase 165 U/L Troponin I 0.02 NG/ML Ethyl Alcohol Level LESS THAN 3 MG/DL Lipase 439 U/L Lactic Acid Level 2.6 mmol/L Urine Color YELLOW Urine Turbidity CLEAR Urine pH 6.0 Urine Specific [place] 1.013 Urine Protein NEG mg/dL Urine Glucose (UA) NEG mg/dL Urine Ketones NEG mg/dL Urine Occult Blood NEG Urine Nitrite NEG Urine Bilirubin NEG Urine Urobilinogen 2.0 MG/DL Urine Leukocyte Esterase NEG Urine RBC 1 /hpf Urine WBC 1 /hpf Urine Squamous Epithelial Cells 1 /hpf Urine Hyaline Casts 16 /lpf Urine Mucus FEW /lpf Microscopic Urinalysis Comment CATH-CULT NOT IND Urine Opiates Screen NEG Urine Barbiturates Screen NEG Urine Amphetamines Screen NEG Urine Benzodiazepines Screen NEG Urine Cocaine Screen NEG Urine Cannabinoids Screen NEG Test 07/01/17 03:10 Lactic Acid Level 1.7 mmol/L Total Creatine Kinase 146 U/L Troponin I 0.03 NG/ML Date/Time Source Procedure Growth Status 06/30/17 23:00 Blood Peripheral Aerobic Blood Culture Pending Received 06/30/17 23:00 Blood Peripheral Anaerobic Blood Culture Pending Received Physical Examination HEENT: Pupils round and reactive to light; normocephalic; atraumatic; mild icterus NECK: Neck is supple, mild JVD, mild hypopigmentation CHEST: Chest is clear to auscultation and percussion. CARDIAC: Slow heart rate and rhythm, 40s to 50 ABDOMEN: Epigastric pain ,Tympanic, distended, mild tenderness; bowel sounds soft and muffled. EXTREMITIES: Mild edema. Hyperpigmentation chest and neck SKIN: Normal; no rash; tattoo left upper arm ACCOUNTS RECEIVABLE SPECIALIST: Awake answer simple questions appropriately (Yumiko Bruno) Assessment and Plan Assessment: (1) DM (diabetes mellitus) ICD Codes: E11.9 - Type 2 diabetes mellitus without complications Status: Chronic (2) Ascites ICD Codes: R18.8 - Other ascites (3) Arrhythmia ICD Codes: I49.9 - Arrhythmia Status: Acute Plan Recurrent ascites, possible liver engorgement related to medications, cardiac status, chronic kidney disease Plan Consider paracentesis without arm when patient is stable from heart rate. Heart consult pending Consider liver biopsy while hospitalized secondary to his high risk/ comorbidities Check labs in the morning Monitor for any acute bleeding or hemorrhage Monitor abdominal girth Further recommendations and procedures will be based on patient's symptoms, responds to plan a care This patient was seen by myself and Dr. Goddard, note was written on his behalf (Yumiko Bruno) Physician Comments Patient seen and examined Continue supportive care Monitor labs Patient with new onset recurring ascites with known underlying nonischemic cardiomyopathy and paroxysmal atrial fibrillation requiring AICD No evidence this point of cirrhosis and therefore best option to trying evaluate the ascites is to proceed with paracentesis and send the fluid for analysis (Chacho Goddard MD) Yumiko Bruno Jul 01, 2017 08:49 Chacho Goddard MD Jul 01, 2017 21:45
[2017-07-01] MEDS: POTASSIUM CHLORIDE 20 MEQ CONTROLLED RELEASE TAB PO SCH (09:00)
[2017-07-01] MEDS: MULTIVITAMINS/MINERALS THERAPEUTIC TAB PO SCH (09:00)
[2017-07-01] MEDS: SODIUM CHLORIDE 0.9% FLUSH 10 ML FLUSH IV FLUSH SCH ×2 (09:00→21:00)
[2017-07-01] MEDS: ASPIRIN EC 81 MG TABEC PO SCH (09:09)
[2017-07-01] MEDS: cefTRIAXone INJ 1,000 MG in SODIUM CHLORIDE 0.9% INJ 100 ML IV SCH (09:10)
[2017-07-01 09:57] LABS: TROPONIN I 0.02 NG/ML (0.02-0.05)
--- NOTE | 2017-07-01 11:31 | MB ---
cc: MAXIMO ARMENDARIZ M.D. DATE OF CONSULTATION: 07/01/2017 REASON FOR CONSULTATION: Bradycardia, mental status changes, consider pacemaker implantation. HISTORY OF PRESENT ILLNESS The patient is a very pleasant 56-year-old -[place] male with a history of numerous medical problems including diabetes, paroxysmal atrial fibrillation, severe nonischemic cardiomyopathy, mitral regurgitation, unexplained ascites, status post recent admission for paracentesis who presented to the hospital mainly with complaints of increasing abdominal girth and distension as well as possible near-syncope. According to his daughter's mother, some family members came to him as he was yelling unintelligibly from his bedside. At some point he thinks he may rolled out of bed and onto the floor but believes he never truly lost consciousness. According to the patient his blood sugar was 20. He was having slurred speech for 3-4 hours which gradually improved with increase in his glucose level. The patient denies recent chest pains, change in baseline dyspnea, pedal edema, palpitations, fevers. He states he has been taking his medications. About 2 weeks ago he believes he may have lost consciousness for about 10 minutes while lying in bed at night time. He cannot he cannot recall any other episodes of loss of consciousness. PAST MEDICAL HISTORY 1. Hypertension 2. Diabetes 3. Hyperlipidemia. 4. Paroxysmal atrial fibrillation dating back to at least 2013, possibly 2007. He underwent radiofrequency ablation of atrial fibrillation 04/14/2016. 5. Coronary artery disease with minimal coronary atherosclerosis demonstrated on cardiac catheterization 09/03/2014. 6. Severe nonischemic cardiomyopathy with ejection fraction of 15-20% by his most recent echo 06/18/2016. The nonischemic cardiomyopathy dates back to at least 2014. 7. Left atrial thrombus demonstrated by transesophageal echo 2014. 8. Severe mitral regurgitation back to at least 2014. Severe mitral regurgitation was also noted on a 06/18/2016 echo. 9. Gastroesophageal reflux disease. 10. Status post Biotronik single chamber AICD 04/21/2016. 11. History of acute renal insufficiency March 2017 felt due to over diuresis. 12. Recurrent ascites of unclear etiology status post recent paracentesis. 13. Also of note, he has had elevated liver function tests felt due to amiodarone. CARDIAC MEDICATIONS medications at home 1. Aspirin 81 mg daily. 2. Savaysa 60 mg daily. 3. Potassium chloride 20 mg once daily. 4. Metoprolol tartrate 12.5 mg q.12 h. ALLERGIES NO KNOWN DRUG ALLERGIES. FAMILY HISTORY There is no significant family history of cardiac disease. SOCIAL HISTORY The patient quit smoking 10 years ago. He drinks occasional alcohol. REVIEW OF SYSTEMS As in the history of present illness otherwise negative or noncontributory. He also currently denies headache, melena, dyspepsia, bright red blood per rectum, cough, wheezing. PHYSICAL EXAMINATION: VITAL SIGNS: On physical examination his blood pressure 117/69 with a pulse of 48, respirations 20. IN GENERAL: In general he is a well-developed, well-nourished -[place] male in no acute distress. HEAD, EARS, EYES, NOSE, AND THROAT/NECK: Jugular venous pressure is hard to assess. It appears to be normal. Carotid pulses are 2+ bilaterally without bruits. CHEST: Examination of the chest reveals unlabored respiratory effort with decreased breath sounds at the bases. CARDIOVASCULAR SYSTEM: On cardiac examination he has a bradycardic regular rhythm without definite S3-S4 or murmur. ABDOMEN: On abdominal examination he has a soft though distended abdomen. There is no definite hepatosplenomegaly. Bowel sounds are present. EXTREMITIES: Examination of extremities reveals no clubbing, cyanosis or edema. RADIOLOGIC: EKG shows sinus rhythm, nonspecific intraventricular conduction delay, nonspecific ST abnormalities. Chest x-ray Shows no acute disease. Laboratory data includes WBC 13.1, hemoglobin 11.3, platelets 199, troponin 0.03, potassium 4.5, BUN 18, creatinine 1.09. AST 186, ALT 90, CK 165, INR 1.3. IMPRESSION Overall stable cardiac status in this 56-year-old -[place] male with a history of multiple medical problems including severe nonischemic cardiomyopathy , paroxysmal atrial fibrillation, diabetes, severe mitral regurgitation, history of AICD implant admitted with recurrent ascites of unclear etiology. I have been asked to see the patient for mental status changes and bradycardia. Overall I doubt his presenting symptomatology was due to bradycardia. He apparently was markedly hyperglycemic on admission. He is in sinus bradycardia at this time. The patient denies any ICD shocks. His AICD interrogation is pending, but I suspect it is set with a backup pacing rate of 40 beats per minute. RECOMMENDATIONS 1. No specific recommendations from a cardiac standpoint at this time. 2. Will await the Biotronik AICD interrogation. Overall, would not recommend increasing the backup rate higher than 40 beats per minute. 3. Consider the addition of an DELMI inhibitor to his medical regimen. 4. Would resume his beta ric. 5. Will follow up as needed MD BERYL Zambrano/anastasia /10:19 AM /11:07 AM [facility] HOSPITALBarbara
--- NOTE | 2017-07-01 12:12 | RADRPT ---
EXAM DATE/TIME: 07/01/2017 11:10 [facility] COMPARISON: CT ABDOMEN & PELVIS W/O CONTRAST, March 19, 2017, 19:26. INDICATIONS : Abnormal labs. MEDICAL HISTORY : Myocardial infarction. Hypercholesterolemia. Hypertension. CHF. CAD. Hyperlipidemia. A-fib. CVA. Mia l failure. Diabetes. Measles. SURGICAL HISTORY : Pacemaker. Cardiac cath. ENCOUNTER: Initial ACUITY: 1 day PAIN SCORE: 2/10 LOCATION: Bilateral upper quadrant MEASUREMENTS: LIVER: 17.9 cm length COMMON DUCT: 4 mm RIGHT KIDNEY: 9.5 x 5.2 x 5.3 cm SPLEEN: 13.4 cm length FINDINGS: Liver is overall normal size with increased echogenicity and arterial flow as well as hepatofugal trudi w in the main portal vein. Findings are consistent with hepatocellular disease possible cirrhosis. As citic fluid is noted throughout the abdomen. Gallbladder seen is a luminal structure with no evidence of biliary dilatation of the ducts. Spleen is slightly enlarged at 13.4 cm. Pancreas partially visua lized is negative. Right kidney negative CONCLUSION: Increased echogenicity of the liver with hepatofugal flow in mild splenomegaly as well as diffuse asc itic fluid is consistent with hepatocellular disease. Gallbladder and biliary tree as well as pancrea s are negative Mark Mosher MD on July 01, 2017 at 12:06 Board Certified Radiologist. This report was verified electronically.
--- NOTE | 2017-07-01 15:45 | HHI.PR ---
Addendum to Inpatient Note Addendum Reason: Additional Documentation Additional Information Patient seen and examined continue to monitor for Hypoglycemia Plan for Paracentesis today Damian Hilario MD Jul 01, 2017 15:45
--- NOTE | 2017-07-01 19:11 | ECHRPT ---
Indication: ef assessment of chf CONCLUSIONS The left ventricular systolic function is normal with an estimated ejection fraction in the range of 60-65%. Normal left ventricular size. Wall thickness is normal. No regional wall motion abnormalities are pr esent. Structurally normal mitral valve. Glstc-ph-vrlc mitral valve regurgitation. There is trace tricuspid valve regurgitation. BP: / HR: Rhythm: Sinus MEASUREMENTS (Male / Female) Normal Values Technical Quality:Good 2D ECHO LV Diastolic Diameter PLAX 5.7 cm 4.2 - 5.9 / 3.9 - 5.3 cm LV Systolic Diameter PLAX 4.1 cm IVS Diastolic Thickness 1.1 cm 0.6 - 1.0 / 0.6 - 0.9 cm LVPW Diastolic Thickness 1.1 cm 0.6 - 1.0 / 0.6 - 0.9 cm LV Relative Wall Thickness 0.4 RV Internal Dim ED PLAX 2.9 cm LV Ejection Fraction MOD 4C 64.2 % LV Ejection Fraction 4C AL 65.7 % FINDINGS LEFT VENTRICLE The left ventricular systolic function is normal with an estimated ejection fraction in the range of 60-65%. Normal left ventricular size. Wall thickness is normal. No regional wall motion abnormalities are pr esent. RIGHT VENTRICLE A pacemaker wire is noted. LEFT ATRIUM The left atrial size is normal. RIGHT ATRIUM There is a pacemaker wire present in the right atrial cavity. ATRIAL SEPTUM Normal atrial septal thickness without atrial level shunting by limited color doppler interrogation. AORTA The aortic root and proximal ascending aorta are normal in size on limited imaging. MITRAL VALVE Structurally normal mitral valve. Eidxq-ra-lccd mitral valve regurgitation. AORTIC VALVE Trileaflet aortic valve. No aortic valve stenosis or regurgitation. TRICUSPID VALVE There is trace tricuspid valve regurgitation. PULMONARY VALVE The pulmonary valve is not well visualized. VESSELS The inferior vena cava is normal in size. PERICARDIUM No pericardial effusion. Monty Santiago MD (Electronically Signed) Final Date:01 July 2017 19:10
[2017-07-01] MEDS: DEXTROSE 10% INJ 1,000 ML IV SCH (19:30)
[2017-07-02] VITALS (18 sets, daily range): BP systolic 107–140; BP diastolic 66–82; PULSE 56–70; RESP 18–26; TEMP 97.3–98.3; O2SAT 97–100
[2017-07-02] MEDS: DEXTROSE 50% IN WATER 50 ML VIAL(D50) IV PUSH PRN (00:25)
[2017-07-02 05:29] LABS: AUTOMATED NEUTROPHIL # 9.4 TH/MM3 (1.8-7.7); BASOPHIL % 0.3 % (0.0-2.0); EOSINOPHIL # 0.1 TH/MM3 (0-0.4); EOSINOPHIL % 1.2 % (0.0-4.0); HEMATOCRIT 32.3 % (39.0-51.0); HEMOGLOBIN 10.9 GM/DL (13.0-17.0); LYMPH % 4.9 % (9.0-44.0); LYMPHOCYTE # 0.5 TH/MM3 (1.0-4.8); MEAN CELL VOLUME 96.7 FL (80.0-100.0); MEAN CORPUSCULAR HEMOGLOBIN 32.6 PG (27.0-34.0); MEAN CORPUSCULAR HGB CONC 33.7 % (32.0-36.0); MEAN PLATELET VOLUME 10.2 FL (7.0-11.0); MONO % 5.8 % (0.0-8.0); MONOCYTE # 0.6 TH/MM3 (0-0.9); NEUT % 87.8 % (16.0-70.0); PLATELET COUNT 154 TH/MM3 (150-450); RED BLOOD COUNT 3.34 MIL/MM3 (4.50-5.90); RED CELL DISTRIBUTION WIDTH 15.8 % (11.6-17.2); WHITE BLOOD COUNT 10.7 TH/MM3 (4.0-11.0)
[2017-07-02] MEDS: EDOXABAN TOSYLATE 60 MG TAB PO SCH (05:40)
[2017-07-02 06:00] LABS: ALBUMIN 1.7 GM/DL (3.4-5.0); AST (GOT) 231 U/L (15-37); BICARBONATE 22.2 MEQ/L (21.0-32.0); BLOOD UREA NITROGEN 21 MG/DL (7-18); CALCIUM 7.7 MG/DL (8.5-10.1); CHLORIDE 96 MEQ/L (98-107); GLOMERULAR FILTRATION RATE 64 ML/MIN (>89); GLUCOSE,RANDOM 140 MG/DL (74-106); SODIUM (NA) 126 MEQ/L (136-145)
[2017-07-02 06:02] LABS: ALT (GPT) 111 U/L (12-78)
[2017-07-02 06:04] LABS: ALKALINE PHOSPHATASE 304 U/L (45-117); TOTAL BILIRUBIN ADULT 1.2 MG/DL (0.2-1.0); TOTAL PROTEIN 7.2 GM/DL (6.4-8.2)
[2017-07-02 06:06] LABS: LYMPHOCYTES 4 % (9-44); MONOCYTES 3 % (0-8); MYELOCYTES 3 % (0-0); NEUTROPHIL # MANUAL DIFF 9.6 TH/MM3 (1.8-7.7); POLYS (SEG NEUTROPHILS) 87 % (16-70)
[2017-07-02 06:08] LABS: ACANTHOCYTES OCC (NORMAL)
[2017-07-02] MEDS: POTASSIUM CHLORIDE 20 MEQ CONTROLLED RELEASE TAB PO SCH (09:00)
[2017-07-02] MEDS: ASPIRIN EC 81 MG TABEC PO SCH (09:00)
[2017-07-02] MEDS: MULTIVITAMINS/MINERALS THERAPEUTIC TAB PO SCH (09:00)
[2017-07-02] MEDS: cefTRIAXone INJ 1,000 MG in SODIUM CHLORIDE 0.9% INJ 100 ML IV SCH (09:06)
[2017-07-02] MEDS: DEXTROSE 10% INJ 1,000 ML IV SCH ×2 (09:06→21:36)
[2017-07-02] MEDS: SODIUM CHLORIDE 0.9% FLUSH 10 ML FLUSH IV FLUSH SCH ×2 (09:06→21:36)
[2017-07-02] MEDS ORDERED: LIDOCAINE HCL 1% 20 ML VIAL ONE (12:51)
--- NOTE | 2017-07-02 14:06 | RADRPT ---
EXAM DATE/TIME: 07/02/2017 11:49 [facility] COMPARISON: US ABDOMEN - LIVER, July 01, 2017, 11:10. INDICATIONS : Ascites. MEDICAL HISTORY : Hypercholesterolemia. Myocardial infarction. Congestive heart failure. Cerebrovascular accident. Head aches. Coronary artery disease. Anticoagulant therapy. Hyperlipidemia. Afib. Hypertension. Renal fail ure. Diabetes. Measles. SURGICAL HISTORY : Paracentesis. Internal difibrillator. Angioplasty. Cardiac ablation. ENCOUNTER: Subsequent ACUITY: 1 week PAIN SCORE: 0/10 LOCATION: Left lower quadrant FLUID: Total volume of 5,300 cc of cloudy, yellow fluid was removed. Fluid was sent to lab for ordered studies. Post procedure scanning reveals no hematoma or other complication. TECHNIQUE: 1. Ultrasound guidance for abdominal paracentesis. 2. Paracentesis. The risks, benefits, and alternatives to ultrasound guided paracentesis were explained to the patient in detail including the risk of bleeding and infection. Written and verbal informed consent was obt ained. With the patient on the ultrasound table, ultrasound imaging was used to select the most appropriate approach for paracentesis. Overlying skin was prepped and draped in the usual sterile fashion and wi th a local anesthetic, a dermatotomy was made with an 11 blade scalpel. A 6 [place] [id number]-W-uudurubm ca theter was introduced into the peritoneal cavity and fluid was collected. The patient tolerated the procedure well and left the ultrasound suite in stable condition. CONCLUSION: Uncomplicated ultrasound guided paracentesis. Lucian Musa MD on July 02, 2017 at 14:04 Board Certified Radiologist. This report was verified electronically.
[2017-07-02 14:40] LABS: TOTAL PROTEIN,PERITONEAL FLUID 1.3 GM/DL
[2017-07-02 14:46] LABS: PERITONEAL RBC 10 /MM3 (0-0)
[2017-07-02 14:49] LABS: PERITONEAL HISTIOCYTES 50 %; PERITONEAL LYMPHS 30 %; PERITONEAL MESOTHELIAL 9 %; PERITONEAL MONOS 6 %; PERITONEAL POLYS(SEGS) 5 %
[2017-07-03] VITALS (23 sets, daily range): BP systolic 108–154; BP diastolic 54–83; PULSE 64–81; RESP 18–20; TEMP 97.4–99; O2SAT 95–99
[2017-07-03] MEDS: EDOXABAN TOSYLATE 60 MG TAB PO SCH (05:27)
[2017-07-03] MEDS: DEXTROSE 10% INJ 1,000 ML IV SCH (05:28)
[2017-07-03] MEDS: POTASSIUM CHLORIDE 20 MEQ CONTROLLED RELEASE TAB PO SCH (09:00)
[2017-07-03] MEDS: MULTIVITAMINS/MINERALS THERAPEUTIC TAB PO SCH (10:22)
[2017-07-03] MEDS: ASPIRIN EC 81 MG TABEC PO SCH (10:23)
[2017-07-03] MEDS: SODIUM CHLORIDE 0.9% FLUSH 10 ML FLUSH IV FLUSH SCH ×2 (10:24→20:51)
[2017-07-03] MEDS: cefTRIAXone INJ 1,000 MG in SODIUM CHLORIDE 0.9% INJ 100 ML IV SCH (10:24)
[2017-07-03] MEDS ORDERED: LORazepam 2 MG/ML VIAL IV PUSH PRN ×4 (11:30)
[2017-07-03] MEDS ORDERED: FLUMAZENIL 0.5 MG/5 ML VIAL IV PUSH PRN (11:30)
[2017-07-03] MEDS ORDERED: LORazepam 2 MG TAB PO PRN (11:30)
--- NOTE | 2017-07-03 11:57 | HHI.PR ---
Subjective Remarks Follow-up tense ascites status post paracentesis/nonischemic cardiomyopathy/ bradycardia/hypoglycemia 07/03/17-patient seen and examined, patient is alert and oriented 2 , had thoracentesis performed yesterday. Denies any ICD shock. Currently afebrile. Blood glucose improving. Pulse rate up Objective Vitals Vital Signs Date Time Temp Pulse Resp B/P (MAP) Pulse Ox O2 Delivery O2 Flow Rate FiO2 07/03/17 06:00 72 07/03/17 05:00 70 07/03/17 04:00 Room Air 07/03/17 04:00 68 07/03/17 04:00 98.1 68 20 108/54 (72) 97 07/03/17 03:00 72 07/03/17 02:00 76 07/03/17 01:00 64 07/03/17 00:00 98.2 73 18 125/74 (91) 97 07/03/17 00:00 73 07/03/17 00:00 Room Air 07/02/17 23:00 70 07/02/17 22:00 64 07/02/17 21:00 68 07/02/17 20:00 66 07/02/17 20:00 Room Air 07/02/17 20:00 98.0 66 18 116/75 (89) 98 07/02/17 18:00 61 07/02/17 17:00 61 07/02/17 16:00 97.6 65 20 140/82 (101) 97 07/02/17 16:00 62 07/02/17 15:29 97.6 65 20 140/82 (101) 97 07/02/17 15:18 Room Air 07/02/17 15:00 64 07/02/17 14:00 61 07/02/17 13:59 98.3 67 24 138/68 (91) 100 07/02/17 12:00 97.9 59 20 128/80 (96) 07/02/17 12:00 61 I/O 07/02/17 07/02/17 07/02/17 07/03/17 07/03/17 07/03/17 07:00 15:00 23:00 07:00 15:00 23:00 Intake Total 720 ml 240 ml 750 ml 480 ml Output Total 400 ml 1 ml 800 ml Balance 720 ml -160 ml 749 ml -320 ml Intake Oral 720 ml 240 ml 480 ml IV Total 750 ml Output Urine Total 400 ml 800 ml Stool Total 1 ml # Voids 2 1 # Bowel Movements 1 1 Result Diagram: 07/02/17 0441 07/02/17 0441 Imaging Last Impressions Cyst Biopsy Asp-Paracentesis US 07/02/17 0000 Signed Impressions: Service Date/Time: Sunday, July 02, 2017 11:49 - CONCLUSION: Uncomplicated ultrasound guided paracentesis. Lucian Musa MD Liver Ultrasound 07/01/17 0000 Signed Impressions: Service Date/Time: Saturday, July 01, 2017 11:10 - CONCLUSION: Increased echogenicity of the liver with hepatofugal flow in mild splenomegaly as well as diffuse ascitic fluid is consistent with hepatocellular disease. Gallbladder and biliary tree as well as pancreas are negative Mark Mosher MD Head CT 06/30/171827 Signed Impressions: Service Date/Time: June 20:04 - CONCLUSION: 1. Area of low attenuation change involving the left frontal lobe felt to be encephalomalacia in nature. I cannot completely exclude a subacute infarction. MRI could further differentiate. Deandre Villegas Jr., MD Chest X-Ray 06/30/17 0000 Signed Impressions: Service Date/Time: June 19:38 - CONCLUSION: Hypoinflation with bibasilar atelectasis. Deandre Villegas Jr., MD Objective Remarks GENERAL: NAD SKIN: Warm and dry. HEAD: Normocephalic. EYES: No scleral icterus. No injection or drainage. NECK: Supple, trachea midline. No JVD or lymphadenopathy. CARDIOVASCULAR: Irregular Regular rate and rhythm without murmurs, gallops, or rubs. RESPIRATORY: Breath sounds equal bilaterally. No accessory muscle use. GASTROINTESTINAL: Abdomen soft, non-tender, nondistended. Positive bowel sounds MUSCULOSKELETAL: No cyanosis, or edema. BACK: Nontender without obvious deformity. No CVA tenderness. A/P Problem List: (1) Ascites ICD Code: R18.8 - Other ascites (2) PAF (paroxysmal atrial fibrillation) ICD Code: I48.0 - Paroxysmal atrial fibrillation (3) Nonischemic cardiomyopathy ICD Code: I42.8 - Other cardiomyopathies (4) Hypoglycemia ICD Code: E16.2 - Hypoglycemia, unspecified Status: Acute (5) Bradycardia ICD Code: R00.1 - Bradycardia, unspecified Assessment and Plan 56-year-old man with Tense Ascites Status post ultrasound-guided thoracentesis 07/02/17 with 5.3 L of fluid removed Continue with prophylaxis Rocephin for SBP pending final culture report Appreciate input from gastroenterology Symptomatic bradycardia-now resolved Could've been secondary to hypoglycemia versus AICD firing Symptomatic hypoglycemia Now resolved Treatment per hypoglycemic protocol Discontinue D10 however continue to hold oral hypoglycemic agent Severe nonischemic cardiomyopathy History of AICD implant Awaiting for AICD interrogation Consider resuming beta ric per cardiology Consider adding DELMI inhibitor Paroxysmal atrial fibrillation Continue with Savaysa 60 mg daily Beta ric currently on hold secondary to bradycardia and soft BP History of alcohol abuse Start rally pack, CIWA protocol and Librium when necessary Hyperkalemia Repeat electrolyte and treat accordingly Diabetes type 2 Continue to hold oral hypoglycemic agent DVT prophylaxis:Damian Molina MD Jul 03, 2017 11:57
--- NOTE | 2017-07-03 13:44 | HHI.GIFU ---
Subjective Remarks Patient is resting in bed, with complaints of abd pain and slight N/V, no bleeding reported (Martínez Johnson CONCERT PIANIST) Objective Vitals I&O Vital Signs Date Time Temp Pulse Resp B/P (MAP) Pulse Ox O2 Delivery O2 Flow Rate FiO2 07/03/17 06:00 72 07/03/17 05:00 70 07/03/17 04:00 Room Air 07/03/17 04:00 68 07/03/17 04:00 98.1 68 20 108/54 (72) 97 07/03/17 03:00 72 07/03/17 02:00 76 07/03/17 01:00 64 07/03/17 00:00 98.2 73 18 125/74 (91) 97 07/03/17 00:00 73 07/03/17 00:00 Room Air 07/02/17 23:00 70 07/02/17 22:00 64 07/02/17 21:00 68 07/02/17 20:00 66 07/02/17 20:00 Room Air 07/02/17 20:00 98.0 66 18 116/75 (89) 98 07/02/17 18:00 61 07/02/17 17:00 61 07/02/17 16:00 97.6 65 20 140/82 (101) 97 07/02/17 16:00 62 07/02/17 15:29 97.6 65 20 140/82 (101) 97 07/02/17 15:18 Room Air 07/02/17 15:00 64 07/02/17 14:00 61 07/02/17 13:59 98.3 67 24 138/68 (91) 100 I/O 07/02/17 07/02/17 07/02/17 07/03/17 07/03/17 07/03/17 07:00 15:00 23:00 07:00 15:00 23:00 Intake Total 720 ml 240 ml 750 ml 480 ml Output Total 400 ml 1 ml 800 ml Balance 720 ml -160 ml 749 ml -320 ml Intake Oral 720 ml 240 ml 480 ml IV Total 750 ml Output Urine Total 400 ml 800 ml Stool Total 1 ml # Voids 2 1 # Bowel Movements 1 1 Laboratory Date/Time Source Procedure Growth Status 06/30/17 23:00 Blood Peripheral Aerobic Blood Culture - Preliminary NO GROWTH IN 3 DAYS Resulted 06/30/17 23:00 Blood Peripheral Anaerobic Blood Culture - Preliminary NO GROWTH IN 3 DAYS Resulted 07/02/17 12:45 Fluid Peritoneal Fluid Gram Stain - Final Resulted 07/02/17 12:45 Fluid Peritoneal Fluid Body Fluid Culture Pending Resulted Imaging Last Impressions Cyst Biopsy Asp-Paracentesis US 07/02/17 0000 Signed Impressions: Service Date/Time: Sunday, July 02, 2017 11:49 - CONCLUSION: Uncomplicated ultrasound guided paracentesis. Lucian Musa MD Liver Ultrasound 07/01/17 0000 Signed Impressions: Service Date/Time: Saturday, July 01, 2017 11:10 - CONCLUSION: Increased echogenicity of the liver with hepatofugal flow in mild splenomegaly as well as diffuse ascitic fluid is consistent with hepatocellular disease. Gallbladder and biliary tree as well as pancreas are negative Mark Mosher MD Head CT 06/30/17 1828 Signed Impressions: Service Date/Time: June 20:04 - CONCLUSION: 1. Area of low attenuation change involving the left frontal lobe felt to be encephalomalacia in nature. I cannot completely exclude a subacute infarction. MRI could further differentiate. Deandre Villegas Jr., MD Chest X-Ray 06/30/17 0000 Signed Impressions: Service Date/Time: June 19:38 - CONCLUSION: Hypoinflation with bibasilar atelectasis. Deandre Villegas Jr., MD Physical Exam HEENT: normocephalic; atraumatic; no jaundice. Throat is clear. CHEST: Chest is clear to auscultation and percussion. CARDIAC: Regular rate and rhythm ABDOMEN: Soft, nondistended, epigastric tenderness; bowel sounds are present in all four quadrants. EXTREMITIES: No clubbing, cyanosis, or edema. SKIN: Normal; no rash; no jaundice. CLINICAL LAB SCIENTIST: No focal deficits; alert and oriented times three. (Elizabeth,Martínez SOTO) Assessment and Plan Assessment: (1) DM (diabetes mellitus) ICD Codes: E11.9 - Type 2 diabetes mellitus without complications Status: Chronic (2) Ascites ICD Codes: R18.8 - Other ascites (3) Arrhythmia ICD Codes: I49.9 - Arrhythmia Status: Acute Plan - Ascites/ recurrent- no evidence of cirrhosis- s/p paracentesis on 07/02/17 5.300 ml of cloudy yellow fluid was removed, CX pending, cytology negative, UA unremarkable SAAG 1.2 which indicate portal HTN as the source - Elevated LFTs- no labs done today, will repeat, patient had previous work up in the past, likely multifactorial Cardiac, alcohol related - Anemia- denies GI bleed - Severe nonischemic cardiomyopathy - Paroxysmal atrial fibrillation requiring AICD - Alcohol abuse- patient denies, however family state he drinks on daily basis Plan: - Low salt diet - LFTs today - Await cx - Monitor labs - Alcohol cessation - consider liver bx - Lasix 20 mg daily - Patient seen and examined by Dr. Goddard and myself an this note is written on his behalf. (Martínez Johnson) Physician Comments Patient seen and examined Agree with above Continue with current supportive care Monitor labs Seems that his ascites is on the basis of portal hypertension We will order a liver workup I will replace his albumin We will start Lasix 20 mg daily and monitor I's and O's and adjust diuretics accordingly (Chacho Goddard MD) Martínez Johnson Jul 03, 2017 13:44 Chacho Goddard MD Jul 03, 2017 21:33
[2017-07-03] MEDS ORDERED: GLUCAGON 1 MG/ML VIAL OTHER PRN (17:15)
[2017-07-03] MEDS ORDERED: DEXTROSE 50% IN WATER 50 ML VIAL(D50) IV PUSH PRN (17:15)
[2017-07-03] MEDS: LORazepam 1 MG TAB PO PRN (20:28)
[2017-07-03] MEDS: INSULIN ASPART SUPPLEMENTAL SCALE SQ SCH (20:51)
[2017-07-03] MEDS: ALBUMIN 25% INJ 100 ML IV SCH (22:47)
[2017-07-04] VITALS (12 sets, daily range): BP systolic 91–119; BP diastolic 53–76; PULSE 70–89; RESP 18–20; TEMP 98–100.3; O2SAT 96–98
[2017-07-04] MEDS: EDOXABAN TOSYLATE 60 MG TAB PO SCH (05:21)
[2017-07-04] MEDS: INSULIN ASPART SUPPLEMENTAL SCALE SQ SCH ×4 (08:00→21:37)
[2017-07-04 08:39] LABS: AUTOMATED NEUTROPHIL # 13.4 TH/MM3 (1.8-7.7); BASOPHIL # 0.1 TH/MM3 (0-0.2); BASOPHIL % 0.4 % (0.0-2.0); EOSINOPHIL # 0.3 TH/MM3 (0-0.4); EOSINOPHIL % 1.9 % (0.0-4.0); HEMATOCRIT 29.4 % (39.0-51.0); HEMOGLOBIN 9.9 GM/DL (13.0-17.0); LYMPHOCYTE # 0.6 TH/MM3 (1.0-4.8); MEAN CELL VOLUME 95.3 FL (80.0-100.0); MEAN CORPUSCULAR HGB CONC 33.6 % (32.0-36.0); MEAN PLATELET VOLUME 10.1 FL (7.0-11.0); MONO % 4.8 % (0.0-8.0); MONOCYTE # 0.7 TH/MM3 (0-0.9); NEUT % 88.9 % (16.0-70.0); PLATELET COUNT 129 TH/MM3 (150-450); RED BLOOD COUNT 3.09 MIL/MM3 (4.50-5.90); RED CELL DISTRIBUTION WIDTH 15.9 % (11.6-17.2); WHITE BLOOD COUNT 15.1 TH/MM3 (4.0-11.0)
[2017-07-04] MEDS: POTASSIUM CHLORIDE 20 MEQ CONTROLLED RELEASE TAB PO SCH (09:00)
[2017-07-04] MEDS: cefTRIAXone INJ 1,000 MG in SODIUM CHLORIDE 0.9% INJ 100 ML IV SCH (09:28)
[2017-07-04] MEDS: MULTIVITAMINS/MINERALS THERAPEUTIC TAB PO SCH (09:34)
[2017-07-04] MEDS: FUROSEMIDE 20 MG TAB PO SCH (09:34)
[2017-07-04] MEDS: SODIUM CHLORIDE 0.9% FLUSH 10 ML FLUSH IV FLUSH SCH ×2 (09:34→21:37)
[2017-07-04] MEDS: THIAMINE HCL 100 MG TAB PO SCH (09:34)
[2017-07-04] MEDS: ASPIRIN EC 81 MG TABEC PO SCH (09:34)
[2017-07-04] MEDS: ALBUMIN 25% INJ 100 ML IV SCH ×2 (09:35→21:37)
[2017-07-04 10:30] LABS: ALBUMIN 1.7 GM/DL (3.4-5.0); ALKALINE PHOSPHATASE 260 U/L (45-117); ALT (GPT) 109 U/L (12-78); AST (GOT) 243 U/L (15-37); BICARBONATE 20.1 MEQ/L (21.0-32.0); BLOOD UREA NITROGEN 23 MG/DL (7-18); CALCIUM 7.6 MG/DL (8.5-10.1); CHLORIDE 92 MEQ/L (98-107); CREATININE 1.36 MG/DL (0.60-1.30); DIRECT BILIRUBIN ADULT 1.9 MG/DL (0.0-0.2); FERRITIN 737 NG/ML (26-388); GLOMERULAR FILTRATION RATE 66 ML/MIN (>89); GLUCOSE,RANDOM 59 MG/DL (74-106); IRON (FE) 21 MCG/DL (65-175); TOTAL BILIRUBIN ADULT 2.4 MG/DL (0.2-1.0); TOTAL PROTEIN 6.9 GM/DL (6.4-8.2)
[2017-07-04 10:34] LABS: SODIUM (NA) 122 MEQ/L (136-145)
[2017-07-04 11:14] LABS: HEPATITIS A AB IGM NEGATIVE (NEGATIVE); HEPATITIS B CORE AB IGM NEGATIVE (NEGATIVE); HEPATITIS B SURFACE ANTIGEN NEGATIVE (NEGATIVE); HEPATITIS C AB IgG NEGATIVE (NEGATIVE)
--- NOTE | 2017-07-04 11:57 | HHI.GIFU ---
Subjective Remarks Pt in process moving from chair to bed, per RN has been hypotensive. Abd distended but pt says today he is better than yesterday. Mildly tender. (Paz Lynn) Objective Vitals I&O Vital Signs Date Time Temp Pulse Resp B/P (MAP) Pulse Ox O2 Delivery O2 Flow Rate FiO2 07/04/17 11:37 98.8 89 20 91/53 (66) 97 07/04/17 11:11 77 07/04/17 11:11 Room Air 07/04/17 07:53 99.0 77 18 116/76 (89) 98 07/04/17 06:00 73 07/04/17 05:00 76 07/04/17 04:00 98.0 75 18 119/69 (86) 98 07/04/17 04:00 75 07/04/17 04:00 Room Air 07/04/17 03:00 76 07/04/17 02:00 70 07/04/17 01:00 74 07/04/17 00:00 73 07/03/17 23:48 Room Air 07/03/17 23:48 98.2 73 18 154/73 (100) 95 07/03/17 23:00 74 07/03/17 22:00 77 07/03/17 21:00 81 07/03/17 20:00 Room Air 07/03/17 20:00 98.0 72 20 110/76 (87) 96 07/03/17 20:00 72 07/03/17 18:00 76 07/03/17 17:00 76 07/03/17 16:00 70 07/03/17 15:00 97.4 77 18 125/83 (97) 99 07/03/17 15:00 71 07/03/17 14:00 74 07/03/17 13:00 72 07/03/17 12:00 99.0 73 18 115/76 (89) 99 07/03/17 12:00 72 I/O 07/03/17 07/03/17 07/03/17 07/04/17 07/04/17 07/04/17 07:00 15:00 23:00 07:00 15:00 23:00 Intake Total 480 ml 240 ml 340 ml Output Total 800 ml 700 ml Balance -320 ml 240 ml -360 ml Intake Oral 480 ml 240 ml 240 ml IV Total 100 ml Output Urine Total 800 ml 700 ml # Voids 1 # Bowel Movements 1 0 Laboratory Laboratory Tests Test 07/04/17 08:10 White Blood Count 15.1 Red Blood Count 3.09 Hemoglobin 9.9 Hematocrit 29.4 Mean Corpuscular Volume 95.3 Mean Corpuscular Hemoglobin 32.0 Mean Corpuscular Hemoglobin Concent 33.6 Red Cell Distribution Width 15.9 Platelet Count 129 Mean Platelet Volume 10.1 Neutrophils (%) (Auto) 88.9 Lymphocytes (%) (Auto) 4.0 Monocytes (%) (Auto) 4.8 Eosinophils (%) (Auto) 1.9 Basophils (%) (Auto) 0.4 Neutrophils # (Auto) 13.4 Lymphocytes # (Auto) 0.6 Monocytes # (Auto) 0.7 Eosinophils # (Auto) 0.3 Basophils # (Auto) 0.1 CBC Comment DIFF FINAL Differential Comment Blood Urea Nitrogen 23 Creatinine 1.36 Random Glucose 59 Total Protein 6.9 Albumin 1.7 Calcium Level 7.6 Alkaline Phosphatase 260 Aspartate Amino Transf (AST/SGOT) 243 Alanine Aminotransferase (ALT/SGPT) 109 Total Bilirubin 2.4 Direct Bilirubin 1.9 Sodium Level 122 Potassium Level 5.3 Chloride Level 92 Carbon Dioxide Level 20.1 Anion Gap 10 Estimat Glomerular Filtration Rate 66 Iron Level 21 Ferritin 737 Date/Time Source Procedure Growth Status 06/30/17 23:00 Blood Peripheral Aerobic Blood Culture - Preliminary NO GROWTH IN 4 DAYS Resulted 06/30/17 23:00 Blood Peripheral Anaerobic Blood Culture - Preliminary NO GROWTH IN 4 DAYS Resulted 07/02/17 12:45 Fluid Peritoneal Fluid Gram Stain - Final Resulted 07/02/17 12:45 Fluid Peritoneal Fluid Body Fluid Culture - Preliminary NO GROWTH IN 48 HOURS. Resulted Imaging Last Impressions Cyst Biopsy Asp-Paracentesis US 07/02/17 0000 Signed Impressions: Service Date/Time: Sunday, July 02, 2017 11:49 - CONCLUSION: Uncomplicated ultrasound guided paracentesis. Lucian Musa MD Liver Ultrasound 07/01/17 0000 Signed Impressions: Service Date/Time: Saturday, July 01, 2017 11:10 - CONCLUSION: Increased echogenicity of the liver with hepatofugal flow in mild splenomegaly as well as diffuse ascitic fluid is consistent with hepatocellular disease. Gallbladder and biliary tree as well as pancreas are negative Mark Mosher MD Head CT 06/30/17 1828 Signed Impressions: Service Date/Time: June 20:04 - CONCLUSION: 1. Area of low attenuation change involving the left frontal lobe felt to be encephalomalacia in nature. I cannot completely exclude a subacute infarction. MRI could further differentiate. Deandre Villegas Jr., MD Chest X-Ray 06/30/17 0000 Signed Impressions: Service Date/Time: June 19:38 - CONCLUSION: Hypoinflation with bibasilar atelectasis. Deandre Villegas Jr., MD Physical Exam HEENT: normocephalic; atraumatic; no jaundice. CHEST: CTA CARDIAC: RRR ABDOMEN: taut, distended, diffuse TTP; bowel sounds are present in all four quadrants. EXTREMITIES: No clubbing, cyanosis, or edema. SKIN: Normal; no rash; no jaundice. BEAD WIRE TAPER: No focal deficits; alert and oriented times three. (Paz Lynn) Assessment and Plan Assessment: (1) DM (diabetes mellitus) ICD Codes: E11.9 - Type 2 diabetes mellitus without complications Status: Chronic (2) Ascites ICD Codes: R18.8 - Other ascites (3) Arrhythmia ICD Codes: I49.9 - Arrhythmia Status: Acute Plan - Ascites/ recurrent- no evidence of cirrhosis- s/p paracentesis on 07/02/17 5.300 ml of cloudy yellow fluid was removed, CX no growth 48h, cytology negative , UA unremarkable SAAG 1.2 which indicate portal HTN as the source pt feels he is less distended today on diuretics - Elevated LFTs- no labs done today, will repeat, patient had previous work up in the past, likely multifactorial Cardiac, alcohol related . liver workup ordered and is pending LFTs remain elevated, stable - Anemia- mild drop hgb today, denies bleeding. on edoxaban - Severe nonischemic cardiomyopathy - Paroxysmal atrial fibrillation requiring AICD Plan: - continue albumin - await liver w/u - Low salt diet - Monitor labs - Alcohol cessation - consider liver bx - Patient seen and examined by Dr. Feliz and myself an this note is written on his behalf. (Paz Lynn) Physician Comments Seen and examined with CHARLES, Liver espinoza in progress. (Lizabeth Feliz MD) Paz Lynn Jul 04, 2017 11:57 Lizabeth Feliz MD Jul 04, 2017 19:20
[2017-07-04] MEDS ORDERED: DEXTROSE 50% IN WATER 50 ML SYRINGE IV PUSH ONE (12:30)
--- NOTE | 2017-07-04 13:56 | HHI.PR ---
Subjective Remarks Follow-up for ascites Patient stated that abdominal distention has improved but continues to have abdominal pain. Denied any fevers or chills. Denying shortness of breathing. Patient has also been hypoglycemic but has not been eating or drinking enough. He has no other complaints. Discussed case with patient's nurse. Patient rains afebrile. Objective Vitals Vital Signs Date Time Temp Pulse Resp B/P (MAP) Pulse Ox O2 Delivery O2 Flow Rate FiO2 07/04/17 12:35 75 07/04/17 11:37 98.8 89 20 91/53 (66) 97 07/04/17 11:11 77 07/04/17 11:11 Room Air 07/04/17 07:53 99.0 77 18 116/76 (89) 98 07/04/17 06:00 73 07/04/17 05:00 76 07/04/17 04:00 98.0 75 18 119/69 (86) 98 07/04/17 04:00 75 07/04/17 04:00 Room Air 07/04/17 03:00 76 07/04/17 02:00 70 07/04/17 01:00 74 07/04/17 00:00 73 07/03/17 23:48 Room Air 07/03/17 23:48 98.2 73 18 154/73 (100) 95 07/03/17 23:00 74 07/03/17 22:00 77 07/03/17 21:00 81 07/03/17 20:00 Room Air 07/03/17 20:00 98.0 72 20 110/76 (87) 96 07/03/17 20:00 72 07/03/17 18:00 76 07/03/17 17:00 76 07/03/17 16:00 70 07/03/17 15:00 97.4 77 18 125/83 (97) 99 07/03/17 15:00 71 07/03/17 14:00 74 I/O 07/03/17 07/03/17 07/03/17 07/04/17 07/04/17 07/04/17 06:59 14:59 22:59 06:59 14:59 22:59 Intake Total 480 ml 240 ml 340 ml Output Total 800 ml 700 ml Balance -320 ml 240 ml -360 ml Intake Oral 480 ml 240 ml 240 ml IV Total 100 ml Output Urine Total 800 ml 700 ml # Voids 1 # Bowel Movements 1 0 Result Diagram: 07/04/17 0810 07/04/17 0810 Objective Remarks GENERAL: in NAD CARDIOVASCULAR: Regular rate and rhythm without murmurs, gallops, or rubs. RESPIRATORY: Breath sounds equal bilaterally. No accessory muscle use. GASTROINTESTINAL: Abdomen soft but distended. Tenderness to palpation diffusely. MUSCULOSKELETAL: neg edema Medications and IVs Current Medications Dextrose (D50w (Syr) Inj) 25 ml ONCE ONCE IV PUSH Last administered on at 20:27; Start 06/30/17 at 20:30; Stop 06/30/17 at 20:31; Status DC Sodium Chloride (NS Flush) 2 ml UNSCH PRN IV FLUSH FLUSH AFTER USING IV ACCESS ; Start 06/30/17 at 22:45 Sodium Chloride (NS Flush) 2 ml BID IV FLUSH Last administered on 07/04/17at 09: 34; Start 07/01/17 at 09:00 Naloxone HCl (Narcan Inj) 0.4 mg UNSCH PRN IV PUSH SEE LABEL COMMENTS; Start at 22:45 Dextrose (D50w (Vial) Inj) 50 ml UNSCH PRN IV PUSH HYPOGLYCEMIA-SEE COMMENTS Last administered on 07/02/17at 00:25; Start 06/30/17 at 22:45; Stop 07/03/17 at 21:34; Status DC Glucagon (Glucagon Inj) 1 mg STAT PRN IM HYPOGLYCEMIA-SEE COMMENTS; Start 06/30 at 22:45; Stop 07/03/17 at 21:34; Status DC Vancomycin HCl 1500 mg/Sodium Chloride 515 ml @ 250 mls/hr ONCE ONCE IV Last administered on 07/01/17at 00:27; Start 06/30/17 at 23:00; Stop 07/01/17 at 01:03 ; Status DC Piperacillin Sod/ Tazobactam Sod 50 ml @ 100 mls/hr ONCE ONCE IV Last administered on 06/30/17at 23:33; Start 06/30/17 at 23:00; Stop 06/30/17 at 23:29 ; Status DC Dextrose (D50w (Vial) Inj) 50 ml ONCE ONCE IV PUSH Last administered on at 23:00; Start 06/30/17 at 23:00; Stop 06/30/17 at 23:04; Status DC Aspirin (Ecotrin Ec) 81 mg DAILY PO Last administered on 07/04/17at 09:34; Start 07/01/17 at 09:00 Edoxaban (Savaysa) 60 mg Q24H PO Last administered on 07/04/17at 05:21; Start at 06:00 Potassium Chloride (KCl) 20 meq DAILY PO Last administered on 07/01/17at 09:00; Start 07/01/17 at 09:00 Multivitamins/ Minerals Therapeutic (Theragran M Tab) 1 tab DAILY PO Last administered on 07/04/17at 09:34; Start 07/01/17 at 09:00 Ceftriaxone Sodium 1000 mg/ Sodium Chloride 100 ml @ 200 mls/hr Q24H IV Last administered on 07/04/17at 09:28; Start 07/01/17 at 09:00 Dextrose/Sodium Chloride 1,000 ml @ 42 mls/hr [id number] IV Last administered on 07/01/17at 05:10; Start 07/01/17 at 05:00; Stop 07/01/17 at 18:32; Status DC Dextrose 1,000 ml @ 84 mls/hr [id number] IV Last administered on 07/02/17at 21:36 ; Start 07/01/17 at 18:15; Stop 07/03/17 at 11:37; Status DC Lidocaine HCl (Xylocaine 1% Inj) 20 ml STK-MED ONCE .ROUTE Last administered on 07/02/17at 12:51; Start 07/02/17 at 12:51; Stop 07/02/17 at 12:52; Status DC Flumazenil (Romazicon Inj) 0.2 mg Q1M PRN IV PUSH SEE LABEL COMMENTS; Start at 11:30 Lorazepam (Ativan) 1 mg Q4H PRN PO CIWA 8 - 10 Last administered on 07/03/17at 20:28; Start 07/03/17 at 11:30 Lorazepam (Ativan Inj) 1 mg Q4H PRN IV PUSH CIWA 8 - 10; Start 07/03/17 at 11: 30 Lorazepam (Ativan) 2 mg Q2H PRN PO CIWA 11-14; Start 07/03/17 at 11:30 Lorazepam (Ativan Inj) 2 mg Q2H PRN IV PUSH CIWA 11-14; Start 07/03/17 at 11:30 Lorazepam (Ativan Inj) 2 mg Q1H PRN IV PUSH CIWA 15-20; Start 07/03/17 at 11:30 Lorazepam (Ativan Inj) 2 mg Q15M PRN IV PUSH CIWA > 20; Start 07/03/17 at 11:30 Thiamine HCl (Vitamin B1) 100 mg DAILY PO Last administered on 07/04/17at 09:34 ; Start 07/04/17 at 09:00 Chlordiazepoxide (Librium) 10 mg TID PRN PO DTs Last administered on 07/03/17at 20:27; Start 07/03/17 at 11:30 Dextrose (D50w (Vial) Inj) 50 ml UNSCH PRN IV PUSH HYPOGLYCEMIA-SEE COMMENTS Last administered on 07/04/17at 09:21; Start 07/03/17 at 17:15 Glucagon (Glucagon Inj) 1 mg UNSCH PRN OTHER HYPOGLYCEMIA-SEE COMMENTS; Start 07/03/17 at 17:15 Insulin Aspart (NovoLOG SUPPLEMENTAL SCALE) 1 ACHS SLIDING SCALE SQ Last administered on 07/03/17at 20:51; Start 07/03/17 at 21:00 Furosemide (Lasix) 20 mg DAILY PO Last administered on 07/04/17at 09:34; Start 07/04/17 at 09:00 Albumin Human 100 ml @ 60 mls/hr Q12H IV Last administered on 07/04/17at 09:35 ; Start 07/03/17 at 21:30 Dextrose (D50w (Syr) Inj) 25 ml ONCE ONCE IV PUSH ; Start 07/04/17 at 12:30; Stop 07/04/17 at 13:20; Status DC A/P Problem List: (1) Ascites ICD Code: R18.8 - Other ascites (2) PAF (paroxysmal atrial fibrillation) ICD Code: I48.0 - Paroxysmal atrial fibrillation (3) Nonischemic cardiomyopathy ICD Code: I42.8 - Other cardiomyopathies (4) Hypoglycemia ICD Code: E16.2 - Hypoglycemia, unspecified Status: Acute (5) Bradycardia ICD Code: R00.1 - Bradycardia, unspecified Assessment and Plan 56-year-old man with Ascites Liver ultrasound does not show cirrhosis of the liver. Maybe secondary to portal hypertension. Status post ultrasound-guided thoracentesis 07/02/17 with 5.3 L of fluid removed Continue with prophylaxis Rocephin for SBP so far cultures are negative. Appreciate input from gastroenterology. Still pending level workup. Continue with Lasix but need to be cautious due to episodes of hypoglycemia. Symptomatic bradycardia-now resolved Could've been secondary to hypoglycemia versus AICD firing Hyponatremia Most likely secondary to ascites. Sodium dropped from 126-122 after having a paracentesis. Asymptomatic. Continue with Lasix. Continue trend sodium. Symptomatic hypoglycemia On hypoglycemic protocol. Encourage oral intake. Severe nonischemic cardiomyopathy History of AICD implant Awaiting for AICD interrogation Consider resuming beta ric per cardiology Consider adding DELMI inhibitor but currently patient is hypotensive. Paroxysmal atrial fibrillation Continue with Savaysa 60 mg daily Beta ric currently on hold secondary to bradycardia and soft BP History of alcohol abuse CIWA protocol and Librium when necessary On multivitamin, folate, thiamine. Hyperkalemia, mildly elevated Will give a dose of Kayexalate. Monitor. Continue to trend potassium. Diabetes type 2 Continue to hold oral hypoglycemic agent DVT prophylaxis:Mel Malloy MD Jul 04, 2017 13:56
[2017-07-04] MEDS ORDERED: SODIUM POLYSTYRENE SULFONATE SUSP 15 GM/60 ML CUP PO ONE (14:00)
[2017-07-04 16:24] LABS: ANA SCREEN POS (NEG)
[2017-07-04 20:13] LABS: BICARBONATE 22.2 MEQ/L (21.0-32.0); CALCIUM 8.2 MG/DL (8.5-10.1); CREATININE 1.41 MG/DL (0.60-1.30)
[2017-07-05] VITALS: BP 116/71; PULSE 78; RESP 18; TEMP 99.2; O2SAT 100
[2017-07-05] MEDS: LORazepam 1 MG TAB PO PRN (03:40)
[2017-07-05] MEDS: EDOXABAN TOSYLATE 60 MG TAB PO SCH (06:46)
[2017-07-05 08:00] VITALS: BP 105/65; PULSE 80; RESP 21; TEMP 98.9; O2SAT 96
[2017-07-05] MEDS: FUROSEMIDE 20 MG TAB PO SCH (08:55)
[2017-07-05] MEDS: MULTIVITAMINS/MINERALS THERAPEUTIC TAB PO SCH (08:55)
[2017-07-05] MEDS: ASPIRIN EC 81 MG TABEC PO SCH (08:55)
[2017-07-05] MEDS: cefTRIAXone INJ 1,000 MG in SODIUM CHLORIDE 0.9% INJ 100 ML IV SCH (08:55)
[2017-07-05] MEDS: ALBUMIN 25% INJ 100 ML IV SCH ×2 (08:55→23:15)
[2017-07-05] MEDS: THIAMINE HCL 100 MG TAB PO SCH (08:56)
[2017-07-05] MEDS: POTASSIUM CHLORIDE 20 MEQ CONTROLLED RELEASE TAB PO SCH (09:00)
[2017-07-05] MEDS: SODIUM CHLORIDE 0.9% FLUSH 10 ML FLUSH IV FLUSH SCH ×2 (09:11→23:30)
[2017-07-05] MEDS: INSULIN ASPART SUPPLEMENTAL SCALE SQ SCH ×4 (09:11→23:29)
[2017-07-05 11:45] LABS: AMYLASE BODY FLUID 83 U/L; AMYLASE BODY FLUID TYPE PERITONEAL
[2017-07-05 12:00] VITALS: BP 105/60; PULSE 70; RESP 21; TEMP 99; O2SAT 97
[2017-07-05 12:12] LABS: HEMATOCRIT 27.1 % (39.0-51.0); HEMOGLOBIN 9.6 GM/DL (13.0-17.0); MEAN CELL VOLUME 96.6 FL (80.0-100.0); MEAN CORPUSCULAR HEMOGLOBIN 34.3 PG (27.0-34.0); MEAN CORPUSCULAR HGB CONC 35.5 % (32.0-36.0); MEAN PLATELET VOLUME 10.3 FL (7.0-11.0); PLATELET COUNT 108 TH/MM3 (150-450); WHITE BLOOD COUNT 10.5 TH/MM3 (4.0-11.0)
[2017-07-05] MEDS ORDERED: PILL SPLITTER OTHER PRN (12:45)
--- NOTE | 2017-07-05 13:06 | HHI.PR ---
Subjective Remarks Follow up for non-ischemic cardiomyopathy s/p AICD, Afib, Ascites. Patient is doing well, sitting in his chair. He reports abdominal distention. He had paracentesis on 07/02/2017. No fever, chills. Objective Vitals Vital Signs Date Time Temp Pulse Resp B/P (MAP) Pulse Ox O2 Delivery O2 Flow Rate FiO2 07/05/17 08:00 98.9 80 21 105/65 (78) 96 07/05/17 00:00 99.2 78 18 116/71 (86) 100 07/04/17 20:00 100.3 83 18 116/65 (82) 96 07/04/17 15:00 99 Room Air I/O 07/04/17 07/04/17 07/04/17 07/05/17 07/05/17 07/05/17 07:00 15:00 23:00 07:00 15:00 23:00 Intake Total 340 ml 240 ml 100 ml 120 ml Output Total 700 ml Balance -360 ml 240 ml 100 ml 120 ml Intake Oral 240 ml 240 ml 120 ml IV Total 100 ml 100 ml Output Urine Total 700 ml # Voids 1 # Bowel Movements 0 1 Result Diagram: 07/05/17 1117 07/04/17 1826 Imaging Last Impressions Cyst Biopsy Asp-Paracentesis US 07/02/17 0000 Signed Impressions: Service Date/Time: Sunday, July 02, 2017 11:49 - CONCLUSION: Uncomplicated ultrasound guided paracentesis. Lucian Musa MD Liver Ultrasound 07/01/17 0000 Signed Impressions: Service Date/Time: Saturday, July 01, 2017 11:10 - CONCLUSION: Increased echogenicity of the liver with hepatofugal flow in mild splenomegaly as well as diffuse ascitic fluid is consistent with hepatocellular disease. Gallbladder and biliary tree as well as pancreas are negative Mark Mosher MD Head CT 06/30/17 1828 Signed Impressions: Service Date/Time: June 20:04 - CONCLUSION: 1. Area of low attenuation change involving the left frontal lobe felt to be encephalomalacia in nature. I cannot completely exclude a subacute infarction. MRI could further differentiate. Deandre Villegas Jr., MD Chest X-Ray 06/30/17 0000 Signed Impressions: Service Date/Time: June 19:38 - CONCLUSION: Hypoinflation with bibasilar atelectasis. Deandre Villegas Jr., MD Objective Remarks GENERAL: Alert, oriented x 3, NAD. SKIN: Warm and dry. HEAD: Normocephalic. EYES: No scleral icterus. No injection or drainage. NECK: Supple, trachea midline. No JVD or lymphadenopathy. CARDIOVASCULAR: Regular rate and rhythm without murmurs, gallops, or rubs. RESPIRATORY: Breath sounds equal bilaterally. No accessory muscle use. GASTROINTESTINAL: Abdomen somewhat firm, distended, BS+ MUSCULOSKELETAL: No cyanosis, or edema. BACK: Nontender without obvious deformity. No CVA tenderness. Procedures Paracentesis 07/02/2017 A/P Problem List: (1) Ascites ICD Code: R18.8 - Other ascites (2) PAF (paroxysmal atrial fibrillation) ICD Code: I48.0 - Paroxysmal atrial fibrillation (3) Nonischemic cardiomyopathy ICD Code: I42.8 - Other cardiomyopathies (4) Hypoglycemia ICD Code: E16.2 - Hypoglycemia, unspecified Status: Acute (5) Bradycardia ICD Code: R00.1 - Bradycardia, unspecified Assessment and Plan 56-year-old man with Ascites Liver ultrasound does not show cirrhosis of the liver. Maybe secondary to portal hypertension. Status post ultrasound-guided paracentesis 07/02/17 with 5.3 L of fluid removed Continue with prophylaxis Rocephin for SBP so far cultures are negative. Will consider switching to PO Cipro. Appreciate input from gastroenterology. Still pending level workup. Continue with Lasix but need to be cautious due to episodes of hypoglycemia. Discussed with Radiology. An US today shows not a lot of fluid, repeat paracentesis was not done. Hyponatremia Most likely secondary to ascites. Sodium dropped from 126-122 after having a paracentesis. Asymptomatic. Continue with Lasix. Continue trend sodium. Symptomatic hypoglycemia On hypoglycemic protocol. Encourage oral intake. Severe nonischemic cardiomyopathy History of AICD implant Per cardiology recs, we will start metoprolol and lisinopril. Will also consider spironolactone in addition to Furosemide. Paroxysmal atrial fibrillation Continue with Edoxaban 60 mg daily Start metoprolol 12.5mg BID. History of alcohol abuse CIWA protocol and Librium when necessary On multivitamin, folate, thiamine. Hyperkalemia, mildly elevated Received a dose of Kayexalate. Monitor. K+ this AM 4.1 Diabetes type 2 Continue to hold oral hypoglycemic agent Full code. Edoxaban. Abner Ring DO Jul 05, 2017 13:06
[2017-07-05 14:22] LABS: SMOOTH MUSCLE TOTAL AUTOABS Negative (Negative)
[2017-07-05 16:00] VITALS: BP 117/72; PULSE 79; RESP 19; TEMP 99.2; O2SAT 100
--- NOTE | 2017-07-05 16:46 | HHI.GIFU ---
Subjective Remarks Pt resting in bed. Reports some upper abdominal pain. Denies nausea, vomiting. (Shahana Foster) Objective Vitals I&O Vital Signs Date Time Temp Pulse Resp B/P (MAP) Pulse Ox O2 Delivery O2 Flow Rate FiO2 07/05/17 16:00 99.2 79 19 117/72 (87) 100 07/05/17 12:00 99.0 70 21 105/60 (75) 97 07/05/17 08:00 98.9 80 21 105/65 (78) 96 07/05/17 00:00 99.2 78 18 116/71 (86) 100 07/04/17 20:00 100.3 83 18 116/65 (82) 96 I/O 07/04/17 07/04/17 07/04/17 07/05/17 07/05/17 07/05/17 07:00 15:00 23:00 07:00 15:00 23:00 Intake Total 340 ml 240 ml 100 ml 240 ml Output Total 700 ml Balance -360 ml 240 ml 100 ml 240 ml Intake Oral 240 ml 240 ml 240 ml IV Total 100 ml 100 ml Output Urine Total 700 ml # Voids 1 # Bowel Movements 0 1 Laboratory Laboratory Tests Test 07/04/17 18:26 07/05/17 11:17 07/05/17 13:40 Blood Urea Nitrogen 24 Creatinine 1.41 Random Glucose 84 Calcium Level 8.2 Sodium Level 122 Potassium Level 5.5 4.1 Chloride Level 91 Carbon Dioxide Level 22.2 Anion Gap 9 Estimat Glomerular Filtration Rate 63 White Blood Count 10.5 Red Blood Count 2.80 Hemoglobin 9.6 Hematocrit 27.1 Mean Corpuscular Volume 96.6 Mean Corpuscular Hemoglobin 34.3 Mean Corpuscular Hemoglobin Concent 35.5 Red Cell Distribution Width 16.0 Platelet Count 108 Mean Platelet Volume 10.3 Date/Time Source Procedure Growth Status 06/30/17 23:00 Blood Peripheral Aerobic Blood Culture - Final NO GROWTH IN 5 DAYS Complete 06/30/17 23:00 Blood Peripheral Anaerobic Blood Culture - Final NO GROWTH IN 5 DAYS Complete 07/02/17 12:45 Fluid Peritoneal Fluid Gram Stain - Final Complete 07/02/17 12:45 Fluid Peritoneal Fluid Body Fluid Culture - Final NO GROWTH IN 72 HRS.--AEROBICALLY OR ... Complete Imaging Last Impressions Cyst Biopsy Asp-Paracentesis US 07/02/17 0000 Signed Impressions: Service Date/Time: Sunday, July 02, 2017 11:49 - CONCLUSION: Uncomplicated ultrasound guided paracentesis. Lucian Musa MD Liver Ultrasound 07/01/17 0000 Signed Impressions: Service Date/Time: Saturday, July 01, 2017 11:10 - CONCLUSION: Increased echogenicity of the liver with hepatofugal flow in mild splenomegaly as well as diffuse ascitic fluid is consistent with hepatocellular disease. Gallbladder and biliary tree as well as pancreas are negative Mark Mosher MD Head CT [id number]/30/[id number] Signed Impressions: Service Date/Time: June 20:04 - CONCLUSION: 1. Area of low attenuation change involving the left frontal lobe felt to be encephalomalacia in nature. I cannot completely exclude a subacute infarction. MRI could further differentiate. Deandre Villegas Jr., MD Chest X-Ray 06/30/17 0000 Signed Impressions: Service Date/Time: June 19:38 - CONCLUSION: Hypoinflation with bibasilar atelectasis. Deandre Villegas Jr., MD Physical Exam HEENT: Normocephalic; atraumatic; no jaundice. CHEST: CTA CARDIAC: RRR ABDOMEN: Distended, firm, upper abdominal TTP, bowel sounds active EXTREMITIES: No clubbing, cyanosis, or edema. SKIN: Normal; no rash; no jaundice. CLINICAL NURSE SPECIALIST: No focal deficits; alert and oriented times three. (Shahana Foster) Assessment and Plan Assessment: (1) DM (diabetes mellitus) ICD Codes: E11.9 - Type 2 diabetes mellitus without complications Status: Chronic (2) Ascites ICD Codes: R18.8 - Other ascites (3) Arrhythmia ICD Codes: I49.9 - Arrhythmia Status: Acute Plan - Ascites/ recurrent- no evidence of cirrhosis- s/p paracentesis on 07/02/17 5.300 ml of cloudy yellow fluid was removed, CX no growth 48h, cytology negative, UA unremarkable SAAG 1.2 which indicate portal HTN as the source pt feels he is less distended today on diuretics - Elevated LFTs- no labs done today, will repeat, patient had previous work up in the past, likely multifactorial Cardiac, alcohol related . liver workup ordered and is pending LFTs remain elevated, stable - Anemia- mild drop hgb today, denies bleeding. on edoxaban - Severe nonischemic cardiomyopathy - Paroxysmal atrial fibrillation requiring AICD (07/05) Hepatitis panel negative. LAWRENCE positive. Pt denies any known autoimmune disorders. Titer and pattern pending . ASMA negative. Iron-21 Ferritin-737 AMA, ceruloplasmin, alpha-1 antitrypsin pending. LFTs remain elevated. DF- 7 no benefit from steroids. Meld-10. Pt remains on Lasix and albumin. Plan: - continue albumin - continue lasix - await liver w/u - 2 gm sodium diet - Monitor labs - Alcohol cessation - Patient seen and examined by Dr. Feliz and myself an this note is written on his behalf. (Shahana Foster) Physician Comments Feeling better, diet as tolerated. Gi will sign off. Reconsult as needed. GI fu upon dc.Thank you (Lizabeth Feliz MD) Shahana Foster Jul 05, 2017 16:46 Lizabeth Feliz MD Jul 05, 2017 17:46
[2017-07-05 20:00] VITALS: BP 137/74; PULSE 78; RESP 20; TEMP 98.9; O2SAT 100
[2017-07-05] MEDS: METOPROLOL TARTRATE 25 MG TAB PO SCH (23:13)
[2017-07-06] VITALS: BP 100/60; PULSE 73; RESP 20; TEMP 99.4; O2SAT 100
[2017-07-06] MEDS: EDOXABAN TOSYLATE 60 MG TAB PO SCH (05:48)
[2017-07-06 08:00] VITALS: BP 104/59; PULSE 69; RESP 20; TEMP 98.7; O2SAT 96
[2017-07-06] MEDS: INSULIN ASPART SUPPLEMENTAL SCALE SQ SCH ×4 (08:00→19:46)
[2017-07-06] MEDS: ALBUMIN 25% INJ 100 ML IV SCH ×2 (09:22→21:19)
[2017-07-06] MEDS: MULTIVITAMINS/MINERALS THERAPEUTIC TAB PO SCH (09:23)
[2017-07-06] MEDS: THIAMINE HCL 100 MG TAB PO SCH (09:23)
[2017-07-06] MEDS: cefTRIAXone INJ 1,000 MG in SODIUM CHLORIDE 0.9% INJ 100 ML IV SCH (09:23)
[2017-07-06] MEDS: POTASSIUM CHLORIDE 20 MEQ CONTROLLED RELEASE TAB PO SCH (09:24)
[2017-07-06] MEDS: ASPIRIN EC 81 MG TABEC PO SCH (09:24)
[2017-07-06] MEDS: METOPROLOL TARTRATE 25 MG TAB PO SCH ×2 (09:24→19:44)
[2017-07-06] MEDS: FUROSEMIDE 20 MG TAB PO SCH (09:24)
[2017-07-06] MEDS: SODIUM CHLORIDE 0.9% FLUSH 10 ML FLUSH IV FLUSH SCH ×2 (09:25→19:44)
--- NOTE | 2017-07-06 10:39 | HHI.PR ---
Subjective Remarks Follow up for non-ischemic cardiomyopathy s/p AICD, Afib, Ascites. Patient is lethargic but no acute concerns. However, later in the morning, he started having nose bleed. Objective Vitals Vital Signs Date Time Temp Pulse Resp B/P (MAP) Pulse Ox O2 Delivery O2 Flow Rate FiO2 07/06/17 08:00 98.7 69 20 104/59 (74) 96 07/06/17 00:00 99.4 73 20 100/60 (73) 100 07/05/17 20:00 98.9 78 20 137/74 (95) 100 07/05/17 16:00 99.2 79 19 117/72 (87) 100 07/05/17 12:00 99.0 70 21 105/60 (75) 97 I/O 07/05/17 07/05/17 07/05/17 07/06/17 07/06/17 07/06/17 07:00 15:00 23:00 07:00 15:00 23:00 Intake Total 100 ml 440 ml 480 ml 100 ml 120 ml Output Total 960 ml Balance 100 ml 440 ml -480 ml 100 ml 120 ml Intake Oral 240 ml 480 ml 120 ml IV Total 100 ml 200 ml 100 ml Output Urine Total 960 ml # Bowel Movements 0 Result Diagram: 07/05/17 1117 07/05/17 1340 Imaging Last Impressions Cyst Biopsy Asp-Paracentesis US 07/02/17 0000 Signed Impressions: Service Date/Time: Sunday, July 02, 2017 11:49 - CONCLUSION: Uncomplicated ultrasound guided paracentesis. Lucian Musa MD Liver Ultrasound 07/01/17 0000 Signed Impressions: Service Date/Time: Saturday, July 01, 2017 11:10 - CONCLUSION: Increased echogenicity of the liver with hepatofugal flow in mild splenomegaly as well as diffuse ascitic fluid is consistent with hepatocellular disease. Gallbladder and biliary tree as well as pancreas are negative Mark Mosher MD Head CT 06/30/171827 Signed Impressions: Service Date/Time: June 20:04 - CONCLUSION: 1. Area of low attenuation change involving the left frontal lobe felt to be encephalomalacia in nature. I cannot completely exclude a subacute infarction. MRI could further differentiate. Deandre Villegas Jr., MD Chest X-Ray 06/30/17 0000 Signed Impressions: Service Date/Time: June 19:38 - CONCLUSION: Hypoinflation with bibasilar atelectasis. Deandre Villegas Jr., MD Objective Remarks GENERAL: Alert, oriented x 3, NAD. SKIN: Warm and dry. HEAD: Normocephalic. EYES: No scleral icterus. No injection or drainage. NECK: Supple, trachea midline. No JVD or lymphadenopathy. CARDIOVASCULAR: Regular rate and rhythm without murmurs, gallops, or rubs. RESPIRATORY: Breath sounds equal bilaterally. No accessory muscle use. GASTROINTESTINAL: Abdomen somewhat firm, distended, BS+ MUSCULOSKELETAL: No cyanosis, or edema. BACK: Nontender without obvious deformity. No CVA tenderness. Procedures Paracentesis 07/02/2017 A/P Problem List: (1) Ascites ICD Code: R18.8 - Other ascites (2) PAF (paroxysmal atrial fibrillation) ICD Code: I48.0 - Paroxysmal atrial fibrillation (3) Nonischemic cardiomyopathy ICD Code: I42.8 - Other cardiomyopathies (4) Hypoglycemia ICD Code: E16.2 - Hypoglycemia, unspecified Status: Acute (5) Bradycardia ICD Code: R00.1 - Bradycardia, unspecified Assessment and Plan 56-year-old man with Portal hypertension Ascites Liver ultrasound does not show cirrhosis of the liver. Maybe secondary to portal hypertension. Status post ultrasound-guided paracentesis 07/02/17 with 5.3 L of fluid removed Continue with prophylaxis Rocephin for SBP so far cultures are negative. Will switch to PO Cipro. GI signed off, recommended outpatient follow up. Epistaxis - Apply compression. - Will stop Aspirin. And hold Edoxaban. Once nose bleed resolves, we can restart Edoxaban. Hyponatremia Most likely secondary to ascites. Sodium dropped from 126-122 after having a paracentesis. Asymptomatic. Continue with Lasix. Continue trend sodium. Symptomatic hypoglycemia On hypoglycemic protocol. Encourage oral intake. Severe nonischemic cardiomyopathy History of AICD implant Per cardiology recs, we will start metoprolol and lisinopril. Will also consider spironolactone in addition to Furosemide. Paroxysmal atrial fibrillation Currently on Edoxaban 60 mg daily. Will hold it due to nose bleed. Start metoprolol 12.5mg BID. History of alcohol abuse CIWA protocol and Librium when necessary On multivitamin, folate, thiamine. Hyperkalemia - resolved. K+ 5.5 --> 4.1 Diabetes type 2 Continue to hold oral hypoglycemic agent Full code. Edoxaban. Discussed with CM. Patient will be referred to [facility]. SNF/rehab placement options are limited by insurance. If SNF/in-patient rehab not arranged, pt could go home with home health. Abner Ring DO Jul 06, 2017 10:38 am
[2017-07-06 12:00] VITALS: BP 96/52; PULSE 84; RESP 19; TEMP 97.7; O2SAT 96
[2017-07-06 16:00] VITALS: BP 108/67; PULSE 61; RESP 20; TEMP 97.8; O2SAT 96
[2017-07-06 16:34] LABS: ANA PATTERN DIFFUSE
[2017-07-06 20:00] VITALS: BP 114/71; PULSE 63; RESP 22; TEMP 97.5; O2SAT 100
[2017-07-07] VITALS: BP 115/74; PULSE 63; RESP 22; TEMP 98.3; O2SAT 95
[2017-07-07 08:00] VITALS: BP 113/75; PULSE 65; RESP 18; TEMP 97.9; O2SAT 96
[2017-07-07] MEDS: INSULIN ASPART SUPPLEMENTAL SCALE SQ SCH ×4 (08:00→21:15)
[2017-07-07] MEDS: MULTIVITAMINS/MINERALS THERAPEUTIC TAB PO SCH (08:37)
[2017-07-07] MEDS: POTASSIUM CHLORIDE 20 MEQ CONTROLLED RELEASE TAB PO SCH (08:37)
[2017-07-07] MEDS: THIAMINE HCL 100 MG TAB PO SCH (08:37)
[2017-07-07] MEDS: ALBUMIN 25% INJ 100 ML IV SCH (08:37)
[2017-07-07] MEDS: FUROSEMIDE 20 MG TAB PO SCH (08:38)
[2017-07-07] MEDS: METOPROLOL TARTRATE 25 MG TAB PO SCH ×2 (08:38→21:14)
[2017-07-07] MEDS: CIPROFLOXACIN 500 MG TAB PO SCH (08:38)
[2017-07-07 10:09] LABS: HEMATOCRIT 24.6 % (39.0-51.0); HEMOGLOBIN 8.5 GM/DL (13.0-17.0); MEAN CELL VOLUME 95.1 FL (80.0-100.0); MEAN CORPUSCULAR HEMOGLOBIN 32.8 PG (27.0-34.0); MEAN CORPUSCULAR HGB CONC 34.5 % (32.0-36.0); MEAN PLATELET VOLUME 10.7 FL (7.0-11.0); PLATELET COUNT 127 TH/MM3 (150-450); RED BLOOD COUNT 2.58 MIL/MM3 (4.50-5.90); RED CELL DISTRIBUTION WIDTH 16.3 % (11.6-17.2)
[2017-07-07 11:36] LABS: ALBUMIN 2.6 GM/DL (3.4-5.0); ALKALINE PHOSPHATASE 231 U/L (45-117); ALT (GPT) 75 U/L (12-78); AST (GOT) 163 U/L (15-37); BLOOD UREA NITROGEN 25 MG/DL (7-18); CALCIUM 7.6 MG/DL (8.5-10.1); CHLORIDE 94 MEQ/L (98-107); CREATININE 1.33 MG/DL (0.60-1.30); GLOMERULAR FILTRATION RATE 68 ML/MIN (>89); GLUCOSE,RANDOM 126 MG/DL (74-106); TOTAL BILIRUBIN ADULT 3.5 MG/DL (0.2-1.0); TOTAL PROTEIN 6.6 GM/DL (6.4-8.2)
[2017-07-07 12:00] VITALS: BP 94/61; PULSE 62; RESP 18; TEMP 96.8; O2SAT 99
[2017-07-07 12:00] LABS: SODIUM (NA) 123 MEQ/L (136-145)
--- NOTE | 2017-07-07 14:50 | HHI.PR ---
Subjective Remarks The patient complains of bilateral recurrent edema. Patient states that the epistaxis has resolved, however it recurs if the patient touches his nose. The patient denies shortness of breath or chest pain. Denies fevers or chills Complains of generalized pain more prominent on his legs. Objective Vitals Vital Signs Date Time Temp Pulse Resp B/P (MAP) Pulse Ox O2 Delivery O2 Flow Rate FiO2 07/07/17 12:00 96.8 62 18 94/61 (72) 99 07/07/17 08:00 97.9 65 18 113/75 (88) 96 07/07/17 00:00 98.3 63 22 115/74 (88) 95 07/06/17 20:00 97.5 63 22 114/71 (85) 100 07/06/17 16:00 97.8 61 20 108/67 (81) 96 I/O 07/06/17 07/06/17 07/06/17 07/07/17 07/07/17 07/07/17 07:00 15:00 23:00 07:00 15:00 23:00 Intake Total 100 ml 440 ml 860 ml 360 ml Output Total 500 ml Balance 100 ml 440 ml 360 ml 360 ml Intake Oral 240 ml 760 ml 360 ml IV Total 100 ml 200 ml 100 ml Output Urine Total 500 ml # Voids 1 # Bowel Movements 1 Result Diagram: 07/07/17 0945 07/07/17 1047 Imaging Last Impressions Cyst Biopsy Asp-Paracentesis US 07/02/17 0000 Signed Impressions: Service Date/Time: Sunday, July 02, 2017 11:49 - CONCLUSION: Uncomplicated ultrasound guided paracentesis. Lucian Musa MD Liver Ultrasound 07/01/17 0000 Signed Impressions: Service Date/Time: Saturday, July 01, 2017 11:10 - CONCLUSION: Increased echogenicity of the liver with hepatofugal flow in mild splenomegaly as well as diffuse ascitic fluid is consistent with hepatocellular disease. Gallbladder and biliary tree as well as pancreas are negative Mark Mosher MD Head CT 06/30/17 1828 Signed Impressions: Service Date/Time: June 20:04 - CONCLUSION: 1. Area of low attenuation change involving the left frontal lobe felt to be encephalomalacia in nature. I cannot completely exclude a subacute infarction. MRI could further differentiate. Deandre Villegas Jr., MD Chest X-Ray 06/30/17 0000 Signed Impressions: Service Date/Time: June 19:38 - CONCLUSION: Hypoinflation with bibasilar atelectasis. Deandre Villegas Jr., MD Objective Remarks AAOx3, nad PERRLA Clear lungs BL Abomen soft, distended with ascites. +2 edema in BL lower extremities Procedures Paracentesis 07/02/2017 Medications and IVs Current Medications Medications (Trade) Dose Ordered Sig/Maxime Route Start Time Stop Time Status Last Admin (NS Flush) 2 ml UNSCH PRN IV FLUSH 06/30/17 22:45 07/06/17 02:18 (NS Flush) 2 ml BID IV FLUSH 07/01/17 09:00 07/06/17 19:44 (Narcan Inj) 0.4 mg UNSCH PRN IV PUSH 06/30/17 22:45 (Savaysa) 60 mg Q24H PO 07/01/17 06:00 Future Hold 07/06/17 05:48 (KCl) 20 meq DAILY PO 07/01/17 09:00 07/07/17 08:37 (Theragran M Tab) 1 tab DAILY PO 07/01/17 09:00 07/07/17 08:37 (Romazicon Inj) 0.2 mg Q1M PRN IV PUSH 07/03/17 11:30 (Ativan) 1 mg Q4H PRN PO 07/03/17 11:30 07/05/17 03:40 (Ativan Inj) 1 mg Q4H PRN IV PUSH 07/03/17 11:30 (Ativan) 2 mg Q2H PRN PO 07/03/17 11:30 (Ativan Inj) 2 mg Q2H PRN IV PUSH 07/03/17 11:30 07/06/17 02:18 (Ativan Inj) 2 mg Q1H PRN IV PUSH 07/03/17 11:30 (Ativan Inj) 2 mg Q15M PRN IV PUSH 07/03/17 11:30 (Vitamin B1) 100 mg DAILY PO 07/04/17 09:00 07/07/17 08:37 (Librium) 10 mg TID PRN PO 07/03/17 11:30 07/06/17 17:57 (D50w (Vial) Inj) 50 ml UNSCH PRN IV PUSH 07/03/17 17:15 07/04/17 09:21 (Glucagon Inj) 1 mg UNSCH PRN OTHER 07/03/17 17:15 (NovoLOG SUPPLEMENTAL SCALE) 1 ACHS SLIDING SCALE SQ 07/03/17 21:00 07/06/17 19:46 Albumin Human 100 ml @ 60 mls/hr Q12H IV 07/03/17 21:30 07/07/17 08:37 (Lopressor) 12.5 mg Q12HR PO 07/05/17 21:00 07/07/17 08:38 (Pill Splitter) 1 ea UNSCH PRN OTHER 07/05/17 12:45 (Cipro) 500 mg DAILY PO 07/07/17 09:00 07/07/17 08:38 (Lasix) 40 mg BID PO 07/07/17 21:00 UNV A/P Problem List: (1) Ascites ICD Code: R18.8 - Other ascites (2) PAF (paroxysmal atrial fibrillation) ICD Code: I48.0 - Paroxysmal atrial fibrillation (3) Nonischemic cardiomyopathy ICD Code: I42.8 - Other cardiomyopathies (4) Hypoglycemia ICD Code: E16.2 - Hypoglycemia, unspecified Status: Acute (5) Bradycardia ICD Code: R00.1 - Bradycardia, unspecified Assessment and Plan 56-year-old man with Portal hypertension Ascites Liver ultrasound does not show cirrhosis of the liver. Maybe secondary to portal hypertension. Status post ultrasound-guided paracentesis 07/02/17 with 5.3 L of fluid removed Continue with prophylaxis Rocephin for SBP so far cultures are negative. Will switch to PO Cipro. GI signed off, recommended outpatient follow up. - 07/07 Will increase Lasix to 40 mg po BID since patient has more edema and ascites. Will also add spironolactone. Epistaxis - Apply compression. - Will stop Aspirin. And hold Edoxaban. Once nose bleed resolves, we can restart Edoxaban. - 07/07 Epistaxis has stoped. However there is some blood observed on nares. continue to hold ASA and Edoxaban. Hyponatremia Most likely secondary to ascites. Sodium dropped from 126-122 after having a paracentesis. Asymptomatic. Continue with Lasix. Continue trend sodium. - 07/07 Sodium still low at 123, Will increase Lasix to 40 mg po bid. Continue to monitor sodium. I will also place patient on fluid restriction. Symptomatic hypoglycemia On hypoglycemic protocol. Encourage oral intake. - 07/07 resolved. Blood sugars stable. Severe nonischemic cardiomyopathy History of AICD implant Per cardiology recs, we will start metoprolol and lisinopril. Will also consider spironolactone in addition to Furosemide. Paroxysmal atrial fibrillation Currently on Edoxaban 60 mg daily. Will hold it due to nose bleed. Start metoprolol 12.5mg BID. 07/07 heart rate controlled. Continue beta ric. Continue to hold blood thinner. History of alcohol abuse CIWA protocol and Librium when necessary On multivitamin, folate, thiamine. No evidence of alcohol withdrawal. Hyperkalemia - resolved. Continue to monitor BMP Diabetes type 2 Continue to hold oral hypoglycemic agent NEY Upper review of medical records, patient spaces creatinine 1.2-1.1. Creatinine elevated at 1.33 however trending down from 1.41. Continue to monitor BUN/creatinine, continued to monitor I's and O's, avoid nephrotoxins. Full code. Edoxaban on hold. Discharge Planning Continue to monitor in the medical floor. Discharge pending improvement of hyponatremia and acute kidney injury. Karthik Wolf MD Jul 07, 2017 14:50
[2017-07-07 16:00] VITALS: BP 111/66; PULSE 66; RESP 17; TEMP 97.3; O2SAT 99
[2017-07-07] MEDS: FUROSEMIDE 40 MG TAB PO SCH (17:50)
[2017-07-07 20:00] VITALS: BP 126/68; PULSE 67; RESP 18; TEMP 98.4; O2SAT 96
[2017-07-07] MEDS: SODIUM CHLORIDE 0.9% FLUSH 10 ML FLUSH IV FLUSH SCH (21:15)
[2017-07-08] VITALS: BP 105/67; PULSE 62; RESP 18; TEMP 98.2; O2SAT 97
[2017-07-08] MEDS: ALBUMIN 25% INJ 100 ML IV SCH ×3 (00:16→20:58)
[2017-07-08] MEDS: SODIUM CHLORIDE 0.9% FLUSH 10 ML FLUSH IV FLUSH SCH ×3 (00:16→20:58)
[2017-07-08 03:49] LABS: MITOCHONDRIAL ABS LESS THAN 20.0 U (<=20.0)
[2017-07-08 07:37] LABS: HEMATOCRIT 25.8 % (39.0-51.0); MEAN CELL VOLUME 94.7 FL (80.0-100.0); MEAN CORPUSCULAR HEMOGLOBIN 33.1 PG (27.0-34.0); MEAN CORPUSCULAR HGB CONC 34.9 % (32.0-36.0); MEAN PLATELET VOLUME 10.2 FL (7.0-11.0); PLATELET COUNT 109 TH/MM3 (150-450); RED BLOOD COUNT 2.73 MIL/MM3 (4.50-5.90); RED CELL DISTRIBUTION WIDTH 16.2 % (11.6-17.2); WHITE BLOOD COUNT 9.9 TH/MM3 (4.0-11.0)
[2017-07-08 08:00] VITALS: BP 115/68; PULSE 60; RESP 17; TEMP 98.3; O2SAT 98
[2017-07-08] MEDS: INSULIN ASPART SUPPLEMENTAL SCALE SQ SCH ×4 (08:05→21:15)
[2017-07-08 08:25] LABS: BICARBONATE 22.4 MEQ/L (21.0-32.0); CALCIUM 7.9 MG/DL (8.5-10.1); CREATININE 1.34 MG/DL (0.60-1.30)
[2017-07-08] MEDS: FUROSEMIDE 40 MG TAB PO SCH ×2 (09:00→17:30)
[2017-07-08] MEDS: CIPROFLOXACIN 500 MG TAB PO SCH (09:31)
[2017-07-08] MEDS: MULTIVITAMINS/MINERALS THERAPEUTIC TAB PO SCH (09:31)
[2017-07-08] MEDS: POTASSIUM CHLORIDE 20 MEQ CONTROLLED RELEASE TAB PO SCH (09:31)
[2017-07-08] MEDS: THIAMINE HCL 100 MG TAB PO SCH (09:31)
[2017-07-08] MEDS: METOPROLOL TARTRATE 25 MG TAB PO SCH ×2 (09:31→20:58)
[2017-07-08] MEDS: SPIRONOLACTONE 50 MG TAB PO SCH (11:44)
[2017-07-08 12:00] VITALS: BP 117/73; PULSE 62; RESP 17; TEMP 97.9; O2SAT 98
[2017-07-08 16:00] VITALS: BP 121/80; PULSE 62; RESP 18; TEMP 98; O2SAT 97
--- NOTE | 2017-07-08 17:23 | HHI.PR ---
Subjective Remarks sodium improving. abdomen distended. Patient seems confused. Constantly asks about what is wrong with him, he asks again even after I gave complete explanation. Objective Vitals Vital Signs Date Time Temp Pulse Resp B/P (MAP) Pulse Ox O2 Delivery O2 Flow Rate FiO2 07/08/17 16:00 98.0 62 18 121/80 (94) 97 07/08/17 12:00 97.9 62 17 117/73 (88) 98 07/08/17 08:00 98.3 60 17 115/68 (84) 98 07/08/17 00:00 98.2 62 18 105/67 (80) 97 07/07/17 20:00 98.4 67 18 126/68 (87) 96 I/O 07/07/17 07/07/17 07/07/17 07/08/17 07/08/17 07/08/17 07:00 15:00 23:00 07:00 15:00 23:00 Intake Total 360 ml 340 ml 340 ml Output Total 450 ml 500 ml Balance 360 ml -110 ml -160 ml Intake Oral 360 ml 240 ml 240 ml IV Total 100 ml 100 ml Output Urine Total 450 ml 500 ml # Voids 1 # Bowel Movements 1 0 0 Result Diagram: 07/08/17 0641 07/08/17 0641 Imaging Last Impressions Cyst Biopsy Asp-Paracentesis US 07/02/17 0000 Signed Impressions: Service Date/Time: Sunday, July 02, 2017 11:49 - CONCLUSION: Uncomplicated ultrasound guided paracentesis. Lucian Musa MD Liver Ultrasound 07/01/17 0000 Signed Impressions: Service Date/Time: Saturday, July 01, 2017 11:10 - CONCLUSION: Increased echogenicity of the liver with hepatofugal flow in mild splenomegaly as well as diffuse ascitic fluid is consistent with hepatocellular disease. Gallbladder and biliary tree as well as pancreas are negative Mark Mosher MD Head CT 06/30/17 1828 Signed Impressions: Service Date/Time: June 20:04 - CONCLUSION: 1. Area of low attenuation change involving the left frontal lobe felt to be encephalomalacia in nature. I cannot completely exclude a subacute infarction. MRI could further differentiate. Deandre Villegas Jr., MD Chest X-Ray 06/30/17 0000 Signed Impressions: Service Date/Time: June 19:38 - CONCLUSION: Hypoinflation with bibasilar atelectasis. Deandre Villegas Jr., MD Objective Remarks AAOx3, nad PERRLA Clear lungs BL Abomen soft, more distended with ascites. +2 edema in BL lower extremities Procedures Paracentesis 07/02/2017 Medications and IVs Current Medications Medications (Trade) Dose Ordered Sig/Maxime Route Start Time Stop Time Status Last Admin (NS Flush) 2 ml UNSCH PRN IV FLUSH 06/30/17 22:45 07/06/17 02:18 (NS Flush) 2 ml BID IV FLUSH 07/01/17 09:00 07/08/17 09:00 (Narcan Inj) 0.4 mg UNSCH PRN IV PUSH 06/30/17 22:45 (Savaysa) 60 mg Q24H PO 07/01/17 06:00 Future Hold 07/06/17 05:48 (KCl) 20 meq DAILY PO 07/01/17 09:00 07/08/17 09:31 (Theragran M Tab) 1 tab DAILY PO 07/01/17 09:00 07/08/17 09:31 (Romazicon Inj) 0.2 mg Q1M PRN IV PUSH 07/03/17 11:30 (Ativan) 1 mg Q4H PRN PO 07/03/17 11:30 07/05/17 03:40 (Ativan Inj) 1 mg Q4H PRN IV PUSH 07/03/17 11:30 (Ativan) 2 mg Q2H PRN PO 07/03/17 11:30 (Ativan Inj) 2 mg Q2H PRN IV PUSH 07/03/17 11:30 07/06/17 02:18 (Ativan Inj) 2 mg Q1H PRN IV PUSH 07/03/17 11:30 (Ativan Inj) 2 mg Q15M PRN IV PUSH 07/03/17 11:30 (Vitamin B1) 100 mg DAILY PO 07/04/17 09:00 07/08/17 09:31 (Librium) 10 mg TID PRN PO 07/03/17 11:30 07/06/17 17:57 (D50w (Vial) Inj) 50 ml UNSCH PRN IV PUSH 07/03/17 17:15 1/22/18 09:21 (Glucagon Inj) 1 mg UNSCH PRN OTHER 07/03/17 17:15 (NovoLOG SUPPLEMENTAL SCALE) 1 ACHS SLIDING SCALE SQ 07/03/17 21:00 07/08/17 16:44 Albumin Human 100 ml @ 60 mls/hr Q12H IV 07/03/17 21:30 07/08/17 09:31 (Lopressor) 12.5 mg Q12HR PO 07/05/17 21:00 07/08/17 09:31 (Pill Splitter) 1 ea UNSCH PRN OTHER 07/05/17 12:45 (Cipro) 500 mg DAILY PO 07/07/17 09:00 07/08/17 09:31 (Lasix) 40 mg BID@0900,1800 PO 07/07/17 18:00 07/08/17 09:00 (Roxicodone) 5 mg Q4H PRN PO 07/07/17 15:00 (Roxicodone) 10 mg Q6H PRN PO 07/07/17 15:00 (Aldactone) 50 mg DAILY PO 07/08/17 10:30 07/08/17 11:44 A/P Problem List: (1) Ascites ICD Code: R18.8 - Other ascites (2) PAF (paroxysmal atrial fibrillation) ICD Code: I48.0 - Paroxysmal atrial fibrillation (3) Nonischemic cardiomyopathy ICD Code: I42.8 - Other cardiomyopathies (4) Hypoglycemia ICD Code: E16.2 - Hypoglycemia, unspecified Status: Acute (5) Bradycardia ICD Code: R00.1 - Bradycardia, unspecified Assessment and Plan 56-year-old man with Portal hypertension Ascites Liver ultrasound does not show cirrhosis of the liver. Maybe secondary to portal hypertension. Status post ultrasound-guided paracentesis 07/02/17 with 5.3 L of fluid removed Continue with prophylaxis Rocephin for SBP so far cultures are negative. Will switch to PO Cipro. GI signed off, recommended outpatient follow up. - 07/07 Will increase Lasix to 40 mg po BID since patient has more edema and ascites. - 07/08 abdomen more distended. Will order a diabetic paracentesis. I will switch the patient from oral Lasix to IV Lasix. Start spironolactone Epistaxis - Apply compression. - Will stop Aspirin. And hold Edoxaban. Once nose bleed resolves, we can restart Edoxaban. - 07/07 Epistaxis has stoped. However there is some blood observed on nares. continue to hold ASA and Edoxaban. Hyponatremia Most likely secondary to ascites. Sodium dropped from 126-122 after having a paracentesis. Asymptomatic. Continue with Lasix. Continue trend sodium. - 07/07 Sodium still low at 123, Will increase Lasix to 40 mg po bid. Continue to monitor sodium. I will also place patient on fluid restriction. - 07/08 Gaurav saline improved to 124. I will switch oral Lasix to IV Lasix. Continue to monitor sodium. Continue fluid restriction. Symptomatic hypoglycemia On hypoglycemic protocol. Encourage oral intake. - 07/07 resolved. Blood sugars stable. Severe nonischemic cardiomyopathy History of AICD implant Per cardiology recs, we will start metoprolol and lisinopril. Will also consider spironolactone in addition to Furosemide. Paroxysmal atrial fibrillation Currently on Edoxaban 60 mg daily. Will hold it due to nose bleed. Start metoprolol 12.5mg BID. 07/07 heart rate controlled. Continue beta ric. Continue to hold blood thinner. History of alcohol abuse CIWA protocol and Librium when necessary On multivitamin, folate, thiamine. No evidence of alcohol withdrawal. Hyperkalemia - resolved. Continue to monitor BMP Diabetes type 2 Continue to hold oral hypoglycemic agent . NEY Upper review of medical records, patient spaces creatinine 1.2-1.1. Creatinine elevated at 1.33 however trending down from 1.41. Continue to monitor BUN/creatinine, continued to monitor I's and O's, avoid nephrotoxins. 07/08 Creatinine stable at 1.34. Continue to monitor BMP. Full code. Edoxaban on hold - plan to resume after Paracentesis. Discharge Planning Continue to monitor in the medical floor. Discharge pending improvement of hyponatremia and acute kidney injury. Karthik Wolf MD Jul 08, 2017 17:23
[2017-07-08 20:00] VITALS: BP 116/80; PULSE 66; RESP 18; TEMP 97.5; O2SAT 97
[2017-07-09] VITALS (7 sets, daily range): BP systolic 97–117; BP diastolic 57–76; PULSE 59–87; RESP 18–20; TEMP 97–99; O2SAT 96–100
[2017-07-09] MEDS: INSULIN ASPART SUPPLEMENTAL SCALE SQ SCH ×4 (08:00→20:39)
[2017-07-09] MEDS: POTASSIUM CHLORIDE 20 MEQ CONTROLLED RELEASE TAB PO SCH (08:51)
[2017-07-09] MEDS: THIAMINE HCL 100 MG TAB PO SCH (08:51)
[2017-07-09] MEDS: MULTIVITAMINS/MINERALS THERAPEUTIC TAB PO SCH (08:51)
[2017-07-09] MEDS: CIPROFLOXACIN 500 MG TAB PO SCH (08:51)
[2017-07-09] MEDS: METOPROLOL TARTRATE 25 MG TAB PO SCH ×2 (08:52→20:40)
[2017-07-09] MEDS: ALBUMIN 25% INJ 100 ML IV SCH ×2 (08:53→20:40)
[2017-07-09] MEDS: FUROSEMIDE 40 MG TAB PO SCH (08:54)
[2017-07-09] MEDS: SODIUM CHLORIDE 0.9% FLUSH 10 ML FLUSH IV FLUSH SCH ×2 (09:00→20:40)
[2017-07-09] MEDS: SPIRONOLACTONE 50 MG TAB PO SCH (09:00)
[2017-07-09 09:19] LABS: HEMATOCRIT 27.2 % (39.0-51.0); HEMOGLOBIN 9.3 GM/DL (13.0-17.0); MEAN CORPUSCULAR HEMOGLOBIN 32.9 PG (27.0-34.0); MEAN CORPUSCULAR HGB CONC 34.3 % (32.0-36.0); MEAN PLATELET VOLUME 9.7 FL (7.0-11.0); PLATELET COUNT 148 TH/MM3 (150-450); RED BLOOD COUNT 2.84 MIL/MM3 (4.50-5.90); RED CELL DISTRIBUTION WIDTH 16.1 % (11.6-17.2); WHITE BLOOD COUNT 12.8 TH/MM3 (4.0-11.0)
[2017-07-09 09:29] LABS: INTERNATIONAL NORMALIZED RATIO 1.4 RATIO; PROTHROMBIN TIME - PATIENT 14.4 SEC (9.8-11.6)
[2017-07-09 09:47] LABS: BICARBONATE 21.7 MEQ/L (21.0-32.0); CALCIUM 8.5 MG/DL (8.5-10.1); CREATININE 1.29 MG/DL (0.60-1.30)
[2017-07-09] MEDS ORDERED: LIDOCAINE HCL 1% 20 ML VIAL ONE (14:00)
--- NOTE | 2017-07-09 14:58 | RADRPT ---
EXAM DATE/TIME: 07/09/2017 12:27 [facility] COMPARISON: US GUIDED ABD PARACENTESIS, July 02, 2017, 11:49. INDICATIONS : Ascities. MEDICAL HISTORY : Hypercholesterolemia. Myocardial infarction. Congestive heart failure. Cerebrovascular accident. Head aches. Coronary artery disease. Anticoagulant therapy. Hyperlipidemia. Afib. Hypertension. Renal fail ure. Diabetes. Measles. SURGICAL HISTORY : Paracentesis. Internal difibrillator. Angioplasty. Cardiac ablation. ENCOUNTER: Subsequent ACUITY: 1 week PAIN SCORE: 3/10 LOCATION: Right lower quadrant FLUID: Total volume of 4900 cc of clear, yellow fluid was removed. Fluid was discarded. Paracentesis was therapeutic only. Post procedure scanning reveals no hematoma or other complication. TECHNIQUE: 1. Ultrasound guidance for abdominal paracentesis. 2. Paracentesis. The risks, benefits, and alternatives to ultrasound guided paracentesis were explained to the patient in detail including the risk of bleeding and infection. Written and verbal informed consent was obt ained. With the patient on the ultrasound table, ultrasound imaging was used to select the most appropriate approach for paracentesis. Overlying skin was prepped and draped in the usual sterile fashion and wi th a local anesthetic, a dermatotomy was made with an 11 blade scalpel. A 6 [place] [id number] ca theter was introduced into the peritoneal cavity and fluid was collected. The patient tolerated the procedure well and left the ultrasound suite in stable condition. CONCLUSION: Uncomplicated ultrasound guided paracentesis. Valdo Morales MD on July 09, 2017 at 14:55 Board Certified Radiologist. This report was verified electronically.
[2017-07-09] MEDS ORDERED: ALBUMIN HUMAN 25% 25GM-W/12.5GM FOR 37.5GM IV ONE (15:00)
[2017-07-09] MEDS ORDERED: ALBUMIN HUMAN 25% 12.5GM-W/25GM FOR 37.5GM IV ONE (15:00)
--- NOTE | 2017-07-09 16:08 | HHI.PR ---
Subjective Remarks Deferred wntry - patient seen at 10:10 am Patient states feels well Denies cp/sob still has edema and distended abdomen afebrile Objective Vitals Vital Signs Date Time Temp Pulse Resp B/P (MAP) Pulse Ox O2 Delivery O2 Flow Rate FiO2 07/09/17 14:52 117/57 (77) 07/09/17 14:00 97/59 (72) 07/09/17 12:00 97.0 87 20 108/65 (79) 100 07/09/17 08:00 98.0 59 20 97/61 (73) 99 07/09/17 00:00 99.0 70 18 107/62 (77) 96 07/08/17 20:00 97.5 66 18 116/80 (92) 97 I/O 07/08/17 07/08/17 07/08/17 07/09/17 07/09/17 07/09/17 07:00 15:00 23:00 07:00 15:00 23:00 Intake Total 340 ml 480 ml 540 ml 120 ml Output Total 500 ml 400 ml 300 ml Balance -160 ml 80 ml 240 ml 120 ml Intake Oral 240 ml 480 ml 540 ml 120 ml IV Total 100 ml Output Urine Total 500 ml 400 ml 300 ml # Bowel Movements 0 0 1 Result Diagram: 07/09/17 0900 07/09/17 0900 Imaging Last Impressions Cyst Biopsy Asp-Paracentesis US 07/09/17 0000 Signed Impressions: Service Date/Time: Sunday, July 09, 2017 12:27 - CONCLUSION: Uncomplicated ultrasound guided paracentesis. Valdo Morales MD Liver Ultrasound 07/01/17 0000 Signed Impressions: Service Date/Time: Saturday, July 01, 2017 11:10 - CONCLUSION: Increased echogenicity of the liver with hepatofugal flow in mild splenomegaly as well as diffuse ascitic fluid is consistent with hepatocellular disease. Gallbladder and biliary tree as well as pancreas are negative Mark Mosher MD Head CT 06/30/17 182 Signed Impressions: Service Date/Time: June 20:04 - CONCLUSION: 1. Area of low attenuation change involving the left frontal lobe felt to be encephalomalacia in nature. I cannot completely exclude a subacute infarction. MRI could further differentiate. Deandre Villegas Jr., MD Chest X-Ray 06/30/17 0000 Signed Impressions: Service Date/Time: June 19:38 - CONCLUSION: Hypoinflation with bibasilar atelectasis. Deandre Villegas Jr., MD Objective Remarks AAOx3, nad PERRLA Clear lungs BL Abomen soft, more distended with ascites. +2 edema in BL lower extremities Procedures Paracentesis 07/02/2017 Medications and IVs Current Medications Medications (Trade) Dose Ordered Sig/Maxime Route Start Time Stop Time Status Last Admin (NS Flush) 2 ml UNSCH PRN IV FLUSH 06/30/17 22:45 07/06/17 02:18 (NS Flush) 2 ml BID IV FLUSH 07/01/17 09:00 07/09/17 09:00 (Narcan Inj) 0.4 mg UNSCH PRN IV PUSH 06/30/17 22:45 (Savaysa) 60 mg Q24H PO 07/01/17 06:00 Future Hold 07/06/17 05:48 (KCl) 20 meq DAILY PO 07/01/17 09:00 07/09/17 08:51 (Theragran M Tab) 1 tab DAILY PO 07/01/17 09:00 07/09/17 08:51 (Romazicon Inj) 0.2 mg Q1M PRN IV PUSH 07/03/17 11:30 (Ativan) 1 mg Q4H PRN PO 07/03/17 11:30 07/05/17 03:40 (Ativan Inj) 1 mg Q4H PRN IV PUSH 07/03/17 11:30 (Ativan) 2 mg Q2H PRN PO 07/03/17 11:30 (Ativan Inj) 2 mg Q2H PRN IV PUSH 07/03/17 11:30 07/06/17 02:18 (Ativan Inj) 2 mg Q1H PRN IV PUSH 07/03/17 11:30 (Ativan Inj) 2 mg Q15M PRN IV PUSH 07/03/17 11:30 (Vitamin B1) 100 mg DAILY PO 07/04/17 09:00 07/09/17 08:51 (Librium) 10 mg TID PRN PO 07/03/17 11:30 07/06/17 17:57 (D50w (Vial) Inj) 50 ml UNSCH PRN IV PUSH 07/03/17 17:15 1/22/18 09:21 (Glucagon Inj) 1 mg UNSCH PRN OTHER 07/03/17 17:15 (NovoLOG SUPPLEMENTAL SCALE) 1 ACHS SLIDING SCALE SQ 07/03/17 21:00 07/08/17 21:15 Albumin Human 100 ml @ 60 mls/hr Q12H IV 07/03/17 21:30 07/09/17 08:53 (Lopressor) 12.5 mg Q12HR PO 07/05/17 21:00 07/08/17 20:58 (Pill Splitter) 1 ea UNSCH PRN OTHER 07/05/17 12:45 (Cipro) 500 mg DAILY PO 07/07/17 09:00 07/09/17 08:51 (Roxicodone) 5 mg Q4H PRN PO 07/07/17 15:00 (Roxicodone) 10 mg Q6H PRN PO 07/07/17 15:00 (Aldactone) 50 mg DAILY PO 07/08/17 10:30 07/09/17 09:00 (Lasix Inj) 40 mg BID@ IV PUSH 07/09/17 18:00 Urinary Catheter: No Vascular Central Line Catheter: No A/P Problem List: (1) Ascites ICD Code: R18.8 - Other ascites (2) PAF (paroxysmal atrial fibrillation) ICD Code: I48.0 - Paroxysmal atrial fibrillation (3) Nonischemic cardiomyopathy ICD Code: I42.8 - Other cardiomyopathies (4) Hypoglycemia ICD Code: E16.2 - Hypoglycemia, unspecified Status: Acute (5) Bradycardia ICD Code: R00.1 - Bradycardia, unspecified Assessment and Plan 56-year-old man with Portal hypertension Ascites Liver ultrasound does not show cirrhosis of the liver. Maybe secondary to portal hypertension. Status post ultrasound-guided paracentesis 07/02/17 with 5.3 L of fluid removed Continue with prophylaxis Rocephin for SBP so far cultures are negative. Will switch to PO Cipro. GI signed off, recommended outpatient follow up. - 07/07 Will increase Lasix to 40 mg po BID since patient has more edema and ascites. - 07/08 abdomen more distended. Will order an abdominal paracentesis. I will switch the patient from oral Lasix to IV Lasix. Start spironolactone - 07/09 Continue Lasix IV and spironolactone. Abdominal paracentesis pending. Epistaxis - Apply compression. - Will stop Aspirin. And hold Edoxaban. Once nose bleed resolves, we can restart Edoxaban. - 07/07 Epistaxis has stoped. However there is some blood observed on nares. continue to hold ASA and Edoxaban. - 07/09 Resume Edoxaban after Paracentesis. Hyponatremia Most likely secondary to ascites. Sodium dropped from 126-122 after having a paracentesis. Asymptomatic. Continue with Lasix. Continue trend sodium. - 07/07 Sodium still low at 123, Will increase Lasix to 40 mg po bid. Continue to monitor sodium. I will also place patient on fluid restriction. - 07/08 Gaurav saline improved to 124. I will switch oral Lasix to IV Lasix. Continue to monitor sodium. Continue fluid restriction. - 07/09 Sodium trebding up. 128 today. Continue to monitor BMP. Continue IV Lasix, spironolactone and fluid restriction. Symptomatic hypoglycemia On hypoglycemic protocol. Encourage oral intake. - 07/07 resolved. Blood sugars stable. Severe nonischemic cardiomyopathy History of AICD implant Per cardiology recs, we will start metoprolol and lisinopril. 07/09 Continue IV Lasix and spironolactone. Paroxysmal atrial fibrillation Currently on Edoxaban 60 mg daily. Will hold it due to nose bleed. Start metoprolol 12.5mg BID. 07/07 heart rate controlled. Continue beta ric. Continue to hold blood thinner. History of alcohol abuse CIWA protocol and Librium when necessary On multivitamin, folate, thiamine. No evidence of alcohol withdrawal. Hyperkalemia - resolved. Continue to monitor BMP Diabetes type 2 Continue to hold oral hypoglycemic agent . NEY Upper review of medical records, patient spaces creatinine 1.2-1.1. Creatinine elevated at 1.33 however trending down from 1.41. Continue to monitor BUN/creatinine, continued to monitor I's and O's, avoid nephrotoxins. 07/08 Creatinine stable at 1.34. Continue to monitor BMP. 07/09 Creatinine trending down. Creatinine down to 1.29 today. Full code. Edoxaban on hold - plan to resume after Paracentesis. Discharge Planning Continue to monitor in the medical floor. Discharge pending improvement of hyponatremia and acute kidney injury. Karthik Wolf MD Jul 09, 2017 16:08
[2017-07-09] MEDS: FUROSEMIDE 40 MG/4 ML VIAL IV PUSH SCH (16:47)
[2017-07-10] VITALS (7 sets, daily range): BP systolic 85–127; BP diastolic 53–74; PULSE 67–77; RESP 15–20; TEMP 97.3–99.2; O2SAT 92–100
[2017-07-10] MEDS: INSULIN ASPART SUPPLEMENTAL SCALE SQ SCH ×4 (08:40→20:13)
[2017-07-10] MEDS: SPIRONOLACTONE 50 MG TAB PO SCH (08:41)
[2017-07-10] MEDS: MULTIVITAMINS/MINERALS THERAPEUTIC TAB PO SCH (08:41)
[2017-07-10] MEDS: THIAMINE HCL 100 MG TAB PO SCH (08:41)
[2017-07-10] MEDS: SODIUM CHLORIDE 0.9% FLUSH 10 ML FLUSH IV FLUSH SCH ×2 (08:41→20:12)
[2017-07-10] MEDS: POTASSIUM CHLORIDE 20 MEQ CONTROLLED RELEASE TAB PO SCH (08:41)
[2017-07-10] MEDS: CIPROFLOXACIN 500 MG TAB PO SCH (08:42)
[2017-07-10] MEDS: FUROSEMIDE 40 MG/4 ML VIAL IV PUSH SCH ×2 (08:42→16:59)
[2017-07-10] MEDS: ALBUMIN 25% INJ 100 ML IV SCH ×2 (08:42→20:13)
[2017-07-10] MEDS: METOPROLOL TARTRATE 25 MG TAB PO SCH ×2 (08:42→20:12)
[2017-07-10 11:58] LABS: AUTOMATED NEUTROPHIL # 6.8 TH/MM3 (1.8-7.7); BASOPHIL # 0.1 TH/MM3 (0-0.2); BASOPHIL % 0.6 % (0.0-2.0); EOSINOPHIL # 0.1 TH/MM3 (0-0.4); EOSINOPHIL % 1.7 % (0.0-4.0); LYMPH % 7.9 % (9.0-44.0); LYMPHOCYTE # 0.6 TH/MM3 (1.0-4.8); MEAN CORPUSCULAR HEMOGLOBIN 33.3 PG (27.0-34.0); MEAN PLATELET VOLUME 9.5 FL (7.0-11.0); MONO % 5.8 % (0.0-8.0); MONOCYTE # 0.5 TH/MM3 (0-0.9); PLATELET COUNT 105 TH/MM3 (150-450); RED BLOOD COUNT 2.14 MIL/MM3 (4.50-5.90); RED CELL DISTRIBUTION WIDTH 16.4 % (11.6-17.2); WHITE BLOOD COUNT 8.1 TH/MM3 (4.0-11.0)
[2017-07-10 12:03] LABS: HEMATOCRIT 20.3 % (39.0-51.0)
[2017-07-10 12:04] LABS: HEMOGLOBIN 7.1 GM/DL (13.0-17.0)
[2017-07-10 12:12] LABS: BICARBONATE 21.6 MEQ/L (21.0-32.0); CALCIUM 7.9 MG/DL (8.5-10.1); CREATININE 1.33 MG/DL (0.60-1.30)
[2017-07-10] MEDS ORDERED: ACETAMINOPHEN 325 MG TAB PO PRN (12:30)
[2017-07-10] MEDS ORDERED: SODIUM CHLOR 0.9% 250 ML INJ 250 ML IV ONE (12:30)
[2017-07-10] MEDS ORDERED: diphenhydrAMINE HCL 25 MG CAP PO PRN (12:30)
--- NOTE | 2017-07-10 12:32 | HHI.PR ---
Subjective Remarks Hemoglobin dropped from 9.3-7.1. Patient reported to RN having dark stools. Patient denies nausea vomiting, states swelling in legs is decreasing. sp abdominal paracentesis with 100 cc of clear yellow fluid removed. Sodium is improving. Objective Vitals Vital Signs Date Time Temp Pulse Resp B/P (MAP) Pulse Ox O2 Delivery O2 Flow Rate FiO2 07/10/17 08:00 97.7 68 16 93/55 (68) 98 07/10/17 00:00 98.4 69 19 120/73 (89) 100 07/09/17 20:00 98.5 69 18 107/68 (81) 100 07/09/17 16:00 97.9 65 19 113/76 (88) 98 07/09/17 14:52 117/57 (77) 07/09/17 14:00 97/59 (72) I/O 07/09/17 07/09/17 07/09/17 07/10/17 07/10/17 07/10/17 07:00 15:00 23:00 07:00 15:00 23:00 Intake Total 540 ml 120 ml 1060 ml 100 ml Output Total 300 ml 1200 ml Balance 240 ml 120 ml -140 ml 100 ml Intake Oral 540 ml 120 ml 960 ml IV Total 100 ml 100 ml Output Urine Total 300 ml 1200 ml # Bowel Movements 1 0 Result Diagram: 07/10/17 1140 07/10/17 1140 Imaging Last Impressions Cyst Biopsy Asp-Paracentesis US 07/09/17 0000 Signed Impressions: Service Date/Time: Sunday, July 09, 2017 12:27 - CONCLUSION: Uncomplicated ultrasound guided paracentesis. Valdo Morales MD Liver Ultrasound 07/01/17 0000 Signed Impressions: Service Date/Time: Saturday, July 01, 2017 11:10 - CONCLUSION: Increased echogenicity of the liver with hepatofugal flow in mild splenomegaly as well as diffuse ascitic fluid is consistent with hepatocellular disease. Gallbladder and biliary tree as well as pancreas are negative Mark Mosher MD Head CT 06/30/17 1828 Signed Impressions: Service Date/Time: June 20:04 - CONCLUSION: 1. Area of low attenuation change involving the left frontal lobe felt to be encephalomalacia in nature. I cannot completely exclude a subacute infarction. MRI could further differentiate. Deandre Villegas Jr., MD Chest X-Ray 06/30/17 0000 Signed Impressions: Service Date/Time: June 19:38 - CONCLUSION: Hypoinflation with bibasilar atelectasis. Deandre Villegas Jr., MD Objective Remarks AAOx3, nad PERRLA Clear lungs BL Abomen soft, mildly distended, soft, mildly tender to palpation of RUQ region. +1 edema in BL lower extremities Procedures Paracentesis 07/02/2017 Medications and IVs Current Medications Medications (Trade) Dose Ordered Sig/Maxime Route Start Time Stop Time Status Last Admin (NS Flush) 2 ml UNSCH PRN IV FLUSH 06/30/17 22:45 07/06/17 02:18 (NS Flush) 2 ml BID IV FLUSH 07/01/17 09:00 07/10/17 08:41 (Narcan Inj) 0.4 mg UNSCH PRN IV PUSH 06/30/17 22:45 (Savaysa) 60 mg Q24H PO 07/01/17 06:00 Future Hold 07/06/17 05:48 (KCl) 20 meq DAILY PO 07/01/17 09:00 07/10/17 08:41 (Theragran M Tab) 1 tab DAILY PO 07/01/17 09:00 07/10/17 08:41 (Romazicon Inj) 0.2 mg Q1M PRN IV PUSH 07/03/17 11:30 (Ativan) 1 mg Q4H PRN PO 07/03/17 11:30 07/05/17 03:40 (Ativan Inj) 1 mg Q4H PRN IV PUSH 07/03/17 11:30 (Ativan) 2 mg Q2H PRN PO 07/03/17 11:30 (Ativan Inj) 2 mg Q2H PRN IV PUSH 07/03/17 11:30 07/06/17 02:18 (Ativan Inj) 2 mg Q1H PRN IV PUSH 07/03/17 11:30 (Ativan Inj) 2 mg Q15M PRN IV PUSH 07/03/17 11:30 (Vitamin B1) 100 mg DAILY PO 07/04/17 09:00 07/10/17 08:41 (Librium) 10 mg TID PRN PO 07/03/17 11:30 07/06/17 17:57 (D50w (Vial) Inj) 50 ml UNSCH PRN IV PUSH 07/03/17 17:15 07/04/17 09:21 (Glucagon Inj) 1 mg UNSCH PRN OTHER 07/03/17 17:15 (NovoLOG SUPPLEMENTAL SCALE) 1 ACHS SLIDING SCALE SQ 07/03/17 21:00 07/10/17 08:40 Albumin Human 100 ml @ 60 mls/hr Q12H IV 07/03/17 21:30 07/10/17 08:42 (Lopressor) 12.5 mg Q12HR PO 07/05/17 21:00 07/08/17 20:58 (Pill Splitter) 1 ea UNSCH PRN OTHER 07/05/17 12:45 (Cipro) 500 mg DAILY PO 07/07/17 09:00 07/10/17 08:42 (Roxicodone) 5 mg Q4H PRN PO 07/07/17 15:00 (Roxicodone) 10 mg Q6H PRN PO 07/07/17 15:00 (Aldactone) 50 mg DAILY PO 07/08/17 10:30 07/10/17 08:41 (Lasix Inj) 40 mg BID@18 IV PUSH 07/09/17 18:00 07/10/17 08:42 Urinary Catheter: No Vascular Central Line Catheter: No A/P Problem List: (1) Ascites ICD Code: R18.8 - Other ascites (2) PAF (paroxysmal atrial fibrillation) ICD Code: I48.0 - Paroxysmal atrial fibrillation (3) Nonischemic cardiomyopathy ICD Code: I42.8 - Other cardiomyopathies (4) Hypoglycemia ICD Code: E16.2 - Hypoglycemia, unspecified Status: Acute (5) Bradycardia ICD Code: R00.1 - Bradycardia, unspecified (6) Positive LAWRENCE (antinuclear antibody) ICD Code: R76.8 - Other specified abnormal immunological findings in serum Status: Acute Plan: The patient had a positive AMA with a titer of 1:160 and a diffuse pattern. I will order a positive AMA evaluation lab test. Assessment and Plan 56-year-old man with Portal hypertension Ascites Transaminitis Liver ultrasound does not show cirrhosis of the liver. Maybe secondary to portal hypertension. Status post ultrasound-guided paracentesis 07/02/17 with 5.3 L of fluid removed Continue with prophylaxis Rocephin for SBP so far cultures are negative. Will switch to PO Cipro. GI signed off, recommended outpatient follow up. - 07/07 Will increase Lasix to 40 mg po BID since patient has more edema and ascites. - 07/08 abdomen more distended. Will order an abdominal paracentesis. I will switch the patient from oral Lasix to IV Lasix. Start spironolactone - 07/10 status post abdominal paracentesis with drainage of 4900 cc of yellow fluid. Continue IV Lasix and spironolactone. It is unclear etiology of the transaminitis, hepatitis serology negative, liver ultrasound showed increased echogenicity of the liver with hepatofugal flow mild splenomegaly as well as diffuse ascitic fluid consistent with hepatocellular disease. Suspect cirrhosis of the liver given the patient also has an elevated INR and is developing hyperammonemia. Consult gastroenterology and follow-up recommendations. The patient may need a liver biopsy once stable. Epistaxis - Apply compression. - Will stop Aspirin. And hold Edoxaban. Once nose bleed resolves, we can restart Edoxaban. - 07/07 Epistaxis has stoped. However there is some blood observed on nares. continue to hold ASA and Edoxaban. - 07/09 Resume Edoxaban after Paracentesis. - 07/10 patient had a sudden drop in hematocrit and hemoglobin. Continue to hold onto correlation. Epistaxis has resolved. Hyponatremia Most likely secondary to ascites. Sodium dropped from 126-122 after having a paracentesis. Asymptomatic. Continue with Lasix. Continue trend sodium. - 07/07 Sodium still low at 123, Will increase Lasix to 40 mg po bid. Continue to monitor sodium. I will also place patient on fluid restriction. - 07/08 Gaurav saline improved to 124. I will switch oral Lasix to IV Lasix. Continue to monitor sodium. Continue fluid restriction. - 07/09 Sodium trebding up. 128 today. Continue to monitor BMP. Continue IV Lasix, spironolactone and fluid restriction. - 07/10 hyponatremia continues to improve. Sodium 132 today. Continue diuretics. Symptomatic hypoglycemia On hypoglycemic protocol. Encourage oral intake. - 07/07 resolved. Blood sugars stable. Severe nonischemic cardiomyopathy History of AICD implant Per cardiology recs, we will start metoprolol and lisinopril. 07/09 Continue IV Lasix and spironolactone. Paroxysmal atrial fibrillation Currently on Edoxaban 60 mg daily. Will hold it due to nose bleed. Start metoprolol 12.5mg BID. 07/07 heart rate controlled. Continue beta ric. Continue to hold blood thinner. History of alcohol abuse CIWA protocol and Librium when necessary On multivitamin, folate, thiamine. No evidence of alcohol withdrawal. Hyperkalemia - resolved. Continue to monitor BMP Diabetes type 2 Continue to hold oral hypoglycemic agent . NEY Upper review of medical records, patient spaces creatinine 1.2-1.1. Creatinine elevated at 1.33 however trending down from 1.41. Continue to monitor BUN/creatinine, continued to monitor I's and O's, avoid nephrotoxins. 07/08 Creatinine stable at 1.34. Continue to monitor BMP. 07/10 Creatinine slightly elevated up to 1.33. Cuagulopathy INR elevated at 1.4. I will give vitamin K. Continue to monitor PT/INR daily. Anemia Normal MCV anemia. Iron studies obtained previously and possibly consistent with anemia of chronic disease. However the patient has had a sudden drop in hemoglobin down to 7.1 from 9.3. I will transfuse 2 units of packed red blood cells, check stool for Hemoccult and we'll consult gastroenterology for possible EGD and colonoscopy. Possibly dropping anemia secondary to GI bleed since patient is complaining of melanotic stools. start on Protonix drip. Hyperammonemia Patient noted to be slow on his answers. Ammonia level obtained and elevated at 36 1 on admission on 06/30/17 the patient's ammonia was 29. I will start the patient on lactulose. Full code. Edoxaban on hold - plan to resume after Paracentesis. Discharge Planning Continue to monitor in the medical floor. Discharge pending improvement of hyponatremia and acute kidney injury. Karthik Wolf MD Jul 10, 2017 12:32
[2017-07-10] MEDS ORDERED: PHYTONADIONE 10 MG/ML VIAL SQ ONE (13:00)
[2017-07-10] MEDS: LACTULOSE SYRUP 20 GM/30 ML CUP PO SCH ×3 (13:22→20:12)
--- NOTE | 2017-07-10 14:54 | HHI.GIFU ---
Subjective Remarks Patient is resting in the bed awake, fair historian but tries to answer simple questions appropriately States dark tarry stools 1 week Hemoglobin dropped today from 9.3-7.1 Post paracentesis yesterday Denies any nausea or vomiting, stools are loose and tarry, no constipation (Yumiko Bruno) Objective Vitals I&O Vital Signs Date Time Temp Pulse Resp B/P (MAP) Pulse Ox O2 Delivery O2 Flow Rate FiO2 07/10/17 12:00 98.3 67 16 101/60 (74) 100 07/10/17 08:00 97.7 68 16 93/55 (68) 98 07/10/17 00:00 98.4 69 19 120/73 (89) 100 07/09/17 20:00 98.5 69 18 107/68 (81) 100 07/09/17 16:00 97.9 65 19 113/76 (88) 98 07/09/17 14:52 117/57 (77) I/O 07/09/17 07/09/17 07/09/17 07/10/17 07/10/17 07/10/17 07:00 15:00 23:00 07:00 15:00 23:00 Intake Total 540 ml 120 ml 1060 ml 100 ml Output Total 300 ml 1200 ml Balance 240 ml 120 ml -140 ml 100 ml Intake Oral 540 ml 120 ml 960 ml IV Total 100 ml 100 ml Output Urine Total 300 ml 1200 ml # Bowel Movements 1 0 Laboratory Laboratory Tests Test 07/10/17 11:40 White Blood Count 8.1 Red Blood Count 2.14 Hemoglobin 7.1 Hematocrit 20.3 Mean Corpuscular Volume 95.0 Mean Corpuscular Hemoglobin 33.3 Mean Corpuscular Hemoglobin Concent 35.0 Red Cell Distribution Width 16.4 Platelet Count 105 Mean Platelet Volume 9.5 Neutrophils (%) (Auto) 84.0 Lymphocytes (%) (Auto) 7.9 Monocytes (%) (Auto) 5.8 Eosinophils (%) (Auto) 1.7 Basophils (%) (Auto) 0.6 Neutrophils # (Auto) 6.8 Lymphocytes # (Auto) 0.6 Monocytes # (Auto) 0.5 Eosinophils # (Auto) 0.1 Basophils # (Auto) 0.1 CBC Comment DIFF FINAL Differential Comment Blood Urea Nitrogen 23 Creatinine 1.33 Random Glucose 176 Calcium Level 7.9 Sodium Level 132 Potassium Level 4.7 Chloride Level 102 Carbon Dioxide Level 21.6 Anion Gap 8 Estimat Glomerular Filtration Rate 68 Date/Time Source Procedure Growth Status 06/30/17 23:00 Blood Peripheral Aerobic Blood Culture - Final NO GROWTH IN 5 DAYS Complete 06/30/17 23:00 Blood Peripheral Anaerobic Blood Culture - Final NO GROWTH IN 5 DAYS Complete 07/02/17 12:45 Fluid Peritoneal Fluid Gram Stain - Final Complete 07/02/17 12:45 Fluid Peritoneal Fluid Body Fluid Culture - Final NO GROWTH IN 72 HRS.--AEROBICALLY OR ... Complete Imaging Last Impressions Cyst Biopsy Asp-Paracentesis US 07/09/17 0000 Signed Impressions: Service Date/Time: Sunday, July 09, 2017 12:27 - CONCLUSION: Uncomplicated ultrasound guided paracentesis. Valdo Morales MD Liver Ultrasound 07/01/17 0000 Signed Impressions: Service Date/Time: Saturday, July 01, 2017 11:10 - CONCLUSION: Increased echogenicity of the liver with hepatofugal flow in mild splenomegaly as well as diffuse ascitic fluid is consistent with hepatocellular disease. Gallbladder and biliary tree as well as pancreas are negative Mark Mosher MD Head CT 06/30/17 1828 Signed Impressions: Service Date/Time: June 20:04 - CONCLUSION: 1. Area of low attenuation change involving the left frontal lobe felt to be encephalomalacia in nature. I cannot completely exclude a subacute infarction. MRI could further differentiate. Deandre Villegas Jr., MD Chest X-Ray 06/30/17 0000 Signed Impressions: Service Date/Time: June 19:38 - CONCLUSION: Hypoinflation with bibasilar atelectasis. Deandre Villegas Jr., MD Physical Exam HEENT: Normocephalic; atraumatic; CHEST: CTA CARDIAC: RRR ABDOMEN: Distended, taut, minimal mild tenderness on light palpation, bowel sounds active EXTREMITIES: No clubbing, cyanosis, or edema. SKIN: calvin, dty no rash; no jaundice. 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 Results are pending Elevated LFTs- no labs done today, will repeat, patient had previous work up in the past, likely multifactorial History of EtOH abuse. States he has only drank on a few occasions over the past year one beer. Drinking large amounts of alcohol one year ago - Anemia- acute hemoglobin drop over the past 24 hours 9.3-7.1, she is to receive 2 units of packed RBCs today - Severe nonischemic cardiomyopathy managed per attending -Patient has AICD 07/01/17 liver ultrasound shows increased echogenicity with hepatofungal flow and mild splenomegaly as well as diffuse ascites fluid consistent with hepatocellular disease gallbladder and biliary tree as well as pancreas are negative. (07/05) Hepatitis panel negative. LAWRENCE positive. LAWRENCE titer 1-1.60, LAWRENCE pattern diffuse, mitochondrial M2 AB less than 20, anti-smooth muscle antibodies negative 07/04/17 Dark tarry stools 1 week patient states. Significant drop in hemoglobin from 9.3-7.1 and 24 hours on 07/10/17. Suspect upper GI bleed Plan: Consider transjugular liver biopsy and INR. Approach will be safer secondary to his ascites. EGD in a.m. Consents Nothing by mouth at midnight Monitor labs, recheck HGB after transfusion Continue discussion about alcohol cessation totally - Patient seen and examined by Dr. Mahoney and myself an this note is written on his behalf. (Yumiko Bruno) Plan Patient was seen and examined, agree with above note, plan EGD in am for aneia and dark stool, ascites most likely multi factoria but liver Bx could be done TG because of ascites, but need to make sure ok by cardiology and IR (Elena Mahoney MD) Yumiko Bruno Jul 10, 2017 14:54 Elena Mahoney MD Jul 10, 2017 15:03
[2017-07-10] MEDS: PANTOPRAZOLE INJ 80 MG in SODIUM CHLORIDE 0.9% INJ 100 ML IV SCH (17:00)
[2017-07-10 17:21] LABS: INTERNATIONAL NORMALIZED RATIO 1.5 RATIO
[2017-07-11] VITALS (10 sets, daily range): BP systolic 87–138; BP diastolic 48–81; PULSE 67–75; RESP 17–20; TEMP 95.5–99.2; O2SAT 97–100
[2017-07-11] MEDS: INSULIN ASPART SUPPLEMENTAL SCALE SQ SCH ×4 (08:00→19:36)
[2017-07-11 08:17] LABS: AUTOMATED NEUTROPHIL # 9.8 TH/MM3 (1.8-7.7); BASOPHIL # 0.1 TH/MM3 (0-0.2); BASOPHIL % 0.7 % (0.0-2.0); EOSINOPHIL # 0.3 TH/MM3 (0-0.4); EOSINOPHIL % 2.6 % (0.0-4.0); HEMATOCRIT 26.2 % (39.0-51.0); HEMOGLOBIN 9.2 GM/DL (13.0-17.0); LYMPH % 7.2 % (9.0-44.0); LYMPHOCYTE # 0.8 TH/MM3 (1.0-4.8); MEAN CELL VOLUME 91.6 FL (80.0-100.0); MEAN CORPUSCULAR HEMOGLOBIN 32.1 PG (27.0-34.0); MONOCYTE # 0.6 TH/MM3 (0-0.9); NEUT % 84.5 % (16.0-70.0); PLATELET COUNT 132 TH/MM3 (150-450); RED BLOOD COUNT 2.86 MIL/MM3 (4.50-5.90); RED CELL DISTRIBUTION WIDTH 17.2 % (11.6-17.2); WHITE BLOOD COUNT 11.6 TH/MM3 (4.0-11.0)
[2017-07-11 08:27] LABS: INTERNATIONAL NORMALIZED RATIO 1.4 RATIO; PROTHROMBIN TIME - PATIENT 14.3 SEC (9.8-11.6)
[2017-07-11] MEDS: LACTULOSE SYRUP 20 GM/30 ML CUP PO SCH ×4 (08:37→19:32)
[2017-07-11] MEDS: SPIRONOLACTONE 50 MG TAB PO SCH (08:37)
[2017-07-11] MEDS: THIAMINE HCL 100 MG TAB PO SCH (08:37)
[2017-07-11] MEDS: POTASSIUM CHLORIDE 20 MEQ CONTROLLED RELEASE TAB PO SCH (08:37)
[2017-07-11] MEDS: CIPROFLOXACIN 500 MG TAB PO SCH (08:37)
[2017-07-11] MEDS: ALBUMIN 25% INJ 100 ML IV SCH ×2 (08:37→19:33)
[2017-07-11] MEDS: FUROSEMIDE 40 MG/4 ML VIAL IV PUSH SCH ×2 (08:38→17:03)
[2017-07-11] MEDS: METOPROLOL TARTRATE 25 MG TAB PO SCH ×2 (08:39→19:30)
[2017-07-11] MEDS: MULTIVITAMINS/MINERALS THERAPEUTIC TAB PO SCH (08:39)
[2017-07-11] MEDS: SODIUM CHLORIDE 0.9% FLUSH 10 ML FLUSH IV FLUSH SCH ×2 (08:47→19:32)
[2017-07-11 08:54] LABS: PHOSPHORUS 2.9 MG/DL (2.5-4.9)
[2017-07-11 08:58] LABS: ALKALINE PHOSPHATASE 208 U/L (45-117); TOTAL BILIRUBIN ADULT 4.3 MG/DL (0.2-1.0); TOTAL PROTEIN 6.7 GM/DL (6.4-8.2)
[2017-07-11 09:07] LABS: ALBUMIN 3.4 GM/DL (3.4-5.0); ALT (GPT) 78 U/L (12-78); AST (GOT) 171 U/L (15-37); BICARBONATE 22.4 MEQ/L (21.0-32.0); BLOOD UREA NITROGEN 20 MG/DL (7-18); CALCIUM 8.7 MG/DL (8.5-10.1); CHLORIDE 105 MEQ/L (98-107); CREATININE 1.25 MG/DL (0.60-1.30); GLOMERULAR FILTRATION RATE 73 ML/MIN (>89); GLUCOSE,RANDOM 103 MG/DL (74-106); MAGNESIUM 2.1 MG/DL (1.5-2.5); SODIUM (NA) 134 MEQ/L (136-145)
--- NOTE | 2017-07-11 11:48 | PD.PROCEDR ---
GI Procedure PROCEDURE PERFORMED Upper endoscopy with biopsy of the antrum and banding of esophageal varices INDICATION FOR PROCEDURE Anemia Melena PROCEDURE: The procedure, risks and benefits were discussed with Mr. Connelly and informed consent was obtained. Anesthesia sedated him with Diprivan. He was placed in the left lateral decubitus position. EGD: The Pentax videoscope was introduced through the oropharynx and advanced to the second portion of the duodenum under direct visualization. Retroflexion was performed in the stomach. Biopsy was done from the antrum, scope withdrawal back to the esophagus for bands were placed in the distal esophagus for large grade 3 esophageal varices then the scope brought back without any immediate indication ESTIMATED BLOOD LOSS: None SPECIMENS REMOVED: Antrum COMPLICATIONS: None IMPRESSION: Large grade esophageal varices 2 columns, for bands were placed Gastritis and gastropathy mild biopsy from the antrum No sign of active bleeding No sign of old bleeding PLAN: Nothing by mouth for 6 hours then clear liquid advance as tolerated tomorrow if there are no sign of bleeding Monitor H&H with packed RBC as needed Beta ric when patient able to take that to reduce portal hypertension Consider upper endoscopy with ending in 6 weeks Follow-up biopsy Continue diuretics No alcohol Elena Mahoney MD Jul 11, 2017 11:48
--- NOTE | 2017-07-11 11:56 | HHI.GIFU ---
Subjective Remarks Patient laying in bed comfortably, deny any active bleeding or black stool, seems to be comfortable, still have ascites Objective Vitals I&O Vital Signs Date Time Temp Pulse Resp B/P (MAP) Pulse Ox O2 Delivery O2 Flow Rate FiO2 07/11/17 08:00 98.4 70 17 99/59 (72) 97 07/11/17 06:18 97.5 18 116/65 98 07/11/17 03:37 105/70 07/11/17 02:40 97.3 75 20 87/48 97 07/11/17 02:09 99.2 73 20 110/69 98 07/11/17 00:16 97.4 73 18 119/71 (87) 98 07/10/17 21:30 99.2 77 20 127/74 92 07/10/17 20:38 97.9 75 18 124/73 99 07/10/17 20:00 97.9 75 18 124/73 (90) 99 07/10/17 16:00 97.3 67 15 97/54 (68) 100 07/10/17 12:00 98.3 67 16 101/60 (74) 100 I/O 07/10/17 07/10/17 07/10/17 07/11/17 07/11/17 07/11/17 07:00 15:00 23:00 07:00 15:00 23:00 Intake Total 100 ml 735 ml 815 ml Output Total 1000 ml 1000 ml Balance 100 ml -265 ml -185 ml Intake Oral 720 ml IV Total 100 ml Packed Cells 800 ml Blood Product IV Normal Saline Flush 15 ml 15 ml Output Urine Total 1000 ml 1000 ml # Bowel Movements 1 6 Laboratory Laboratory Tests Test 07/10/17 16:00 07/11/17 07:58 Prothrombin Time 15.0 14.3 Prothromb Time International Ratio 1.5 1.4 White Blood Count 11.6 Red Blood Count 2.86 Hemoglobin 9.2 Hematocrit 26.2 Mean Corpuscular Volume 91.6 Mean Corpuscular Hemoglobin 32.1 Mean Corpuscular Hemoglobin Concent 35.0 Red Cell Distribution Width 17.2 Platelet Count 132 Mean Platelet Volume 9.0 Neutrophils (%) (Auto) 84.5 Lymphocytes (%) (Auto) 7.2 Monocytes (%) (Auto) 5.0 Eosinophils (%) (Auto) 2.6 Basophils (%) (Auto) 0.7 Neutrophils # (Auto) 9.8 Lymphocytes # (Auto) 0.8 Monocytes # (Auto) 0.6 Eosinophils # (Auto) 0.3 Basophils # (Auto) 0.1 CBC Comment DIFF FINAL Differential Comment Blood Urea Nitrogen 20 Creatinine 1.25 Random Glucose 103 Total Protein 6.7 Albumin 3.4 Calcium Level 8.7 Phosphorus Level 2.9 Magnesium Level 2.1 Alkaline Phosphatase 208 Aspartate Amino Transf (AST/SGOT) 171 Alanine Aminotransferase (ALT/SGPT) 78 Total Bilirubin 4.3 Sodium Level 134 Potassium Level 4.9 Chloride Level 105 Carbon Dioxide Level 22.4 Anion Gap 7 Estimat Glomerular Filtration Rate 73 Ammonia 29 Date/Time Source Procedure Growth Status 06/30/17 23:00 Blood Peripheral Aerobic Blood Culture - Final NO GROWTH IN 5 DAYS Complete 06/30/17 23:00 Blood Peripheral Anaerobic Blood Culture - Final NO GROWTH IN 5 DAYS Complete 07/02/17 12:45 Fluid Peritoneal Fluid Gram Stain - Final Complete 07/02/17 12:45 Fluid Peritoneal Fluid Body Fluid Culture - Final NO GROWTH IN 72 HRS.--AEROBICALLY OR ... Complete 07/10/17 17:00 Stool Stool Stool Occult Blood (JEREL) - Final HEMOCCULT NEGATIVE Complete Physical Exam HEENT: Normocephalic; atraumatic; CHEST: CTA CARDIAC: RRR ABDOMEN: Distended with ascites soft, minimal mild tenderness on light palpation , bowel sounds active EXTREMITIES: No clubbing, cyanosis, or edema. SKIN: calvin, dty no rash; no jaundice. WET FINISHER: No focal deficits; alert and oriented times 2 Assessment and Plan Assessment: (1) DM (diabetes mellitus) ICD Codes: E11.9 - Type 2 diabetes mellitus without complications Status: Chronic (2) Ascites ICD Codes: R18.8 - Other ascites (3) Arrhythmia ICD Codes: I49.9 - Arrhythmia Status: Acute Plan 07/11/2017 patient is doing reasonably well, cardiac echo was reviewed seems to be significant improvement since last echo, patient without complaint, no sign of active bleeding at this time, hemoglobin is up to 9 point, patient had an upper endoscopy today with banding IMPRESSION: Large grade esophageal varices 2 columns, for bands were placed Gastritis and gastropathy mild biopsy from the antrum No sign of active bleeding No sign of old bleeding PLAN: Nothing by mouth for 6 hours then clear liquid advance as tolerated tomorrow if there are no sign of bleeding Monitor H&H with packed RBC as needed Beta ric when patient able to take that to reduce portal hypertension Consider upper endoscopy with ending in 6 weeks Follow-up biopsy Continue diuretics No alcohol Elena Mahoney MD Jul 11, 2017 11:56
[2017-07-11] MEDS ORDERED: DO NOT ADM ANY ANTICOAGULANT DRUGS PRN (13:30)
[2017-07-11 16:17] LABS: HEMOGLOBIN A1C 5.9 % (4.3-6.0)
[2017-07-11] MEDS: PANTOPRAZOLE INJ 80 MG in SODIUM CHLORIDE 0.9% INJ 100 ML IV SCH (17:11)
--- NOTE | 2017-07-11 23:14 | HHI.PR ---
Subjective Remarks Patient is more alert States feels much better and that edema is improving. afebrile Objective Vitals Vital Signs Date Time Temp Pulse Resp B/P (MAP) Pulse Ox O2 Delivery O2 Flow Rate FiO2 07/11/17 20:00 95.5 68 18 117/75 (89) 100 07/11/17 18:16 99 21 07/11/17 16:00 96.7 67 17 138/81 (100) 100 07/11/17 12:30 96.4 69 17 114/71 (85) 100 07/11/17 11:55 98.0 64 18 104/65 (78) 100 Room Air 07/11/17 08:00 98.4 70 17 99/59 (72) 97 07/11/17 06:18 97.5 18 116/65 98 07/11/17 03:37 105/70 07/11/17 02:40 97.3 75 20 87/48 97 07/11/17 02:09 99.2 73 20 110/69 98 07/11/17 00:16 97.4 73 18 119/71 (87) 98 I/O 07/11/17 07/11/17 07/11/17 07/12/17 07/12/17 07/12/17 07:00 15:00 23:00 07:00 15:00 23:00 Intake Total 815 ml 100 ml 1040 ml Output Total 1000 ml 900 ml Balance -185 ml 100 ml 140 ml Intake Oral 740 ml IV Total 100 ml 100 ml Packed Cells 800 ml Blood Product IV Normal Saline Flush 15 ml Other 200 ml Output Urine Total 1000 ml 900 ml # Voids 2 # Bowel Movements 6 1 Result Diagram: 07/11/17 0758 07/11/17 0758 Imaging Last 72 hours Impressions Cyst Biopsy Asp-Paracentesis US 07/09/17 0000 Signed Impressions: Service Date/Time: Sunday, July 09, 2017 12:27 - CONCLUSION: Uncomplicated ultrasound guided paracentesis. Valdo Morales MD Objective Remarks AAOx3, nad PERRLA Clear lungs BL Abomen soft, mildly distended, soft, mildly tender to palpation of RUQ region. +1 edema in BL lower extremities Procedures Paracentesis 07/02/2017 Medications and IVs Current Medications Medications (Trade) Dose Ordered Sig/Maxime Route Start Time Stop Time Status Last Admin (NS Flush) 2 ml UNSCH PRN IV FLUSH 06/30/17 22:45 07/06/17 02:18 (NS Flush) 2 ml BID IV FLUSH 07/01/17 09:00 07/11/17 19:32 (Narcan Inj) 0.4 mg UNSCH PRN IV PUSH 06/30/17 22:45 (Savaysa) 60 mg Q24H PO 07/01/17 06:00 Future Hold 07/06/17 05:48 (KCl) 20 meq DAILY PO 07/01/17 09:00 07/11/17 08:37 (Theragran M Tab) 1 tab DAILY PO 07/01/17 09:00 07/11/17 08:39 (Romazicon Inj) 0.2 mg Q1M PRN IV PUSH 07/03/17 11:30 (Ativan) 1 mg Q4H PRN PO 07/03/17 11:30 07/05/17 03:40 (Ativan Inj) 1 mg Q4H PRN IV PUSH 07/03/17 11:30 (Ativan) 2 mg Q2H PRN PO 07/03/17 11:30 (Ativan Inj) 2 mg Q2H PRN IV PUSH 07/03/17 11:30 07/06/17 02:18 (Ativan Inj) 2 mg Q1H PRN IV PUSH 07/03/17 11:30 (Ativan Inj) 2 mg Q15M PRN IV PUSH 07/03/17 11:30 (Vitamin B1) 100 mg DAILY PO 07/04/17 09:00 07/11/17 08:37 (Librium) 10 mg TID PRN PO 07/03/17 11:30 07/06/17 17:57 (D50w (Vial) Inj) 50 ml UNSCH PRN IV PUSH 07/03/17 17:15 07/04/17 09:21 (Glucagon Inj) 1 mg UNSCH PRN OTHER 07/03/17 17:15 (NovoLOG SUPPLEMENTAL SCALE) 1 ACHS SLIDING SCALE SQ 07/03/17 21:00 07/11/17 19:36 Albumin Human 100 ml @ 60 mls/hr Q12H IV 07/03/17 21:30 07/11/17 19:33 (Lopressor) 12.5 mg Q12HR PO 07/05/17 21:00 07/08/17 20:58 (Pill Splitter) 1 ea UNSCH PRN OTHER 07/05/17 12:45 (Cipro) 500 mg DAILY PO 07/07/17 09:00 07/11/17 08:37 (Roxicodone) 5 mg Q4H PRN PO 07/07/17 15:00 (Roxicodone) 10 mg Q6H PRN PO 07/07/17 15:00 (Aldactone) 50 mg DAILY PO 07/08/17 10:30 07/11/17 08:37 (Lasix Inj) 40 mg BID@ IV PUSH 07/09/17 18:00 07/11/17 17:03 Pantoprazole Sodium 80 mg/ Sodium Chloride 100 ml @ 10 mls/hr CONTINUOUS IV 07/10/17 15:00 07/11/17 17:11 (Lactulose Liq) 30 ml QID PO 07/10/17 13:00 07/11/17 19:32 Lactated Ringer's 1,000 ml @ 30 mls/hr Q24H PRN IV 07/11/17 23:45 07/14/17 23:44 (Betadine 5% Antisepsis Kit) 1 applic CONTRACT PROGRAMMER PRN EACH NARE 07/11/17 23:45 07/14/17 23:44 (Chlorhexidine 2% Cloth) 3 pack CONTRACT PROGRAMMER PRN TOPICAL 07/11/17 23:45 07/14/17 23:44 Miscellaneous Information ALL NURSING DEPARTME... UNSCH PRN .XX 07/11/17 13:30 07/12/17 13:29 A/P Problem List: (1) Ascites ICD Code: R18.8 - Other ascites (2) PAF (paroxysmal atrial fibrillation) ICD Code: I48.0 - Paroxysmal atrial fibrillation (3) Nonischemic cardiomyopathy ICD Code: I42.8 - Other cardiomyopathies (4) Hypoglycemia ICD Code: E16.2 - Hypoglycemia, unspecified Status: Acute (5) Bradycardia ICD Code: R00.1 - Bradycardia, unspecified (6) Positive LAWRENCE (antinuclear antibody) ICD Code: R76.8 - Other specified abnormal immunological findings in serum Status: Acute Assessment and Plan 56-year-old man with Portal hypertension Ascites Transaminitis Liver ultrasound does not show cirrhosis of the liver. Maybe secondary to portal hypertension. Status post ultrasound-guided paracentesis 07/02/17 with 5.3 L of fluid removed Continue with prophylaxis Rocephin for SBP so far cultures are negative. Will switch to PO Cipro. GI signed off, recommended outpatient follow up. - 07/07 Will increase Lasix to 40 mg po BID since patient has more edema and ascites. - 07/08 abdomen more distended. Will order an abdominal paracentesis. I will switch the patient from oral Lasix to IV Lasix. Start spironolactone - 07/10 status post abdominal paracentesis with drainage of 4900 cc of yellow fluid. Continue IV Lasix and spironolactone. It is unclear etiology of the transaminitis, hepatitis serology negative, liver ultrasound showed increased echogenicity of the liver with hepatofugal flow mild splenomegaly as well as diffuse ascitic fluid consistent with hepatocellular disease. Suspect cirrhosis of the liver given the patient also has an elevated INR and is developing hyperammonemia. Consult gastroenterology and follow-up recommendations. The patient may need a liver biopsy once stable. Epistaxis - Apply compression. - Will stop Aspirin. And hold Edoxaban. Once nose bleed resolves, we can restart Edoxaban. - 07/07 Epistaxis has stoped. However there is some blood observed on nares. continue to hold ASA and Edoxaban. - 07/09 Resume Edoxaban after Paracentesis. - 07/10 patient had a sudden drop in hematocrit and hemoglobin. Continue to hold anticoagulation. Epistaxis has resolved. Hyponatremia Most likely secondary to ascites. Sodium dropped from 126-122 after having a paracentesis. Asymptomatic. Continue with Lasix. Continue trend sodium. - 07/07 Sodium still low at 123, Will increase Lasix to 40 mg po bid. Continue to monitor sodium. I will also place patient on fluid restriction. - 07/08 Gaurav saline improved to 124. I will switch oral Lasix to IV Lasix. Continue to monitor sodium. Continue fluid restriction. - 07/09 Sodium trebding up. 128 today. Continue to monitor BMP. Continue IV Lasix, spironolactone and fluid restriction. - 07/10 hyponatremia continues to improve. Sodium 132 today. Continue diuretics. Symptomatic hypoglycemia On hypoglycemic protocol. Encourage oral intake. - 07/07 resolved. Blood sugars stable. Severe nonischemic cardiomyopathy History of AICD implant Per cardiology recs, we will start metoprolol and lisinopril. Continue IV Lasix and spironolactone. Paroxysmal atrial fibrillation Currently on Edoxaban 60 mg daily. Will hold it due to nose bleed. Start metoprolol 12.5mg BID. 07/07 heart rate controlled. Continue beta ric. Continue to hold blood thinner. History of alcohol abuse CIWA protocol and Librium when necessary On multivitamin, folate, thiamine. No evidence of alcohol withdrawal. Hyperkalemia - resolved. Continue to monitor BMP Diabetes type 2 Continue to hold oral hypoglycemic agent . NEY Upper review of medical records, patient spaces creatinine 1.2-1.1. Creatinine elevated at 1.33 however trending down from 1.41. Continue to monitor BUN/creatinine, continued to monitor I's and O's, avoid nephrotoxins. 07/08 Creatinine stable at 1.34. Continue to monitor BMP. 07/10 Creatinine slightly elevated up to 1.33. Cuagulopathy INR elevated at 1.4. sp Vitamin K. Continue to monitor PT/INR daily. 07/11 Continue oral Vitamin K. Monitor PT/INR. Anemia Normal MCV anemia. Iron studies obtained previously and possibly consistent with anemia of chronic disease. However the patient has had a sudden drop in hemoglobin down to 7.1 from 9.3. I will transfuse 2 units of packed red blood cells, check stool for Hemoccult and we'll consult gastroenterology for possible EGD and colonoscopy. Possibly dropping anemia secondary to GI bleed since patient is complaining of melanotic stools. start on Protonix drip. 07/11 Sp EGD with findings of esophageal varices with banding. Aside patient had gastropathy and gastritis. Continue PPI. Diet as per GI Hyperammonemia Patient noted to be slow on his answers. Ammonia level obtained and elevated at 36 1 on admission on 06/30/17 the patient's ammonia was 29. I will start the patient on lactulose. 07/11 Patient more awake, continue lactulose. Full code. Edoxaban on hold - plan to resume after Paracentesis. Discharge Planning Continue to monitor in the medical floor. Discharge pending improvement of hyponatremia and acute kidney injury. Karthik Wolf MD Jul 11, 2017 23:14
[2017-07-11] MEDS ORDERED: POVIDONE IODINE 5% (ANTISEPSIS KIT) 4 APPLICATIONS EACH NARE PRN (23:45)
[2017-07-11] MEDS ORDERED: CHLORHEXIDINE GLUCONATE 2 % 1 PACK (2 CLOTHS) TOPICAL PRN (23:45)
[2017-07-11] MEDS ORDERED: LACTATED RINGER'S 1000 ML IV PRN (23:45)
[2017-07-12] VITALS (8 sets, daily range): BP systolic 90–131; BP diastolic 55–85; PULSE 54–105; RESP 14–22; TEMP 96.5–98.4; O2SAT 96–100
[2017-07-12] MEDS: PANTOPRAZOLE INJ 80 MG in SODIUM CHLORIDE 0.9% INJ 100 ML IV SCH ×2 (04:48→16:16)
[2017-07-12 06:28] LABS: HEMATOCRIT 28.1 % (39.0-51.0); HEMOGLOBIN 9.7 GM/DL (13.0-17.0); MEAN CELL VOLUME 92.6 FL (80.0-100.0); MEAN CORPUSCULAR HEMOGLOBIN 31.9 PG (27.0-34.0); MEAN CORPUSCULAR HGB CONC 34.4 % (32.0-36.0); MEAN PLATELET VOLUME 8.7 FL (7.0-11.0); PLATELET COUNT 145 TH/MM3 (150-450); RED BLOOD COUNT 3.03 MIL/MM3 (4.50-5.90); RED CELL DISTRIBUTION WIDTH 17.7 % (11.6-17.2); WHITE BLOOD COUNT 11.2 TH/MM3 (4.0-11.0)
[2017-07-12 06:59] LABS: ALT (GPT) 81 U/L (12-78); AST (GOT) 168 U/L (15-37); BICARBONATE 22.2 MEQ/L (21.0-32.0); BLOOD UREA NITROGEN 24 MG/DL (7-18); CALCIUM 8.6 MG/DL (8.5-10.1); CHLORIDE 105 MEQ/L (98-107); CREATININE 1.43 MG/DL (0.60-1.30); GLOMERULAR FILTRATION RATE 62 ML/MIN (>89); GLUCOSE,RANDOM 123 MG/DL (74-106); SODIUM (NA) 137 MEQ/L (136-145)
[2017-07-12 07:00] LABS: INTERNATIONAL NORMALIZED RATIO 1.4 RATIO; PROTHROMBIN TIME - PATIENT 14.3 SEC (9.8-11.6)
[2017-07-12 07:01] LABS: ALKALINE PHOSPHATASE 195 U/L (45-117); TOTAL BILIRUBIN ADULT 4.7 MG/DL (0.2-1.0); TOTAL PROTEIN 7.5 GM/DL (6.4-8.2)
[2017-07-12] MEDS: INSULIN ASPART SUPPLEMENTAL SCALE SQ SCH ×4 (08:00→20:03)
[2017-07-12] MEDS: SODIUM CHLORIDE 0.9% FLUSH 10 ML FLUSH IV FLUSH SCH ×2 (09:00→20:03)
[2017-07-12] MEDS: LACTULOSE SYRUP 20 GM/30 ML CUP PO SCH ×4 (09:00→19:59)
[2017-07-12] MEDS: PHYTONADIONE 5 MG/SWFI 5 ML ORAL SYR PO SCH (09:00)
[2017-07-12] MEDS: MULTIVITAMINS/MINERALS THERAPEUTIC TAB PO SCH (09:00)
[2017-07-12] MEDS: SPIRONOLACTONE 50 MG TAB PO SCH (10:09)
[2017-07-12] MEDS: POTASSIUM CHLORIDE 20 MEQ CONTROLLED RELEASE TAB PO SCH (10:10)
[2017-07-12] MEDS: THIAMINE HCL 100 MG TAB PO SCH (10:10)
[2017-07-12] MEDS: CIPROFLOXACIN 500 MG TAB PO SCH (10:10)
[2017-07-12] MEDS: METOPROLOL TARTRATE 25 MG TAB PO SCH (10:11)
[2017-07-12] MEDS: ALBUMIN 25% INJ 100 ML IV SCH ×2 (11:06→20:00)
--- NOTE | 2017-07-12 11:12 | HHI.PR ---
Subjective Remarks Patient feels hungry and wants to eat. Is asking for increase diet to be advanced. The patient is very happy because edema has completely resolved. Patient denies chest pain, shortness of breath, abdominal pain, nausea or vomiting. Objective Vitals Vital Signs Date Time Temp Pulse Resp B/P (MAP) Pulse Ox O2 Delivery O2 Flow Rate FiO2 07/12/17 09:46 100 07/12/17 08:00 97.8 69 19 131/85 (100) 100 07/12/17 04:00 96.5 68 18 118/80 (93) 100 07/12/17 00:00 96.5 62 18 118/79 (92) 100 07/11/17 20:00 95.5 68 18 117/75 (89) 100 07/11/17 18:16 99 21 07/11/17 16:00 96.7 67 17 138/81 (100) 100 07/11/17 12:30 96.4 69 17 114/71 (85) 100 07/11/17 11:55 98.0 64 18 104/65 (78) 100 Room Air I/O 07/11/17 07/11/17 07/11/17 07/12/17 07/12/17 07/12/17 07:00 15:00 23:00 07:00 15:00 23:00 Intake Total 815 ml 100 ml 1140 ml 100 ml 100 ml Output Total 1000 ml 900 ml Balance -185 ml 100 ml 240 ml 100 ml 100 ml Intake Oral 740 ml 100 ml IV Total 100 ml 200 ml 100 ml Packed Cells 800 ml Blood Product IV Normal Saline Flush 15 ml Other 200 ml Output Urine Total 1000 ml 900 ml # Voids 2 # Bowel Movements 6 1 Result Diagram: 07/12/17 0609 07/12/17 0609 Imaging Last Impressions Cyst Biopsy Asp-Paracentesis US 07/09/17 0000 Signed Impressions: Service Date/Time: Sunday, July 09, 2017 12:27 - CONCLUSION: Uncomplicated ultrasound guided paracentesis. Valdo Morales MD Liver Ultrasound 07/01/17 0000 Signed Impressions: Service Date/Time: Saturday, July 01, 2017 11:10 - CONCLUSION: Increased echogenicity of the liver with hepatofugal flow in mild splenomegaly as well as diffuse ascitic fluid is consistent with hepatocellular disease. Gallbladder and biliary tree as well as pancreas are negative Mark Stone, MD Head CT 06/30/17 1828 Signed Impressions: Service Date/Time: June 20:04 - CONCLUSION: 1. Area of low attenuation change involving the left frontal lobe felt to be encephalomalacia in nature. I cannot completely exclude a subacute infarction. MRI could further differentiate. Deandre Villegas Jr., MD Chest X-Ray 06/30/17 0000 Signed Impressions: Service Date/Time: June 19:38 - CONCLUSION: Hypoinflation with bibasilar atelectasis. Deandre Villegas Jr., MD Objective Remarks AAOx3, nad PERRLA Clear lungs BL Abomen soft, mildly distended, soft, mildly tender to palpation of RUQ region. +1 edema in BL lower extremities Procedures Paracentesis 07/02/2017 Medications and IVs Current Medications Medications (Trade) Dose Ordered Sig/Maxime Route Start Time Stop Time Status Last Admin (NS Flush) 2 ml UNSCH PRN IV FLUSH 06/30/17 22:45 07/06/17 02:18 (NS Flush) 2 ml BID IV FLUSH 07/01/17 09:00 07/12/17 09:00 (Narcan Inj) 0.4 mg UNSCH PRN IV PUSH 06/30/17 22:45 (Savaysa) 60 mg Q24H PO 07/01/17 06:00 Future Hold 07/06/17 05:48 (KCl) 20 meq DAILY PO 07/01/17 09:00 07/12/17 10:10 (Theragran M Tab) 1 tab DAILY PO 07/01/17 09:00 07/12/17 09:00 (Romazicon Inj) 0.2 mg Q1M PRN IV PUSH 07/03/17 11:30 (Ativan) 1 mg Q4H PRN PO 07/03/17 11:30 07/05/17 03:40 (Ativan Inj) 1 mg Q4H PRN IV PUSH 07/03/17 11:30 (Ativan) 2 mg Q2H PRN PO 07/03/17 11:30 (Ativan Inj) 2 mg Q2H PRN IV PUSH 07/03/17 11:30 07/06/17 02:18 (Ativan Inj) 2 mg Q1H PRN IV PUSH 07/03/17 11:30 (Ativan Inj) 2 mg Q15M PRN IV PUSH 07/03/17 11:30 (Vitamin B1) 100 mg DAILY PO 07/04/17 09:00 07/12/17 10:10 (Librium) 10 mg TID PRN PO 07/03/17 11:30 07/06/17 17:57 (D50w (Vial) Inj) 50 ml UNSCH PRN IV PUSH 07/03/17 17:15 07/04/17 09:21 (Glucagon Inj) 1 mg UNSCH PRN OTHER 07/03/17 17:15 (NovoLOG SUPPLEMENTAL SCALE) 1 ACHS SLIDING SCALE SQ 07/03/17 21:00 07/12/17 12:28 Albumin Human 100 ml @ 60 mls/hr Q12H IV 07/03/17 21:30 07/12/17 11:06 (Lopressor) 12.5 mg Q12HR PO 07/05/17 21:00 07/12/17 10:11 (Pill Splitter) 1 ea UNSCH PRN OTHER 07/05/17 12:45 (Cipro) 500 mg DAILY PO 07/07/17 09:00 07/12/17 10:10 (Roxicodone) 5 mg Q4H PRN PO 07/07/17 15:00 (Roxicodone) 10 mg Q6H PRN PO 07/07/17 15:00 (Aldactone) 50 mg DAILY PO 07/08/17 10:30 07/12/17 10:09 (Lactulose Liq) 30 ml QID PO 07/10/17 13:00 07/11/17 19:32 Lactated Ringer's 1,000 ml @ 30 mls/hr Q24H PRN IV 07/11/17 23:45 07/14/17 23:44 (Betadine 5% Antisepsis Kit) 1 applic SOCIAL WELFARE CLERK PRN EACH NARE 07/11/17 23:45 07/14/17 23:44 (Chlorhexidine 2% Cloth) 3 pack SOCIAL WELFARE CLERK PRN TOPICAL 07/11/17 23:45 07/14/17 23:44 Miscellaneous Information ALL NURSING DEPARTME... UNSCH PRN .XX 07/11/17 13:30 07/12/17 13:29 (Mephyton Liq) 5 mg DAILY PO 07/12/17 09:00 07/12/17 09:00 (Lasix) 40 mg DAILY PO 07/13/17 09:00 Pantoprazole Sodium 80 mg/ Sodium Chloride 100 ml @ 10 mls/hr Q10H IV 07/12/17 14:00 Urinary Catheter: No Vascular Central Line Catheter: No A/P Problem List: (1) Ascites ICD Code: R18.8 - Other ascites (2) PAF (paroxysmal atrial fibrillation) ICD Code: I48.0 - Paroxysmal atrial fibrillation (3) Nonischemic cardiomyopathy ICD Code: I42.8 - Other cardiomyopathies (4) Hypoglycemia ICD Code: E16.2 - Hypoglycemia, unspecified Status: Acute (5) Bradycardia ICD Code: R00.1 - Bradycardia, unspecified (6) Positive LAWRENCE (antinuclear antibody) ICD Code: R76.8 - Other specified abnormal immunological findings in serum Status: Acute Assessment and Plan 56-year-old man with Portal hypertension Ascites Transaminitis Liver ultrasound does not show cirrhosis of the liver. Maybe secondary to portal hypertension. Status post ultrasound-guided paracentesis 07/02/17 with 5.3 L of fluid removed Continue with prophylaxis Rocephin for SBP so far cultures are negative. Will switch to PO Cipro. GI signed off, recommended outpatient follow up. - 07/07 Will increase Lasix to 40 mg po BID since patient has more edema and ascites. - 07/08 abdomen more distended. Will order an abdominal paracentesis. I will switch the patient from oral Lasix to IV Lasix. Start spironolactone - 07/10 status post abdominal paracentesis with drainage of 4900 cc of yellow fluid. Continue IV Lasix and spironolactone. It is unclear etiology of the transaminitis, hepatitis serology negative, liver ultrasound showed increased echogenicity of the liver with hepatofugal flow mild splenomegaly as well as diffuse ascitic fluid consistent with hepatocellular disease. Suspect cirrhosis of the liver given the patient also has an elevated INR and is developing hyperammonemia. Consult gastroenterology and follow-up recommendations. The patient may need a liver biopsy once stable. 07/12 patient has history of alcohol abuse for several years. Transaminitis and liver disease likely related to alcohol abuse. I will start the patient on a nonselective beta ric for variceal disease seen on EGD. I will also continue Lasix, however will decrease dose to 40 mg by mouth daily and continue spironolactone as well as vitamin K. Epistaxis - Apply compression. - Will stop Aspirin. And hold Edoxaban. Once nose bleed resolves, we can restart Edoxaban. - 07/07 Epistaxis has stoped. However there is some blood observed on nares. continue to hold ASA and Edoxaban. - 07/09 Resume Edoxaban after Paracentesis. - 07/10 patient had a sudden drop in hematocrit and hemoglobin. Continue to hold anticoagulation. Epistaxis has resolved. Hyponatremia Most likely secondary to ascites. Sodium dropped from 126-122 after having a paracentesis. Asymptomatic. Continue with Lasix. Continue trend sodium. - 07/07 Sodium still low at 123, Will increase Lasix to 40 mg po bid. Continue to monitor sodium. I will also place patient on fluid restriction. - 07/08 Gaurav saline improved to 124. I will switch oral Lasix to IV Lasix. Continue to monitor sodium. Continue fluid restriction. - 07/09 Sodium trebding up. 128 today. Continue to monitor BMP. Continue IV Lasix, spironolactone and fluid restriction. - 07/10 hyponatremia continues to improve. Sodium 132 today. Continue diuretics. - 07/12 proximal resolved. Sodium 137. DC IV Lasix and start on oral Lasix 40 mg by mouth daily. Symptomatic hypoglycemia On hypoglycemic protocol. Encourage oral intake. - 07/07 resolved. Blood sugars stable. Severe nonischemic cardiomyopathy History of AICD implant Per cardiology recs, we will start metoprolol and lisinopril. Discontinue IV Lasix, start oral Lasix and continue spironolactone. Paroxysmal atrial fibrillation Currently on Edoxaban 60 mg daily. Will hold it due to nose bleed. 07/07 heart rate controlled. Continue beta ric. Continue to hold blood thinner. 07/02 Will DC metoprolol tartrate and start propanolol for treatment of paroxysmal atrial fibrillation and Varices. History of alcohol abuse CIWA protocol and Librium when necessary On multivitamin, folate, thiamine. No evidence of alcohol withdrawal. Hyperkalemia - resolved. Continue to monitor BMP Diabetes type 2 Oral hypoglycemic agents held on admission. I will resume. . NEY Upper review of medical records, patient spaces creatinine 1.2-1.1. Creatinine elevated at 1.33 however trending down from 1.41. Continue to monitor BUN/creatinine, continued to monitor I's and O's, avoid nephrotoxins. 07/08 Creatinine stable at 1.34. Continue to monitor BMP. 07/12 creatinine slightly elevated at 1.43. Likely due to diuresis. I will continue IV Lasix and start on oral Lasix. Cuagulopathy INR elevated at 1.4. sp Vitamin K. Continue to monitor PT/INR daily. 07/11 Continue oral Vitamin K. Monitor PT/INR. Anemia Normal MCV anemia. Iron studies obtained previously and possibly consistent with anemia of chronic disease. However the patient has had a sudden drop in hemoglobin down to 7.1 from 9.3. I will transfuse 2 units of packed red blood cells, check stool for Hemoccult and we'll consult gastroenterology for possible EGD and colonoscopy. Possibly dropping anemia secondary to GI bleed since patient is complaining of melanotic stools. start on Protonix drip. 07/11 Sp EGD with findings of esophageal varices with banding. Aside patient had gastropathy and gastritis. Continue PPI. Diet as per GI Hyperammonemia Patient noted to be slow on his answers. Ammonia level obtained and elevated at 36 1 on admission on 06/30/17 the patient's ammonia was 29. I will start the patient on lactulose. Patient more awake, continue lactulose. Full code. Edoxaban on hold - plan to resume after Paracentesis. Discharge Planning Continue to monitor in the medical floor. Discharge pending improvement of hyponatremia and acute kidney injury. Karthik Wolf MD Jul 12, 2017 11:12
--- NOTE | 2017-07-12 12:18 | HHI.GIFU ---
Subjective Remarks Pt resting in bed, in good spirits. Tolerating clears. No GI complaints, no bleeding. "I promise no more beer." (Paz Lynn) Objective Vitals I&O Vital Signs Date Time Temp Pulse Resp B/P (MAP) Pulse Ox O2 Delivery O2 Flow Rate FiO2 07/12/17 09:46 100 07/12/17 08:00 97.8 69 19 131/85 (100) 100 07/12/17 04:00 96.5 68 18 118/80 (93) 100 07/12/17 00:00 96.5 62 18 118/79 (92) 100 07/11/17 20:00 95.5 68 18 117/75 (89) 100 07/11/17 18:16 99 21 07/11/17 16:00 96.7 67 17 138/81 (100) 100 07/11/17 12:30 96.4 69 17 114/71 (85) 100 I/O 07/11/17 07/11/17 07/11/17 07/12/17 07/12/17 07/12/17 07:00 15:00 23:00 07:00 15:00 23:00 Intake Total 815 ml 100 ml 1140 ml 100 ml 100 ml Output Total 1000 ml 900 ml Balance -185 ml 100 ml 240 ml 100 ml 100 ml Intake Oral 740 ml 100 ml IV Total 100 ml 200 ml 100 ml Packed Cells 800 ml Blood Product IV Normal Saline Flush 15 ml Other 200 ml Output Urine Total 1000 ml 900 ml # Voids 2 # Bowel Movements 6 1 Laboratory Laboratory Tests Test 07/12/17 06:09 White Blood Count 11.2 Red Blood Count 3.03 Hemoglobin 9.7 Hematocrit 28.1 Mean Corpuscular Volume 92.6 Mean Corpuscular Hemoglobin 31.9 Mean Corpuscular Hemoglobin Concent 34.4 Red Cell Distribution Width 17.7 Platelet Count 145 Mean Platelet Volume 8.7 Prothrombin Time 14.3 Prothromb Time International Ratio 1.4 Blood Urea Nitrogen 24 Creatinine 1.43 Random Glucose 123 Total Protein 7.5 Albumin 4.0 Calcium Level 8.6 Alkaline Phosphatase 195 Aspartate Amino Transf (AST/SGOT) 168 Alanine Aminotransferase (ALT/SGPT) 81 Total Bilirubin 4.7 Sodium Level 137 Potassium Level 4.1 Chloride Level 105 Carbon Dioxide Level 22.2 Anion Gap 10 Estimat Glomerular Filtration Rate 62 Ammonia 24 Date/Time Source Procedure Growth Status 06/30/17 23:00 Blood Peripheral Aerobic Blood Culture - Final NO GROWTH IN 5 DAYS Complete 06/30/17 23:00 Blood Peripheral Anaerobic Blood Culture - Final NO GROWTH IN 5 DAYS Complete 07/02/17 12:45 Fluid Peritoneal Fluid Gram Stain - Final Complete 07/02/17 12:45 Fluid Peritoneal Fluid Body Fluid Culture - Final NO GROWTH IN 72 HRS.--AEROBICALLY OR ... Complete 07/10/17 17:00 Stool Stool Stool Occult Blood (JEREL) - Final HEMOCCULT NEGATIVE Complete Imaging Last Impressions Cyst Biopsy Asp-Paracentesis US 07/09/17 0000 Signed Impressions: Service Date/Time: Sunday, July 09, 2017 12:27 - CONCLUSION: Uncomplicated ultrasound guided paracentesis. Valdo Morales MD Liver Ultrasound 07/01/17 0000 Signed Impressions: Service Date/Time: Saturday, July 01, 2017 11:10 - CONCLUSION: Increased echogenicity of the liver with hepatofugal flow in mild splenomegaly as well as diffuse ascitic fluid is consistent with hepatocellular disease. Gallbladder and biliary tree as well as pancreas are negative Mark Mosher MD Head CT 06/30/17 1828 Signed Impressions: Service Date/Time: June 20:04 - CONCLUSION: 1. Area of low attenuation change involving the left frontal lobe felt to be encephalomalacia in nature. I cannot completely exclude a subacute infarction. MRI could further differentiate. Deandre Villegas Jr., MD Chest X-Ray 06/30/17 0000 Signed Impressions: Service Date/Time: June 19:38 - CONCLUSION: Hypoinflation with bibasilar atelectasis. Deandre Villegas Jr., MD Physical Exam HEENT: Normocephalic; atraumatic; CHEST: CTA CARDIAC: RRR ABDOMEN: mildly distended. soft, nontender, bowel sounds active EXTREMITIES: No clubbing, cyanosis, or edema. SKIN: calvin, dty no rash; no jaundice. 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 deficits; alert and oriented (Paz Lynn) Assessment and Plan Assessment: (1) DM (diabetes mellitus) ICD Codes: E11.9 - Type 2 diabetes mellitus without complications Status: Chronic (2) Ascites ICD Codes: R18.8 - Other ascites (3) Arrhythmia ICD Codes: I49.9 - Arrhythmia Status: Acute Plan 07/11/2017 patient is doing reasonably well, cardiac echo was reviewed seems to be significant improvement since last echo, patient without complaint, no sign of active bleeding at this time, hemoglobin is up to 9 point, patient had an upper endoscopy today with banding IMPRESSION: Large grade esophageal varices 2 columns, for bands were placed, Gastritis and gastropathy mild biopsy from the antrum No sign of active bleeding, No sign of old bleeding 07/12/17 tolerating clears. doing well. no bleeding. DF < 32. HH stable. mild increase tbil. PLAN: - advance diet - Monitor H&H - transfuse with packed RBC as needed - Beta ric when patient able to take that to reduce portal hypertension - endoscopy with banding in 6 weeks - Follow-up biopsy - Continue diuretics - ETOH cessation - f/u with GI as outpt (Paz Lynn) Plan Patient was seen and examined, agree with above-noted, no sign of active bleeding, overall still guarded prognosis, there is a chance of bleeding especially with the coagulation especially after 4-5 days because that's when the varices slough from the banding and can cause bleeding, advance to soft diet (Elena Mahoney MD) Paz Lynn Jul 12, 2017 12:18 Elena Mahoney MD Jul 12, 2017 19:19
[2017-07-12] MEDS: PROPRANOLOL HCL 10 MG TAB PO SCH ×2 (14:00→19:59)
[2017-07-12] MEDS ORDERED: ALUMINUM/MAGNESIUM/SIMETH 30 ML CUP PO ONE (14:45)
[2017-07-12] MEDS ORDERED: ALUMINUM/MAGNESIUM/SIMETH 30 ML CUP PO PRN (14:45)
[2017-07-12 15:56] LABS: TROPONIN I 0.02 NG/ML (0.02-0.05)
[2017-07-12 21:49] LABS: TROPONIN I 0.02 NG/ML (0.02-0.05)
[2017-07-13] VITALS: BP 110/64; PULSE 54; RESP 20; TEMP 97.9; O2SAT 99
[2017-07-13] MEDS: PANTOPRAZOLE INJ 80 MG in SODIUM CHLORIDE 0.9% INJ 100 ML IV SCH ×2 (00:04→10:00)
[2017-07-13 05:36] LABS: HEMATOCRIT 26.4 % (39.0-51.0); HEMOGLOBIN 9.4 GM/DL (13.0-17.0); MEAN CELL VOLUME 93.2 FL (80.0-100.0); MEAN CORPUSCULAR HGB CONC 35.4 % (32.0-36.0); MEAN PLATELET VOLUME 8.6 FL (7.0-11.0); PLATELET COUNT 122 TH/MM3 (150-450); RED BLOOD COUNT 2.84 MIL/MM3 (4.50-5.90); RED CELL DISTRIBUTION WIDTH 17.9 % (11.6-17.2); WHITE BLOOD COUNT 8.6 TH/MM3 (4.0-11.0)
[2017-07-13 05:44] LABS: INTERNATIONAL NORMALIZED RATIO 1.4 RATIO; PROTHROMBIN TIME - PATIENT 14.1 SEC (9.8-11.6)
[2017-07-13 05:49] LABS: BICARBONATE 22.3 MEQ/L (21.0-32.0); CALCIUM 8.1 MG/DL (8.5-10.1); CREATININE 1.12 MG/DL (0.60-1.30); MAGNESIUM 1.9 MG/DL (1.5-2.5); PHOSPHORUS 2.7 MG/DL (2.5-4.9)
[2017-07-13 05:53] LABS: TROPONIN I 0.03 NG/ML (0.02-0.05)
[2017-07-13] MEDS: PROPRANOLOL HCL 10 MG TAB PO SCH (06:00)
[2017-07-13 08:00] VITALS: BP 115/73; PULSE 60; RESP 18; TEMP 97.2; O2SAT 100
[2017-07-13] MEDS: INSULIN ASPART SUPPLEMENTAL SCALE SQ SCH ×2 (08:00→12:00)
[2017-07-13] MEDS: THIAMINE HCL 100 MG TAB PO SCH (08:55)
[2017-07-13] MEDS: POTASSIUM CHLORIDE 20 MEQ CONTROLLED RELEASE TAB PO SCH (08:56)
[2017-07-13] MEDS: CIPROFLOXACIN 500 MG TAB PO SCH (08:56)
[2017-07-13] MEDS: MULTIVITAMINS/MINERALS THERAPEUTIC TAB PO SCH (08:56)
[2017-07-13] MEDS: SPIRONOLACTONE 50 MG TAB PO SCH (08:57)
[2017-07-13] MEDS: LACTULOSE SYRUP 20 GM/30 ML CUP PO SCH ×2 (08:58→12:06)
[2017-07-13] MEDS: SODIUM CHLORIDE 0.9% FLUSH 10 ML FLUSH IV FLUSH SCH (08:58)
[2017-07-13] MEDS: PHYTONADIONE 5 MG/SWFI 5 ML ORAL SYR PO SCH (08:59)
[2017-07-13] MEDS: ALBUMIN 25% INJ 100 ML IV SCH (08:59)
[2017-07-13] MEDS ORDERED: FUROSEMIDE 40 MG TAB PO SCH (09:00)
--- NOTE | 2017-07-13 09:43 | EKG ---
Date Performed: 07/12/2017 Time Performed: 17:07:21 PTAGE: 56 years EKG: SINUS BRADYCARDIA MARKED LEFT AXIS DEVIATION ABNORMAL ECG Since the prior tracing, there suazo s been no significant change PREVIOUS TRACING : 07/01/2017 03.03 DOCTOR: Ck Guerra Interpretating Date/Time 07/13/2017 09:41:32
[2017-07-13 11:50] LABS: C3 SERUM 86 mg/dL (90-180); C4 SERUM 19 mg/dL (ADULTS: 16-47)
[2017-07-13] MEDS ORDERED: THIA100 PO (11:53)
[2017-07-13] MEDS ORDERED: PHYT10P PO (11:53)
[2017-07-13] MEDS ORDERED: EDOX1TAB5 PO (11:53)
[2017-07-13] MEDS ORDERED: POTA-163 PO (11:53)
[2017-07-13] MEDS ORDERED: PROP10TA6 PO (11:53)
[2017-07-13] MEDS ORDERED: ASPI81TA23 PO (11:53)
[2017-07-13] MEDS ORDERED: FURO40TA PO (11:53)
--- NOTE | 2017-07-13 11:56 | HHI.DCPOC ---
Discharge Care Plan Diagnosis: (1) Type II diabetes mellitus (2) Arrhythmia (3) Transaminitis (4) Elevated LFTs (5) TIA (transient ischemic attack) (6) Ascites (7) DM (diabetes mellitus) (8) Positive LAWRENCE (antinuclear antibody) (9) Coagulopathy (10) Epistaxis (11) Hyponatremia (12) ETOH abuse (13) Portal hypertension Goals to Promote Your Health * To prevent worsening of your condition and complications * To maintain your health at the optimal level Directions to Meet Your Goals Take your medications as prescribed Follow your dietary instruction Follow activity as directed Keep your appointments as scheduled Take your immunizations and boosters as scheduled If your symptoms worsen call your PCP, if no PCP go to Urgent Care Center or Emergency Room Smoking is Dangerous to Your Health. Avoid second hand smoke Call the 24-hour hour crisis hotline for domestic abuse at Karthik Wolf MD Jul 13, 2017 11:56
[2017-07-13 12:00] VITALS: BP 126/82; PULSE 51; RESP 16; TEMP 97.4; O2SAT 100
[2017-07-13] MEDS ORDERED: METF500T PO (12:03)
--- NOTE | 2017-07-13 12:08 | HHI.DS ---
Discharge Summary Admission Date Jun 30, 2017 at 22:51 Admitting Diagnosis Possible subacute infarct, hypoglycemia (1) Ascites ICD Code: R18.8 - Other ascites Diagnosis: Principal Status: Acute (2) PAF (paroxysmal atrial fibrillation) ICD Code: I48.0 - Paroxysmal atrial fibrillation Diagnosis: Principal Status: Chronic (3) Nonischemic cardiomyopathy ICD Code: I42.8 - Other cardiomyopathies Diagnosis: Secondary Status: Chronic (4) Hypoglycemia ICD Code: E16.2 - Hypoglycemia, unspecified Diagnosis: Principal Status: Resolved (5) Bradycardia ICD Code: R00.1 - Bradycardia, unspecified Diagnosis: Secondary Status: Acute (6) Positive LAWRENCE (antinuclear antibody) ICD Code: R76.8 - Other specified abnormal immunological findings in serum Diagnosis: Principal Status: Acute (7) Esophageal varices ICD Code: I85.00 - Esophageal varices without bleeding Diagnosis: Principal Status: Acute (8) Hyperammonemia ICD Code: E72.20 - Disorder of urea cycle metabolism, unspecified Diagnosis: Principal Status: Acute (9) Hyperkalemia ICD Code: E87.5 - Hyperkalemia Diagnosis: Principal Status: Resolved (10) ARF (acute renal failure) ICD Code: N17.9 - Acute kidney failure, unspecified Diagnosis: Principal Status: Resolved (11) Transaminitis ICD Code: R74.0 - Nonspecific elevation of levels of transaminase and lactic acid dehydrogenase [LDH] Diagnosis: Principal Status: Acute (12) Epistaxis ICD Code: R04.0 - Epistaxis Diagnosis: Principal Status: Resolved (13) Portal hypertension ICD Code: K76.6 - Portal hypertension Diagnosis: Principal Status: Acute (14) Essential hypertension ICD Code: I10 - Essential hypertension Diagnosis: Secondary Status: Chronic Procedures Paracentesis 07/02/2017 and 07/09 Brief History - From Admission History from patient, ER physician communication, and review of medical records. Patient reported that he came to the hospital because he has been swelling up in his abdomen since the discharge from hospital about 7 days ago. Prior records from hospital stay reviewed. Patient had more than 4 L of peritoneal fluid drained during that admission. He reports that it has accumulated all over again. Also reports of subjective fevers. Reports of constipation. Reports he had a lot of nausea,. Patient states he fell down today and he was lying in bed and next thing he knows, he was on the floor. his "baby momma" heard him and came to find him hit his head on floor ,but it is carpeted has been having fever stated "baby momma" is inspector automatic typewriter and she checked his temp no vomiting However reports of heavy spit- no black or red color no urinary symptoms- Because of above all this, his daughter finally drove him to the hospital. In the emergency room, patient was found to have blood sugar in the 30s. His temperature later also came down to 93 rectally. 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 the fall happened around 600p.m He takes glipizide at home. During his emergency room stay and can medical words, patient persistently was having low blood sugars in the 50s. He required several rounds of D50 IV push. He was also noted to have bradycardia with heart rates ranging from 48-50. CBC/BMP: 07/13/17 0511 07/13/17 0511 Significant Findings Laboratory Tests Test 07/10/17 16:00 07/11/17 07:58 07/12/17 06:09 07/12/17 15:29 Prothrombin Time 15.0 SEC (9.8-11.6) 14.3 SEC (9.8-11.6) 14.3 SEC (9.8-11.6) Complement C3 86 mg/dL (90-180) White Blood Count 11.6 TH/MM3 (4.0-11.0) 11.2 TH/MM3 (4.0-11.0) Red Blood Count 2.86 MIL/MM3 (4.50-5.90) 3.03 MIL/MM3 (4.50-5.90) Hemoglobin 9.2 GM/DL (13.0-17.0) 9.7 GM/DL (13.0-17.0) Hematocrit 26.2 % (39.0-51.0) 28.1 % (39.0-51.0) Platelet Count 132 TH/MM3 (150-450) 145 TH/MM3 (150-450) Neutrophils (%) (Auto) 84.5 % (16.0-70.0) Lymphocytes (%) (Auto) 7.2 % (9.0-44.0) Neutrophils # (Auto) 9.8 TH/MM3 (1.8-7.7) Lymphocytes # (Auto) 0.8 TH/MM3 (1.0-4.8) Blood Urea Nitrogen 20 MG/DL (7-18) 24 MG/DL (7-18) Alkaline Phosphatase 208 U/L (45-117) 195 U/L (45-117) Aspartate Amino Transf (AST/SGOT) 171 U/L (15-37) 168 U/L (15-37) Total Bilirubin 4.3 MG/DL (0.2-1.0) 4.7 MG/DL (0.2-1.0) Sodium Level 134 MEQ/L (136-145) Estimat Glomerular Filtration Rate 73 ML/MIN (>89) 62 ML/MIN (>89) Red Cell Distribution Width 17.7 % (11.6-17.2) Creatinine 1.43 MG/DL (0.60-1.30) Random Glucose 123 MG/DL (74-106) Alanine Aminotransferase (ALT/SGPT) 81 U/L (12-78) Test 07/12/17 20:25 07/13/17 05:11 Red Blood Count 2.84 MIL/MM3 (4.50-5.90) Hemoglobin 9.4 GM/DL (13.0-17.0) Hematocrit 26.4 % (39.0-51.0) Red Cell Distribution Width 17.9 % (11.6-17.2) Platelet Count 122 TH/MM3 (150-450) Prothrombin Time 14.1 SEC (9.8-11.6) Blood Urea Nitrogen 21 MG/DL (7-18) Calcium Level 8.1 MG/DL (8.5-10.1) Estimat Glomerular Filtration Rate 83 ML/MIN (>89) Imaging Last Impressions Cyst Biopsy Asp-Paracentesis US 07/09/17 0000 Signed Impressions: Service Date/Time: Sunday, July 09, 2017 12:27 - CONCLUSION: Uncomplicated ultrasound guided paracentesis. Valdo Morales MD Liver Ultrasound 07/01/17 0000 Signed Impressions: Service Date/Time: Saturday, July 01, 2017 11:10 - CONCLUSION: Increased echogenicity of the liver with hepatofugal flow in mild splenomegaly as well as diffuse ascitic fluid is consistent with hepatocellular disease. Gallbladder and biliary tree as well as pancreas are negative Mark Mosher MD Head CT 06/30/17 1828 Signed Impressions: Service Date/Time: June 20:04 - CONCLUSION: 1. Area of low attenuation change involving the left frontal lobe felt to be encephalomalacia in nature. I cannot completely exclude a subacute infarction. MRI could further differentiate. Deandre Villegas Jr., MD Chest X-Ray 06/30/17 0000 Signed Impressions: Service Date/Time: June 19:38 - CONCLUSION: Hypoinflation with bibasilar atelectasis. Deandre Villegas Jr., MD PE at Discharge AAOx3, nad PERRLA Clear lungs BL [place] soft, mildly distended, soft, mildly tender to palpation of RUQ region. +1 edema in BL lower extremities Pt update on day of discharge Patient states that he feels great. Edema and leg pain have resolved. Discussed the case with Dr. Wheeler from gastroenterology who recommended starting anticoagulation one week after discharge given that the patient underwent esophageal varices banding and is a very high risk for bleeding at this time. I discussed this with the patient and advised that. Experiences blood per rectum, dark stools or fevers then should immediately go to the nearest emergency department. Pt Condition on Discharge: Stable Discharge Disposition: Discharge Home Discharge Time: > 30 minutes Discharge Instructions DIET: Follow Instructions for: Diabetic Diet, Low Sodium Diet Activities you can perform: Regular-No Restrictions Activities to Avoid: Prolonged Standing, Strenuous Activity Follow up Referrals: Gastroenterology - 2 Weeks PCP Follow-up - 1 Week New Medications: Metformin (Metformin) 500 Mg Tab 500 MG PO BIDPC for Blood Sugar Management, #60 TAB 0 Refills Edoxaban (Savaysa) 60 Mg Tab 60 MG PO Q24H for Blood Clot Prevention, #30 TAB Resume takin on july 20, 2017 Furosemide (Furosemide) 40 Mg Tab 40 MG PO DAILY for liver disease/fluid retention, #30 TAB Phytonadione Inj (Vitamin K1 Inj) 10 Mg/Ml Inj 5 MG PO DAILY for liver disease, #30 INJECTION Propranolol (Propranolol) 10 Mg Tab 10 MG PO Q8HR for afib - varices, #30 TAB Thiamine HCl (Gnp Vitamin B-1) 100 Mg Tab 100 MG PO DAILY for Alcohol Detox, #30 TAB Changed Medications: Aspirin DR (Aspirin EC) 81 Mg Tabdr 81 MG PO DAILY for Blood Clot Prevention for 90 Days, TAB (Medication details modified) start on july 20 Continued Medications: Metoprolol Tartrate (Metoprolol Tartrate) 25 Mg Tab 12.5 MG PO Q12HR for Blood Pressure Management, #60 TAB 3 Refills Multiple Vitamins W/ Minerals (Strovite One) 1 Tab Tab 1 TAB PO DAILY, #30 BOTTLE 3 Refills Potassium Chloride ER (Potassium Chloride ER) 20 Meq Tab 20 MEQ PO DAILY for Electrolyte Replacement, #30 TAB 2 Refills (This prescription has been renewed) Discontinued Medications: Edoxaban (Savaysa) 60 Mg Tab 60 MG PO Q24H for Blood Clot Prevention, #30 TAB 1 Refill Glipizide (Glipizide) 5 Mg Tab 5 MG PO DAILYAC for Blood Sugar Management, #30 TAB 0 Refills Take 30 minutes before a meal Karthik Wolf MD Jul 13, 2017 12:08
--- NOTE | 2017-07-13 16:26 | HHI.GIFU ---
Subjective Remarks Patient walking in the room, deny any problem at this time, ready to go home, he denies any GI bleed Objective Vitals I&O Vital Signs Date Time Temp Pulse Resp B/P (MAP) Pulse Ox O2 Delivery O2 Flow Rate FiO2 07/13/17 12:00 97.4 51 16 126/82 (97) 100 07/13/17 08:00 97.2 60 18 115/73 (87) 100 07/13/17 04:40 20 07/13/17 00:00 97.9 54 20 110/64 (79) 99 07/12/17 23:00 18 07/12/17 20:00 98.3 60 22 109/69 (82) 100 I/O 07/12/17 07/12/17 07/12/17 07/13/17 07/13/17 07/13/17 07:00 15:00 23:00 07:00 15:00 23:00 Intake Total 100 ml 100 ml 850 ml 360 ml Output Total 750 ml Balance 100 ml 100 ml 100 ml 360 ml Intake Oral 100 ml 850 ml 360 ml IV Total 100 ml Output Urine Total 750 ml # Voids 3 # Bowel Movements 0 1 Laboratory Laboratory Tests Test 07/12/17 20:25 07/13/17 05:11 Total Creatine Kinase 68 59 Troponin I 0.02 0.03 White Blood Count 8.6 Red Blood Count 2.84 Hemoglobin 9.4 Hematocrit 26.4 Mean Corpuscular Volume 93.2 Mean Corpuscular Hemoglobin 33.0 Mean Corpuscular Hemoglobin Concent 35.4 Red Cell Distribution Width 17.9 Platelet Count 122 Mean Platelet Volume 8.6 Prothrombin Time 14.1 Prothromb Time International Ratio 1.4 Blood Urea Nitrogen 21 Creatinine 1.12 Random Glucose 82 Calcium Level 8.1 Phosphorus Level 2.7 Magnesium Level 1.9 Sodium Level 137 Potassium Level 4.6 Chloride Level 107 Carbon Dioxide Level 22.3 Anion Gap 8 Estimat Glomerular Filtration Rate 83 Date/Time Source Procedure Growth Status 06/30/17 23:00 Blood Peripheral Aerobic Blood Culture - Final NO GROWTH IN 5 DAYS Complete 06/30/17 23:00 Blood Peripheral Anaerobic Blood Culture - Final NO GROWTH IN 5 DAYS Complete 07/02/17 12:45 Fluid Peritoneal Fluid Gram Stain - Final Complete 07/02/17 12:45 Fluid Peritoneal Fluid Body Fluid Culture - Final NO GROWTH IN 72 HRS.--AEROBICALLY OR ... Complete 07/10/17 17:00 Stool Stool Stool Occult Blood (JEREL) - Final HEMOCCULT NEGATIVE Complete Physical Exam HEENT: Normocephalic; atraumatic; CHEST: CTA CARDIAC: RRR ABDOMEN: mildly distended. soft, nontender, bowel sounds active EXTREMITIES: No clubbing, cyanosis, or edema. SKIN: calvin, dty no rash; no jaundice. 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 Assessment and Plan Assessment: (1) DM (diabetes mellitus) ICD Codes: E11.9 - Type 2 diabetes mellitus without complications Status: Chronic (2) Ascites ICD Codes: R18.8 - Other ascites Status: Acute (3) Arrhythmia ICD Codes: I49.9 - Arrhythmia Status: Acute Plan Patient was seen and examined, doing well no active bleeding hemoglobin stable discussion with him about complete cessation of alcohol He will need outpatient follow-up with repeat EGD possible banding I discussed with his primary team that he can be restarted on anticoagulation in few days Problem Qualifiers (1) DM (diabetes mellitus): Qualified Codes: E11.9 - Type 2 diabetes mellitus without complications (2) Ascites: Qualified Codes: K70.11 - Alcoholic hepatitis with ascites Elena Mahoney MD Jul 13, 2017 16:26
[2017-07-14 03:50] LABS: ACTIN AB IGG <20 U; RHEUMATOID FACTOR 4 IU/mL (<14)
[2017-07-14 07:52] LABS: DNA ABS DS CRITHIDIA IFA <1 IU/mL; RIBOSOMAL P AB <1.0 NEG AI (<1.0 NEGATIVE); SCL-70 AB <1.0 NEG AI (<1.0 NEGATIVE); SM AB <1.0 NEG AI (<1.0 NEGATIVE); SM/RNP AB <1.0 NEG AI (<1.0 NEGATIVE)
[2017-07-15 03:50] LABS: MITOCHONDRIAL AB NEGATIVE (NEGATIVE); MITOCHONDRIAL AB TITER ND (<1:20)
== END 2017-07-13 13:50 | disposition home or self-care (01) | DRG 638 ==
LOC: NEPC 18:14 → NEDA 22:29 → OBSVTOIN 22:51 → NEDA 07-01 01:10 → NEDH 07-01 02:51 → N03A 07-01 10:47 → HCIS 07-02 15:00 → N07B 07-04 14:20
PROVIDERS: ADMIT Internal Medicine; ATTEND Hospitalist
PROC: 4B02XTZ Measurement of Cardiac Defibrillator, External Approach (ICD-10-PCS; 2017-07-01)
PROC: 0W9G3ZX Drainage of Peritoneal Cavity, Percutaneous Approach, Diagnostic (ICD-10-PCS; principal; 2017-07-02)
PROC: 0W9G3ZZ Drainage of Peritoneal Cavity, Percutaneous Approach (ICD-10-PCS; 2017-07-09)
PROC: 30233N1 Transfusion of Nonautologous Red Blood Cells into Peripheral Vein, Percutaneous Approach (ICD-10-PCS; 2017-07-10)
PROC: 0DB68ZX Excision of Stomach, Via Natural or Artificial Opening Endoscopic, Diagnostic (ICD-10-PCS; 2017-07-11)
PROC: 06L38CZ Occlusion of Esophageal Vein with Extraluminal Device, Via Natural or Artificial Opening Endoscopic (ICD-10-PCS; 2017-07-11)
DX: E11.649 Type 2 diabetes mellitus with hypoglycemia without coma (principal); K76.6 Portal hypertension; N17.9 Acute kidney failure, unspecified; D68.9 Coagulation defect, unspecified; I42.8 Other cardiomyopathies; I85.10 Secondary esophageal varices without bleeding; I50.9 Heart failure, unspecified; I11.0 Hypertensive heart disease with heart failure; R18.8 Other ascites; E87.1 Hypo-osmolality and hyponatremia; E87.5 Hyperkalemia; I48.0 Paroxysmal atrial fibrillation; R00.1 Bradycardia, unspecified; I25.10 Atherosclerotic heart disease of native coronary artery without angina pectoris; I34.0 Nonrheumatic mitral (valve) insufficiency; K21.9 Gastro-esophageal reflux disease without esophagitis; R60.0 Localized edema; K31.89 Other diseases of stomach and duodenum; D64.9 Anemia, unspecified; R04.0 Epistaxis; R41.82 Altered mental status, unspecified; R68.0 Hypothermia, not associated with low environmental temperature; K29.70 Gastritis, unspecified, without bleeding; F10.10 Alcohol abuse, uncomplicated; K59.00 Constipation, unspecified; Z95.810 Presence of automatic (implantable) cardiac defibrillator; Z79.84 Long term (current) use of oral hypoglycemic drugs; Z87.891 Personal history of nicotine dependence; E78.5 Hyperlipidemia, unspecified; I25.2 Old myocardial infarction
CPT/HCPCS: 36430; 49083; 70450; 71045; 76705; 76937; 80048; 80053; 80074; 80307; 81001; 82042; 82103; 82140; 82150; 82248; 82272; 82390; 82550; 82728; 82945; 82948; 83036; 83516; 83520; 83540; 83605; 83615; 83690; 83735; 84100; 84132; 84157; 84484; 85007; 85025; 85027; 85610; 85730; 86038; 86039; 86160; 86225; 86235; 86255; 86431; 86850; 86900; 86901; 86920; 87040; 87070; 87205; 87641; 88112; 88305; 88312; 89051; 93005; 93308; 96374; C1729; C9113; J0696; J1815; J1940; J2060; J2543; J3370; J3430; J7040; J7050; P9016; P9047